=== PATIENT | female | born 1950 | race African-American/Black ===

== ENCOUNTER 2017-06-21 21:00 | Emergency (ER) | payer MEDICARE, BC ==
[2017-06-21] MEDS ORDERED: LIDOCAINE 0.5%/EPINEPHRINE INJ 50 ML VIAL INJ ONE (22:58)
[2017-06-21] MEDS ORDERED: LIDOCAINE 2%/EPINEPHRINE INJ 20 ML VIAL INJ ONE (23:00)
--- NOTE | 2017-06-21 23:50 | ER Document Report ---
ED General - General Chief Complaint: Dialysis catheter site bleeding Stated Complaint: port bleeding Time Seen by Provider: 06/21/17 22:41 Notes: Patient is a 67-year-old female who presents with complaint of some bleeding from the insertion site of her temporary dialysis catheter. This was placed today at [place]. She says started bleeding on her way home from date. She continued to soak blood through gauze therefore eventually came to the ER. The catheter was placed by Dr. Colvin at [place]. Her precast molder is Dr. Leger. She is due for dialysis tomorrow. She is on Plavix. She held her Plavix today. Last time she had Plavix was yesterday. No other complaints at this time. She does have a posterior coronary artery stent that was placed 1 month ago and that is why she is on Plavix. TRAVEL OUTSIDE OF THE [place] IN LAST 30 DAYS: No - Related Data Allergies/Adverse Reactions: adhesive Allergy (Verified 06/21/17 22:25) hydrochlorothiazide Allergy (Verified 06/21/17 22:25) Iodine and Iodide Containing Produc Allergy (Verified 06/21/17 22:25) metoclopramide [From Reglan] Allergy (Verified 06/21/17 22:25) shellfish derived Allergy (Verified 06/21/17 22:25) Sulfa (Sulfonamide Antibiotics) Allergy (Verified 06/21/17 22:25) Past Medical History - Social History Smoking Status: Never Smoker Frequency of alcohol use: None Drug Abuse: None Family History: Reviewed & Not Pertinent Renal/ Medical History: Denies: Hx Peritoneal Dialysis Review of Systems - Review of Systems Notes: My Normal Review Basic REVIEW OF SYSTEMS: CONSTITUTIONAL : Denies fever, chills, or sweats. Denies recent illness. CARDIOVASCULAR: Denies chest pain. SKIN: Denies rash or skin lesions. NEUROLOGICAL: Denies altered mental status or loss of consciousness. ALL OTHER SYSTEMS REVIEWED AND NEGATIVE. Physical Exam - Vital signs Vitals: Temp Pulse Resp BP Pulse Ox 98.4 F 72 20 166/64 H 97 06/21/17 22:15 06/21/17 22:15 06/21/17 22:15 06/21/17 22:15 06/21/17 22:15 - Notes Notes: General Appearance: Well nourished, alert, cooperative, no acute distress, no obvious discomfort. Well-appearing. Vitals: reviewed, See vital signs table. Eyes: PERRL, EOMI, Conjuctiva clear Neck: Supple, no neck tenderness, Lungs: No wheezing, No rales, No rhonci, No accessory muscle use, good air exchange bilaterally. Heart: Normal rate, Regular rythm, No murmur, no rub Chest wall: Patient has a new temporary dialysis catheter placed in the right upper chest wall. She has slow venous oozing coming from the insertion site of the temporary dialysis catheter. Extremities: strength 5/5 in all extremities, good pulses in all extremities, no swelling or tenderness in the extremities, no edema. Skin: warm, dry, appropriate color, no rash Neuro: speech clear, oriented x 3, normal affect, responds appropriately to questions. Course - Re-evaluation Re-evalutation: 06/21/17 23:47 It has been 45 minutes since I injected lidocaine with epi around the insertion site of the Port-A-Cath and placed Surgifoam gauze over. Patient has had no further bleeding and site looks good. 06/21/17 23:57 Patient continues not have any bleeding around the catheter site. I did speak with Dr. Leger, patient's precast molder, who says that she can still receive dialysis through tomorrow. Encourage patient to return to the ER immediately if she has recurrent bleeding, any redness or swelling to the site, or if she has any further concerns. Patient agrees with plan will be discharged home. Dictation of this chart was performed using voice recognition software; therefore, there may be some unintended grammatical errors. - Vital Signs Vital signs: Temp Pulse Resp BP Pulse Ox 98.4 F 72 20 166/64 H 97 06/21/17 22:15 06/21/17 22:15 06/21/17 22:15 06/21/17 22:15 06/21/17 22:15 Discharge - Discharge Clinical Impression: Hemorrhage from dialysis catheter Condition: Good Disposition: HOME, SELF-CARE Additional Instructions: I did speak with Dr. Leger who says it is okay to have dialysis tomorrow. Please return to the ER if you have recurrent bleeding, redness or swelling around the catheter, or if you have any further concerns. Referrals: FELICITA HERNANDEZ, [Primary Care Provider] - Follow up as needed
[2017-06-22 00:25] VITALS: BP 178/71
== END 2017-06-22 00:23 | disposition home or self-care (01) ==
LOC: ER 21:00
DX: T82.838A Hemorrhage due to vascular prosthetic devices, implants and grafts, initial encounter (principal); Y84.1 Kidney dialysis as the cause of abnormal reaction of the patient, or of later complication, without mention of misadventure at the time of the procedure; Z95.5 Presence of coronary angioplasty implant and graft; Z79.02 Long term (current) use of antithrombotics/antiplatelets; Z91.048 Other nonmedicinal substance allergy status; Z88.8 Allergy status to other drugs, medicaments and biological substances; Z88.2 Allergy status to sulfonamides; Z91.013 Allergy to seafood
CPT/HCPCS: 99283; J3490

== ENCOUNTER 2017-10-28 12:24 | Emergency (ER) | payer MEDICARE, BC ==
--- NOTE | 2017-10-28 15:02 | ER Document Report ---
ED Medical Screen (RME) - General Chief Complaint: Fever Stated Complaint: FLU SYMPTOMS Time Seen by Provider: 10/28/17 14:52 Mode of Arrival: Ambulatory Information source: Patient Notes: 67 yr old female dialysis patient presents with right neck swelling sore throat. I have greeted and performed a rapid initial assessment of this patient. A comprehensive ED assessment and evaluation of the patient, analysis of test results and completion of the medical decision making process will be conducted by additional ED providers. PHYSICAL EXAMINATION: GENERAL: Well-appearing, well-nourished and in no acute distress. HEAD: Atraumatic, normocephalic. EYES: Pupils equal round extraocular movements intact, conjunctiva are normal. ENT: Nares patent right tonsillar exudate NECK: right neck mass LUNGS: No respiratory distress Musculoskeletal: Normal range of motion NEUROLOGICAL: Normal speech, normal gait. PSYCH: Normal mood, normal affect. SKIN: Warm, Dry, normal turgor, no rashes or lesions noted. TRAVEL OUTSIDE OF THE [place] IN LAST 30 DAYS: No - Related Data Allergies/Adverse Reactions: adhesive Allergy (Verified 10/28/17 12:27) hydrochlorothiazide Allergy (Verified 10/28/17 12:27) Iodine and Iodide Containing Produc Allergy (Verified 10/28/17 12:27) metoclopramide [From Reglan] Allergy (Verified 10/28/17 12:27) shellfish derived Allergy (Verified 10/28/17 12:27) Sulfa (Sulfonamide Antibiotics) Allergy (Verified 10/28/17 12:27) Past Medical History - Social History Chew tobacco use (# tins/day): No Frequency of alcohol use: None Drug Abuse: None Renal/ Medical History: Denies: Hx Peritoneal Dialysis Past Surgical History: Reports: Hx Cardiac Catheterization, Hx Orthopedic Surgery Physical Exam - Vital signs Vitals: Temp Pulse Resp BP Pulse Ox 99.8 F 84 18 115/72 99 10/28/17 12:43 10/28/17 12:43 10/28/17 12:43 10/28/17 12:43 10/28/17 12:43 Course - Vital Signs Vital signs: Temp Pulse Resp BP Pulse Ox 99.8 F 86 18 115/72 99 10/28/17 12:43 10/28/17 14:49 10/28/17 12:43 10/28/17 12:43 10/28/17 12:43
--- NOTE | 2017-10-28 15:32 | RADIOLOGY REPORT (SQ) ---
EXAM DESCRIPTION: CHEST PA/LAT COMPLETED DATE/TIME: 10/28/2017 3:21 pm REASON FOR STUDY: cough COMPARISON: 03/07/2007 EXAM PARAMETERS: NUMBER OF VIEWS: two views TECHNIQUE: Digital Frontal and Lateral radiographic views of the chest acquired. RADIATION DOSE: NA LIMITATIONS: none FINDINGS: LUNGS AND PLEURA: No opacities, masses or pneumothorax. No pleural effusion. MEDIASTINUM AND HILAR STRUCTURES: No masses or contour abnormalities. HEART AND VASCULAR STRUCTURES: Heart normal size. No evidence for failure. BONES: Renal osteodystrophy. HARDWARE: Vascular sheath subclavian. Stool lumen venous access catheter tip at the cavoatrial junc tion. OTHER: No other significant finding. IMPRESSION: No acute pulmonary disease. TECHNICAL DOCUMENTATION: JOB ID: [id number] [employer]- All Rights Reserved
[2017-10-28 15:36] LABS: A TYPE INFLUENZA AG NEGATIVE (NEGATIVE); B INFLUENZA AG NEGATIVE (NEGATIVE)
--- NOTE | 2017-10-28 15:41 | RADIOLOGY REPORT (SQ) ---
EXAM DESCRIPTION: CT SOFT TISSUE NECK WITHOUT COMPLETED DATE/TIME: 10/28/2017 3:29 pm REASON FOR STUDY: right neck mass COMPARISON: None. TECHNIQUE: Noncontrast scanning from skull base through lung apices with review of bone, soft tissue and lung windows. Reconstructed coronal and sagittal MPR images reviewed. All images stored on PAC S. All CT scanners at this facility use dose modulation, iterative reconstruction, and/or weight based d osing when appropriate to reduce radiation dose to as low as reasonably achievable (ALARA). [facility]: Dose Right [facility]: CareDose [facility]: Dose Right [facility]: Teradose 4D [facility]: [employer] RADIATION DOSE: CT Rad equipment meets quality standard of care and radiation dose reduction techniq ues were employed. CTDIvol: 14.7 mGy. DLP: 482 mGy-cm. mGy. LIMITATIONS: None. FINDINGS: SKULL BASE: Intact. MAJOR SALIVARY GLANDS: Mild asymmetric enlargement of the right submandibular gland with indistinct m argins. The left submandibular gland and the right and left parotid glands appear unremarkable. LYMPHADENOPATHY: No adenopathy. MUCOSAL MASSES OR ASYMMETRY: No mucosal masses or asymmetry. LARYNX/CORDS: No abnormal findings. LUNG APICES: Clear. BONES: Intact. Degenerative changes in the cervical spine THYROID: Normal size. No masses. PARANASAL SINUSES: Clear. OTHER: Mild edema/ inflammation in the submandibular subcutaneous fatty tissues. Left subclavian rachid nt. IMPRESSION: Mild inflammatory changes in the right submandibular gland suspicious for acute inflamma tion/ sialadenitis. No evidence of abscess or other soft tissue mass. No other significant findings . TECHNICAL DOCUMENTATION: JOB ID: [id number] Quality ID # [id number]: Final reports with documentation of one or more dose reduction techniques (e.g., Au tomated exposure control, adjustment of the mA and/or kV according to patient size, use of iterative reconstruction technique) 2010 [employer]- All Rights Reserved
[2017-10-28] MEDS ORDERED: PREDNISONE 20 MG TABLET PO ONE (16:17)
--- NOTE | 2017-10-28 16:18 | ER Document Report ---
ED General - General Chief Complaint: Fever Stated Complaint: FLU SYMPTOMS Time Seen by Provider: 10/28/17 14:52 Mode of Arrival: Ambulatory Notes: The patient is a 67-year-old female, past medical history ESRD (due for dialysis tomorrow), chronic bronchitis, presents with several days of a dry cough and right facial swelling that is worse when she eats. She was given antibiotics for a possible penumonia last week by her primary care physician without much relief of her symptoms. Patient denies fevers, neck stiffness, chest pain, shortness of breath, increased leg swelling, hemoptysis or rash. TRAVEL OUTSIDE OF THE [place] IN LAST 30 DAYS: No - Related Data Allergies/Adverse Reactions: adhesive Allergy (Verified 10/28/17 12:27) hydrochlorothiazide Allergy (Verified 10/28/17 12:27) Iodine and Iodide Containing Produc Allergy (Verified 10/28/17 12:27) metoclopramide [From Reglan] Allergy (Verified 10/28/17 12:27) shellfish derived Allergy (Verified 10/28/17 12:27) Sulfa (Sulfonamide Antibiotics) Allergy (Verified 10/28/17 12:27) Past Medical History - General Information source: Patient - Social History Smoking Status: Never Smoker Chew tobacco use (# tins/day): No Frequency of alcohol use: None Drug Abuse: None Family History: Reviewed & Not Pertinent Patient has suicidal ideation: No Patient has homicidal ideation: No Renal/ Medical History: Denies: Hx Peritoneal Dialysis Past Surgical History: Reports: Hx Cardiac Catheterization, Hx Orthopedic Surgery Review of Systems - Review of Systems Notes: REVIEW OF SYSTEMS: CONSTITUTIONAL: -fevers, -chills EENT: +right facial swelling, -eye pain, -difficulty swallowing, -nasal congestion CARDIOVASCULAR: -chest pain, -syncope. RESPIRATORY: +cough, -SOB GASTROINTESTINAL: -abdominal pain, -nausea, -vomiting, -diarrhea MUSCULOSKELETAL: -back pain, -neck pain SKIN: -rash or skin lesions. HEMATOLOGIC: -easy bruising or bleeding. LYMPHATIC: -swollen, enlarged glands. NEUROLOGICAL: -altered mental status or loss of consciousness, -headache, - neurologic symptoms PSYCHIATRIC: -anxiety, -depression. ALL OTHER SYSTEMS REVIEWED AND NEGATIVE. Physical Exam - Vital signs Vitals: Temp Pulse Resp BP Pulse Ox 99.8 F 84 18 115/72 99 10/28/17 12:43 01/05/18 12:43 10/28/17 12:43 10/28/17 12:43 10/28/17 12:43 - Notes Notes: PHYSICAL EXAMINATION: GENERAL: Well-appearing, well-nourished and in no acute distress. HEAD: Atraumatic, normocephalic. EYES: Pupils equal round and reactive to light, extraocular movements intact, sclera anicteric, conjunctiva are normal. ENT: swelling of right face and submandibular area, no stone seen in exit of parotid or submandibular ducts, nares patent, oropharynx clear without exudates. Moist mucous membranes. NECK: Normal range of motion, supple without lymphadenopathy LUNGS: Coarse breath sounds, no tachypnea. HEART: Regular rate and rhythm without murmurs ABDOMEN: Soft, nontender, normoactive bowel sounds. No guarding, no rebound. No masses appreciated. EXTREMITIES: Normal range of motion, no pitting or edema. No cyanosis. NEUROLOGICAL: Cranial nerves grossly intact. Normal speech, normal gait. Normal sensory and motor exams. PSYCH: Normal mood, normal affect. SKIN: Warm, Dry, normal turgor, no rashes or lesions noted. Course - Re-evaluation Re-evalutation: Patient with evidence of sialoadenitis on physical exam and CAT scan. No fevers. Instructed her to begin sialagogues and if the swelling worsens or she begins to develop a fever, begin to take clindamycin. She has coarse breath sounds and, with her known history of chronic bronchitis, will begin 5 days of prednisone and albuterol as needed. No shortness of breath and she is not hypoxic. Chest x-ray does not show any focal infiltrates and she is flu negative. Given strict return precautions and she understands. She has dialysis in the morning. - Vital Signs Vital signs: Temp Pulse Resp BP Pulse Ox 98.6 F 84 18 186/70 H 100 10/28/17 16:19 10/28/17 16:19 10/28/17 16:19 10/28/17 16:19 10/28/17 16:19 - Diagnostic Test Radiology reviewed: Image reviewed, Reports reviewed Radiology results interpreted by me: CXR: NAD Discharge - Discharge Clinical Impression: Bronchitis, Sialadenitis Condition: Stable Disposition: HOME, SELF-CARE Additional Instructions: Go to dialysis tomorrow. Eat sour lemon drops to help with the swelling of your salivary gland. If you begin to have fevers or worsening swelling, then begin clindamycin as directed. Take the full course of steroids and use albuterol every 4 hours as needed for any cough or wheezing. Follow with your primary care physician. BRONCHITIS WITH BRONCHOSPASM (WHEEZING): You have bronchitis with bronchospasm (wheezing). Sometimes people develop wheezing with a chest cold. This occurs either because of an underlying tendency toward asthma or because the virus itself irritates the bronchial tubes. This irritation causes cough, shortness of breath, and wheezing. Emergency treatment of bronchospasm may include adrenaline shots or bronchodilator aerosol. You may feel lightheaded and have a rapid pulse for an hour or two. Rest and get plenty of fluids. At home, we'll treat you with a bronchodilator inhaler. Corticosteroids may be required for some patients. Until you recover, avoid chemical fumes, dusts, pollens, and exercising in very cold or dry air. If you smoke, stop now! Most cases of bronchitis get better without antibiotics. We prescribe antibiotics when we believe bacteria are damaging your airways, or if there's high risk the bronchitis will worsen into pneumonia. Increase your fluid intake. A cool mist humidifier may make your lungs more comfortable. An expectorant (cough medicine that loosens phlegm) can help. Repeated episodes of bronchitis and bronchospasm may result in lung damage -- for example, chronic bronchitis, recurrent pneumonias, or emphysema. If you develop a fever, increased wheezing, chest pain, or severe shortness of breath, you should contact the doctor immediately. INHALED BRONCHODILATORS: You have received a treatment of and/or prescription for an inhaled bronchodilator -- a medication which stimulates the airways in the lung to dilate. This improves the flow of air in asthma, bronchitis, and emphysema. These medicines have some similarity to adrenaline, and can cause similar side effects: shakiness, racing heart, and a sense of nervousness. These side effects decrease with time. Contact your doctor if these side effects are severe. Do not over-use the medicine. Too-frequent use of the inhaler may make it ineffective. Call your doctor if the inhaler is not controlling your symptoms at the prescribed doses. STEROID MEDICATION: You have been given an injection of or oral medicine of the cortisone/ steroid class. This medication is used to control inflammation or allergy. Gurinder t is usually only given for a short period of time, until the acute process subsides. There are usually no side effects from short-term use of cortisone-like medications. Some persons feel an increased sense of well-being and are not sleepy at bedtime. Long-term use of cortisone medications is best avoided, unless required for a severe condition. If your condition does not remit, or relapses after the course of corticosteroid medication, you should consult your physician. USE OF ACETAMINOPHEN (Tylenol): Acetaminophen may be taken for pain relief or fever control. It's much safer than aspirin, offering a wider range of "safe" dosages. It is safe during . Some brand names are Tylenol, Panadol, Datril, Anacin 3, Tempra, and Liquiprin. Acetaminophen can be repeated every four hours. The following are maximum recommended dosages: >89 pounds or adults 650 mg to 900 mg Acetaminophen can be repeated every four hours. Maximum dose not to exceed 4000 mg a day. SMOKING: If you smoke, you should stop smoking. The tar and chemicals in cigarette smoke are harmful. Smoking has been shown to cause: emphysema chronic bronchitis lung cancer mouth and throat cancer stomach and pancreas cancer premature aging defects In addition, smoking increases ear and lung infections in children of smokers. FOLLOW-UP CARE: If you have been referred to a physician for follow-up care, call the physician s office for an appointment as you were instructed or within the next two days. If you experience worsening or a significant change in your symptoms, notify the physician immediately or return to the Emergency Department at any time for re-evaluation. Prescriptions: Clindamycin HCl 300 mg PO Q8H #21 capsule Prednisone [Deltasone 20 mg Tablet] 3 tab PO DAILY 4 Days tablet Forms: Elevated Blood Pressure Referrals: [facility] [Provider Group] - Follow up as needed
[2017-10-28 16:20] VITALS: BP 186/70
== END 2017-10-28 16:52 | disposition home or self-care (01) ==
LOC: ER 12:24
DX: J42 Unspecified chronic bronchitis (principal); K11.20 Sialoadenitis, unspecified; R50.9 Fever, unspecified; N18.6 End stage renal disease; R05 Cough; R22.0 Localized swelling, mass and lump, head
CPT/HCPCS: 99284; 87070; 87880; 87804; 71046; 70490; A9270; J7512

== ENCOUNTER 2017-12-07 07:36 | Inpatient (IN) | payer MEDICARE, BC ==
--- NOTE | 2017-12-07 07:50 | ER Document Report ---
ED General - General Stated Complaint: POSSIBLE STROKE TRAVEL OUTSIDE OF THE [place] IN LAST 30 DAYS: No - HPI Patient complains to provider of: Confusion speech changes Notes: Patient coming in today for feeling unwell and confusion and some speech changes. According to the patient she was feeling unwell yesterday was supposed to have an appointment to see a physician at [place] however came back home patient felt unwell last night as well as this morning states she was generally weak unable to get up for a total of one-point however when she did make it up and standing side to drive to her dialysis appointment. Patient states on the way that she became confused thought thinking that her blood sugar was low therefore went to a local [facility] to get something to eat at that time EMS was called. According EMS patient was having some speech impediments possible slurred speech. Upon my evaluation patient had waxing and waning of garbled speech patient looks to be mildly confused able to answer some questions clearly and go to garbled speech. Patient also stated she had a headache. Patient is hypertensive denies taking her medications today. Patient denies any trauma denies any fevers chills nausea vomiting. - Related Data Allergies/Adverse Reactions: adhesive Allergy (Verified 12/07/17 08:21) hydrochlorothiazide Allergy (Verified 12/07/17 08:21) Iodine and Iodide Containing Produc Allergy (Verified 12/07/17 08:21) metoclopramide [From Reglan] Allergy (Verified 12/07/17 08:21) shellfish derived Allergy (Verified 12/07/17 08:21) Sulfa (Sulfonamide Antibiotics) Allergy (Verified 12/07/17 08:21) Past Medical History - Social History Smoking Status: Unknown if Ever Smoked Family History: Reviewed & Not Pertinent Renal/ Medical History: Denies: Hx Peritoneal Dialysis Past Surgical History: Reports: Hx Cardiac Catheterization, Hx Orthopedic Surgery Review of Systems - Review of Systems Constitutional: No symptoms reported EENT: No symptoms reported Cardiovascular: No symptoms reported Respiratory: No symptoms reported Gastrointestinal: No symptoms reported Genitourinary: No symptoms reported Female Genitourinary: No symptoms reported Musculoskeletal: No symptoms reported Skin: No symptoms reported Hematologic/Lymphatic: No symptoms reported Neurological/Psychological: Headaches - Confusion speech changes Physical Exam - Vital signs Vitals: Pulse Ox 100 12/07/17 07:40 Interpretation: Normal - General General appearance: Appears well, Alert - HEENT Head: Normocephalic, Atraumatic Eyes: Normal Pupils: PERRL - Respiratory Respiratory status: No respiratory distress Chest status: Nontender Breath sounds: Normal Chest palpation: Normal Notes: There is catheter to the right upper chest no signs of infection - Cardiovascular Rhythm: Regular Heart sounds: Normal auscultation Murmur: No - Abdominal Inspection: Normal Distension: No distension Bowel sounds: Normal Tenderness: Nontender Organomegaly: No organomegaly - Back Back: Normal, Nontender - Extremities General upper extremity: Normal inspection, Nontender, Normal color, Normal ROM , Normal temperature General lower extremity: Normal inspection, Nontender, Normal color, Normal ROM , Normal temperature, Normal weight bearing. No: Laura's sign - Neurological Neuro grossly intact: Yes Cognition: Normal Herron Coma Scale Eye Opening: Spontaneous Alfonzo Coma Scale Verbal: Oriented Alfonzo Coma Scale Motor: Obeys Commands Alfonzo Coma Scale Total: 15 Speech: Normal - Patient seems to have some intermittent expressive aphasia with stuttering of speech patient on NIH score is able to explain the picture without difficulty however when reading sentences does have difficulty slight stuttering stating "I can read rather than this" stating the statement clearly. Motor strength normal: LUE, RUE, LLE, RLE Sensory: Normal Notes: Please refer to NIH score - Psychological Associated symptoms: Normal affect, Normal mood - Skin Skin Temperature: Warm Skin Moisture: Dry Skin Color: Normal Course - Re-evaluation Re-evalutation: 12/07/17 08:31 Patient is a end-stage renal disease patient on dialysis patient states night prior to arrival not feeling well states that she has weakness in the legs this morning woke up again weakness unable to get off the commode at time however was scheduled for dialysis therefore drove herself on the way to dialysis started feeling unwell again therefore pulled over a local [employer] because she thought sugar was getting low. Patient notified EMS to call EMS concern for garbled speech possible slurred speech. Upon my evaluation patient moving all 4 extremities NIH score was 0-1. Patient has intermittent garbled speech more confusion I think then actually slurring of words. Patient when reading pictures is able to tell me and explain the picture is able to read the sentences on the nih I have mild stuttering speech mild slurring of speech during this conversation. however states that she can read better than what she is doing right now patient has stuttering speech at that time. However as soon as we finished doing the NIH scale patient is able to tell me with great clarity that she was trying to go to her doctor's appointment at [place] yesterday when she started feeling unwell at that time and to return home.The speech impediment seems to be very intermittent with symptoms starting night prior and with a score of 0-1. Pt complains of headache with elevated bp. states did not take any medications the patient is no going to meet tpa criteria on set of symptoms night prior. Patient states she lives alone and currently do not have any family or witnesses at bedside. For the patient's past medical history there are multiple reasons for the patient to be confused think this is more the etiology. Again because patient started feeling "unwell" and still "feels unwell" since day prior did not think she is a candidate for TPA. 12/07/17 11:25 Patient confusion and speech has improved since lowering of her blood pressure. 12/07/17 11:33 MRI does not show any signs of acute stroke. Patient's feeling better after lowering of her blood pressure with labetalol. Patient resting currently now patient still has slight intermittent stuttering speech and some slight confusion no critical etiology seen on laboratory studies. Discussed with hospitalist and nephrology. Agreed to admit patient and follow the patient in consult. Patient now is able to tell me that her PCP is Dr. Cedeno at [facility] and states that her contact clerk is Dr. Leger. - Vital Signs Vital signs: Temp Pulse Resp BP Pulse Ox 97.0 F 82 12 156/67 H 100 12/07/17 08:04 12/07/17 10:45 12/07/17 12:01 12/07/17 12:01 12/07/17 12:01 - Laboratory Result Diagrams: 12/07/17 07:47 12/07/17 09:25 Laboratory results interpreted by me: 12/07/17 12/07/17 12/07/17 07:40 07:47 09:25 Hgb 11.7 L RDW 18.6 H Seg Neutrophils % 81.2 H Lymphocytes % 9.2 L Sodium 134.8 L Chloride 94 L BUN 56 H Creatinine 7.17 H Est GFR ( Amer) 7 L Est GFR (Non-Af Amer) 6 L Glucose 234 H POC Glucose 156 H Direct Bilirubin 0.5 H Critical Care Note - Critical Care Note Total time excluding time spent on procedures (mins): 35 Comments: Time spent for patient with possible strokelike symptoms according EMS performing full neurological exam and NIH score. Discharge - Discharge Clinical Impression: Confusion, Hypertensive urgency, End stage renal disease on dialysis Condition: Good Disposition: ADMITTED OBSERVATION Admitting Provider: Ke Gupta ED NIH Stroke Scale - NIH Stroke Scale *: 1. NIH scale should be completed with appropriate accompanying assessment tools. *: 2. The NIH should reflect what the patient is capable of doing and should not be coached by the clinician. 1a. Level of Consciousness: 0=Alert;keenly responsive -: 1=Drowsy -: 2=Obtunded -: 3=Coma/unresponsive or reflex to noxious stimuli. 1a. Responses: 0 1b. Orientation Questions: a. What month is it? -: b. How old are you? -: 0=Answers both questions correctly. -: 1=Answers one question correctly or patient is intubated or has orotracheal trauma. -: 2=Answers neither question correctly. 1b. Responses: 0 1c. Response to commands: a. Open and close eyes? -: b. Nutritionalist and release hand? -: Credit is given despite weakness. Demonstration of task is permitted. Substitute command if hands cannot be used. -: 0=Performs both tasks correctly -: 1=Performs one task correctly -: 2=Performs neither task correctly 1c. Responses: 0 2. Gaze: Establish eye contact and instruct patient to "Follow my finger" -: 0=Normal -: 1=Partial gaze palsy. Gaze is abnormal in one or both eyes, but where forced deviation or total gaze paresis is not present. -: 2=Forced deviation or total gaze paresis. 2. Responses: 0 3. Visual Mercado: Sees fingers in all four quadrants. -: 0=No visual loss. -: 1=Partial hemianopsia. -: 2=Complete hemianopsia. -: 3=Bilateral hemianopsia (including Cortical blindness) 3. Responses: 0 4. Facial Movement: Instruct patient to: -: a. Show me your teeth -: b. Raise your eyebrows -: c. Close your eyes -: d. Smile -: 0=Normal symmetrical movement -: 1=Minor paralysis (flattened nasolabial fold, asymmetry on smiling). -: 2=Partial paralysis (total or near total paralysis of lower face). -: 3=Complete paralysis of upper and lower face 4. Responses: 0 5. Motor functions (left arm): Alternate sides and extend each arm with palms down (90 degrees if sitting or 45 degrees for supine). -: 0=No drift;limb holds for full 10 seconds. -: 1=Drift; limb holds but drifts down before full 10 seconds, but does not hit bed. -: 2=Some effort against gravity; limb cannot get to or maintain position. -: 3=No effort against gravity; limb falls. -: 4=No movement. -: UN=Amputation, joint fusion, explain in comments. 5. Responses (left arm): 0 5. Motor Functions (right arm): Alternate sides and extend each arm with palms down (90 degrees if sitting or 45 degrees for supine). -: 0=No drift;limb holds for full 10 seconds. -: 1=Drift; limb holds but drifts down before full 10 seconds, but does not hit bed. -: 2=Some effort against gravity; limb cannot get to or maintain position. -: 3=No effort against gravity; limb falls. -: 4=No movement. -: UN=Amputation, joint fusion, explain in comments. 5. Responses (right arm): 0 6. Motor Functions (left leg): With patient lying supine, alternate sides and extend each leg (30 degrees always while supine). -: 0=No drift, leg holds position for full 5 seconds -: 1=Drift; leg falls before full 5 seconds but does not hit bed. -: 2=Some effort against gravity, leg falls to bed but some effort against gravity. -: 3=No effort against gravity, leg falls to bed immediately. -: 4=No movement. -: UN=Amputation, joint fusion; explain in comments. 6. Responses (left leg): 0 6. Motor Functions (right leg): With patient lying supine, alternate sides and extend each leg (30 degrees always while supine). -: 0=No drift, leg holds position for full 5 seconds -: 1=Drift; leg falls before full 5 seconds but does not hit bed. -: 2=Some effort against gravity, leg falls to bed but some effort against gravity. -: 3=No effort against gravity, leg falls to bed immediately. -: 4=No movement. -: UN=Amputation, joint fusion; explain in comments. 6. Responses (right leg): 0 7. Limb Ataxia: With eyes open instruct patient to: -: a. "Touch your finger to your nose". -: b. "Touch your heel to your grijalva" -: 0=Absent -: 1=Present in one limb. -: 2=Present in two limbs. -: UN=Amputation or joint fusion; explain in comments. 7. Responses: 0 8. Sensory: Test sensation using pinprick or noxious stimuli. Test as many body parts as possible. -: 0=Normal;no sensory loss -: 1=Mile to moderate sensory loss (patient feels pin prick but is less sharp on affected side). -: 2=Severe or total sensory loss. 8. Responses: 0 9. Best Language: Instruct patient to: -: a. "Describe what you see in this picture." -: b. "Name the items in this picture." -: c. "Read these sentences." -: 0=No aphasia, normal -: 1=Mild to moderate aphasia. -: 2=Severe aphasia -: 3=Mute, global aphasia, no usable speech or auditory comprehension. 9. Responses: 0 10. Articulation, Dysarthia: Instruct patient to: -: "Read these words" or "Repeat these words" -: 0=Normal -: 1=Mild to moderate; patient may slur some words but can be understood without difficulty. -: 2=Severe; patients speech so slurred as to be unintelligible in the absence of dysphasia. -: UN=Intubated or other physical barrier, explain in comments. 10. Responses: 1 11. Extinction or inattention: 0=No abnormality -: 1= Visual, tactile, auditory, spatial, or personal inattention or extinction to bilateral simulation in one or the sensory modalities. -: 2=Profound adia-inattention or adia-inattention to more than one modality; does not recognize own hand. 11. Responses: 0 Total Score: 1 Notes: Scored patient on 1 intermittent possible aphasia slurring speech.
[2017-12-07 08:02] LABS: INTERNATIONAL RATION (INR) 0.93
[2017-12-07 08:03] LABS: ABSOLUTE EOSINOPHILS # (AUTO) 0.1 10^3/uL (0.0-0.6); ABSOLUTE LYMPHOCYTES (AUTO) 0.8 10^3/uL (0.5-4.7); ABSOLUTE MONOCYTES (AUTO) 0.8 10^3/uL (0.1-1.4); ABSOLUTE NEUT (AUTO) 7.4 10^3/uL (1.7-8.2); BASOPHILS % (AUTO) 0.3 % (0-2); EOSINOPHILS % (AUTO) 1.1 % (0-6); HEMATOCRIT 36.1 % (36.0-47.0); HEMOGLOBIN 11.7 g/dL (12.0-15.5); LYMPHOCYTES % (AUTO) 9.2 % (13-45); MEAN CORPUSCULAR HGB CONC 32.4 g/dL (32.0-36.0); MEAN CORPUSCULAR VOLUME 86 fl (80-97); MONOCYTES % (AUTO) 8.2 % (3-13); PARTIAL THROMBOPLASTIN TIME 33.2 SEC (23.5-35.8); PLATELET COUNT 267 10^3/uL (150-450); RED BLOOD COUNT 4.19 10^6/uL (3.72-5.28); RED CELL DISTRIBUTION WIDTH 18.6 % (11.5-14.0); SEGMENTED NEUTROPHILS % (AUTO) 81.2 % (42-78); TOTAL CELLS COUNTED % (AUTO) 100 %; WHITE BLOOD COUNT 9.2 10^3/uL (4.0-10.5)
[2017-12-07 08:06] LABS: PROTHROMBIN TIME 13.1 SEC (11.4-15.4)
--- NOTE | 2017-12-07 08:14 | RADIOLOGY REPORT (SQ) ---
EXAM DESCRIPTION: CT HEAD WITHOUT COMPLETED DATE/TIME: 12/07/2017 8:00 am REASON FOR STUDY: bed t2 stroke alert COMPARISON: None. TECHNIQUE: Axial images acquired through the brain without intravenous contrast. Images reviewed wi th bone, brain and subdural windows. Images stored on PACS. All CT scanners at this facility use dose modulation, iterative reconstruction, and/or weight based d osing when appropriate to reduce radiation dose to as low as reasonably achievable (ALARA). [facility]: Dose Right [facility]: CareDose [facility]: Dose Right [facility]: Teradose 4D [facility]: Smart [facility] RADIATION DOSE: CT Rad equipment meets quality standard of care and radiation dose reduction techniq ues were employed. CTDIvol: 64.6 mGy. DLP: 1163 mGy-cm. mGy. LIMITATIONS: None. FINDINGS: VENTRICLES: Normal size and contour. CEREBRUM: No masses. No hemorrhage. No midline shift. No evidence for acute infarction. Minimal pa tchy predominantly deep periventricular low density regions. Suggestive of small vessel vasculopathy . CEREBELLUM: No masses. No hemorrhage. No alteration of density. No evidence for acute infarction. EXTRAAXIAL SPACES: No fluid collections. No masses. ORBITS AND GLOBE: No intra- or extraconal masses. Normal contour of globe without masses. CALVARIUM: No fracture. PARANASAL SINUSES: No fluid or mucosal thickening. SOFT TISSUES: No mass or hematoma. OTHER: No other significant finding. IMPRESSION: 1. Chronic small vessel disease is suggested. Otherwise, unremarkable CT of the brain w ithout contrast. Pertinent findings on the imaging study reported as a CRITICAL RESULT to QASIM VALERA DO at08:08 on 12/07/2017. Category of Critical Result: Stroke alert EVIDENCE OF ACUTE STROKE: NO. COMMENT: Quality ID # [id number]: Final reports with documentation of one or more dose reduction techniques (e.g., Automated exposure control, adjustment of the mA and/or kV according to patient size, use of iterative reconstruction technique) TECHNICAL DOCUMENTATION: JOB ID: [id number] [employer]- All Rights Reserved
[2017-12-07] MEDS ORDERED: ONDANSETRON HCL INJ/PF 4 MG/2 ML SDV IV ONE (08:20)
[2017-12-07] MEDS ORDERED: PROCHLORPERAZINE EDISYLATE INJ 10 MG/2 ML VIAL IV ONE (08:20)
[2017-12-07] MEDS ORDERED: LABETALOL HCL INJ 20 MG/4 ML DISP.SYRIN IV ONE (08:20)
--- NOTE | 2017-12-07 08:21 | RADIOLOGY REPORT (SQ) ---
EXAM DESCRIPTION: CHEST SINGLE VIEW COMPLETED DATE/TIME: 12/07/2017 7:59 am REASON FOR STUDY: bed t2 stroke alert COMPARISON: None. EXAM PARAMETERS: NUMBER OF VIEWS: One view. TECHNIQUE: Single frontal radiographic view of the chest acquired. RADIATION DOSE: NA LIMITATIONS: None. FINDINGS: LUNGS AND PLEURA: No acute infiltrates or effusions. MEDIASTINUM AND HILAR STRUCTURES: No masses. Contour normal. HEART AND VASCULAR STRUCTURES: Normal heart size aortic atherosclerosis. The pulmonary vasculature i s normal. BONES: Changes secondary to renal osteodystrophy by history. HARDWARE: None in the chest. OTHER: Dual lumen catheter again noted overlying distal SVC unchanged. Left subclavian stent in nancy ce. IMPRESSION: NO SIGNIFICANT INTERVAL CHANGE. TECHNICAL DOCUMENTATION: JOB ID: [id number] 2010 [employer]- All Rights Reserved
--- NOTE | 2017-12-07 09:41 | EKG REPORT ---
SEVERITY:- BORDERLINE ECG - SINUS RHYTHM BORDERLINE PROLONGED QT INTERVAL : Confirmed by: Malcolm Coles 07-Dec-2017 09:39:14
[2017-12-07 09:43] LABS: VENOUS BLOOD BASE EXCESS 0.8 mmol/L; VENOUS BLOOD HCO3 27.8 mmol/L (20-32); VENOUS BLOOD PCO2 55.6 mmHg (35-63); VENOUS BLOOD PH 7.32 (7.30-7.42)
[2017-12-07 09:58] LABS: ALANINE AMINOTRANSFERASE 24 U/L (9-52); ALBUMIN 3.8 g/dL (3.5-5.0); ALKALINE PHOSPHATASE 110 U/L (38-126); ANION GAP 16 (5-19); ASPARTATE AMINO TRANSFERASE 29 U/L (14-36); BILIRUBIN,DIRECT 0.5 mg/dL (0.0-0.4); BILIRUBIN,TOTAL 0.5 mg/dL (0.2-1.3); BLOOD UREA NITROGEN 56 mg/dL (7-20); CALCIUM 9.4 mg/dL (8.4-10.2); CARBON DIOXIDE 25 mmol/L (22-30); CHLORIDE 94 mmol/L (98-107); CREATINE KINASE 36 U/L (30-135); GLUCOSE 234 mg/dL (75-110); LIPASE 113.2 U/L (23-300); POTASSIUM 4.3 mmol/L (3.6-5.0); SODIUM 134.8 mmol/L (137-145); TOTAL PROTEIN 6.8 g/dL (6.3-8.2)
[2017-12-07 10:10] LABS: CREATINE KINASE MB 0.56 ng/mL (<4.55)
[2017-12-07 10:11] LABS: TROPONIN I < 0.012 ng/mL
--- NOTE | 2017-12-07 10:12 | RADIOLOGY REPORT (SQ) ---
EXAM DESCRIPTION: MRI HEAD WITHOUT COMPLETED DATE/TIME: 12/07/2017 9:57 am REASON FOR STUDY: confusion eval cva COMPARISON: CT 12/07/2017. TECHNIQUE: Multiplanar imaging includes non-contrasted T1, T2, FLAIR, and diffusion with ADC map seq uences. Images stored on PACS. LIMITATIONS: Mildly limiting motion artifact on some sequences. FINDINGS: ANATOMY: No anomalies. Normal vascular flow voids. Pituitary fossa normal. CSF SPACES: Age-appropriate appearance. No hydrocephalus, mass or abnormal fluid. No hemorrhage det ected. CEREBRUM: Sulci and gyri normal in size and contour. Spotty multifocal white matter signal on FLAIR imaging, bilateral moderate. Consistent with small vessel disease. No evidence of hemorrhage, mass, or extraaxial fluid collection. POSTERIOR FOSSA: No signal alteration. No hemorrhage. No edema, masses or mass effect. Internal kandace tory canals, cerebello-pontine angles, mastoids normal. DIFFUSION IMAGING: Negative for acute or sub-acute infarction. ORBITS: No masses. Globes normal. PARANASAL SINUSES: No fluid levels. Mucosa normal. OTHER: No other significant finding. IMPRESSION: 1. No evidence of acute abnormality. No recent CVA. 2. Chronic small vessel disease. EVIDENCE OF ACUTE STROKE: NO. TECHNICAL DOCUMENTATION: JOB ID: [id number] [employer]- All Rights Reserved
[2017-12-07] MEDS: OSELTAMIVIR PHOSPHATE 30 MG CAPSULE PO SCH (10:45)
[2017-12-07] MEDS ORDERED: ZOLPIDEM TARTRATE 5 MG TABLET PO PRN (11:48)
[2017-12-07] MEDS ORDERED: HYDRALAZINE HCL INJ/PF 20 MG/1 ML SDV IV ONE (12:45)
[2017-12-07] MEDS ORDERED: HYDRALAZINE HCL 50 MG TABLET PO SCH (14:00)
[2017-12-07] MEDS ORDERED: OSELTAMIVIR PHOSPHATE 30 MG CAPSULE PO ONE (15:00)
[2017-12-07] MEDS ORDERED: HEPARIN SOD (PORCINE) 1,000 UNIT/ML 10 ML VIAL IV PRN (15:57)
[2017-12-07] MEDS: ACETAMINOPHEN 325 MG TABLET PO PRN (16:45)
[2017-12-07] MEDS: ONDANSETRON HCL INJ/PF 4 MG/2 ML SDV IV PRN (16:46)
--- NOTE | 2017-12-07 17:52 | PDOC CONSULTATION ---
Consultation Consult Date: 12/07/17 Consult reason:: ESRD for HD History of Present Illness Admission Date/PCP: 12/07/17 13:15 FELICITA HERNANDEZ DO History of Present Illness: CODY SHAW is a 67 year old female with h/o DM, Hypertension, ESRD with FROYL[facility]/ Dr Leger was admitted with dyspnea and generalised weakness.She is currently being seen on dialysis and feels some better.She is able to talk without stoppage.She denies any chest pians,. She mentions that she has some shaking chills earlier yesterday and that there was some tenderness over her right IJ dialysis catheter. No c/o any redness or discharge. No definite c/o any focal weakness, Hypoglycemic symptoms. Past Medical History Cardiac Medical History: Reports: Hyperlipidemia, Hypertension-primary Endocrine Medical History: Reports: Diabetes Mellitus Type 1 Renal/ Medical History: Reports: End Stage Renal Disease, Secondary Hyperparathyroidism Hematology Medical History: Reports Anemia of Chronic Kidney Disease Past Surgical History Past Surgical History: Reports: Cardiac Catheterization, Cholecystectomy, Orthopedic Surgery Social History Smoking Status: Unknown if Ever Smoked Family History Parental Family History Reviewed: Yes Children Family History Reviewed: No Sibling(s) Family History Reviewed.: No Medication/Allergy Home Medications: Acyclovir [Zovirax 200 mg Capsule] 200 mg PO 5XD 12/07/17 Albuterol Sulfate [Proair HFA Inhalation Aerosol 8.5 gm MDI] 2 puff IH Q6HP PRN 12/07/17 Amlodipine Besylate [Norvasc 2.5 mg Tablet] 2.5 mg PO DAILY 12/07/17 Atorvastatin Calcium [Lipitor 40 mg Tablet] 40 mg PO QHS 12/07/17 Clopidogrel Bisulfate [Plavix 75 mg Tablet] 75 mg PO DAILY 12/07/17 Diazepam [Valium 5 mg Tablet] 2.5 mg PO HSP PRN 12/07/17 Docusate Sodium [Colace 100 mg Capsule] 100 mg PO BID 12/07/17 Escitalopram Oxalate [Lexapro] 20 mg PO DAILY 12/07/17 Famotidine [Pepcid 20 mg Tablet] 40 mg PO BID 12/07/17 Fluocinolone Acetonide 1 applic TOP BID 12/07/17 Hydromorphone HCl [Dilaudid 2 mg Tablet] 2 mg PO Q6HP PRN 12/07/17 Hydroxyzine HCl [Atarax 25 mg Tablet] 25 mg PO TIDP PRN 12/07/17 Ipratropium/Albuterol Sulfate [Duoneb 3 ml Ampul] 1 vial NEB Q4HP PRN 12/07/17 Levothyroxine Sodium [Synthroid] 137 mg PO Q6AM 12/07/17 Mirtazapine [Remeron 15 mg Tablet] 15 mg PO QHS 12/07/17 Nitroglycerin [Nitrostat 0.4 mg (1/150 Gr) Tabs 25/Bottle] 0.4 mg PO Q5MP PRN Nortriptyline HCl [Pamelor 10 mg Capsule] 10 mg PO QHS 12/07/17 Nystatin [Mycostatin Cream 15 gm] 1 applic TOP BID 12/07/17 Pantoprazole Sodium [Protonix] 40 mg PO BID 12/07/17 Polyethylene Glycol 3350 [Miralax Powder 17 gm/Packet] 1 packet PO BID 12/07/17 Tizanidine HCl [Zanaflex 4 mg Tablet] 4 mg PO Q8HP PRN 12/07/17 Allergies/Adverse Reactions: adhesive Allergy (Verified 12/07/17 08:21) hydrochlorothiazide Allergy (Verified 12/07/17 08:21) Iodine and Iodide Containing Produc Allergy (Verified 12/07/17 08:21) metoclopramide [From Reglan] Allergy (Verified 12/07/17 08:21) shellfish derived Allergy (Verified 12/07/17 08:21) Sulfa (Sulfonamide Antibiotics) Allergy (Verified 12/07/17 08:21) Review of Systems Constitutional: PRESENT: chills, fatigue, weakness. ABSENT: anorexia, fever(s) , headache(s), night sweats Nose, Mouth, and Throat: ABSENT: mouth pain, sore throat Cardiovascular: PRESENT: dyspnea on exertion. ABSENT: chest pain, edema, orthropnea, palpitations Gastrointestinal: ABSENT: abdominal pain, coffee ground emesis, diarrhea, dysphagia, heartburn, hematemesis, hematochezia, melena, nausea Genitourinary: PRESENT: other - anuric as she say she has bilateral nephrectomy. Neurological: ABSENT: confusion, convulsions, focal weakness, numbness, paresthesias Hematologic/Lymphatic: ABSENT: easy bruising, lymphadenopathy Physical Exam Vital Signs: Temp Pulse Resp BP Pulse Ox 97.0 F 82 12 156/67 H 100 12/07/17 08:04 12/07/17 10:45 12/07/17 12:01 12/07/17 12:01 12/07/17 12:01 General appearance: PRESENT: no acute distress Eye exam: PRESENT: conjunctiva pink, EOMI, PERRLA. ABSENT: conjunctival injection, nystagmus Ear exam: PRESENT: normal external ear exam Mouth exam: PRESENT: moist, neck supple Neck exam: PRESENT: other - Right IJ catheter.No redness or discharge atexit site.However she is mildly tender over the initial potion of the tunnel with no discharge expresed on milking it.. ABSENT: lymphadenopathy, meningismus, tenderness, thyromegaly, tracheal deviation Respiratory exam: PRESENT: clear to auscultation santhosh. ABSENT: crackles, rhonchi Cardiovascular exam: PRESENT: +S1, +S2, systolic murmur GI/Abdominal exam: PRESENT: normal bowel sounds, soft. ABSENT: organomegaly, tenderness Extremities exam: ABSENT: pedal edema Neurological exam: PRESENT: alert, awake, oriented to person, oriented to place Psychiatric exam: PRESENT: appropriate affect Skin exam: ABSENT: cyanosis, erythema, mottled Results Impressions: Chest X-Ray 12/07/17 07:45 IMPRESSION: NO SIGNIFICANT INTERVAL CHANGE. Head CT 12/07/17 07:45 IMPRESSION: 1. Chronic small vessel disease is suggested. Otherwise, unremarkable CT of the brain without contrast. Pertinent findings on the imaging study reported as a CRITICAL RESULT to QASIM VALERA DO at08:08 on 12/07/2017. Category of Critical Result: Stroke alert EVIDENCE OF ACUTE STROKE: NO. Head MRI 12/07/17 08:20 IMPRESSION: 1. No evidence of acute abnormality. No recent CVA. 2. Chronic small vessel disease. EVIDENCE OF ACUTE STROKE: NO. Assessment & Plan - Diagnosis (1) Weakness Plan: This symptom along with her chills and some tenderness over the initial potion of the the exiting tunnel is suspicious for possible catheter related infection.Will get blood c&s and load IV Vanc. Other DD includes the hypertensive emergency, TIA . She has no hypoglycemia as per initial labs here. Discussion done with Melvi machine stemmer. (2) Chills Plan: as mentioned earlier. (3) End stage renal disease on dialysis Plan: Patient seen on dialysis.Undergoing dialysis without any issues.Its being supervised to ensure safe and smooth procedure.VS stable .Orders were discussed with treating RN. (4) Hypertensive urgency Plan: Has improved with medications.
[2017-12-07] MEDS ORDERED: VANCOMYCIN HCL 1,000 MG in DEXTROSE 5%-WATER 250 ML IV PRN (18:00)
[2017-12-07] MEDS: LABETALOL HCL 200 MG TABLET PO SCH (19:09)
--- NOTE | 2017-12-07 19:17 | PDOC H&P ---
History of Present Illness Admission Date/PCP: 12/07/17 13:15 FELICITA HERNANDEZ DO Patient complains of: Confused today History of Present Illness: CODY SHAW is a 67 year old female to ED via ambulance due to confusion. Patient states that upon awakening she was not feeling like her usual self. She got ready to go to dialysis and is usually not take her usual medications. While she was in route in the car she felt kind of weak and with chills. She immediately went to [facility] since felt her blood sugar was low. Her blood sugar after eating was 106 Patient also complains of runny nose some cough. She admits taking the flu vaccine.On arrival to emergency room systolic blood pressure was higher than 200 and patient was medicated with labetalol [address] Carrion was consulted as patient gets dialysis Tuesday and Tuesday and he agreed to dialyzed. Patient was also evaluated through MRI out of concern of a TIA which was negative. Due to presentation the hospitalist service was consulted and prompted to admit Past Medical History Cardiac Medical History: Reports: Congestive Heart Failure, Hyperlipidema, Hypertension Pulmonary Medical History: Reports: None EENT Medical History: Reports: None Neurological Medical History: Reports: None Endocrine Medical History: Reports: Diabetes Mellitus Type 2 Renal/ Medical History: Reports: End Stage Renal Disease Malignancy Medical History: Reports: None GI Medical History: Reports: None Musculoskeltal Medical History: Reports: None Skin Medical History: Reports: None Psychiatric Medical History: Reports: None Traumatic Medical History: Reports: None Infectious Medical History: Reports: None Past Surgical History Past Surgical History: Reports: Cardiac Catheterization, Cholecystectomy, Orthopedic Surgery Social History Information Source: Patient Lives with: Alone Smoking Status: Never Smoker Frequency of Alcohol Use: None Hx Recreational Drug Use: No Drugs: None Hx Prescription Drug Abuse: Yes Family History Family History: Hypertension Parental Family History Reviewed: Yes Children Family History Reviewed: Yes Sibling(s) Family History Reviewed.: Yes Medication/Allergy Home Medications: Acyclovir [Zovirax 200 mg Capsule] 200 mg PO 5XD 12/07/17 Albuterol Sulfate [Proair HFA Inhalation Aerosol 8.5 gm MDI] 2 puff IH Q6HP PRN 12/07/17 Amlodipine Besylate [Norvasc 2.5 mg Tablet] 2.5 mg PO DAILY 12/07/17 Atorvastatin Calcium [Lipitor 40 mg Tablet] 40 mg PO QHS 12/07/17 Clopidogrel Bisulfate [Plavix 75 mg Tablet] 75 mg PO DAILY 12/07/17 Diazepam [Valium 5 mg Tablet] 2.5 mg PO HSP PRN 12/07/17 Docusate Sodium [Colace 100 mg Capsule] 100 mg PO BID 12/07/17 Escitalopram Oxalate [Lexapro] 20 mg PO DAILY 12/07/17 Famotidine [Pepcid 20 mg Tablet] 40 mg PO BID 12/07/17 Fluocinolone Acetonide 1 applic TOP BID 12/07/17 Hydromorphone HCl [Dilaudid 2 mg Tablet] 2 mg PO Q6HP PRN 12/07/17 Hydroxyzine HCl [Atarax 25 mg Tablet] 25 mg PO TIDP PRN 12/07/17 Ipratropium/Albuterol Sulfate [Duoneb 3 ml Ampul] 1 vial NEB Q4HP PRN 12/07/17 Levothyroxine Sodium [Synthroid] 137 mg PO Q6AM 12/07/17 Mirtazapine [Remeron 15 mg Tablet] 15 mg PO QHS 12/07/17 Nitroglycerin [Nitrostat 0.4 mg (1/150 Gr) Tabs 25/Bottle] 0.4 mg PO Q5MP PRN Nortriptyline HCl [Pamelor 10 mg Capsule] 10 mg PO QHS 12/07/17 Nystatin [Mycostatin Cream 15 gm] 1 applic TOP BID 12/07/17 Pantoprazole Sodium [Protonix] 40 mg PO BID 12/07/17 Polyethylene Glycol 3350 [Miralax Powder 17 gm/Packet] 1 packet PO BID 12/07/17 Tizanidine HCl [Zanaflex 4 mg Tablet] 4 mg PO Q8HP PRN 12/07/17 Allergies/Adverse Reactions: adhesive Allergy (Verified 12/07/17 08:21) hydrochlorothiazide Allergy (Verified 12/07/17 08:21) Iodine and Iodide Containing Produc Allergy (Verified 12/07/17 08:21) metoclopramide [From Reglan] Allergy (Verified 12/07/17 08:21) shellfish derived Allergy (Verified 12/07/17 08:21) Sulfa (Sulfonamide Antibiotics) Allergy (Verified 12/07/17 08:21) Review of Systems Constitutional: PRESENT: headache(s), weakness Nose, Mouth, and Throat: PRESENT: sore throat Cardiovascular: ABSENT: chest pain, dyspnea on exertion, orthropnea Respiratory: PRESENT: cough. ABSENT: dyspnea Gastrointestinal: PRESENT: nausea Genitourinary: ABSENT: dysuria, hematuria Musculoskeletal: ABSENT: joint swelling Neurological: PRESENT: confusion, weakness Psychiatric: ABSENT: depression, homidical ideation Physical Exam Vital Signs: Temp Pulse Resp BP Pulse Ox 97.0 F 82 12 156/67 H 100 12/07/17 08:04 12/07/17 10:45 12/07/17 12:01 12/07/17 12:01 12/07/17 12:01 General appearance: PRESENT: cooperative, thin Head exam: PRESENT: atraumatic, normocephalic Eye exam: PRESENT: conjunctiva pink, EOMI, PERRLA Ear exam: PRESENT: normal external ear exam Mouth exam: PRESENT: moist Neck exam: PRESENT: full ROM. ABSENT: JVD, lymphadenopathy, tenderness Respiratory exam: PRESENT: clear to auscultation santhosh Cardiovascular exam: PRESENT: RRR. ABSENT: diastolic murmur, systolic murmur Vascular exam: PRESENT: normal capillary refill GI/Abdominal exam: PRESENT: normal bowel sounds, soft. ABSENT: tenderness Rectal exam: PRESENT: deferred Extremities exam: ABSENT: full ROM, joint swelling, pedal edema Neurological exam: PRESENT: alert, awake, oriented to person, oriented to place , oriented to time, oriented to situation Psychiatric exam: PRESENT: appropriate affect, normal mood Skin exam: PRESENT: intact, normal color Results Impressions: Chest X-Ray 12/07/17 07:45 IMPRESSION: NO SIGNIFICANT INTERVAL CHANGE. Head CT 12/07/17 07:45 IMPRESSION: 1. Chronic small vessel disease is suggested. Otherwise, unremarkable CT of the brain without contrast. Pertinent findings on the imaging study reported as a CRITICAL RESULT to QASIM VALERA DO at08:08 on 12/07/2017. Category of Critical Result: Stroke alert EVIDENCE OF ACUTE STROKE: NO. Head MRI 12/07/17 08:20 IMPRESSION: 1. No evidence of acute abnormality. No recent CVA. 2. Chronic small vessel disease. EVIDENCE OF ACUTE STROKE: NO. Assessment & Plan - Diagnosis (1) Hypertensive encephalopathy Is this a current diagnosis for this admission?: Yes Plan: Likely presentation relates to hypertensive encephalopathy however I am also concerned that patient had a transient hypoglycemic episode which render her weak and confused. Patient will be admitted to telemetry unit and antihypertensive medication will be adjusted (2) ESRD (end stage renal disease) on dialysis Is this a current diagnosis for this admission?: Yes Plan: Patient getting dialysis while being interviewed (3) Diabetes Qualifiers: Diabetes mellitus type: type 2 Diabetes mellitus complication status: with circulatory complication Diabetes mellitus complication detail: with other circulatory complications Diabetes mellitus shelter insulin use: with flight agent use Qualified Code(s): E11.59 - Type 2 diabetes mellitus with other circulatory complications; Z79.4 - prison (current) use of insulin; Z79.4 - studio camera operator (current) use of insulin; Z79.4 - prison (current) use of insulin; Z79.4 - studio camera operator (current) use of insulin Is this a current diagnosis for this admission?: Yes Plan: Will place on Humalog sliding scale with bedside glucose before meals and at bedtime (4) Hypertensive urgency Is this a current diagnosis for this admission?: Yes Plan: Patient will be placed on Norvasc, hydralazine and labetalol - Time Time Spent: 50 to 70 Minutes Medications reviewed and adjusted accordingly: Yes Anticipated discharge: Home with Homehealth Within: within 24 hours - Inpatient Certification Based on my medical assessment, after consideration of the patient's comorbidities, presenting symptoms, or acuity I expect that the services needed warrant INPATIENT care.: No I certify that my determination is in accordance with my understanding of Medicare's requirements for reasonable and necessary INPATIENT services [42 CFR 412.3e].: Yes Medical Necessity: Need Close Monitoring Due to Risk of Patient Decompensation, Need For Continuous Telemetry Monitoring
[2017-12-07] MEDS ORDERED: GLUCAGON,HUMAN RECOMB 1 MG INJ IM PRN (19:18)
[2017-12-07] MEDS ORDERED: DEXTROSE 40% GEL 15 GM TUBE PO PRN ×2 (19:18)
[2017-12-07] MEDS ORDERED: DEXTROSE 50%-WATER 25 GM/50 ML DISP.SYRIN IV PRN ×2 (19:18)
[2017-12-07] MEDS: INSULIN LISPRO 100 UNIT/ML 3 ML VIAL SUBCUT PRN (19:20)
[2017-12-07] MEDS: ATORVASTATIN CALCIUM 40 MG TABLET PO SCH (22:46)
[2017-12-07] MEDS: HEPARIN SOD (PORCINE) 5,000 UNIT/ML 1 ML SYRINGE SUBCUT SCH (22:46)
[2017-12-08] MEDS: HYDRALAZINE HCL 50 MG TABLET PO SCH ×2 (04:48→05:02)
[2017-12-08] MEDS: LABETALOL HCL 200 MG TABLET PO SCH ×2 (04:48→05:02)
[2017-12-08] MEDS: ONDANSETRON HCL INJ/PF 4 MG/2 ML SDV IV PRN ×2 (05:02→23:20)
[2017-12-08 07:00] LABS: ANION GAP 13 (5-19); BLOOD UREA NITROGEN 39 mg/dL (7-20); CALCIUM 8.9 mg/dL (8.4-10.2); CARBON DIOXIDE 26 mmol/L (22-30); CHLORIDE 96 mmol/L (98-107); GLUCOSE 122 mg/dL (75-110); POTASSIUM 4.4 mmol/L (3.6-5.0); SODIUM 134.6 mmol/L (137-145)
[2017-12-08] MEDS ORDERED: HYDRALAZINE HCL INJ/PF 20 MG/1 ML SDV IV PRN ×2 (08:16→14:30)
[2017-12-08] MEDS ORDERED: AMLODIPINE BESYLATE 10 MG TABLET PO SCH ×2 (10:00)
[2017-12-08] MEDS: CLOPIDOGREL BISULFATE 75 MG TABLET PO SCH (10:23)
[2017-12-08] MEDS: DOCUSATE SODIUM 100 MG CAPSULE PO SCH (10:23)
[2017-12-08] MEDS: HEPARIN SOD (PORCINE) 5,000 UNIT/ML 1 ML SYRINGE SUBCUT SCH ×2 (10:25→21:15)
--- NOTE | 2017-12-08 12:47 | PDOC PROGRESS REPORT ---
Subjective Progress Note for:: 12/08/17 Subjective:: Patient refers that she is feeling back to normal. States she always has soreness in the area where she had the dialysis cath. Review of system All organ systems evaluated and negative except as in subjective All significant laboratories and diagnostics have been reviewed Reason For Visit: HYPERTENSIVE URGENCY,HYPERTENSIVE ENCEPHALOPATHY Physical Exam Vital Signs: Temp Pulse Resp BP Pulse Ox 97.8 F 68 18 160/68 H 100 12/08/17 04:19 12/08/17 04:19 12/08/17 04:19 12/08/17 04:19 12/08/17 04:19 Intake & Output 12/06/17 12/07/17 12/08/17 06:59 06:59 06:59 Intake Total 0 Output Total 2700 Balance -2700 Weight 74.4 kg General appearance: PRESENT: cooperative, obese Head exam: PRESENT: atraumatic, normocephalic Eye exam: PRESENT: conjunctiva pink, EOMI, PERRLA Ear exam: PRESENT: normal external ear exam, TM's normal bilaterally Mouth exam: PRESENT: moist Teeth exam: PRESENT: poor dentation Neck exam: PRESENT: full ROM. ABSENT: JVD, lymphadenopathy, tenderness Respiratory exam: PRESENT: clear to auscultation santhosh Cardiovascular exam: PRESENT: RRR. ABSENT: diastolic murmur, systolic murmur Vascular exam: PRESENT: normal capillary refill GI/Abdominal exam: PRESENT: normal bowel sounds, soft. ABSENT: tenderness Extremities exam: PRESENT: full ROM. ABSENT: pedal edema Musculoskeletal exam: PRESENT: ambulatory, full ROM Neurological exam: PRESENT: alert, awake, oriented to person, oriented to place , oriented to time, oriented to situation, CN II-XII grossly intact Psychiatric exam: PRESENT: appropriate affect, normal mood Skin exam: PRESENT: intact, normal color Results Impressions: Chest X-Ray 12/07/17 07:45 IMPRESSION: NO SIGNIFICANT INTERVAL CHANGE. Head CT 12/07/17 07:45 IMPRESSION: 1. Chronic small vessel disease is suggested. Otherwise, unremarkable CT of the brain without contrast. Pertinent findings on the imaging study reported as a CRITICAL RESULT to QASIM VALERA DO at08:08 on 12/07/2017. Category of Critical Result: Stroke alert EVIDENCE OF ACUTE STROKE: NO. Head MRI 12/07/17 08:20 IMPRESSION: 1. No evidence of acute abnormality. No recent CVA. 2. Chronic small vessel disease. EVIDENCE OF ACUTE STROKE: NO. Assessment & Plan - Diagnosis (1) Hypertensive encephalopathy Is this a current diagnosis for this admission?: Yes Plan: Likely presentation relates to hypertensive encephalopathy however I am also concerned that patient had a transient hypoglycemic episode which render her weak and confused. Was started on vancomycin by Dr. Carrion since he was concerned about possible infection of the dialysis cath. However upon further questioning patient she is always tender in that area. Blood cultures are pending (2) ESRD (end stage renal disease) on dialysis Is this a current diagnosis for this admission?: Yes Plan: As per renal (3) Diabetes Qualifiers: Diabetes mellitus type: type 2 Diabetes mellitus complication status: with circulatory complication Diabetes mellitus complication detail: with other circulatory complications Diabetes mellitus longterm insulin use: with superintendent marine oil terminal use Qualified Code(s): E11.59 - Type 2 diabetes mellitus with other circulatory complications; Z79.4 - continuous churn buttermaker (current) use of insulin; Z79.4 - continuous churn buttermaker (current) use of insulin; Z79.4 - nursing home (current) use of insulin; Z79.4 - continuous churn buttermaker (current) use of insulin Is this a current diagnosis for this admission?: Yes Plan: Continue Humalog sliding scale with bedside glucose before meals and at bedtime (4) Hypertensive urgency Is this a current diagnosis for this admission?: Yes Plan: Resolved. Will adjust antihypertensive regimen order on admission and will keep her on Norvasc 5 mg p.o. daily with hydralazine IV for rescue - Time Time Spent with patient: Less than 15 minutes Medications reviewed and adjusted accordingly: Yes Anticipated discharge: Home with Homehealth Within: within 24 hours - Inpatient Certification Based on my medical assessment, after consideration of the patient's comorbidities, presenting symptoms, or acuity I expect that the services needed warrant INPATIENT care.: Yes I certify that my determination is in accordance with my understanding of Medicare's requirements for reasonable and necessary INPATIENT services [42 CFR 412.3e].: Yes Medical Necessity: Need Close Monitoring Due to Risk of Patient Decompensation, Need For Continuous Telemetry Monitoring
[2017-12-08] MEDS: ACETAMINOPHEN 325 MG TABLET PO PRN (13:39)
[2017-12-08] MEDS ORDERED: ACETAMINOPHEN 325 MG TABLET PO PRN (14:30)
[2017-12-08] MEDS: INSULIN LISPRO 100 UNIT/ML 3 ML VIAL SUBCUT PRN (18:53)
--- NOTE | 2017-12-08 20:30 | PDOC PROGRESS REPORT ---
Subjective Progress Note for:: 12/08/17 Subjective:: Patient was sitting up on the side of her bed when I went to examine her. She at the time had no complaints. She denies chest pain or shortness of breath. She feels a lot stronger than when she initially came in to the hospital. Reason For Visit: ENCEPHALOPATHY Physical Exam Vital Signs: Temp Pulse Resp BP Pulse Ox 98.2 F 75 18 144/82 H 100 12/08/17 15:52 12/08/17 15:52 12/08/17 15:52 12/08/17 15:52 12/08/17 15:52 Intake & Output 12/07/17 12/08/17 12/09/17 06:59 06:59 06:59 Intake Total 1170 Balance 1170 General appearance: PRESENT: no acute distress, well-developed, well-nourished Mouth exam: PRESENT: moist, neck supple Respiratory exam: PRESENT: clear to auscultation santhosh. ABSENT: accessory muscle use, crackles, rales, rhonchi, wheezes Cardiovascular exam: PRESENT: +S1, +S2, systolic murmur GI/Abdominal exam: PRESENT: normal bowel sounds, soft. ABSENT: organomegaly, tenderness Extremities exam: ABSENT: pedal edema, tenderness Musculoskeletal exam: PRESENT: normal inspection. ABSENT: tenderness Neurological exam: PRESENT: alert, awake, oriented to person, oriented to place , oriented to time, oriented to situation Psychiatric exam: PRESENT: appropriate affect, normal mood Skin exam: PRESENT: dry, intact, warm Results Impressions: Chest X-Ray 12/07/17 07:45 IMPRESSION: NO SIGNIFICANT INTERVAL CHANGE. Head CT 12/07/17 07:45 IMPRESSION: 1. Chronic small vessel disease is suggested. Otherwise, unremarkable CT of the brain without contrast. Pertinent findings on the imaging study reported as a CRITICAL RESULT to QASIM AVLERA DO at08:08 on 12/07/2017. Category of Critical Result: Stroke alert EVIDENCE OF ACUTE STROKE: NO. Head MRI 12/07/17 08:20 IMPRESSION: 1. No evidence of acute abnormality. No recent CVA. 2. Chronic small vessel disease. EVIDENCE OF ACUTE STROKE: NO. Assessment & Plan - Diagnosis (1) ESRD (end stage renal disease) on dialysis Is this a current diagnosis for this admission?: Yes Plan: Will arrange for dialysis tomorrow morning. Currently potassium is controlled and does not appear fluid overloaded. (2) Weakness Plan: improved after receiving some antibiotics and dialysis. (3) Chills Plan: currently no complaints of chills. (4) Hypertensive urgency Is this a current diagnosis for this admission?: Yes Plan: currently controlled - Notes Notes: Patients case and plan was discussed with Dr. Carrion.
[2017-12-08] MEDS: ATORVASTATIN CALCIUM 40 MG TABLET PO SCH (21:15)
[2017-12-08] MEDS: OXYCODONE-ACETAMINOPHEN 5-325 MG TABLET PO PRN (21:18)
[2017-12-09] MEDS ORDERED: HEPARIN SOD (PORCINE) 1,000 UNIT/ML 10 ML VIAL IV PRN (05:00)
[2017-12-09 05:30] LABS: ABSOLUTE BASOPHILS # (AUTO) 0.1 10^3/uL (0.0-0.2); ABSOLUTE EOSINOPHILS # (AUTO) 0.1 10^3/uL (0.0-0.6); ABSOLUTE LYMPHOCYTES (AUTO) 1.1 10^3/uL (0.5-4.7); ABSOLUTE MONOCYTES (AUTO) 0.4 10^3/uL (0.1-1.4); ABSOLUTE NEUT (AUTO) 4.8 10^3/uL (1.7-8.2); BASOPHILS % (AUTO) 0.9 % (0-2); EOSINOPHILS % (AUTO) 1.6 % (0-6); HEMATOCRIT 32.5 % (36.0-47.0); HEMOGLOBIN 10.5 g/dL (12.0-15.5); LYMPHOCYTES % (AUTO) 17.4 % (13-45); MEAN CORPUSCULAR HEMOGLOBIN 27.7 pg (27.0-33.4); MEAN CORPUSCULAR HGB CONC 32.3 g/dL (32.0-36.0); MEAN CORPUSCULAR VOLUME 86 fl (80-97); MONOCYTES % (AUTO) 6.6 % (3-13); PLATELET COUNT 198 10^3/uL (150-450); RED BLOOD COUNT 3.79 10^6/uL (3.72-5.28); RED CELL DISTRIBUTION WIDTH 18.6 % (11.5-14.0); SEGMENTED NEUTROPHILS % (AUTO) 73.5 % (42-78); TOTAL CELLS COUNTED % (AUTO) 100 %; WHITE BLOOD COUNT 6.6 10^3/uL (4.0-10.5)
[2017-12-09 05:31] LABS: ANION GAP 17 (5-19); BLOOD UREA NITROGEN 50 mg/dL (7-20); CALCIUM 9.4 mg/dL (8.4-10.2); CARBON DIOXIDE 24 mmol/L (22-30); CHLORIDE 93 mmol/L (98-107); GLUCOSE 243 mg/dL (75-110); SODIUM 133.8 mmol/L (137-145)
[2017-12-09] MEDS: ONDANSETRON HCL INJ/PF 4 MG/2 ML SDV IV PRN ×3 (05:38→21:19)
[2017-12-09] MEDS: INSULIN LISPRO 100 UNIT/ML 3 ML VIAL SUBCUT PRN ×2 (05:38→18:22)
[2017-12-09] MEDS: OXYCODONE-ACETAMINOPHEN 5-325 MG TABLET PO PRN ×2 (07:28→19:19)
--- NOTE | 2017-12-09 11:07 | PDOC PROGRESS REPORT ---
Subjective Progress Note for:: 12/09/17 Reason For Visit: Seen today on dialysis. She is undergoing dialysis without any issues. She is very happy. She denies any history of chest pains, shortness of breath. Good appetite. No complaints of any headaches or focal deficits. Labs and medications were reviewed with her. Orders were discussed with the treating dialysis nurse. Physical Exam Vital Signs: Temp Pulse Resp BP Pulse Ox 97.3 F 68 12 165/69 H 100 12/09/17 03:34 12/09/17 07:00 12/09/17 03:34 12/09/17 03:34 12/09/17 03:34 Intake & Output 12/08/17 12/09/17 12/10/17 06:59 06:59 06:59 Intake Total 1870 Balance 1870 Weight 77.9 kg General appearance: PRESENT: no acute distress Respiratory exam: PRESENT: clear to auscultation santhosh, symmetrical. ABSENT: crackles Cardiovascular exam: PRESENT: +S1, +S2, systolic murmur GI/Abdominal exam: PRESENT: normal bowel sounds, soft. ABSENT: organomegaly, tenderness Extremities exam: ABSENT: pedal edema Neurological exam: PRESENT: alert, awake, oriented to person, oriented to place Skin exam: ABSENT: cyanosis, mottled Results Laboratory Results: 12/09/17 04:37 12/09/17 04:37 12/09/17 12/09/17 04:37 04:37 WBC 6.6 RBC 3.79 Hgb 10.5 L Hct 32.5 L MCV 86 MCH 27.7 MCHC 32.3 RDW 18.6 H Plt Count 198 Seg Neutrophils % 73.5 Lymphocytes % 17.4 Monocytes % 6.6 Eosinophils % 1.6 Basophils % 0.9 Absolute Neutrophils 4.8 Absolute Lymphocytes 1.1 Absolute Monocytes 0.4 Absolute Eosinophils 0.1 Absolute Basophils 0.1 Sodium 133.8 L Potassium 5.0 Chloride 93 L Carbon Dioxide 24 Anion Gap 17 BUN 50 H Creatinine 7.41 H Est GFR ( Amer) 7 L Est GFR (Non-Af Amer) 6 L Glucose 243 H Calcium 9.4 Impressions: Chest X-Ray 12/07/17 07:45 IMPRESSION: NO SIGNIFICANT INTERVAL CHANGE. Head CT 12/07/17 07:45 IMPRESSION: 1. Chronic small vessel disease is suggested. Otherwise, unremarkable CT of the brain without contrast. Pertinent findings on the imaging study reported as a CRITICAL RESULT to QASIM VALERA DO at08:08 on 12/07/2017. Category of Critical Result: Stroke alert EVIDENCE OF ACUTE STROKE: NO. Head MRI 12/07/17 08:20 IMPRESSION: 1. No evidence of acute abnormality. No recent CVA. 2. Chronic small vessel disease. EVIDENCE OF ACUTE STROKE: NO. Assessment & Plan - Diagnosis (1) Weakness Plan: Resolving. (2) Chills Plan: Had initial suspicion of possible catheter related sepsis. However microbiology shows no growth and blood cultures. Therefore will not proceed with any further IV antibiotics. (3) End stage renal disease on dialysis Plan: Undergoing dialysis without any issues. Is being supervised to ensure safe and smooth procedure. Vital signs are stable. Plan to remove around 1.5 L of fluid. Orders were discussed with the treating nurse. (4) Hypertensive urgency Is this a current diagnosis for this admission?: Yes Plan: Relatively controlled. See the response to hemodialysis. Monitor.
[2017-12-09] MEDS: DOCUSATE SODIUM 100 MG CAPSULE PO SCH (13:00)
[2017-12-09] MEDS: CLOPIDOGREL BISULFATE 75 MG TABLET PO SCH (13:00)
[2017-12-09] MEDS: OSELTAMIVIR PHOSPHATE 30 MG CAPSULE PO SCH (13:01)
[2017-12-09] MEDS: AMLODIPINE BESYLATE 5 MG TABLET PO SCH (13:01)
[2017-12-09] MEDS: HEPARIN SOD (PORCINE) 5,000 UNIT/ML 1 ML SYRINGE SUBCUT SCH ×2 (13:01→21:20)
--- NOTE | 2017-12-09 16:43 | PDOC PROGRESS REPORT ---
Subjective Progress Note for:: 12/09/17 Subjective:: Patient refers that he had a similar episode likely she had to go to [place]. She began sweating and having chills. Nurse checked her blood sugar and it was low. Otherwise no other complaints Review of system All organ systems evaluated and negative except as in subjective All significant laboratories and diagnostics have been reviewed Reason For Visit: ENCEPHALOPATHY Physical Exam Vital Signs: Temp Pulse Resp BP Pulse Ox 97.3 F 67 12 165/69 H 100 12/09/17 03:34 12/09/17 03:34 12/09/17 03:34 12/09/17 03:34 12/09/17 03:34 Intake & Output 12/08/17 12/09/17 12/10/17 06:59 06:59 06:59 Intake Total 1870 Balance 1870 Weight 77.9 kg General appearance: PRESENT: cooperative, obese Head exam: PRESENT: atraumatic, normocephalic Eye exam: PRESENT: conjunctiva pink, EOMI, PERRLA Ear exam: PRESENT: normal external ear exam Mouth exam: PRESENT: moist Teeth exam: PRESENT: poor dentation Neck exam: PRESENT: full ROM. ABSENT: JVD, lymphadenopathy, tenderness Respiratory exam: PRESENT: clear to auscultation santhosh Cardiovascular exam: PRESENT: RRR. ABSENT: diastolic murmur, systolic murmur Vascular exam: PRESENT: normal capillary refill GI/Abdominal exam: PRESENT: normal bowel sounds, soft. ABSENT: tenderness Extremities exam: PRESENT: full ROM. ABSENT: pedal edema Musculoskeletal exam: PRESENT: ambulatory Neurological exam: PRESENT: alert, awake, oriented to person, oriented to place , oriented to time, oriented to situation, CN II-XII grossly intact Psychiatric exam: PRESENT: appropriate affect, normal mood Skin exam: PRESENT: intact, normal color Results Laboratory Results: 12/09/17 04:37 12/09/17 04:37 12/09/17 12/09/17 04:37 04:37 WBC 6.6 RBC 3.79 Hgb 10.5 L Hct 32.5 L MCV 86 MCH 27.7 MCHC 32.3 RDW 18.6 H Plt Count 198 Seg Neutrophils % 73.5 Lymphocytes % 17.4 Monocytes % 6.6 Eosinophils % 1.6 Basophils % 0.9 Absolute Neutrophils 4.8 Absolute Lymphocytes 1.1 Absolute Monocytes 0.4 Absolute Eosinophils 0.1 Absolute Basophils 0.1 Sodium 133.8 L Potassium 5.0 Chloride 93 L Carbon Dioxide 24 Anion Gap 17 BUN 50 H Creatinine 7.41 H Est GFR ( Amer) 7 L Est GFR (Non-Af Amer) 6 L Glucose 243 H Calcium 9.4 Impressions: Chest X-Ray 12/07/17 07:45 IMPRESSION: NO SIGNIFICANT INTERVAL CHANGE. Head CT 12/07/17 07:45 IMPRESSION: 1. Chronic small vessel disease is suggested. Otherwise, unremarkable CT of the brain without contrast. Pertinent findings on the imaging study reported as a CRITICAL RESULT to QASIM VALERA DO at08:08 on 12/07/2017. Category of Critical Result: Stroke alert EVIDENCE OF ACUTE STROKE: NO. Head MRI 12/07/17 08:20 IMPRESSION: 1. No evidence of acute abnormality. No recent CVA. 2. Chronic small vessel disease. EVIDENCE OF ACUTE STROKE: NO. Assessment & Plan - Diagnosis (1) Hypertensive encephalopathy Is this a current diagnosis for this admission?: Yes Plan: Patient had a witnessed episode of hypoglycemia therefore initial presentation related to metabolic encephalopathy secondary to hypoglycemia. Also there was an element due to hypertensive urgency (2) ESRD (end stage renal disease) on dialysis Is this a current diagnosis for this admission?: Yes Plan: As per renal 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: with terminal block assembler use Qualified Code(s): E11.59 - Type 2 diabetes mellitus with other circulatory complications; Z79.4 - superintendent marine oil terminal (current) use of insulin; Z79.4 - detention (current) use of insulin; Z79.4 - detention (current) use of insulin; Z79.4 - detention (current) use of insulin Is this a current diagnosis for this admission?: Yes Plan: Humulin sliding scale adjusted and also place patient on low-dose Lantus to see if can regulate the spikes. Let us see how she does tonight (4) Hypertensive urgency Is this a current diagnosis for this admission?: Yes Plan: Resolved. Continue current antihypertensive regimen - Time Time Spent with patient: 15-24 minutes Medications reviewed and adjusted accordingly: Yes Anticipated discharge: Home with Homehealth Within: within 48 hours - Inpatient Certification Based on my medical assessment, after consideration of the patient's comorbidities, presenting symptoms, or acuity I expect that the services needed warrant INPATIENT care.: Yes I certify that my determination is in accordance with my understanding of Medicare's requirements for reasonable and necessary INPATIENT services [42 CFR 412.3e].: Yes Medical Necessity: Need Close Monitoring Due to Risk of Patient Decompensation
[2017-12-09] MEDS: TIZANIDINE HCL 4 MG TABLET PO PRN (21:19)
[2017-12-09] MEDS: ATORVASTATIN CALCIUM 40 MG TABLET PO SCH (21:20)
[2017-12-10] MEDS: ONDANSETRON HCL INJ/PF 4 MG/2 ML SDV IV PRN ×2 (06:41→21:38)
[2017-12-10] MEDS: INSULIN LISPRO 100 UNIT/ML 3 ML VIAL SUBCUT PRN ×2 (08:24→12:02)
[2017-12-10] MEDS: OXYCODONE-ACETAMINOPHEN 5-325 MG TABLET PO PRN ×2 (08:24→21:38)
[2017-12-10] MEDS ORDERED: INSULIN DETEMIR 100 UNIT/ML 3 ML PEN SUBCUT SCH (10:00)
[2017-12-10] MEDS: DOCUSATE SODIUM 100 MG CAPSULE PO SCH (10:42)
[2017-12-10] MEDS: AMLODIPINE BESYLATE 5 MG TABLET PO SCH (10:42)
[2017-12-10] MEDS: HEPARIN SOD (PORCINE) 5,000 UNIT/ML 1 ML SYRINGE SUBCUT SCH ×2 (10:42→21:38)
[2017-12-10] MEDS: CLOPIDOGREL BISULFATE 75 MG TABLET PO SCH (10:42)
[2017-12-10] MEDS: INSULIN DETEMIR 100 UNIT/ML 3 ML PEN SUBCUT SCH (10:42)
--- NOTE | 2017-12-10 12:56 | PDOC PROGRESS REPORT ---
Subjective Progress Note for:: 12/10/17 Subjective:: feels alot better; no more syncope or presyncope. dialyzed yesterday without event. still very weak and fatigues easily but overall improved and denies chest pain, palpitations, fevers/chills. ROS: all systems reviewed, see above, remaining systems negative Reason For Visit: ENCEPHALOPATHY Physical Exam Vital Signs: Temp Pulse Resp BP Pulse Ox 97.7 F 70 20 125/34 L 100 12/10/17 12:06 12/10/17 12:06 12/10/17 12:06 12/10/17 12:06 12/10/17 12:06 Intake & Output 12/09/17 12/10/17 12/11/17 06:59 06:59 06:59 Intake Total 1870 1279 Output Total 1900 Balance 1870 -621 Weight 77.9 kg 77.4 kg General appearance: PRESENT: no acute distress, obese, well-developed Head exam: PRESENT: atraumatic, normocephalic Eye exam: ABSENT: conjunctival injection, scleral icterus Mouth exam: PRESENT: moist, tongue midline Teeth exam: PRESENT: dental caries, poor dentation Neck exam: PRESENT: full ROM Respiratory exam: PRESENT: crackles - bases. ABSENT: accessory muscle use, rhonchi, wheezes Cardiovascular exam: PRESENT: RRR, systolic murmur - 2/6 holosystolic Pulses: PRESENT: normal radial pulses GI/Abdominal exam: PRESENT: normal bowel sounds, soft. ABSENT: tenderness Extremities exam: PRESENT: pedal edema - trace. ABSENT: calf tenderness Musculoskeletal exam: PRESENT: full ROM Neurological exam: PRESENT: alert, awake, oriented to person, oriented to place , oriented to situation Psychiatric exam: PRESENT: appropriate affect, normal mood Skin exam: PRESENT: dry, warm Results Laboratory Results: 12/09/17 04:37 12/09/17 04:37 Impressions: Chest X-Ray 12/07/17 07:45 IMPRESSION: NO SIGNIFICANT INTERVAL CHANGE. Head CT 12/07/17 07:45 IMPRESSION: 1. Chronic small vessel disease is suggested. Otherwise, unremarkable CT of the brain without contrast. Pertinent findings on the imaging study reported as a CRITICAL RESULT to QASIM VALERA DO at08:08 on 12/07/2017. Category of Critical Result: Stroke alert EVIDENCE OF ACUTE STROKE: NO. Head MRI 12/07/17 08:20 IMPRESSION: 1. No evidence of acute abnormality. No recent CVA. 2. Chronic small vessel disease. EVIDENCE OF ACUTE STROKE: NO. Status: Imported from PACS Assessment & Plan - Diagnosis (1) Hypertensive encephalopathy Is this a current diagnosis for this admission?: Yes Plan: improved but not back to baseline, BPs still fluctuating though overall trend is improved and will likely need further titration of her regimen prior to d/c. no further syncope or presyncope and other eval unrevealing. (2) ESRD (end stage renal disease) on dialysis Is this a current diagnosis for this admission?: Yes Plan: M-W-F dialysis per nephro (3) Diabetes Qualifiers: Diabetes mellitus type: type 2 Diabetes mellitus complication status: with circulatory complication Diabetes mellitus complication detail: with other circulatory complications Diabetes mellitus residential insulin use: with termite control technician use Qualified Code(s): E11.59 - Type 2 diabetes mellitus with other circulatory complications; Z79.4 - USP (current) use of insulin; Z79.4 - USP (current) use of insulin; Z79.4 - termination clerk (current) use of insulin; Z79.4 - USP (current) use of insulin Is this a current diagnosis for this admission?: Yes Plan: stable with some thought that hypoglycemia may have contributed to her presentation as her post-prandial glucose was only 106 and symptoms certainly mimicked hypoglycemia. - Time Time Spent with patient: 25-34 minutes - Plan Summary Plan Summary: need to get her up and moving with supervision until back to baseline. probably home Tuesday after dialysis
[2017-12-10] MEDS: ATORVASTATIN CALCIUM 40 MG TABLET PO SCH (21:38)
[2017-12-11] MEDS ORDERED: HYDROXYZINE PAMOATE 25 MG CAPSULE PO ONE (00:39)
[2017-12-11] MEDS: OXYCODONE-ACETAMINOPHEN 5-325 MG TABLET PO PRN (08:12)
[2017-12-11] MEDS: DOCUSATE SODIUM 100 MG CAPSULE PO SCH (10:15)
[2017-12-11] MEDS: AMLODIPINE BESYLATE 5 MG TABLET PO SCH (10:15)
[2017-12-11] MEDS: INSULIN DETEMIR 100 UNIT/ML 3 ML PEN SUBCUT SCH (10:15)
[2017-12-11] MEDS: CLOPIDOGREL BISULFATE 75 MG TABLET PO SCH (10:15)
[2017-12-11] MEDS: HEPARIN SOD (PORCINE) 5,000 UNIT/ML 1 ML SYRINGE SUBCUT SCH ×2 (10:15→22:01)
[2017-12-11] MEDS: INSULIN LISPRO 100 UNIT/ML 3 ML VIAL SUBCUT PRN (11:19)
[2017-12-11] MEDS: ONDANSETRON HCL INJ/PF 4 MG/2 ML SDV IV PRN ×2 (11:19→17:32)
[2017-12-11] MEDS ORDERED: FLUCONAZOLE 100 MG TABLET PO ONE (12:00)
[2017-12-11] MEDS ORDERED: AMOXICILLIN TRIHYDRATE 500 MG CAPSULE PO ONE (12:30)
--- NOTE | 2017-12-11 16:08 | PDOC PROGRESS REPORT ---
Subjective Progress Note for:: 12/11/17 Subjective:: doesn't feel well today. c/o: -all over itching and dry skin; -left ear and neck pain described as intermittent sharp stabbing pain, worse with traction and movement, better with rest and denies purulent drainage, hearing loss, tinnitus or popping; -vaginal rash, burning and itching without blisters or discharge "like a yeast infection" denies chest pain, fevers/chills, palpitations, n/v/d. ROS: all systems reviewed, see above, remaining systems negative Reason For Visit: ENCEPHALOPATHY Physical Exam Vital Signs: Temp Pulse Resp BP Pulse Ox 98.2 F 78 17 170/60 H 100 12/11/17 07:15 12/11/17 14:00 12/11/17 07:15 12/11/17 07:15 12/11/17 07:15 Intake & Output 12/10/17 12/11/17 12/12/17 06:59 06:59 06:59 Intake Total 1279 1120 Output Total 1900 Balance -621 1120 Weight 77.4 kg 77.4 kg General appearance: PRESENT: appears ill this morning, obese, well-developed Head exam: PRESENT: atraumatic, normocephalic; external ears normal, no drainage or discharge but traction of the left ear elicits pain in the canal Mouth exam: PRESENT: moist, tongue midline Teeth exam: PRESENT: dental caries, poor dentation Neck exam: PRESENT: full ROM; small mobile, tender node under the angle of the jaw on the left Respiratory exam: PRESENT: crackles - bases. ABSENT: accessory muscle use, rhonchi, wheezes Cardiovascular exam: PRESENT: RRR, systolic murmur - 2/6 holosystolic Pulses: PRESENT: normal radial pulses GI/Abdominal exam: PRESENT: normal bowel sounds, soft. ABSENT: tenderness Extremities exam: PRESENT: pedal edema - trace. ABSENT: calf tenderness Musculoskeletal exam: PRESENT: full ROM Neurological exam: PRESENT: alert, awake, oriented to person, oriented to place , oriented to situation Psychiatric exam: PRESENT: appropriate affect, normal mood Skin exam: PRESENT: very dry, warm; inguinal folds erythematous, moist and malodorous Results Laboratory Results: 12/09/17 04:37 12/09/17 04:37 Assessment & Plan - Diagnosis (1) Hypertensive encephalopathy Is this a current diagnosis for this admission?: Yes Plan: fluctuating BPs, improved mentation not at goal but due for HD tuesday BPs, may need further titration of her regimen prior to d/c and after dialysis. no further syncope or presyncope and other eval unrevealing. (2) ESRD (end stage renal disease) on dialysis Is this a current diagnosis for this admission?: Yes Plan: M-W-F dialysis per nephro (3) Diabetes Qualifiers: Diabetes mellitus type: type 2 Diabetes mellitus complication status: with circulatory complication Diabetes mellitus complication detail: with other circulatory complications Diabetes mellitus intermediate insulin use: with emt intermediate use Qualified Code(s): E11.59 - Type 2 diabetes mellitus with other circulatory complications; Z79.4 - senior living (current) use of insulin; Z79.4 - senior living (current) use of insulin; Z79.4 - lobsterman (current) use of insulin; Z79.4 - lobsterman (current) use of insulin Is this a current diagnosis for this admission?: Yes Plan: stable with some thought that hypoglycemia may have contributed to her presentation as her post-prandial glucose was only 106 and symptoms certainly mimicked hypoglycemia. (4) Vaginal candidiasis Is this a current diagnosis for this admission?: Yes Plan: give dose of diflucan and start topical monistat and monitor for response (5) Otitis media Qualifiers: Otitis media type: unspecified Chronicity: acute Qualified Code(s): H66.90 - Otitis media, unspecified, unspecified ear Is this a current diagnosis for this admission?: Yes Plan: left ear; will add amoxil daily scheduled so she gets M-W-F dose after dialysis , add flonase and continue for one week - Time Time Spent with patient: 25-34 minutes - Plan Summary Plan Summary: possibly home after dialysis Tuesday
[2017-12-11] MEDS: MICONAZOLE NITRATE 2% VAGINAL CREAM 45 GM TUBE VG SCH (18:15)
[2017-12-11] MEDS: ATORVASTATIN CALCIUM 40 MG TABLET PO SCH (22:01)
[2017-12-12 06:54] LABS: ABSOLUTE EOSINOPHILS # (AUTO) 0.1 10^3/uL (0.0-0.6); ABSOLUTE MONOCYTES (AUTO) 0.5 10^3/uL (0.1-1.4); ABSOLUTE NEUT (AUTO) 4.3 10^3/uL (1.7-8.2); BASOPHILS % (AUTO) 0.8 % (0-2); EOSINOPHILS % (AUTO) 2.1 % (0-6); HEMOGLOBIN 9.8 g/dL (12.0-15.5); LYMPHOCYTES % (AUTO) 16.2 % (13-45); MEAN CORPUSCULAR HGB CONC 32.5 g/dL (32.0-36.0); MEAN CORPUSCULAR VOLUME 86 fl (80-97); MONOCYTES % (AUTO) 8.6 % (3-13); PLATELET COUNT 172 10^3/uL (150-450); RED BLOOD COUNT 3.48 10^6/uL (3.72-5.28); SEGMENTED NEUTROPHILS % (AUTO) 72.3 % (42-78); TOTAL CELLS COUNTED % (AUTO) 100 %; WHITE BLOOD COUNT 5.9 10^3/uL (4.0-10.5)
[2017-12-12] MEDS: ONDANSETRON HCL INJ/PF 4 MG/2 ML SDV IV PRN ×2 (07:01→17:16)
[2017-12-12] MEDS: OXYCODONE-ACETAMINOPHEN 5-325 MG TABLET PO PRN ×2 (07:01→17:54)
[2017-12-12 07:18] LABS: ANION GAP 14 (5-19); BLOOD UREA NITROGEN 45 mg/dL (7-20); CALCIUM 9.5 mg/dL (8.4-10.2); CARBON DIOXIDE 23 mmol/L (22-30); CHLORIDE 96 mmol/L (98-107); GLUCOSE 142 mg/dL (75-110); SODIUM 132.7 mmol/L (137-145)
[2017-12-12] MEDS: INSULIN DETEMIR 100 UNIT/ML 3 ML PEN SUBCUT SCH (10:36)
[2017-12-12] MEDS: HEPARIN SOD (PORCINE) 5,000 UNIT/ML 1 ML SYRINGE SUBCUT SCH ×2 (10:39→22:20)
[2017-12-12] MEDS: AMLODIPINE BESYLATE 5 MG TABLET PO SCH (10:41)
[2017-12-12] MEDS: AMOXICILLIN TRIHYDRATE 500 MG CAPSULE PO SCH (10:43)
[2017-12-12] MEDS: CLOPIDOGREL BISULFATE 75 MG TABLET PO SCH (10:43)
[2017-12-12] MEDS: DOCUSATE SODIUM 100 MG CAPSULE PO SCH (10:43)
[2017-12-12] MEDS: FLUTICASONE NASAL SPRAY 50 MCG/SPRY 120 SPRAY/16 GM NASL SCH (10:44)
[2017-12-12] MEDS: DIPHENHYDRAMINE HCL 25 MG CAPSULE PO PRN (10:44)
[2017-12-12] MEDS: INSULIN LISPRO 100 UNIT/ML 3 ML VIAL SUBCUT PRN (12:51)
[2017-12-12] MEDS ORDERED: HEPARIN SOD (PORCINE) 1,000 UNIT/ML 10 ML VIAL IV PRN (15:50)
[2017-12-12] MEDS ORDERED: EPOETIN ALFA 2,000 UNIT in SYRINGE, DISPOSABLE, 1 EACH IV ONE (18:00)
--- NOTE | 2017-12-12 18:13 | PDOC PROGRESS REPORT ---
Subjective Progress Note for:: 12/12/17 Subjective:: Called by the nurses down in dialysis due to elevated blood pressure of 184/84. The patient states she has had a headache now for several days. The patient has been on metoprolol in the past but was taken off by her cake tester. She is now only on amlodipine as an outpatient Reason For Visit: ENCEPHALOPATHY Physical Exam Vital Signs: Temp Pulse Resp BP Pulse Ox 98.1 F 75 18 177/64 H 100 12/12/17 11:35 12/12/17 14:00 12/12/17 11:35 12/12/17 11:35 12/12/17 11:35 Intake & Output 12/11/17 12/12/17 12/13/17 06:59 06:59 06:59 Intake Total 1120 697 480 Output Total 0 Balance 1120 697 480 Weight 77.4 kg 77.4 kg GENERAL: This is a well-developed and nourished appearing elderly - [place] female resting in transportation chair to be sent back to her room on the fifth floor. She is not currently in any acute distress. HEART: Regular rate and rhythm. 2 out of 6 systolic ejection murmur. No rubs or gallops. LUNGS: Clear to auscultation bilaterally with equal rise and fall of the chest. ABDOMEN: Soft, nontender, nondistended with normoactive bowel sounds EXTREMETIES: No clubbing, cyanosis or edema. 2+ peripheral pulses bilaterally. NEURO: Awake, alert and oriented 3. Cranial nerves II through XII are grossly intact. Results Laboratory Results: 12/12/17 06:17 12/12/17 06:17 12/12/17 12/12/17 06:17 06:17 WBC 5.9 RBC 3.48 L Hgb 9.8 L Hct 30.0 L MCV 86 MCH 28.0 MCHC 32.5 RDW 18.0 H Plt Count 172 Seg Neutrophils % 72.3 Lymphocytes % 16.2 Monocytes % 8.6 Eosinophils % 2.1 Basophils % 0.8 Absolute Neutrophils 4.3 Absolute Lymphocytes 1.0 Absolute Monocytes 0.5 Absolute Eosinophils 0.1 Absolute Basophils 0.0 Sodium 132.7 L Potassium 5.0 Chloride 96 L Carbon Dioxide 23 Anion Gap 14 BUN 45 H Creatinine 8.68 H Est GFR ( Amer) 6 L Est GFR (Non-Af Amer) 5 L Glucose 142 H Calcium 9.5 Impressions: Chest X-Ray 12/07/17 07:45 IMPRESSION: NO SIGNIFICANT INTERVAL CHANGE. Head CT 12/07/17 07:45 IMPRESSION: 1. Chronic small vessel disease is suggested. Otherwise, unremarkable CT of the brain without contrast. Pertinent findings on the imaging study reported as a CRITICAL RESULT to QASIM VALERA DO at08:08 on 12/07/2017. Category of Critical Result: Stroke alert EVIDENCE OF ACUTE STROKE: NO. Head MRI 12/07/17 08:20 IMPRESSION: 1. No evidence of acute abnormality. No recent CVA. 2. Chronic small vessel disease. EVIDENCE OF ACUTE STROKE: NO. Assessment & Plan - Diagnosis (1) Diabetes Qualifiers: Diabetes mellitus type: type 2 Diabetes mellitus complication status: with circulatory complication Diabetes mellitus complication detail: with other circulatory complications Diabetes mellitus teletypist insulin use: with teletypist use Qualified Code(s): E11.59 - Type 2 diabetes mellitus with other circulatory complications; Z79.4 - investigator fraud (current) use of insulin; Z79.4 - nursing home (current) use of insulin; Z79.4 - nursing home (current) use of insulin; Z79.4 - investigator fraud (current) use of insulin Is this a current diagnosis for this admission?: Yes Plan: Continue current medications. Continue Levemir and sliding scale insulin. (2) ESRD (end stage renal disease) on dialysis Is this a current diagnosis for this admission?: Yes Plan: Patient on dialysis Tuesday. (3) Hypertensive encephalopathy Is this a current diagnosis for this admission?: Yes (4) Vaginal candidiasis Is this a current diagnosis for this admission?: Yes (5) Otitis media Qualifiers: Otitis media type: unspecified Chronicity: acute Qualified Code(s): H66.90 - Otitis media, unspecified, unspecified ear Is this a current diagnosis for this admission?: Yes Plan: Continue amoxicillin as ordered. (6) Coronary artery disease Plan: Status post stent in the past continue Plavix. - Time Time Spent with patient: 15-24 minutes
[2017-12-12] MEDS: MICONAZOLE NITRATE 2% VAGINAL CREAM 45 GM TUBE VG SCH (18:38)
[2017-12-12] MEDS: ATORVASTATIN CALCIUM 40 MG TABLET PO SCH (22:20)
[2017-12-12] MEDS: METOPROLOL TARTRATE 25 MG TABLET PO SCH (22:20)
[2017-12-13] MEDS: ONDANSETRON HCL INJ/PF 4 MG/2 ML SDV IV PRN ×2 (08:16→15:20)
[2017-12-13] MEDS: HEPARIN SOD (PORCINE) 5,000 UNIT/ML 1 ML SYRINGE SUBCUT SCH ×2 (10:12→22:05)
[2017-12-13] MEDS: AMLODIPINE BESYLATE 5 MG TABLET PO SCH (10:13)
[2017-12-13] MEDS: DOCUSATE SODIUM 100 MG CAPSULE PO SCH (10:13)
[2017-12-13] MEDS: FLUTICASONE NASAL SPRAY 50 MCG/SPRY 120 SPRAY/16 GM NASL SCH (10:13)
[2017-12-13] MEDS: AMOXICILLIN TRIHYDRATE 500 MG CAPSULE PO SCH (10:13)
[2017-12-13] MEDS: METOPROLOL TARTRATE 25 MG TABLET PO SCH ×2 (10:13→22:06)
[2017-12-13] MEDS: INSULIN DETEMIR 100 UNIT/ML 3 ML PEN SUBCUT SCH (10:13)
[2017-12-13] MEDS: CLOPIDOGREL BISULFATE 75 MG TABLET PO SCH (10:13)
[2017-12-13] MEDS: INSULIN LISPRO 100 UNIT/ML 3 ML VIAL SUBCUT PRN ×2 (11:58→22:18)
[2017-12-13] MEDS: MICONAZOLE NITRATE 2% VAGINAL CREAM 45 GM TUBE VG SCH (17:07)
--- NOTE | 2017-12-13 19:14 | PDOC PROGRESS REPORT ---
Subjective Progress Note for:: 12/13/17 Subjective:: Pt states that she is feeling okay. Pt states that her blood pressure runs high at times. Reason For Visit: ENCEPHALOPATHY Physical Exam Vital Signs: Temp Pulse Resp BP Pulse Ox 98.0 F 65 18 152/66 H 100 12/13/17 15:24 12/13/17 15:24 12/13/17 15:24 12/13/17 15:24 12/13/17 15:24 Intake & Output 12/12/17 12/13/17 12/14/17 06:59 06:59 06:59 Intake Total 697 757 961 Output Total 2000 0 Balance 697 -1243 961 Weight 77.4 kg 77.4 kg General appearance: PRESENT: no acute distress, well-developed, well-nourished Head exam: PRESENT: atraumatic, normocephalic Eye exam: PRESENT: conjunctiva pink, EOMI. ABSENT: scleral icterus Ear exam: PRESENT: normal external ear exam Mouth exam: PRESENT: moist, tongue midline Neck exam: ABSENT: carotid bruit, JVD, lymphadenopathy, thyromegaly Respiratory exam: PRESENT: clear to auscultation santhosh. ABSENT: rales, rhonchi, wheezes Cardiovascular exam: PRESENT: RRR. ABSENT: diastolic murmur, rubs, systolic murmur Pulses: PRESENT: normal dorsalis pedis pul Vascular exam: PRESENT: normal capillary refill GI/Abdominal exam: PRESENT: normal bowel sounds, soft. ABSENT: distended, guarding, mass, organolmegaly, rebound, tenderness Rectal exam: PRESENT: deferred Extremities exam: PRESENT: full ROM. ABSENT: calf tenderness, clubbing, pedal edema Neurological exam: PRESENT: alert, awake, oriented to person, oriented to place , oriented to time, oriented to situation, CN II-XII grossly intact. ABSENT: motor sensory deficit Psychiatric exam: PRESENT: appropriate affect, normal mood. ABSENT: homicidal ideation, suicidal ideation Skin exam: PRESENT: dry, intact, warm. ABSENT: cyanosis, rash Results Laboratory Results: 12/12/17 06:17 12/12/17 06:17 Impressions: Chest X-Ray 12/07/17 07:45 IMPRESSION: NO SIGNIFICANT INTERVAL CHANGE. Head CT 12/07/17 07:45 IMPRESSION: 1. Chronic small vessel disease is suggested. Otherwise, unremarkable CT of the brain without contrast. Pertinent findings on the imaging study reported as a CRITICAL RESULT to QASIM VALERA DO at08:08 on 12/07/2017. Category of Critical Result: Stroke alert EVIDENCE OF ACUTE STROKE: NO. Head MRI 12/07/17 08:20 IMPRESSION: 1. No evidence of acute abnormality. No recent CVA. 2. Chronic small vessel disease. EVIDENCE OF ACUTE STROKE: NO. Assessment & Plan - Diagnosis (1) Diabetes Qualifiers: Diabetes mellitus type: type 2 Diabetes mellitus complication status: with circulatory complication Diabetes mellitus complication detail: with other circulatory complications Diabetes mellitus detention insulin use: with termite control service representative use Qualified Code(s): E11.59 - Type 2 diabetes mellitus with other circulatory complications; Z79.4 - supervisor intermediates (current) use of insulin; Z79.4 - supervisor intermediates (current) use of insulin; Z79.4 - half-way (current) use of insulin; Z79.4 - half-way (current) use of insulin Is this a current diagnosis for this admission?: Yes Plan: Ayesha and KERI (2) Coronary artery disease Is this a current diagnosis for this admission?: Yes Plan: S/P Stent: Plavix (3) ESRD (end stage renal disease) on dialysis Is this a current diagnosis for this admission?: Yes Plan: M/W/F (4) Hypertensive encephalopathy Is this a current diagnosis for this admission?: Yes Plan: Will continue current medications. (5) Otitis media Qualifiers: Otitis media type: unspecified Chronicity: acute Qualified Code(s): H66.90 - Otitis media, unspecified, unspecified ear Is this a current diagnosis for this admission?: Yes Plan: Continue antibiotics (6) Vaginal candidiasis Is this a current diagnosis for this admission?: Yes Plan: Monistat-7 Vaginal Cream - Time Time Spent with patient: 15-24 minutes
--- NOTE | 2017-12-13 19:45 | PDOC PROGRESS REPORT ---
Subjective Progress Note for:: 12/13/17 Subjective:: Currently doing well, she was just wondering when she would be getting out of the hospital. She denies of chest pain, SOB, nausea/vomiting, fevers or chills. Reason For Visit: ENCEPHALOPATHY Physical Exam Vital Signs: Temp Pulse Resp BP Pulse Ox 98.0 F 65 18 152/66 H 100 12/13/17 15:24 12/13/17 15:24 12/13/17 15:24 12/13/17 15:24 12/13/17 15:24 Intake & Output 12/12/17 12/13/17 12/14/17 06:59 06:59 06:59 Intake Total 697 757 961 Output Total 2000 0 Balance 697 -1243 961 Weight 77.4 kg 77.4 kg General appearance: PRESENT: no acute distress, well-developed, well-nourished Mouth exam: PRESENT: moist, neck supple Neck exam: PRESENT: full ROM. ABSENT: JVD Respiratory exam: PRESENT: clear to auscultation santhosh. ABSENT: accessory muscle use, crackles, rales, rhonchi, wheezes Cardiovascular exam: PRESENT: +S1, +S2, systolic murmur GI/Abdominal exam: PRESENT: normal bowel sounds, soft. ABSENT: organomegaly, tenderness Extremities exam: ABSENT: pedal edema, tenderness Musculoskeletal exam: PRESENT: normal inspection. ABSENT: tenderness Neurological exam: PRESENT: alert, awake, oriented to person, oriented to place , oriented to time, oriented to situation Psychiatric exam: PRESENT: appropriate affect, normal mood Skin exam: PRESENT: dry, intact, warm. ABSENT: cyanosis Results Laboratory Results: 12/12/17 06:17 12/12/17 06:17 Impressions: Chest X-Ray 12/07/17 07:45 IMPRESSION: NO SIGNIFICANT INTERVAL CHANGE. Head CT 12/07/17 07:45 IMPRESSION: 1. Chronic small vessel disease is suggested. Otherwise, unremarkable CT of the brain without contrast. Pertinent findings on the imaging study reported as a CRITICAL RESULT to QASIM VALERA DO at08:08 on 12/07/2017. Category of Critical Result: Stroke alert EVIDENCE OF ACUTE STROKE: NO. Head MRI 12/07/17 08:20 IMPRESSION: 1. No evidence of acute abnormality. No recent CVA. 2. Chronic small vessel disease. EVIDENCE OF ACUTE STROKE: NO. Assessment & Plan - Diagnosis (1) ESRD (end stage renal disease) on dialysis Is this a current diagnosis for this admission?: Yes Plan: Will arrange for dialysis tomorrow morning. Currently potassium is controlled and does not appear fluid overloaded. (2) Weakness Plan: improving (3) Chills Plan: currently no complaints of chills. (4) Hypertensive urgency Is this a current diagnosis for this admission?: Yes Plan: blood pressure looks to be mostly controlled
[2017-12-13] MEDS: ATORVASTATIN CALCIUM 40 MG TABLET PO SCH (22:05)
[2017-12-14] MEDS ORDERED: HEPARIN SOD (PORCINE) 1,000 UNIT/ML 10 ML VIAL IV PRN (05:00)
[2017-12-14 07:07] LABS: ANION GAP 15 (5-19); BLOOD UREA NITROGEN 34 mg/dL (7-20); CARBON DIOXIDE 25 mmol/L (22-30); CHLORIDE 95 mmol/L (98-107); GLUCOSE 100 mg/dL (75-110); POTASSIUM 5.2 mmol/L (3.6-5.0)
[2017-12-14 07:17] LABS: ABSOLUTE BASOPHILS # (AUTO) 0.1 10^3/uL (0.0-0.2); ABSOLUTE EOSINOPHILS # (AUTO) 0.2 10^3/uL (0.0-0.6); ABSOLUTE LYMPHOCYTES (AUTO) 1.1 10^3/uL (0.5-4.7); ABSOLUTE MONOCYTES (AUTO) 0.5 10^3/uL (0.1-1.4); ABSOLUTE NEUT (AUTO) 3.4 10^3/uL (1.7-8.2); HEMOGLOBIN 9.5 g/dL (12.0-15.5); LYMPHOCYTES % (AUTO) 20.8 % (13-45); MEAN CORPUSCULAR HGB CONC 32.7 g/dL (32.0-36.0); MEAN CORPUSCULAR VOLUME 85 fl (80-97); MONOCYTES % (AUTO) 10.2 % (3-13); PLATELET COUNT 164 10^3/uL (150-450); RED CELL DISTRIBUTION WIDTH 18.2 % (11.5-14.0); TOTAL CELLS COUNTED % (AUTO) 100 %; WHITE BLOOD COUNT 5.2 10^3/uL (4.0-10.5)
[2017-12-14] MEDS: AMLODIPINE BESYLATE 5 MG TABLET PO SCH (10:15)
[2017-12-14] MEDS: HEPARIN SOD (PORCINE) 5,000 UNIT/ML 1 ML SYRINGE SUBCUT SCH ×2 (10:16→21:53)
[2017-12-14] MEDS: DOCUSATE SODIUM 100 MG CAPSULE PO SCH (10:16)
[2017-12-14] MEDS: CLOPIDOGREL BISULFATE 75 MG TABLET PO SCH (10:18)
[2017-12-14] MEDS: ONDANSETRON HCL INJ/PF 4 MG/2 ML SDV IV PRN ×2 (10:19→22:57)
[2017-12-14] MEDS: METOPROLOL TARTRATE 25 MG TABLET PO SCH ×2 (10:19→21:52)
[2017-12-14] MEDS: INSULIN DETEMIR 100 UNIT/ML 3 ML PEN SUBCUT SCH (10:20)
[2017-12-14] MEDS: AMOXICILLIN TRIHYDRATE 500 MG CAPSULE PO SCH (10:21)
[2017-12-14] MEDS: FLUTICASONE NASAL SPRAY 50 MCG/SPRY 120 SPRAY/16 GM NASL SCH (10:27)
[2017-12-14] MEDS: INSULIN LISPRO 100 UNIT/ML 3 ML VIAL SUBCUT PRN ×2 (12:37→18:44)
[2017-12-14] MEDS ORDERED: EPOETIN ALFA INJ 20,000 UNIT/1 ML VIAL (ONCOLOGY) IV ONE ×3 (15:22→16:44)
[2017-12-14] MEDS ORDERED: EPOETIN ALFA 5,000 UNIT in SYRINGE, DISPOSABLE, 1 EACH IV PRN (15:55)
--- NOTE | 2017-12-14 16:12 | PDOC PROGRESS REPORT ---
Subjective Progress Note for:: 12/14/17 Subjective:: Patient complains of right sided flank mass that has been there for approximately 1 month. Patient states that he has gotten bigger and is very tender to touch. Reason For Visit: ENCEPHALOPATHY Physical Exam Vital Signs: Temp Pulse Resp BP Pulse Ox 98.4 F 59 L 17 142/53 H 100 12/14/17 11:37 12/14/17 14:00 12/14/17 11:37 12/14/17 11:37 12/14/17 11:37 Intake & Output 12/13/17 12/14/17 12/15/17 06:59 06:59 06:59 Intake Total 757 1849 Output Total 2000 0 Balance -1243 1849 Weight 77.4 kg 79.6 kg General appearance: PRESENT: no acute distress, well-developed, well-nourished Head exam: PRESENT: atraumatic, normocephalic Eye exam: PRESENT: conjunctiva pink, EOMI. ABSENT: scleral icterus Ear exam: PRESENT: normal external ear exam Mouth exam: PRESENT: moist, tongue midline Neck exam: ABSENT: carotid bruit, JVD, lymphadenopathy, thyromegaly Respiratory exam: PRESENT: clear to auscultation santhosh. ABSENT: rales, rhonchi, wheezes Cardiovascular exam: PRESENT: RRR. ABSENT: diastolic murmur, rubs, systolic murmur Pulses: PRESENT: normal dorsalis pedis pul Vascular exam: PRESENT: normal capillary refill GI/Abdominal exam: PRESENT: normal bowel sounds, soft, other - Right flank mass firm to palpation. ABSENT: distended, guarding, mass, organolmegaly, rebound, tenderness Rectal exam: PRESENT: deferred Extremities exam: PRESENT: full ROM. ABSENT: calf tenderness, clubbing, pedal edema Musculoskeletal exam: PRESENT: full ROM Neurological exam: PRESENT: alert, awake, oriented to person, oriented to place , oriented to time, oriented to situation, CN II-XII grossly intact. ABSENT: motor sensory deficit Psychiatric exam: PRESENT: appropriate affect, normal mood. ABSENT: homicidal ideation, suicidal ideation Skin exam: PRESENT: dry, intact, warm. ABSENT: cyanosis, rash Results Laboratory Results: 12/14/17 04:47 12/14/17 04:47 12/14/17 12/14/17 04:47 04:47 WBC 5.2 RBC 3.40 L Hgb 9.5 L Hct 29.0 L MCV 85 MCH 28.0 MCHC 32.7 RDW 18.2 H Plt Count 164 Seg Neutrophils % 65.0 Lymphocytes % 20.8 Monocytes % 10.2 Eosinophils % 3.0 Basophils % 1.0 Absolute Neutrophils 3.4 Absolute Lymphocytes 1.1 Absolute Monocytes 0.5 Absolute Eosinophils 0.2 Absolute Basophils 0.1 Sodium 135.0 L Potassium 5.2 H Chloride 95 L Carbon Dioxide 25 Anion Gap 15 BUN 34 H Creatinine 6.93 H Est GFR ( Amer) 7 L Est GFR (Non-Af Amer) 6 L Glucose 100 Calcium 9.0 Impressions: Chest X-Ray 12/07/17 07:45 IMPRESSION: NO SIGNIFICANT INTERVAL CHANGE. Head CT 12/07/17 07:45 IMPRESSION: 1. Chronic small vessel disease is suggested. Otherwise, unremarkable CT of the brain without contrast. Pertinent findings on the imaging study reported as a CRITICAL RESULT to QASIM VALERA DO at08:08 on 12/07/2017. Category of Critical Result: Stroke alert EVIDENCE OF ACUTE STROKE: NO. Head MRI 12/07/17 08:20 IMPRESSION: 1. No evidence of acute abnormality. No recent CVA. 2. Chronic small vessel disease. EVIDENCE OF ACUTE STROKE: NO. Assessment & Plan - Diagnosis (1) Diabetes Qualifiers: Diabetes mellitus type: type 2 Diabetes mellitus complication status: with circulatory complication Diabetes mellitus complication detail: with other circulatory complications Diabetes mellitus supervisor laboratory animal facility insulin use: with supervisor laboratory animal facility use Qualified Code(s): E11.59 - Type 2 diabetes mellitus with other circulatory complications; Z79.4 - retirement (current) use of insulin; Z79.4 - retirement (current) use of insulin; Z79.4 - retirement (current) use of insulin; Z79.4 - hand striper (current) use of insulin Is this a current diagnosis for this admission?: Yes Plan: Levemir and SSI (2) Coronary artery disease Is this a current diagnosis for this admission?: Yes Plan: S/P Stent: Plavix (3) ESRD (end stage renal disease) on dialysis Is this a current diagnosis for this admission?: Yes Plan: M/W/F (4) Hypertensive encephalopathy Is this a current diagnosis for this admission?: Yes Plan: Will continue current medications. (5) Otitis media Qualifiers: Otitis media type: unspecified Chronicity: acute Qualified Code(s): H66.90 - Otitis media, unspecified, unspecified ear Is this a current diagnosis for this admission?: Yes Plan: Continue antibiotics (6) Vaginal candidiasis Is this a current diagnosis for this admission?: Yes Plan: Monistat-7 Vaginal Cream (7) Right flank mass Is this a current diagnosis for this admission?: Yes Plan: Order CT of abdomen without contrast to assess right flank mass - Time Time Spent with patient: 15-24 minutes
[2017-12-14] MEDS: MICONAZOLE NITRATE 2% VAGINAL CREAM 45 GM TUBE VG SCH (18:45)
--- NOTE | 2017-12-14 19:26 | RADIOLOGY REPORT (SQ) ---
EXAM DESCRIPTION: CT ABDOMEN NO ORAL OR IV COMPLETED DATE/TIME: 12/14/2017 6:30 pm REASON FOR STUDY: Right Flanks Mass COMPARISON: None. TECHNIQUE: CT scan of the abdomen performed without intravenous contrast and without oral contrast. Images reviewed with lung, soft tissue, and bone windows. Reconstructed coronal and sagittal MPR im ages reviewed. All images stored on PACS. All CT scanners at this facility use dose modulation, iterative reconstruction, and/or weight based d osing when appropriate to reduce radiation dose to as low as reasonably achievable (ALARA). [facility]: Dose Right [facility]: CareDose [facility]: Dose Right [facility]: Teradose 4D [facility]: [employer] RADIATION DOSE: CT Rad equipment meets quality standard of care and radiation dose reduction techniq ues were employed. CTDIvol: 13.2 mGy. DLP: 460 mGy-cm.mGy. LIMITATIONS: None. FINDINGS: LOWER CHEST: Small right pleural effusion and basilar subsegmental atelectasis. NONCONTRASTED LIVER, SPLEEN, ADRENALS: Evaluation limited by lack of IV contrast. No identified sign ificant masses. PANCREAS: No masses. No peripancreatic inflammatory changes. GALLBLADDER: Surgically absent. RIGHT KIDNEY AND URETER: There is a large irregularly-shaped mass with multiple nodular components in the region of the right kidney, this measures approximately 14 cm in craniocaudad dimension extendin g inferiorly to the level of the iliac crest and approximately 17 cm transversely with a component ex tending through the abdominal -lower thoracic wall into the right flank subcutaneous soft tissues. T his heterogeneous low density mass measures between 15 and 25 Hounsfield units. LEFT KIDNEY AND URETER: Appears to be surgically absent. AORTA AND RETROPERITONEUM: No aneurysm. Large right retroperitoneal masses - adenopathy. BOWEL AND PERITONEAL CAVITY: No obvious inflammatory changes. No free fluid. BONES: No acute findings. OTHER: No other significant finding. IMPRESSION: There is a large irregularly-shaped mass with multiple nodular components in the region of the right kidney, this measures approximately 14 cm in craniocaudad dimension extending inferiorl y to the level of the iliac crest and approximately 17 cm transversely with a component extending thr ough the abdominal -lower thoracic wall into the right flank subcutaneous soft tissues. This heterog eneous low density mass measures between 15 and 25 Hounsfield units. Small right pleural effusion and basilar subsegmental atelectasis. TECHNICAL DOCUMENTATION: JOB ID: [id number] Quality ID # [id number]: Final reports with documentation of one or more dose reduction techniques (e.g., Au tomated exposure control, adjustment of the mA and/or kV according to patient size, use of iterative reconstruction technique) 2010 [employer]- All Rights Reserved
[2017-12-14] MEDS: ATORVASTATIN CALCIUM 40 MG TABLET PO SCH (21:52)
[2017-12-14] MEDS: NYSTATIN TOPICAL POWDER 15 GM TP SCH (21:53)
[2017-12-14] MEDS: ZOLPIDEM TARTRATE 5 MG TABLET PO PRN (21:53)
[2017-12-14] MEDS: OXYCODONE-ACETAMINOPHEN 5-325 MG TABLET PO PRN (21:53)
[2017-12-15] MEDS: OXYCODONE-ACETAMINOPHEN 5-325 MG TABLET PO PRN ×3 (06:54→21:22)
[2017-12-15] MEDS: ONDANSETRON HCL INJ/PF 4 MG/2 ML SDV IV PRN ×2 (06:54→21:22)
[2017-12-15 07:52] LABS: ABSOLUTE BASOPHILS # (AUTO) 0.1 10^3/uL (0.0-0.2); ABSOLUTE EOSINOPHILS # (AUTO) 0.2 10^3/uL (0.0-0.6); ABSOLUTE LYMPHOCYTES (AUTO) 1.1 10^3/uL (0.5-4.7); ABSOLUTE MONOCYTES (AUTO) 0.5 10^3/uL (0.1-1.4); ABSOLUTE NEUT (AUTO) 3.3 10^3/uL (1.7-8.2); BASOPHILS % (AUTO) 1.1 % (0-2); EOSINOPHILS % (AUTO) 3.1 % (0-6); HEMATOCRIT 29.5 % (36.0-47.0); HEMOGLOBIN 9.4 g/dL (12.0-15.5); LYMPHOCYTES % (AUTO) 21.6 % (13-45); MEAN CORPUSCULAR HEMOGLOBIN 27.8 pg (27.0-33.4); MEAN CORPUSCULAR HGB CONC 32.1 g/dL (32.0-36.0); MEAN CORPUSCULAR VOLUME 87 fl (80-97); PLATELET COUNT 196 10^3/uL (150-450); RED BLOOD COUNT 3.39 10^6/uL (3.72-5.28); RED CELL DISTRIBUTION WIDTH 18.4 % (11.5-14.0); SEGMENTED NEUTROPHILS % (AUTO) 65.2 % (42-78); TOTAL CELLS COUNTED % (AUTO) 100 %; WHITE BLOOD COUNT 5.1 10^3/uL (4.0-10.5)
[2017-12-15 08:07] LABS: ALANINE AMINOTRANSFERASE 26 U/L (9-52); ALBUMIN 3.3 g/dL (3.5-5.0); ALKALINE PHOSPHATASE 96 U/L (38-126); ANION GAP 12 (5-19); ASPARTATE AMINO TRANSFERASE 23 U/L (14-36); BILIRUBIN,DIRECT 0.3 mg/dL (0.0-0.4); BILIRUBIN,TOTAL 0.3 mg/dL (0.2-1.3); BLOOD UREA NITROGEN 18 mg/dL (7-20); CALCIUM 9.2 mg/dL (8.4-10.2); CARBON DIOXIDE 27 mmol/L (22-30); CHLORIDE 98 mmol/L (98-107); GLUCOSE 152 mg/dL (75-110); POTASSIUM 4.6 mmol/L (3.6-5.0); SODIUM 137.3 mmol/L (137-145)
[2017-12-15] MEDS: CLOPIDOGREL BISULFATE 75 MG TABLET PO SCH (09:22)
[2017-12-15] MEDS: DOCUSATE SODIUM 100 MG CAPSULE PO SCH (09:22)
[2017-12-15] MEDS: AMLODIPINE BESYLATE 5 MG TABLET PO SCH (09:22)
[2017-12-15] MEDS: METOPROLOL TARTRATE 25 MG TABLET PO SCH ×2 (09:23→21:22)
[2017-12-15] MEDS: HEPARIN SOD (PORCINE) 5,000 UNIT/ML 1 ML SYRINGE SUBCUT SCH ×2 (09:24→21:22)
[2017-12-15] MEDS: FLUTICASONE NASAL SPRAY 50 MCG/SPRY 120 SPRAY/16 GM NASL SCH (09:24)
[2017-12-15] MEDS: INSULIN DETEMIR 100 UNIT/ML 3 ML PEN SUBCUT SCH (09:24)
[2017-12-15] MEDS: NYSTATIN TOPICAL POWDER 15 GM TP SCH ×2 (09:30→21:22)
--- NOTE | 2017-12-15 13:56 | PDOC PROGRESS REPORT ---
Subjective Progress Note for:: 12/15/17 Subjective:: Pt states that he has not had a bowel movement for 2-3 days. Spoke to Radiology about results of CT of abd. Reason For Visit: ENCEPHALOPATHY Physical Exam Vital Signs: Temp Pulse Resp BP Pulse Ox 97.8 F 61 18 135/41 H 100 12/15/17 11:43 12/15/17 11:43 12/15/17 11:43 12/15/17 11:43 12/15/17 11:43 Intake & Output 12/14/17 12/15/17 12/16/17 06:59 06:59 06:59 Intake Total 1849 586 Output Total 0 2100 Balance 1849 -1514 Weight 79.6 kg 79.6 kg General appearance: PRESENT: no acute distress, well-developed, well-nourished Head exam: PRESENT: atraumatic, normocephalic Eye exam: PRESENT: conjunctiva pink, EOMI. ABSENT: scleral icterus Ear exam: PRESENT: normal external ear exam Mouth exam: PRESENT: moist, tongue midline Neck exam: ABSENT: carotid bruit, JVD, lymphadenopathy, thyromegaly Respiratory exam: PRESENT: clear to auscultation santhosh. ABSENT: rales, rhonchi, wheezes Cardiovascular exam: PRESENT: RRR. ABSENT: diastolic murmur, rubs, systolic murmur Pulses: PRESENT: normal dorsalis pedis pul Vascular exam: PRESENT: normal capillary refill GI/Abdominal exam: PRESENT: other - Right flank mass Rectal exam: PRESENT: deferred Extremities exam: PRESENT: full ROM. ABSENT: calf tenderness, clubbing, pedal edema Neurological exam: PRESENT: alert, awake, oriented to person, oriented to place , oriented to time, oriented to situation, CN II-XII grossly intact. ABSENT: motor sensory deficit Psychiatric exam: PRESENT: appropriate affect, normal mood. ABSENT: homicidal ideation, suicidal ideation Skin exam: PRESENT: dry, intact, warm. ABSENT: cyanosis, rash Results Laboratory Results: 12/15/17 06:30 12/15/17 06:30 12/15/17 12/15/17 06:30 06:30 WBC 5.1 RBC 3.39 L Hgb 9.4 L Hct 29.5 L MCV 87 MCH 27.8 MCHC 32.1 RDW 18.4 H Plt Count 196 Seg Neutrophils % 65.2 Lymphocytes % 21.6 Monocytes % 9.0 Eosinophils % 3.1 Basophils % 1.1 Absolute Neutrophils 3.3 Absolute Lymphocytes 1.1 Absolute Monocytes 0.5 Absolute Eosinophils 0.2 Absolute Basophils 0.1 Sodium 137.3 Potassium 4.6 Chloride 98 Carbon Dioxide 27 Anion Gap 12 BUN 18 Creatinine 4.89 H Est GFR ( Amer) 11 L Est GFR (Non-Af Amer) 9 L Glucose 152 H Calcium 9.2 Total Bilirubin 0.3 AST 23 ALT 26 Alkaline Phosphatase 96 Total Protein 6.0 L Albumin 3.3 L Impressions: Chest X-Ray 12/07/17 07:45 IMPRESSION: NO SIGNIFICANT INTERVAL CHANGE. Head CT 12/07/17 07:45 IMPRESSION: 1. Chronic small vessel disease is suggested. Otherwise, unremarkable CT of the brain without contrast. Pertinent findings on the imaging study reported as a CRITICAL RESULT to QASIM VALERA DO at08:08 on 12/07/2017. Category of Critical Result: Stroke alert EVIDENCE OF ACUTE STROKE: NO. Head MRI 12/07/17 08:20 IMPRESSION: 1. No evidence of acute abnormality. No recent CVA. 2. Chronic small vessel disease. EVIDENCE OF ACUTE STROKE: NO. Abdomen CT 12/14/17 00:00 IMPRESSION: There is a large irregularly-shaped mass with multiple nodular components in the region of the right kidney, this measures approximately 14 cm in craniocaudad dimension extending inferiorly to the level of the iliac crest and approximately 17 cm transversely with a component extending through the abdominal -lower thoracic wall into the right flank subcutaneous soft tissues. This heterogeneous low density mass measures between 15 and 25 Hounsfield units. Small right pleural effusion and basilar subsegmental atelectasis. Assessment & Plan - Diagnosis (1) Renal cell carcinoma Qualifiers: Laterality: right Qualified Code(s): C64.1 - Malignant neoplasm of right kidney, except renal pelvis Is this a current diagnosis for this admission?: Yes Plan: History of renal cell carcinoma with imaging suggesting recurrence: We will order MRI of abdomen without contrast. I spoke with Dr. Cool. Will consult Dr. Lawton and Syed. 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 insulin use: with intermediate school teacher use Qualified Code(s): E11.59 - Type 2 diabetes mellitus with other circulatory complications; Z79.4 - terminal operations manager (current) use of insulin; Z79.4 - terminal operations manager (current) use of insulin; Z79.4 - terminal operations manager (current) use of insulin; Z79.4 - jail (current) use of insulin Is this a current diagnosis for this admission?: Yes Plan: Levemir and SSI (4) Coronary artery disease Is this a current diagnosis for this admission?: Yes Plan: S/P Stent: Plavix (5) ESRD (end stage renal disease) on dialysis Is this a current diagnosis for this admission?: Yes Plan: M/W/F (6) Hypertensive encephalopathy Is this a current diagnosis for this admission?: Yes Plan: Will continue current medications. (7) Otitis media Qualifiers: Otitis media type: unspecified Chronicity: acute Qualified Code(s): H66.90 - Otitis media, unspecified, unspecified ear Is this a current diagnosis for this admission?: Yes Plan: Continue antibiotics (8) Vaginal candidiasis Is this a current diagnosis for this admission?: Yes Plan: Monistat-7 Vaginal Cream (9) Right flank mass Is this a current diagnosis for this admission?: Yes Plan: Suspect recurrence of renal cell carcinoma right side: Oncology consulted, MRI of abdomen ordered, and surgery consult placed. Spoke with radiology this morning about results of CT. Patient has been made aware of CT results and understands why we are proceeding with MRI of abdomen. - Time Time Spent with patient: 25-34 minutes
[2017-12-15] MEDS ORDERED: LORAZEPAM INJ 2 MG/1 ML VIAL IV ONE (17:30)
[2017-12-15] MEDS: ZOLPIDEM TARTRATE 5 MG TABLET PO PRN (21:22)
[2017-12-15] MEDS: ATORVASTATIN CALCIUM 40 MG TABLET PO SCH (21:22)
[2017-12-15] MEDS ORDERED: NYSTATIN TOPICAL POWDER 15 GM TP SCH (22:00)
--- NOTE | 2017-12-15 22:13 | RADIOLOGY REPORT (SQ) ---
EXAM DESCRIPTION: MRI ABDOMEN WITHOUT COMPLETED DATE/TIME: 12/15/2017 7:41 pm REASON FOR STUDY: Renal Cell Carcinoma COMPARISON: CT from 12/14/2017. TECHNIQUE: Noncontrast imaging to include T1, T2/STIR, in and out of phase T1. FINDINGS: Limited by lack of clinical information. Right renal region mass. MRI reveals extensive hyperintense T2 multi-cystic appearing tissue extendi ng from the right renal fossa laterally, through the deep abdominal wall into the subcutaneous tissue s. Peripheral and septated low T2 signal throughout. Full extent of lesion close to 17 cm transvers e dimension. Tissue extends to abut the liver without gross invasion. No normal renal tissue identi fied. Left kidney: Not discretely seen. Other organs: Sub optimal assessment without IV contrast. No gross liver or spleen mass. Small kvng unt of right pleural fluid. No bone lesions are suggested. No evidence of gross aortic aneurysm. IMPRESSION: 1. As seen on CT, there is abnormal tissue in the right renal fossa which extends to ab ut the liver and extends through the abdominal wall into the subcutaneous right flank tissues. Hyper intense T2 cystic changes are suggested throughout, but otherwise indeterminate. Findings are suspic ious for neoplasm given the extent and transgression of the abdominal wall. Patient also has a histo ry of traumas recently, however, which could contribute to the appearance. Presumably the [place] kid neys are otherwise markedly atrophic and not seen. TECHNICAL DOCUMENTATION: JOB ID: [id number]- All Rights Reserved
[2017-12-16] MEDS ORDERED: HEPARIN SOD (PORCINE) 1,000 UNIT/ML 10 ML VIAL IV PRN (05:00)
[2017-12-16] MEDS ORDERED: EPOETIN ALFA 10,000 UNIT in SYRINGE, DISPOSABLE, 1 EACH IV PRN (05:00)
[2017-12-16] MEDS ORDERED: EPOETIN ALFA INJ 20000 UNIT/1 ML VIAL (RENAL) IV PRN (05:00)
[2017-12-16] MEDS: ONDANSETRON HCL INJ/PF 4 MG/2 ML SDV IV PRN ×3 (05:38→21:26)
[2017-12-16] MEDS: OXYCODONE-ACETAMINOPHEN 5-325 MG TABLET PO PRN ×2 (05:38→21:26)
[2017-12-16 09:03] LABS: ABSOLUTE BASOPHILS # (AUTO) 0.1 10^3/uL (0.0-0.2); ABSOLUTE EOSINOPHILS # (AUTO) 0.2 10^3/uL (0.0-0.6); ABSOLUTE MONOCYTES (AUTO) 0.4 10^3/uL (0.1-1.4); ABSOLUTE NEUT (AUTO) 3.7 10^3/uL (1.7-8.2); BASOPHILS % (AUTO) 1.1 % (0-2); EOSINOPHILS % (AUTO) 3.5 % (0-6); HEMATOCRIT 30.8 % (36.0-47.0); LYMPHOCYTES % (AUTO) 18.3 % (13-45); MEAN CORPUSCULAR HEMOGLOBIN 27.8 pg (27.0-33.4); MEAN CORPUSCULAR HGB CONC 32.3 g/dL (32.0-36.0); MEAN CORPUSCULAR VOLUME 86 fl (80-97); MONOCYTES % (AUTO) 7.8 % (3-13); PLATELET COUNT 239 10^3/uL (150-450); RED BLOOD COUNT 3.59 10^6/uL (3.72-5.28); RED CELL DISTRIBUTION WIDTH 17.5 % (11.5-14.0); SEGMENTED NEUTROPHILS % (AUTO) 69.3 % (42-78); TOTAL CELLS COUNTED % (AUTO) 100 %; WHITE BLOOD COUNT 5.3 10^3/uL (4.0-10.5)
[2017-12-16 09:39] LABS: ALANINE AMINOTRANSFERASE 28 U/L (9-52); ALBUMIN 3.7 g/dL (3.5-5.0); ALKALINE PHOSPHATASE 99 U/L (38-126); ANION GAP 14 (5-19); ASPARTATE AMINO TRANSFERASE 21 U/L (14-36); BILIRUBIN,DIRECT 0.6 mg/dL (0.0-0.4); BILIRUBIN,TOTAL 0.6 mg/dL (0.2-1.3); BLOOD UREA NITROGEN 27 mg/dL (7-20); CALCIUM 9.2 mg/dL (8.4-10.2); CARBON DIOXIDE 27 mmol/L (22-30); CHLORIDE 95 mmol/L (98-107); GLUCOSE 152 mg/dL (75-110); POTASSIUM 5.2 mmol/L (3.6-5.0); SODIUM 135.6 mmol/L (137-145); TOTAL PROTEIN 6.4 g/dL (6.3-8.2)
[2017-12-16] MEDS: FLUTICASONE NASAL SPRAY 50 MCG/SPRY 120 SPRAY/16 GM NASL SCH (09:52)
[2017-12-16] MEDS: HEPARIN SOD (PORCINE) 5,000 UNIT/ML 1 ML SYRINGE SUBCUT SCH ×2 (09:52→21:26)
[2017-12-16] MEDS: INSULIN DETEMIR 100 UNIT/ML 3 ML PEN SUBCUT SCH (09:56)
[2017-12-16] MEDS: NYSTATIN TOPICAL POWDER 15 GM TP SCH ×2 (10:00→21:32)
--- NOTE | 2017-12-16 14:30 | PDOC PROGRESS REPORT ---
Subjective Progress Note for:: 12/16/17 Subjective:: Patient states that she is waiting to hear about plan for biopsy. Reason For Visit: ENCEPHALOPATHY Physical Exam Vital Signs: Temp Pulse Resp BP Pulse Ox 98.0 F 67 17 167/59 H 100 12/16/17 11:29 12/16/17 11:29 12/16/17 11:29 12/16/17 11:29 12/16/17 11:29 Intake & Output 12/15/17 12/16/17 12/17/17 06:59 06:59 06:59 Intake Total 586 1620 Output Total 2100 0 Balance -1514 1620 Weight 79.6 kg 76.9 kg General appearance: PRESENT: no acute distress, well-developed, well-nourished Head exam: PRESENT: atraumatic, normocephalic Eye exam: PRESENT: conjunctiva pink, EOMI. ABSENT: scleral icterus Ear exam: PRESENT: normal external ear exam Mouth exam: PRESENT: moist, tongue midline Neck exam: ABSENT: carotid bruit, JVD, lymphadenopathy, thyromegaly Respiratory exam: PRESENT: clear to auscultation santhosh. ABSENT: rales, rhonchi, wheezes Cardiovascular exam: PRESENT: RRR. ABSENT: diastolic murmur, rubs, systolic murmur Pulses: PRESENT: normal dorsalis pedis pul Vascular exam: PRESENT: normal capillary refill GI/Abdominal exam: PRESENT: other - Right side flank mass, positive bowel sounds , no guarding, no rebound Rectal exam: PRESENT: deferred Extremities exam: PRESENT: full ROM. ABSENT: calf tenderness, clubbing, pedal edema Musculoskeletal exam: PRESENT: full ROM Neurological exam: PRESENT: alert, awake, oriented to person, oriented to place , oriented to time, oriented to situation, CN II-XII grossly intact. ABSENT: motor sensory deficit Psychiatric exam: PRESENT: appropriate affect, normal mood. ABSENT: homicidal ideation, suicidal ideation Skin exam: PRESENT: dry, intact, warm. ABSENT: cyanosis, rash Results Laboratory Results: 12/16/17 08:13 12/16/17 08:43 12/16/17 12/16/17 08:13 08:43 WBC 5.3 RBC 3.59 L Hgb 10.0 L Hct 30.8 L MCV 86 MCH 27.8 MCHC 32.3 RDW 17.5 H Plt Count 239 Seg Neutrophils % 69.3 Lymphocytes % 18.3 Monocytes % 7.8 Eosinophils % 3.5 Basophils % 1.1 Absolute Neutrophils 3.7 Absolute Lymphocytes 1.0 Absolute Monocytes 0.4 Absolute Eosinophils 0.2 Absolute Basophils 0.1 Sodium 135.6 L Potassium 5.2 H Chloride 95 L Carbon Dioxide 27 Anion Gap 14 BUN 27 H Creatinine 6.73 H Est GFR ( Amer) 7 L Est GFR (Non-Af Amer) 6 L Glucose 152 H Calcium 9.2 Total Bilirubin 0.6 AST 21 ALT 28 Alkaline Phosphatase 99 Total Protein 6.4 Albumin 3.7 Impressions: Chest X-Ray 12/07/17 07:45 IMPRESSION: NO SIGNIFICANT INTERVAL CHANGE. Head CT 12/07/17 07:45 IMPRESSION: 1. Chronic small vessel disease is suggested. Otherwise, unremarkable CT of the brain without contrast. Pertinent findings on the imaging study reported as a CRITICAL RESULT to QASIM VALERA DO at08:08 on 12/07/2017. Category of Critical Result: Stroke alert EVIDENCE OF ACUTE STROKE: NO. Head MRI 12/07/17 08:20 IMPRESSION: 1. No evidence of acute abnormality. No recent CVA. 2. Chronic small vessel disease. EVIDENCE OF ACUTE STROKE: NO. Abdomen CT 12/14/17 00:00 IMPRESSION: There is a large irregularly-shaped mass with multiple nodular components in the region of the right kidney, this measures approximately 14 cm in craniocaudad dimension extending inferiorly to the level of the iliac crest and approximately 17 cm transversely with a component extending through the abdominal -lower thoracic wall into the right flank subcutaneous soft tissues. This heterogeneous low density mass measures between 15 and 25 Hounsfield units. Small right pleural effusion and basilar subsegmental atelectasis. Abdomen MRI 12/15/17 00:00 IMPRESSION: 1. As seen on CT, there is abnormal tissue in the right renal fossa which extends to abut the liver and extends through the abdominal wall into the subcutaneous right flank tissues. Hyperintense T2 cystic changes are suggested throughout, but otherwise indeterminate. Findings are suspicious for neoplasm given the extent and transgression of the abdominal wall. Patient also has a history of traumas recently, however, which could contribute to the appearance. Presumably the [place] kidneys are otherwise markedly atrophic and not seen. Assessment & Plan - Diagnosis (1) Renal cell carcinoma Qualifiers: Laterality: right Qualified Code(s): C64.1 - Malignant neoplasm of right kidney, except renal pelvis Is this a current diagnosis for this admission?: Yes Plan: History of renal cell carcinoma with imaging suggesting recurrence: Have requested for radiology to do needle biopsy mass for further evaluation. Appreciate oncology's assistance with patient's case. (2) Constipation Is this a current diagnosis for this admission?: Yes Plan: pt was given Soap suds enema yesterday. Will write for Glycerin suppository PRN. 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: with alf use Qualified Code(s): E11.59 - Type 2 diabetes mellitus with other circulatory complications; Z79.4 - snf (current) use of insulin; Z79.4 - extermination inspector (current) use of insulin; Z79.4 - snf (current) use of insulin; Z79.4 - extermination inspector (current) use of insulin Is this a current diagnosis for this admission?: Yes Plan: Levemir and SSI (4) Coronary artery disease Is this a current diagnosis for this admission?: Yes Plan: S/P Stent: Plavix (5) ESRD (end stage renal disease) on dialysis Is this a current diagnosis for this admission?: Yes Plan: M/W/F (6) Hypertensive encephalopathy Is this a current diagnosis for this admission?: Yes Plan: Will continue current medications. (7) Otitis media Qualifiers: Otitis media type: unspecified Chronicity: acute Qualified Code(s): H66.90 - Otitis media, unspecified, unspecified ear Is this a current diagnosis for this admission?: Yes Plan: Continue antibiotics (8) Vaginal candidiasis Is this a current diagnosis for this admission?: Yes Plan: Monistat-7 Vaginal Cream (9) Right flank mass Is this a current diagnosis for this admission?: Yes Plan: Suspect recurrence of renal cell carcinoma right side: Appreciate oncology's assistance. Have requested for radiology to perform biopsy on right flank mass. - Time Time Spent with patient: 15-24 minutes
--- NOTE | 2017-12-16 16:59 | PDOC CONSULTATION ---
Consultation Consult Date: 12/16/17 - Patient was seen at 7:50 this morning. Consult reason:: Hematology/Oncology consult was requested for patient with a history of renal cell carcinoma and abnormal CT History of Present Illness Admission Date/PCP: 12/08/17 08:16 FELICITA HERNANDEZ DO History of Present Illness: CODY SHAW is a 67 year old female to ED via ambulance due to confusion. Patient states that upon awakening she was not feeling like her usual self. She got ready to go to dialysis and is usually not take her usual medications. While she was in route in the car she felt kind of weak and with chills. She immediately went to [facility] since felt her blood sugar was low. Her blood sugar after eating was 106 Patient also complains of runny nose some cough. She admits taking the flu vaccine.On arrival to emergency room systolic blood pressure was higher than 200 and patient was medicated with labetalol [address] Carrion was consulted as patient gets dialysis Tuesday and Tuesday and he agreed to dialyzed. Patient was also evaluated through MRI out of concern of a TIA which was negative. Ms. Shaw has been on kidney dialysis for many years, even prior to her diagnosis of renal cell carcinoma. She states that she worked at [employer] during the contaminated water exposure and was diagnosed with renal cell carcinoma. She is followed by Dr. Nilton Shelley (Urology in [place]) for this. She has had bilateral nephrectomies in the past. She states that she never saw an oncologist after the nephrectomies. Recent CT showed a large mass in the Right renal fossa. Today, she states that she feels much better. Her confusion and sweats have improved. She still has some Right flank pain. SHe was recently treated for bronchitis with wheezing, but this is also improved. Past Medical History Cardiac Medical History: Reports: Congestive Heart Failure, Hyperlipidema, Hypertension Pulmonary Medical History: Reports: None EENT Medical History: Reports: None Neurological Medical History: Reports: None Endocrine Medical History: Reports: Diabetes Mellitus Type 1, Diabetes Mellitus Type 2 Renal/ Medical History: Reports: End Stage Renal Disease Malignancy Medical History: Reports: None, Renal (Kidney) Cancer GI Medical History: Reports: Gastroesophageal Reflux Disease Musculoskeltal Medical History: Reports: None Skin Medical History: Reports: None Psychiatric Medical History: Reports: None Traumatic Medical History: Reports: None Infectious Medical History: Reports: None Past Surgical History Past Surgical History: Reports: Cardiac Catheterization, Cholecystectomy, Orthopedic Surgery - Back and knee surgery, Vascular Surgery - shunt in the left arm for dialysis, Other - Bilateral nephrectomies Social History Information Source: 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 She is . She has no children. Lives with: Alone Smoking Status: Never Smoker Frequency of Alcohol Use: None Hx Recreational Drug Use: No Drugs: None Hx Prescription Drug Abuse: No - Advance Directive Resuscitation Status: Full Code Family History Family History: Hypertension Parental Family History Reviewed: Yes - Father with throat and lung cancer. Mother at age 83 with dementia Children Family History Reviewed: NA Sibling(s) Family History Reviewed.: Yes - 3 sisters with DM, HTN Medication/Allergy Home Medications: Acyclovir [Zovirax 200 mg Capsule] 200 mg PO 5XD 12/07/17 Albuterol Sulfate [Proair HFA Inhalation Aerosol 8.5 gm MDI] 2 puff IH Q6HP PRN 12/07/17 Amlodipine Besylate [Norvasc 2.5 mg Tablet] 2.5 mg PO DAILY 12/07/17 Atorvastatin Calcium [Lipitor 40 mg Tablet] 40 mg PO QHS 12/07/17 Clopidogrel Bisulfate [Plavix 75 mg Tablet] 75 mg PO DAILY 12/07/17 Diazepam [Valium 5 mg Tablet] 2.5 mg PO HSP PRN 12/07/17 Docusate Sodium [Colace 100 mg Capsule] 100 mg PO BID 12/07/17 Escitalopram Oxalate [Lexapro] 20 mg PO DAILY 12/07/17 Famotidine [Pepcid 20 mg Tablet] 40 mg PO BID 12/07/17 Fluocinolone Acetonide 1 applic TOP BID 12/07/17 Hydromorphone HCl [Dilaudid 2 mg Tablet] 2 mg PO Q6HP PRN 12/07/17 Hydroxyzine HCl [Atarax 25 mg Tablet] 25 mg PO TIDP PRN 12/07/17 Ipratropium/Albuterol Sulfate [Duoneb 3 ml Ampul] 1 vial NEB Q4HP PRN 12/07/17 Levothyroxine Sodium [Synthroid] 137 mg PO Q6AM 12/07/17 Mirtazapine [Remeron 15 mg Tablet] 15 mg PO QHS 12/07/17 Nitroglycerin [Nitrostat 0.4 mg (1/150 Gr) Tabs 25/Bottle] 0.4 mg PO Q5MP PRN Nortriptyline HCl [Pamelor 10 mg Capsule] 10 mg PO QHS 12/07/17 Nystatin [Mycostatin Cream 15 gm] 1 applic TOP BID 12/07/17 Pantoprazole Sodium [Protonix] 40 mg PO BID 12/07/17 Polyethylene Glycol 3350 [Miralax Powder 17 gm/Packet] 1 packet PO BID 12/07/17 Tizanidine HCl [Zanaflex 4 mg Tablet] 4 mg PO Q8HP PRN 12/07/17 Allergies/Adverse Reactions: adhesive Allergy (Verified 12/07/17 08:21) hydrochlorothiazide Allergy (Verified 12/07/17 08:21) Iodine and Iodide Containing Produc Allergy (Verified 12/07/17 08:21) metoclopramide [From Reglan] Allergy (Verified 12/07/17 08:21) shellfish derived Allergy (Verified 12/07/17 08:21) Sulfa (Sulfonamide Antibiotics) Allergy (Verified 12/07/17 08:21) Review of Systems Constitutional: PRESENT: night sweats. ABSENT: fever(s) Eyes: ABSENT: visual disturbances Ears: ABSENT: hearing changes Nose, Mouth, and Throat: ABSENT: mouth pain Cardiovascular: ABSENT: chest pain Respiratory: PRESENT: cough, other - wheezing. Gastrointestinal: PRESENT: nausea, vomiting Genitourinary: PRESENT: other - Right flank pain Integumentary: ABSENT: rash Neurological: PRESENT: confusion, other - Difficulty finding words Endocrine: PRESENT: flushing Physical Exam Vital Signs: Temp Pulse Resp BP Pulse Ox 98.0 F 67 17 167/59 H 100 12/16/17 11:29 12/16/17 11:29 12/16/17 11:29 12/16/17 11:29 12/16/17 11:29 Intake & Output 12/15/17 12/16/17 12/17/17 06:59 06:59 06:59 Intake Total 586 1620 237 Output Total 2100 0 600 Balance -1514 1620 -363 Weight 79.6 kg 76.9 kg General appearance: PRESENT: no acute distress, well-nourished Exam: 67 year old Female. Head exam: PRESENT: atraumatic Eye exam: PRESENT: PERRLA Mouth exam: PRESENT: tongue midline Neck exam: ABSENT: tenderness Respiratory exam: PRESENT: clear to auscultation santhosh, unlabored Cardiovascular exam: PRESENT: RRR GI/Abdominal exam: PRESENT: soft. ABSENT: tenderness Extremities exam: ABSENT: pedal edema Neurological exam: PRESENT: alert, awake, oriented to person, oriented to place , oriented to time Psychiatric exam: PRESENT: appropriate affect Skin exam: PRESENT: normal color Results Laboratory Results: 12/16/17 08:13 12/16/17 08:43 12/16/17 12/16/17 08:13 08:43 WBC 5.3 RBC 3.59 L Hgb 10.0 L Hct 30.8 L MCV 86 MCH 27.8 MCHC 32.3 RDW 17.5 H Plt Count 239 Seg Neutrophils % 69.3 Lymphocytes % 18.3 Monocytes % 7.8 Eosinophils % 3.5 Basophils % 1.1 Absolute Neutrophils 3.7 Absolute Lymphocytes 1.0 Absolute Monocytes 0.4 Absolute Eosinophils 0.2 Absolute Basophils 0.1 Sodium 135.6 L Potassium 5.2 H Chloride 95 L Carbon Dioxide 27 Anion Gap 14 BUN 27 H Creatinine 6.73 H Est GFR ( Amer) 7 L Est GFR (Non-Af Amer) 6 L Glucose 152 H Calcium 9.2 Total Bilirubin 0.6 AST 21 ALT 28 Alkaline Phosphatase 99 Total Protein 6.4 Albumin 3.7 Impressions: Chest X-Ray 12/07/17 07:45 IMPRESSION: NO SIGNIFICANT INTERVAL CHANGE. Head CT 12/07/17 07:45 IMPRESSION: 1. Chronic small vessel disease is suggested. Otherwise, unremarkable CT of the brain without contrast. Pertinent findings on the imaging study reported as a CRITICAL RESULT to QASIM VALERA DO at08:08 on 12/07/2017. Category of Critical Result: Stroke alert EVIDENCE OF ACUTE STROKE: NO. Head MRI 12/07/17 08:20 IMPRESSION: 1. No evidence of acute abnormality. No recent CVA. 2. Chronic small vessel disease. EVIDENCE OF ACUTE STROKE: NO. Abdomen CT 12/14/17 00:00 IMPRESSION: There is a large irregularly-shaped mass with multiple nodular components in the region of the right kidney, this measures approximately 14 cm in craniocaudad dimension extending inferiorly to the level of the iliac crest and approximately 17 cm transversely with a component extending through the abdominal -lower thoracic wall into the right flank subcutaneous soft tissues. This heterogeneous low density mass measures between 15 and 25 Hounsfield units. Small right pleural effusion and basilar subsegmental atelectasis. Abdomen MRI 12/15/17 00:00 IMPRESSION: 1. As seen on CT, there is abnormal tissue in the right renal fossa which extends to abut the liver and extends through the abdominal wall into the subcutaneous right flank tissues. Hyperintense T2 cystic changes are suggested throughout, but otherwise indeterminate. Findings are suspicious for neoplasm given the extent and transgression of the abdominal wall. Patient also has a history of traumas recently, however, which could contribute to the appearance. Presumably the [place] kidneys are otherwise markedly atrophic and not seen. Assessment & Plan - Diagnosis (1) Renal cell carcinoma Qualifiers: Laterality: right Qualified Code(s): C64.1 - Malignant neoplasm of right kidney, except renal pelvis Is this a current diagnosis for this admission?: Yes Plan: I will try to obtain old records from Dr. Nilton Shelley including pathology report. (2) Right flank mass Is this a current diagnosis for this admission?: Yes Plan: I have explained that I believe this may be cancer recurrence. However, I believe biopsy needs to be obtained to know for sure. I will try to arrange if possible Consider CT guided needle biopsy. (3) Confusion Plan: Now resolved. Patient appears to be thinking clearly and is a good historian. - Plan Summary Plan Summary: Thank you for this consultation. I will be happy to follow with you while in house as well as upon discharge.
[2017-12-16] MEDS: METOPROLOL TARTRATE 25 MG TABLET PO SCH ×2 (17:15→21:26)
[2017-12-16] MEDS: AMLODIPINE BESYLATE 5 MG TABLET PO SCH (17:15)
[2017-12-16] MEDS: DOCUSATE SODIUM 100 MG CAPSULE PO SCH (17:26)
--- NOTE | 2017-12-16 17:38 | PDOC PROGRESS REPORT ---
Subjective Progress Note for:: 12/16/17 Reason For Visit: Seen on dialysis today. Doing well.Denies any chest pains, dyspnea.Has constipation. No abdominal pains, fever or chills.Labs and meds were reviewed. Note recent CT abdomen revealed a right flank mass and Oncology has been consulted. Physical Exam Vital Signs: Temp Pulse Resp BP Pulse Ox 98.0 F 67 17 167/59 H 100 12/16/17 11:29 12/16/17 11:29 12/16/17 11:29 12/16/17 11:29 12/16/17 11:29 Intake & Output 12/15/17 12/16/17 12/17/17 06:59 06:59 06:59 Intake Total 586 1620 237 Output Total 2100 0 600 Balance -1514 1620 -363 Weight 79.6 kg 76.9 kg General appearance: PRESENT: no acute distress Respiratory exam: PRESENT: clear to auscultation santhosh. ABSENT: crackles, rhonchi Cardiovascular exam: PRESENT: +S1, +S2, systolic murmur GI/Abdominal exam: PRESENT: normal bowel sounds, soft. ABSENT: organomegaly, tenderness Extremities exam: ABSENT: pedal edema Neurological exam: PRESENT: alert, awake, oriented to person, oriented to place Results Laboratory Results: 12/16/17 08:13 12/16/17 08:43 12/16/17 12/16/17 08:13 08:43 WBC 5.3 RBC 3.59 L Hgb 10.0 L Hct 30.8 L MCV 86 MCH 27.8 MCHC 32.3 RDW 17.5 H Plt Count 239 Seg Neutrophils % 69.3 Lymphocytes % 18.3 Monocytes % 7.8 Eosinophils % 3.5 Basophils % 1.1 Absolute Neutrophils 3.7 Absolute Lymphocytes 1.0 Absolute Monocytes 0.4 Absolute Eosinophils 0.2 Absolute Basophils 0.1 Sodium 135.6 L Potassium 5.2 H Chloride 95 L Carbon Dioxide 27 Anion Gap 14 BUN 27 H Creatinine 6.73 H Est GFR ( Amer) 7 L Est GFR (Non-Af Amer) 6 L Glucose 152 H Calcium 9.2 Total Bilirubin 0.6 AST 21 ALT 28 Alkaline Phosphatase 99 Total Protein 6.4 Albumin 3.7 Impressions: Chest X-Ray 12/07/17 07:45 IMPRESSION: NO SIGNIFICANT INTERVAL CHANGE. Head CT 12/07/17 07:45 IMPRESSION: 1. Chronic small vessel disease is suggested. Otherwise, unremarkable CT of the brain without contrast. Pertinent findings on the imaging study reported as a CRITICAL RESULT to QASIM VALERA DO at08:08 on 12/07/2017. Category of Critical Result: Stroke alert EVIDENCE OF ACUTE STROKE: NO. Head MRI 12/07/17 08:20 IMPRESSION: 1. No evidence of acute abnormality. No recent CVA. 2. Chronic small vessel disease. EVIDENCE OF ACUTE STROKE: NO. Abdomen CT 12/14/17 00:00 IMPRESSION: There is a large irregularly-shaped mass with multiple nodular components in the region of the right kidney, this measures approximately 14 cm in craniocaudad dimension extending inferiorly to the level of the iliac crest and approximately 17 cm transversely with a component extending through the abdominal -lower thoracic wall into the right flank subcutaneous soft tissues. This heterogeneous low density mass measures between 15 and 25 Hounsfield units. Small right pleural effusion and basilar subsegmental atelectasis. Abdomen MRI 12/15/17 00:00 IMPRESSION: 1. As seen on CT, there is abnormal tissue in the right renal fossa which extends to abut the liver and extends through the abdominal wall into the subcutaneous right flank tissues. Hyperintense T2 cystic changes are suggested throughout, but otherwise indeterminate. Findings are suspicious for neoplasm given the extent and transgression of the abdominal wall. Patient also has a history of traumas recently, however, which could contribute to the appearance. Presumably the [place] kidneys are otherwise markedly atrophic and not seen. Assessment & Plan - Diagnosis (3) End stage renal disease on dialysis Plan: Undergoing dialysis without any issues. Is being supervised to ensure safe and smooth procedure. Vital signs are stable. Plan to remove around 2 L of fluid. Orders were discussed with the treating nurse. (4) Hypertensive urgency Is this a current diagnosis for this admission?: Yes Plan: Relatively controlled. Monitor. (5) Diabetes 1.5, managed as type 2 Plan: Adv tight control. (6) Right flank mass Is this a current diagnosis for this admission?: Yes Plan: Being evaluated by Oncology.
[2017-12-16] MEDS: POLYETHYLENE GLYCOL 3350 POWDER 17 GM/1 PACKET PO SCH (17:51)
[2017-12-16] MEDS ORDERED: AMOXICILLIN TRIHYDRATE 500 MG CAPSULE PO SCH (18:00)
[2017-12-16] MEDS: ZOLPIDEM TARTRATE 5 MG TABLET PO PRN (21:26)
[2017-12-16] MEDS: ATORVASTATIN CALCIUM 40 MG TABLET PO SCH (21:26)
[2017-12-17] MEDS: OXYCODONE-ACETAMINOPHEN 5-325 MG TABLET PO PRN (05:18)
[2017-12-17] MEDS: ONDANSETRON HCL INJ/PF 4 MG/2 ML SDV IV PRN ×2 (05:18→21:21)
[2017-12-17] MEDS: DOCUSATE SODIUM 100 MG CAPSULE PO SCH (10:06)
[2017-12-17] MEDS: POLYETHYLENE GLYCOL 3350 POWDER 17 GM/1 PACKET PO SCH ×2 (10:06→17:17)
[2017-12-17] MEDS: METOPROLOL TARTRATE 25 MG TABLET PO SCH ×2 (10:06→21:21)
[2017-12-17] MEDS: AMLODIPINE BESYLATE 5 MG TABLET PO SCH (10:06)
[2017-12-17] MEDS: FLUTICASONE NASAL SPRAY 50 MCG/SPRY 120 SPRAY/16 GM NASL SCH (10:07)
[2017-12-17] MEDS: HEPARIN SOD (PORCINE) 5,000 UNIT/ML 1 ML SYRINGE SUBCUT SCH ×2 (10:08→21:21)
[2017-12-17] MEDS: INSULIN DETEMIR 100 UNIT/ML 3 ML PEN SUBCUT SCH (10:15)
[2017-12-17] MEDS: NYSTATIN TOPICAL POWDER 15 GM TP SCH ×2 (10:18→21:20)
[2017-12-17] MEDS: TIZANIDINE HCL 4 MG TABLET PO PRN (10:19)
--- NOTE | 2017-12-17 12:15 | PDOC PROGRESS REPORT ---
Subjective Progress Note for:: 12/17/17 Subjective:: Today, patient has no new complaints. She is feeling well. Pain is controlled. She asked about our discussion yesterday and if biopsy would be preformed. Reason For Visit: ENCEPHALOPATHY Physical Exam Vital Signs: Temp Pulse Resp BP Pulse Ox 98.2 F 60 16 123/49 L 98 12/17/17 07:23 12/17/17 07:23 12/17/17 07:23 12/17/17 07:23 12/17/17 07:23 Intake & Output 12/16/17 12/17/17 12/18/17 06:59 06:59 06:59 Intake Total 1620 859 Output Total 0 3500 Balance 1620 -2641 Weight 76.9 kg 76.5 kg General appearance: PRESENT: no acute distress Respiratory exam: PRESENT: unlabored Extremities exam: ABSENT: pedal edema Neurological exam: PRESENT: alert, awake, oriented to person, oriented to place , oriented to time Psychiatric exam: PRESENT: appropriate affect Results Laboratory Results: 12/16/17 08:13 12/16/17 08:43 Impressions: Chest X-Ray 12/07/17 07:45 IMPRESSION: NO SIGNIFICANT INTERVAL CHANGE. Head CT 12/07/17 07:45 IMPRESSION: 1. Chronic small vessel disease is suggested. Otherwise, unremarkable CT of the brain without contrast. Pertinent findings on the imaging study reported as a CRITICAL RESULT to QASIM VALERA DO at08:08 on 12/07/2017. Category of Critical Result: Stroke alert EVIDENCE OF ACUTE STROKE: NO. Head MRI 12/07/17 08:20 IMPRESSION: 1. No evidence of acute abnormality. No recent CVA. 2. Chronic small vessel disease. EVIDENCE OF ACUTE STROKE: NO. Abdomen CT 12/14/17 00:00 IMPRESSION: There is a large irregularly-shaped mass with multiple nodular components in the region of the right kidney, this measures approximately 14 cm in craniocaudad dimension extending inferiorly to the level of the iliac crest and approximately 17 cm transversely with a component extending through the abdominal -lower thoracic wall into the right flank subcutaneous soft tissues. This heterogeneous low density mass measures between 15 and 25 Hounsfield units. Small right pleural effusion and basilar subsegmental atelectasis. Abdomen MRI 12/15/17 00:00 IMPRESSION: 1. As seen on CT, there is abnormal tissue in the right renal fossa which extends to abut the liver and extends through the abdominal wall into the subcutaneous right flank tissues. Hyperintense T2 cystic changes are suggested throughout, but otherwise indeterminate. Findings are suspicious for neoplasm given the extent and transgression of the abdominal wall. Patient also has a history of traumas recently, however, which could contribute to the appearance. Presumably the [place] kidneys are otherwise markedly atrophic and not seen. Assessment & Plan - Diagnosis (1) Renal cell carcinoma Qualifiers: Qualified Code(s): C64.1 - Malignant neoplasm of right kidney, except renal pelvis Is this a current diagnosis for this admission?: Yes (2) Right flank mass Is this a current diagnosis for this admission?: Yes - Plan Summary Plan Summary: I have explained to the patient that I have requested records from her Urologist with pathology reports concerning the prior diagnosis or renal cell carcinoma. She is also scheduled for CT guided biopsy of the renal mass on Tuesday (2 days from now). She is concerned about plans for dialysis also on Tuesday and wants to make sure both will be possible. We also discussed the fact that there is a web site for her to apply on line about the renal cell carcinoma and contaminated water exposure at [place]. I have asked for social worker aide or someone to speak with her about these forms. I will await pathology from biopsy. Please call me if needed until then.
--- NOTE | 2017-12-17 12:19 | PDOC PROGRESS REPORT ---
Subjective Progress Note for:: 12/17/17 Subjective:: No new issues. Reason For Visit: ENCEPHALOPATHY Physical Exam Vital Signs: Temp Pulse Resp BP Pulse Ox 98.2 F 60 16 123/49 L 98 12/17/17 07:23 12/17/17 07:23 12/17/17 07:23 12/17/17 07:23 12/17/17 07:23 Intake & Output 12/16/17 12/17/17 12/18/17 06:59 06:59 06:59 Intake Total 1620 859 Output Total 0 3500 Balance 1620 -2641 Weight 76.9 kg 76.5 kg General appearance: PRESENT: no acute distress, well-developed, well-nourished Head exam: PRESENT: atraumatic, normocephalic Eye exam: PRESENT: conjunctiva pink, EOMI. ABSENT: scleral icterus Ear exam: PRESENT: normal external ear exam Mouth exam: PRESENT: moist, tongue midline Neck exam: ABSENT: carotid bruit, JVD, lymphadenopathy, thyromegaly Respiratory exam: PRESENT: clear to auscultation santhosh. ABSENT: rales, rhonchi, wheezes Cardiovascular exam: PRESENT: RRR. ABSENT: diastolic murmur, rubs, systolic murmur Pulses: PRESENT: normal dorsalis pedis pul Vascular exam: PRESENT: normal capillary refill GI/Abdominal exam: PRESENT: normal bowel sounds, soft, other - right sided flank mass. ABSENT: distended, guarding, mass, organolmegaly, rebound, tenderness Rectal exam: PRESENT: deferred Extremities exam: PRESENT: full ROM. ABSENT: calf tenderness, clubbing, pedal edema Neurological exam: PRESENT: alert, awake, oriented to person, oriented to place , oriented to time, oriented to situation, CN II-XII grossly intact. ABSENT: motor sensory deficit Psychiatric exam: PRESENT: appropriate affect, normal mood. ABSENT: homicidal ideation, suicidal ideation Skin exam: PRESENT: dry, intact, warm. ABSENT: cyanosis, rash Results Laboratory Results: 12/16/17 08:13 12/16/17 08:43 Impressions: Chest X-Ray 12/07/17 07:45 IMPRESSION: NO SIGNIFICANT INTERVAL CHANGE. Head CT 12/07/17 07:45 IMPRESSION: 1. Chronic small vessel disease is suggested. Otherwise, unremarkable CT of the brain without contrast. Pertinent findings on the imaging study reported as a CRITICAL RESULT to QASIM VALERA DO at08:08 on 12/07/2017. Category of Critical Result: Stroke alert EVIDENCE OF ACUTE STROKE: NO. Head MRI 12/07/17 08:20 IMPRESSION: 1. No evidence of acute abnormality. No recent CVA. 2. Chronic small vessel disease. EVIDENCE OF ACUTE STROKE: NO. Abdomen CT 12/14/17 00:00 IMPRESSION: There is a large irregularly-shaped mass with multiple nodular components in the region of the right kidney, this measures approximately 14 cm in craniocaudad dimension extending inferiorly to the level of the iliac crest and approximately 17 cm transversely with a component extending through the abdominal -lower thoracic wall into the right flank subcutaneous soft tissues. This heterogeneous low density mass measures between 15 and 25 Hounsfield units. Small right pleural effusion and basilar subsegmental atelectasis. Abdomen MRI 12/15/17 00:00 IMPRESSION: 1. As seen on CT, there is abnormal tissue in the right renal fossa which extends to abut the liver and extends through the abdominal wall into the subcutaneous right flank tissues. Hyperintense T2 cystic changes are suggested throughout, but otherwise indeterminate. Findings are suspicious for neoplasm given the extent and transgression of the abdominal wall. Patient also has a history of traumas recently, however, which could contribute to the appearance. Presumably the [place] kidneys are otherwise markedly atrophic and not seen. Assessment & Plan - Diagnosis (1) Renal cell carcinoma Qualifiers: Laterality: right Qualified Code(s): C64.1 - Malignant neoplasm of right kidney, except renal pelvis Is this a current diagnosis for this admission?: Yes Plan: History of renal cell carcinoma with imaging suggesting recurrence: Patient scheduled for CT-guided needle biopsy on Tuesday. Patient's Plavix has been discontinued. Radiology department aware of procedure. (2) Constipation Is this a current diagnosis for this admission?: Yes Plan: Patient started on bowel regimen (3) Diabetes Qualifiers: Diabetes mellitus type: type 2 Diabetes mellitus complication status: with circulatory complication Diabetes mellitus complication detail: with other circulatory complications Diabetes mellitus exterminator termite insulin use: with senior living use Qualified Code(s): E11.59 - Type 2 diabetes mellitus with other circulatory complications; Z79.4 - senior care (current) use of insulin; Z79.4 - intermission coordinator (current) use of insulin; Z79.4 - senior care (current) use of insulin; Z79.4 - senior care (current) use of insulin Is this a current diagnosis for this admission?: Yes Plan: Levemir and SSI (4) Coronary artery disease Is this a current diagnosis for this admission?: Yes Plan: S/P Stent: Plavix (5) ESRD (end stage renal disease) on dialysis Is this a current diagnosis for this admission?: Yes Plan: M/W/F (6) Hypertensive encephalopathy Is this a current diagnosis for this admission?: Yes Plan: Will continue current medications. (7) Otitis media Qualifiers: Otitis media type: unspecified Chronicity: acute Qualified Code(s): H66.90 - Otitis media, unspecified, unspecified ear Is this a current diagnosis for this admission?: Yes Plan: Continue antibiotics (8) Vaginal candidiasis Is this a current diagnosis for this admission?: Yes Plan: Monistat-7 Vaginal Cream (9) Right flank mass Is this a current diagnosis for this admission?: Yes Plan: Suspect recurrence of renal cell carcinoma right side: Appreciate oncology's assistance. Patient scheduled for CT-guided biopsy on Tuesday. Patient's Plavix has been held. Radiology department aware of procedure request. - Time Time Spent with patient: 15-24 minutes
[2017-12-17] MEDS ORDERED: ACIDOPH PARACASEI B LACTIS PO SCH (18:00)
[2017-12-17] MEDS: LACTOBACILLUS ACIDOPHILUS 250 MG TAB PO SCH (18:44)
[2017-12-17] MEDS: ZOLPIDEM TARTRATE 5 MG TABLET PO PRN (21:20)
[2017-12-17] MEDS: ATORVASTATIN CALCIUM 40 MG TABLET PO SCH (21:21)
[2017-12-18] MEDS: LANSOPRAZOLE 30 MG TAB.RAP.DR PO SCH ×2 (06:12→17:23)
[2017-12-18 07:48] LABS: ABSOLUTE BASOPHILS # (AUTO) 0.1 10^3/uL (0.0-0.2); ABSOLUTE EOSINOPHILS # (AUTO) 0.2 10^3/uL (0.0-0.6); ABSOLUTE LYMPHOCYTES (AUTO) 1.1 10^3/uL (0.5-4.7); ABSOLUTE MONOCYTES (AUTO) 0.5 10^3/uL (0.1-1.4); ABSOLUTE NEUT (AUTO) 4.5 10^3/uL (1.7-8.2); BASOPHILS % (AUTO) 1.2 % (0-2); EOSINOPHILS % (AUTO) 3.5 % (0-6); HEMATOCRIT 27.9 % (36.0-47.0); HEMOGLOBIN 9.1 g/dL (12.0-15.5); LYMPHOCYTES % (AUTO) 17.4 % (13-45); MEAN CORPUSCULAR HEMOGLOBIN 28.6 pg (27.0-33.4); MEAN CORPUSCULAR HGB CONC 32.8 g/dL (32.0-36.0); MEAN CORPUSCULAR VOLUME 87 fl (80-97); MONOCYTES % (AUTO) 8.1 % (3-13); PLATELET COUNT 212 10^3/uL (150-450); RED CELL DISTRIBUTION WIDTH 18.1 % (11.5-14.0); SEGMENTED NEUTROPHILS % (AUTO) 69.8 % (42-78); TOTAL CELLS COUNTED % (AUTO) 100 %; WHITE BLOOD COUNT 6.4 10^3/uL (4.0-10.5)
[2017-12-18 08:02] LABS: ALANINE AMINOTRANSFERASE 25 U/L (9-52); ALBUMIN 3.3 g/dL (3.5-5.0); ALKALINE PHOSPHATASE 91 U/L (38-126); ANION GAP 16 (5-19); ASPARTATE AMINO TRANSFERASE 26 U/L (14-36); BILIRUBIN,DIRECT 0.7 mg/dL (0.0-0.4); BILIRUBIN,TOTAL 0.7 mg/dL (0.2-1.3); BLOOD UREA NITROGEN 27 mg/dL (7-20); CALCIUM 8.9 mg/dL (8.4-10.2); CARBON DIOXIDE 25 mmol/L (22-30); CHLORIDE 92 mmol/L (98-107); GLUCOSE 130 mg/dL (75-110); POTASSIUM 5.2 mmol/L (3.6-5.0); SODIUM 132.6 mmol/L (137-145); TOTAL PROTEIN 5.7 g/dL (6.3-8.2)
[2017-12-18] MEDS: METOPROLOL TARTRATE 25 MG TABLET PO SCH ×2 (08:54→21:55)
[2017-12-18] MEDS: LACTOBACILLUS ACIDOPHILUS 250 MG TAB PO SCH ×2 (08:54→17:24)
[2017-12-18] MEDS: AMLODIPINE BESYLATE 5 MG TABLET PO SCH (08:56)
[2017-12-18] MEDS: DOCUSATE SODIUM 100 MG CAPSULE PO SCH (08:56)
[2017-12-18] MEDS: POLYETHYLENE GLYCOL 3350 POWDER 17 GM/1 PACKET PO SCH ×2 (08:58→17:24)
[2017-12-18] MEDS: INSULIN DETEMIR 100 UNIT/ML 3 ML PEN SUBCUT SCH (08:59)
[2017-12-18] MEDS: OXYCODONE-ACETAMINOPHEN 5-325 MG TABLET PO PRN ×2 (09:01→21:55)
[2017-12-18] MEDS: FLUTICASONE NASAL SPRAY 50 MCG/SPRY 120 SPRAY/16 GM NASL SCH (09:01)
[2017-12-18] MEDS: NYSTATIN TOPICAL POWDER 15 GM TP SCH ×2 (09:04→21:54)
[2017-12-18] MEDS: HEPARIN SOD (PORCINE) 5,000 UNIT/ML 1 ML SYRINGE SUBCUT SCH ×2 (11:32→21:55)
[2017-12-18] MEDS: INSULIN LISPRO 100 UNIT/ML 3 ML VIAL SUBCUT PRN ×2 (11:42→21:55)
[2017-12-18] MEDS: DIPHENHYDRAMINE HCL 25 MG CAPSULE PO PRN (12:03)
--- NOTE | 2017-12-18 14:33 | PDOC PROGRESS REPORT ---
Subjective Progress Note for:: 12/18/17 Subjective:: No new issues Reason For Visit: ENCEPHALOPATHY Physical Exam Vital Signs: Temp Pulse Resp BP Pulse Ox 99.3 F 70 18 146/59 H 100 12/18/17 08:43 12/18/17 08:43 12/18/17 08:43 12/18/17 08:43 12/18/17 08:43 Intake & Output 12/17/17 12/18/17 12/19/17 06:59 06:59 06:59 Intake Total 859 1542 Output Total 3500 0 Balance -2641 1542 Weight 76.5 kg 79.3 kg General appearance: PRESENT: no acute distress, well-developed, well-nourished Head exam: PRESENT: atraumatic, normocephalic Eye exam: PRESENT: conjunctiva pink, EOMI. ABSENT: scleral icterus Ear exam: PRESENT: normal external ear exam Mouth exam: PRESENT: moist, tongue midline Neck exam: ABSENT: carotid bruit, JVD, lymphadenopathy, thyromegaly Respiratory exam: PRESENT: clear to auscultation santhosh. ABSENT: rales, rhonchi, wheezes Cardiovascular exam: PRESENT: RRR. ABSENT: diastolic murmur, rubs, systolic murmur Pulses: PRESENT: normal dorsalis pedis pul Vascular exam: PRESENT: normal capillary refill GI/Abdominal exam: PRESENT: normal bowel sounds, soft, other - right flank mass. ABSENT: distended, guarding, mass, organolmegaly, rebound, tenderness Rectal exam: PRESENT: deferred Extremities exam: PRESENT: full ROM. ABSENT: calf tenderness, clubbing, pedal edema Neurological exam: PRESENT: alert, awake, oriented to person, oriented to place , oriented to time, oriented to situation, CN II-XII grossly intact. ABSENT: motor sensory deficit Psychiatric exam: PRESENT: appropriate affect, normal mood. ABSENT: homicidal ideation, suicidal ideation Skin exam: PRESENT: dry, intact, warm. ABSENT: cyanosis, rash Results Laboratory Results: 12/18/17 07:13 12/18/17 07:13 12/18/17 12/18/17 07:13 07:13 WBC 6.4 RBC 3.20 L Hgb 9.1 L Hct 27.9 L MCV 87 MCH 28.6 MCHC 32.8 RDW 18.1 H Plt Count 212 Seg Neutrophils % 69.8 Lymphocytes % 17.4 Monocytes % 8.1 Eosinophils % 3.5 Basophils % 1.2 Absolute Neutrophils 4.5 Absolute Lymphocytes 1.1 Absolute Monocytes 0.5 Absolute Eosinophils 0.2 Absolute Basophils 0.1 Sodium 132.6 L Potassium 5.2 H Chloride 92 L Carbon Dioxide 25 Anion Gap 16 BUN 27 H Creatinine 6.14 H Est GFR ( Amer) 8 L Est GFR (Non-Af Amer) 7 L Glucose 130 H Calcium 8.9 Total Bilirubin 0.7 AST 26 ALT 25 Alkaline Phosphatase 91 Total Protein 5.7 L Albumin 3.3 L Impressions: Chest X-Ray 12/07/17 07:45 IMPRESSION: NO SIGNIFICANT INTERVAL CHANGE. Head CT 12/07/17 07:45 IMPRESSION: 1. Chronic small vessel disease is suggested. Otherwise, unremarkable CT of the brain without contrast. Pertinent findings on the imaging study reported as a CRITICAL RESULT to QASIM VALERA DO at08:08 on 12/07/2017. Category of Critical Result: Stroke alert EVIDENCE OF ACUTE STROKE: NO. Head MRI 12/07/17 08:20 IMPRESSION: 1. No evidence of acute abnormality. No recent CVA. 2. Chronic small vessel disease. EVIDENCE OF ACUTE STROKE: NO. Abdomen CT 12/14/17 00:00 IMPRESSION: There is a large irregularly-shaped mass with multiple nodular components in the region of the right kidney, this measures approximately 14 cm in craniocaudad dimension extending inferiorly to the level of the iliac crest and approximately 17 cm transversely with a component extending through the abdominal -lower thoracic wall into the right flank subcutaneous soft tissues. This heterogeneous low density mass measures between 15 and 25 Hounsfield units. Small right pleural effusion and basilar subsegmental atelectasis. Abdomen MRI 12/15/17 00:00 IMPRESSION: 1. As seen on CT, there is abnormal tissue in the right renal fossa which extends to abut the liver and extends through the abdominal wall into the subcutaneous right flank tissues. Hyperintense T2 cystic changes are suggested throughout, but otherwise indeterminate. Findings are suspicious for neoplasm given the extent and transgression of the abdominal wall. Patient also has a history of traumas recently, however, which could contribute to the appearance. Presumably the [place] kidneys are otherwise markedly atrophic and not seen. Assessment & Plan - Diagnosis (1) Renal cell carcinoma Qualifiers: Laterality: right Qualified Code(s): C64.1 - Malignant neoplasm of right kidney, except renal pelvis Is this a current diagnosis for this admission?: Yes Plan: History of renal cell carcinoma with imaging suggesting recurrence: Patient scheduled for CT-guided needle biopsy on Tuesday. Patient's Plavix has been discontinued. Radiology department aware of procedure. (2) Constipation Is this a current diagnosis for this admission?: Yes Plan: Patient started on bowel regimen (3) Diabetes Qualifiers: Diabetes mellitus type: type 2 Diabetes mellitus complication status: with circulatory complication Diabetes mellitus complication detail: with other circulatory complications Diabetes mellitus half-way insulin use: with intermediate card tender use Qualified Code(s): E11.59 - Type 2 diabetes mellitus with other circulatory complications; Z79.4 - intermediate (current) use of insulin; Z79.4 - extermination supervisor (current) use of insulin; Z79.4 - extermination supervisor (current) use of insulin; Z79.4 - extermination supervisor (current) use of insulin Is this a current diagnosis for this admission?: Yes Plan: Ayesha and KERI (4) Coronary artery disease Is this a current diagnosis for this admission?: Yes Plan: S/P Stent: Plavix (5) ESRD (end stage renal disease) on dialysis Is this a current diagnosis for this admission?: Yes Plan: M/W/F (6) Hypertensive encephalopathy Is this a current diagnosis for this admission?: Yes Plan: Will continue current medications. (7) Otitis media Qualifiers: Otitis media type: unspecified Chronicity: acute Qualified Code(s): H66.90 - Otitis media, unspecified, unspecified ear Is this a current diagnosis for this admission?: Yes Plan: Continue antibiotics (8) Vaginal candidiasis Is this a current diagnosis for this admission?: Yes Plan: Monistat-7 Vaginal Cream (9) Right flank mass Is this a current diagnosis for this admission?: Yes Plan: Suspect recurrence of renal cell carcinoma right side: Appreciate oncology's assistance. Patient scheduled for CT-guided biopsy on Tuesday. Patient's Plavix has been held. Radiology department aware of procedure request. - Time Time Spent with patient: Less than 15 minutes
[2017-12-18] MEDS ORDERED: ALBUTEROL SULFATE HFA (90 MCG/PUFF) 200 PUFF/8.5 GM MDI IH PRN (15:00)
[2017-12-18] MEDS: CIPROFLOXACIN-HC OTIC SUSP 10 ML AU SCH (17:25)
[2017-12-18] MEDS: ATORVASTATIN CALCIUM 40 MG TABLET PO SCH (21:55)
[2017-12-18] MEDS: CETIRIZINE 10 MG TABLET PO SCH (21:55)
[2017-12-18] MEDS: ZOLPIDEM TARTRATE 5 MG TABLET PO PRN (21:56)
[2017-12-19] MEDS: ONDANSETRON HCL INJ/PF 4 MG/2 ML SDV IV PRN ×3 (02:47→17:22)
[2017-12-19] MEDS ORDERED: HEPARIN SOD (PORCINE) 1,000 UNIT/ML 10 ML VIAL IV PRN (05:00)
[2017-12-19] MEDS: LANSOPRAZOLE 30 MG TAB.RAP.DR PO SCH ×2 (05:42→16:08)
[2017-12-19 06:13] LABS: HEMATOCRIT 29.2 % (36.0-47.0); HEMOGLOBIN 9.6 g/dL (12.0-15.5); MEAN CORPUSCULAR HEMOGLOBIN 28.7 pg (27.0-33.4); MEAN CORPUSCULAR HGB CONC 33.1 g/dL (32.0-36.0); MEAN CORPUSCULAR VOLUME 87 fl (80-97); PLATELET COUNT 237 10^3/uL (150-450); RED BLOOD COUNT 3.36 10^6/uL (3.72-5.28); RED CELL DISTRIBUTION WIDTH 18.2 % (11.5-14.0); WHITE BLOOD COUNT 6.5 10^3/uL (4.0-10.5)
[2017-12-19 06:37] LABS: ANION GAP 17 (5-19); BLOOD UREA NITROGEN 36 mg/dL (7-20); CALCIUM 9.3 mg/dL (8.4-10.2); CARBON DIOXIDE 27 mmol/L (22-30); CHLORIDE 91 mmol/L (98-107); GLUCOSE 100 mg/dL (75-110); POTASSIUM 5.5 mmol/L (3.6-5.0); SODIUM 134.9 mmol/L (137-145)
[2017-12-19] MEDS: OXYCODONE-ACETAMINOPHEN 5-325 MG TABLET PO PRN ×2 (07:38→21:21)
--- NOTE | 2017-12-19 10:41 | PDOC PROGRESS REPORT ---
Subjective Progress Note for:: 12/19/17 Subjective:: Pt states that she would like to have her symbicort inhaler. Reason For Visit: ENCEPHALOPATHY Physical Exam Vital Signs: Temp Pulse Resp BP Pulse Ox 97.5 F 60 18 150/58 H 100 12/19/17 06:00 12/19/17 07:00 12/19/17 06:00 12/19/17 06:00 12/19/17 06:00 Intake & Output 12/18/17 12/19/17 12/20/17 06:59 06:59 06:59 Intake Total 1542 1877 Output Total 0 0 Balance 1542 1877 Weight 79.3 kg 80.4 kg General appearance: PRESENT: no acute distress, well-developed, well-nourished Head exam: PRESENT: atraumatic, normocephalic Eye exam: PRESENT: conjunctiva pink, EOMI. ABSENT: scleral icterus Ear exam: PRESENT: normal external ear exam Mouth exam: PRESENT: moist, tongue midline Neck exam: ABSENT: carotid bruit, JVD, lymphadenopathy, thyromegaly Respiratory exam: PRESENT: clear to auscultation santhohs. ABSENT: rales, rhonchi, wheezes Cardiovascular exam: PRESENT: RRR. ABSENT: diastolic murmur, rubs, systolic murmur Pulses: PRESENT: normal dorsalis pedis pul Vascular exam: PRESENT: normal capillary refill GI/Abdominal exam: PRESENT: normal bowel sounds, other - + right flank mass + tenderness Rectal exam: PRESENT: deferred Extremities exam: PRESENT: full ROM. ABSENT: calf tenderness, clubbing, pedal edema Musculoskeletal exam: PRESENT: full ROM Neurological exam: PRESENT: alert, awake, oriented to person, oriented to place , oriented to time, oriented to situation, CN II-XII grossly intact. ABSENT: motor sensory deficit Psychiatric exam: PRESENT: appropriate affect, normal mood. ABSENT: homicidal ideation, suicidal ideation Skin exam: PRESENT: dry, intact, warm. ABSENT: cyanosis, rash Results Laboratory Results: 12/19/17 05:55 12/19/17 05:55 12/19/17 12/19/17 05:55 05:55 WBC 6.5 RBC 3.36 L Hgb 9.6 L Hct 29.2 L MCV 87 MCH 28.7 MCHC 33.1 RDW 18.2 H Plt Count 237 Sodium 134.9 L Potassium 5.5 H Chloride 91 L Carbon Dioxide 27 Anion Gap 17 BUN 36 H Creatinine 7.65 H Est GFR ( Amer) 6 L Est GFR (Non-Af Amer) 5 L Glucose 100 Calcium 9.3 Impressions: Chest X-Ray 12/07/17 07:45 IMPRESSION: NO SIGNIFICANT INTERVAL CHANGE. Head CT 12/07/17 07:45 IMPRESSION: 1. Chronic small vessel disease is suggested. Otherwise, unremarkable CT of the brain without contrast. Pertinent findings on the imaging study reported as a CRITICAL RESULT to QASIM VALERA DO at08:08 on 12/07/2017. Category of Critical Result: Stroke alert EVIDENCE OF ACUTE STROKE: NO. Head MRI 12/07/17 08:20 IMPRESSION: 1. No evidence of acute abnormality. No recent CVA. 2. Chronic small vessel disease. EVIDENCE OF ACUTE STROKE: NO. Abdomen CT 12/14/17 00:00 IMPRESSION: There is a large irregularly-shaped mass with multiple nodular components in the region of the right kidney, this measures approximately 14 cm in craniocaudad dimension extending inferiorly to the level of the iliac crest and approximately 17 cm transversely with a component extending through the abdominal -lower thoracic wall into the right flank subcutaneous soft tissues. This heterogeneous low density mass measures between 15 and 25 Hounsfield units. Small right pleural effusion and basilar subsegmental atelectasis. Abdomen MRI 12/15/17 00:00 IMPRESSION: 1. As seen on CT, there is abnormal tissue in the right renal fossa which extends to abut the liver and extends through the abdominal wall into the subcutaneous right flank tissues. Hyperintense T2 cystic changes are suggested throughout, but otherwise indeterminate. Findings are suspicious for neoplasm given the extent and transgression of the abdominal wall. Patient also has a history of traumas recently, however, which could contribute to the appearance. Presumably the [place] kidneys are otherwise markedly atrophic and not seen. Assessment & Plan - Diagnosis (1) Renal cell carcinoma Qualifiers: Laterality: right Qualified Code(s): C64.1 - Malignant neoplasm of right kidney, except renal pelvis Is this a current diagnosis for this admission?: Yes Plan: History of renal cell carcinoma with imaging suggesting recurrence: Patient scheduled for CT-guided needle biopsy on Tuesday. Patient's Plavix has been discontinued. Radiology department aware of procedure. (2) Constipation Is this a current diagnosis for this admission?: Yes Plan: Patient started on bowel regimen (3) Diabetes Qualifiers: Diabetes mellitus type: type 2 Diabetes mellitus complication status: with circulatory complication Diabetes mellitus complication detail: with other circulatory complications Diabetes mellitus half-way insulin use: with half-way use Qualified Code(s): E11.59 - Type 2 diabetes mellitus with other circulatory complications; Z79.4 - termination clerk (current) use of insulin; Z79.4 - residential (current) use of insulin; Z79.4 - residential (current) use of insulin; Z79.4 - termination clerk (current) use of insulin Is this a current diagnosis for this admission?: Yes Plan: Levemir and SSI (4) Coronary artery disease Is this a current diagnosis for this admission?: Yes Plan: S/P Stent: Plavix (5) ESRD (end stage renal disease) on dialysis Is this a current diagnosis for this admission?: Yes Plan: M/W/F (6) Hypertensive encephalopathy Is this a current diagnosis for this admission?: Yes Plan: Will continue current medications. (7) Otitis media Qualifiers: Otitis media type: unspecified Chronicity: acute Qualified Code(s): H66.90 - Otitis media, unspecified, unspecified ear Is this a current diagnosis for this admission?: Yes Plan: Continue antibiotics (8) Vaginal candidiasis Is this a current diagnosis for this admission?: Yes Plan: Monistat-7 Vaginal Cream (9) Right flank mass Is this a current diagnosis for this admission?: Yes Plan: Suspect recurrence of renal cell carcinoma right side: Appreciate oncology's assistance. Patient scheduled for CT-guided biopsy on Tuesday. Patient's Plavix has been held. Radiology department aware of procedure request. (10) COPD (chronic obstructive pulmonary disease) Is this a current diagnosis for this admission?: No Plan: Will write for Symbicort. - Time Time Spent with patient: 15-24 minutes
[2017-12-19] MEDS: POLYETHYLENE GLYCOL 3350 POWDER 17 GM/1 PACKET PO SCH ×2 (12:18→17:28)
[2017-12-19] MEDS: LACTOBACILLUS ACIDOPHILUS 250 MG TAB PO SCH ×2 (12:19→17:27)
[2017-12-19] MEDS: METOPROLOL TARTRATE 25 MG TABLET PO SCH ×2 (12:19→21:21)
[2017-12-19] MEDS: AMLODIPINE BESYLATE 5 MG TABLET PO SCH (12:19)
[2017-12-19] MEDS: FLUTICASONE NASAL SPRAY 50 MCG/SPRY 120 SPRAY/16 GM NASL SCH (12:22)
[2017-12-19] MEDS: NYSTATIN TOPICAL POWDER 15 GM TP SCH ×2 (12:22→21:27)
[2017-12-19] MEDS: DOCUSATE SODIUM 100 MG CAPSULE PO SCH (12:23)
[2017-12-19] MEDS: INSULIN DETEMIR 100 UNIT/ML 3 ML PEN SUBCUT SCH (12:26)
[2017-12-19] MEDS: HYDROXYZINE PAMOATE 25 MG CAPSULE PO PRN ×2 (13:20→23:51)
[2017-12-19] MEDS: CIPROFLOXACIN-HC OTIC SUSP 10 ML AU SCH ×2 (13:20→17:25)
[2017-12-19] MEDS: EPOETIN ALFA INJ 20,000 UNIT/1 ML VIAL (ONCOLOGY) IV PRN ×2 (13:25→18:36)
[2017-12-19] MEDS: INSULIN LISPRO 100 UNIT/ML 3 ML VIAL SUBCUT PRN ×2 (15:58→21:22)
--- NOTE | 2017-12-19 16:11 | PDOC PROGRESS REPORT ---
Subjective Progress Note for:: 12/19/17 Reason For Visit: Seen on dialysis today. She is undergoing dialysis without any issues. She is scheduled for a biopsy of her abdominal mass tomorrow. She denies any pain of the mass inless one pushes on it. No c/o chest pains, dyspnea, fever or chills. Physical Exam Vital Signs: Temp Pulse Resp BP Pulse Ox 97.9 F 68 18 133/55 H 100 12/19/17 12:06 12/19/17 12:06 12/19/17 12:06 12/19/17 12:06 12/19/17 12:06 Intake & Output 12/18/17 12/19/17 12/20/17 06:59 06:59 06:59 Intake Total 1542 1877 Output Total 0 0 Balance 1542 1877 Weight 79.3 kg 80.4 kg General appearance: PRESENT: no acute distress Respiratory exam: PRESENT: clear to auscultation santhosh. ABSENT: crackles, rhonchi Cardiovascular exam: PRESENT: +S1, +S2, systolic murmur GI/Abdominal exam: PRESENT: mass - on the right flank which is mildly tender., normal bowel sounds, organomegaly, soft. ABSENT: tenderness Extremities exam: ABSENT: pedal edema Neurological exam: PRESENT: alert, awake, oriented to person, oriented to place Results Laboratory Results: 12/19/17 05:55 12/19/17 05:55 12/19/17 12/19/17 05:55 05:55 WBC 6.5 RBC 3.36 L Hgb 9.6 L Hct 29.2 L MCV 87 MCH 28.7 MCHC 33.1 RDW 18.2 H Plt Count 237 Sodium 134.9 L Potassium 5.5 H Chloride 91 L Carbon Dioxide 27 Anion Gap 17 BUN 36 H Creatinine 7.65 H Est GFR ( Amer) 6 L Est GFR (Non-Af Amer) 5 L Glucose 100 Calcium 9.3 Impressions: Chest X-Ray 12/07/17 07:45 IMPRESSION: NO SIGNIFICANT INTERVAL CHANGE. Head CT 12/07/17 07:45 IMPRESSION: 1. Chronic small vessel disease is suggested. Otherwise, unremarkable CT of the brain without contrast. Pertinent findings on the imaging study reported as a CRITICAL RESULT to QASIM VALERA DO at08:08 on 12/07/2017. Category of Critical Result: Stroke alert EVIDENCE OF ACUTE STROKE: NO. Head MRI 12/07/17 08:20 IMPRESSION: 1. No evidence of acute abnormality. No recent CVA. 2. Chronic small vessel disease. EVIDENCE OF ACUTE STROKE: NO. Abdomen CT 12/14/17 00:00 IMPRESSION: There is a large irregularly-shaped mass with multiple nodular components in the region of the right kidney, this measures approximately 14 cm in craniocaudad dimension extending inferiorly to the level of the iliac crest and approximately 17 cm transversely with a component extending through the abdominal -lower thoracic wall into the right flank subcutaneous soft tissues. This heterogeneous low density mass measures between 15 and 25 Hounsfield units. Small right pleural effusion and basilar subsegmental atelectasis. Abdomen MRI 12/15/17 00:00 IMPRESSION: 1. As seen on CT, there is abnormal tissue in the right renal fossa which extends to abut the liver and extends through the abdominal wall into the subcutaneous right flank tissues. Hyperintense T2 cystic changes are suggested throughout, but otherwise indeterminate. Findings are suspicious for neoplasm given the extent and transgression of the abdominal wall. Patient also has a history of traumas recently, however, which could contribute to the appearance. Presumably the [place] kidneys are otherwise markedly atrophic and not seen. Assessment & Plan - Diagnosis (3) End stage renal disease on dialysis Plan: Undergoing dialysis without any issues. Is being supervised to ensure safe and smooth procedure. Vital signs are stable. Plan to remove around 2 L of fluid. Orders were discussed with the treating nurse. (4) Hypertensive urgency Is this a current diagnosis for this admission?: Yes Plan: Controlled. Monitor. (5) Diabetes 1.5, managed as type 2 Plan: Adv tight control. (6) Right flank mass Is this a current diagnosis for this admission?: Yes Plan: Being evaluated by Oncology. Scheduled for biopsy tomorrow.
[2017-12-19] MEDS: BUDESONIDE/FORMOTEROL 160-4.5 MCG 60 PUFF/6 GM MDI IH SCH (21:20)
[2017-12-19] MEDS: CETIRIZINE 10 MG TABLET PO SCH (21:20)
[2017-12-19] MEDS: ATORVASTATIN CALCIUM 40 MG TABLET PO SCH (21:20)
[2017-12-19] MEDS: ZOLPIDEM TARTRATE 5 MG TABLET PO PRN (21:21)
[2017-12-19 22:58] LABS: HEMATOCRIT 29.6 % (36.0-47.0); HEMOGLOBIN 9.6 g/dL (12.0-15.5); MEAN CORPUSCULAR HEMOGLOBIN 28.2 pg (27.0-33.4); MEAN CORPUSCULAR HGB CONC 32.4 g/dL (32.0-36.0); MEAN CORPUSCULAR VOLUME 87 fl (80-97); PLATELET COUNT 259 10^3/uL (150-450); RED BLOOD COUNT 3.41 10^6/uL (3.72-5.28); RED CELL DISTRIBUTION WIDTH 17.8 % (11.5-14.0)
[2017-12-19 23:02] LABS: INTERNATIONAL RATION (INR) 0.91; PROTHROMBIN TIME 12.9 SEC (11.4-15.4)
[2017-12-19] MEDS: TIZANIDINE HCL 4 MG TABLET PO PRN (23:51)
[2017-12-20] MEDS: OXYCODONE-ACETAMINOPHEN 5-325 MG TABLET PO PRN ×2 (06:15→21:48)
[2017-12-20] MEDS: LANSOPRAZOLE 30 MG TAB.RAP.DR PO SCH ×2 (06:16→16:18)
[2017-12-20] MEDS: ONDANSETRON HCL INJ/PF 4 MG/2 ML SDV IV PRN ×2 (08:16→21:49)
[2017-12-20] MEDS: LACTOBACILLUS ACIDOPHILUS 250 MG TAB PO SCH ×2 (09:39→18:07)
[2017-12-20] MEDS: DOCUSATE SODIUM 100 MG CAPSULE PO SCH (09:39)
[2017-12-20] MEDS: METOPROLOL TARTRATE 25 MG TABLET PO SCH ×2 (09:39→21:49)
[2017-12-20] MEDS: AMLODIPINE BESYLATE 5 MG TABLET PO SCH (09:39)
[2017-12-20] MEDS: POLYETHYLENE GLYCOL 3350 POWDER 17 GM/1 PACKET PO SCH ×2 (09:39→18:08)
[2017-12-20] MEDS: INSULIN DETEMIR 100 UNIT/ML 3 ML PEN SUBCUT SCH (09:39)
[2017-12-20] MEDS: FLUTICASONE NASAL SPRAY 50 MCG/SPRY 120 SPRAY/16 GM NASL SCH (09:47)
[2017-12-20] MEDS: BUDESONIDE/FORMOTEROL 160-4.5 MCG 60 PUFF/6 GM MDI IH SCH ×2 (09:47→21:49)
[2017-12-20] MEDS: CIPROFLOXACIN-HC OTIC SUSP 10 ML AU SCH ×2 (09:48→18:07)
[2017-12-20] MEDS: NYSTATIN TOPICAL POWDER 15 GM TP SCH ×2 (09:49→21:50)
[2017-12-20 11:09] LABS: HEMATOCRIT 30.6 % (36.0-47.0); HEMOGLOBIN 9.8 g/dL (12.0-15.5); MEAN CORPUSCULAR HEMOGLOBIN 27.8 pg (27.0-33.4); MEAN CORPUSCULAR HGB CONC 32.1 g/dL (32.0-36.0); MEAN CORPUSCULAR VOLUME 87 fl (80-97); PLATELET COUNT 283 10^3/uL (150-450); RED BLOOD COUNT 3.53 10^6/uL (3.72-5.28); RED CELL DISTRIBUTION WIDTH 18.2 % (11.5-14.0); WHITE BLOOD COUNT 5.2 10^3/uL (4.0-10.5)
[2017-12-20] MEDS ORDERED: LIDOCAINE 1% INJ-PF (10 MG/ML) 30 ML SDV ONE (11:19)
--- NOTE | 2017-12-20 11:20 | PDOC PROGRESS REPORT ---
Subjective Progress Note for:: 12/20/17 Subjective:: Pt states that she is waiting for her procedure. Reason For Visit: ENCEPHALOPATHY Physical Exam Vital Signs: Temp Pulse Resp BP Pulse Ox 98.0 F 66 18 140/59 H 100 12/20/17 08:00 12/20/17 08:00 12/20/17 08:00 12/20/17 08:00 12/20/17 08:00 Intake & Output 12/19/17 12/20/17 12/21/17 06:59 06:59 06:59 Intake Total 1877 227 Output Total 0 2500 Balance 1877 -2273 Weight 80.4 kg 78.1 kg General appearance: PRESENT: no acute distress, well-developed, well-nourished Head exam: PRESENT: atraumatic, normocephalic Eye exam: PRESENT: conjunctiva pink, EOMI Ear exam: PRESENT: normal external ear exam Mouth exam: PRESENT: moist, tongue midline Neck exam: ABSENT: carotid bruit, JVD, lymphadenopathy, thyromegaly Respiratory exam: PRESENT: clear to auscultation santhosh. ABSENT: rales, rhonchi, wheezes Cardiovascular exam: PRESENT: RRR. ABSENT: diastolic murmur, rubs, systolic murmur Pulses: PRESENT: normal dorsalis pedis pul Vascular exam: PRESENT: normal capillary refill GI/Abdominal exam: PRESENT: normal bowel sounds, soft, other - + right side mass.. ABSENT: distended, guarding, mass, organolmegaly, rebound, tenderness Rectal exam: PRESENT: deferred Extremities exam: PRESENT: full ROM. ABSENT: calf tenderness, clubbing, pedal edema Neurological exam: PRESENT: alert, awake, oriented to person, oriented to place , oriented to time, oriented to situation, CN II-XII grossly intact. ABSENT: motor sensory deficit Psychiatric exam: PRESENT: appropriate affect, normal mood. ABSENT: homicidal ideation, suicidal ideation Skin exam: PRESENT: dry, intact, warm. ABSENT: cyanosis, rash Results Laboratory Results: 12/20/17 10:57 12/19/17 05:55 12/19/17 12/20/17 22:36 10:57 WBC 5.0 5.2 RBC 3.41 L 3.53 L Hgb 9.6 L 9.8 L Hct 29.6 L 30.6 L MCV 87 87 MCH 28.2 27.8 MCHC 32.4 32.1 RDW 17.8 H 18.2 H Plt Count 259 283 Impressions: Chest X-Ray 12/07/17 07:45 IMPRESSION: NO SIGNIFICANT INTERVAL CHANGE. Head CT 12/07/17 07:45 IMPRESSION: 1. Chronic small vessel disease is suggested. Otherwise, unremarkable CT of the brain without contrast. Pertinent findings on the imaging study reported as a CRITICAL RESULT to QASIM VALERA DO at08:08 on 12/07/2017. Category of Critical Result: Stroke alert EVIDENCE OF ACUTE STROKE: NO. Head MRI 12/07/17 08:20 IMPRESSION: 1. No evidence of acute abnormality. No recent CVA. 2. Chronic small vessel disease. EVIDENCE OF ACUTE STROKE: NO. Abdomen CT 12/14/17 00:00 IMPRESSION: There is a large irregularly-shaped mass with multiple nodular components in the region of the right kidney, this measures approximately 14 cm in craniocaudad dimension extending inferiorly to the level of the iliac crest and approximately 17 cm transversely with a component extending through the abdominal -lower thoracic wall into the right flank subcutaneous soft tissues. This heterogeneous low density mass measures between 15 and 25 Hounsfield units. Small right pleural effusion and basilar subsegmental atelectasis. Abdomen MRI 12/15/17 00:00 IMPRESSION: 1. As seen on CT, there is abnormal tissue in the right renal fossa which extends to abut the liver and extends through the abdominal wall into the subcutaneous right flank tissues. Hyperintense T2 cystic changes are suggested throughout, but otherwise indeterminate. Findings are suspicious for neoplasm given the extent and transgression of the abdominal wall. Patient also has a history of traumas recently, however, which could contribute to the appearance. Presumably the [place] kidneys are otherwise markedly atrophic and not seen. Assessment & Plan - Diagnosis (1) Renal cell carcinoma Qualifiers: Laterality: right Qualified Code(s): C64.1 - Malignant neoplasm of right kidney, except renal pelvis Is this a current diagnosis for this admission?: Yes Plan: History of renal cell carcinoma with imaging suggesting recurrence: Patient scheduled for CT-guided needle biopsy today. (2) Constipation Is this a current diagnosis for this admission?: Yes Plan: Resolved. Patient started on bowel regimen (3) Diabetes Qualifiers: Diabetes mellitus type: type 2 Diabetes mellitus complication status: with circulatory complication Diabetes mellitus complication detail: with other circulatory complications Diabetes mellitus detention insulin use: with detention use Qualified Code(s): E11.59 - Type 2 diabetes mellitus with other circulatory complications; Z79.4 - shelter (current) use of insulin; Z79.4 - terminal worker (current) use of insulin; Z79.4 - shelter (current) use of insulin; Z79.4 - shelter (current) use of insulin Is this a current diagnosis for this admission?: Yes Plan: [place] and KERI (4) Coronary artery disease Is this a current diagnosis for this admission?: Yes Plan: S/P Stent: Plavix (5) ESRD (end stage renal disease) on dialysis Is this a current diagnosis for this admission?: Yes Plan: M/W/F (6) Hypertensive encephalopathy Is this a current diagnosis for this admission?: Yes Plan: Will continue current medications. (7) Otitis media Qualifiers: Otitis media type: unspecified Chronicity: acute Qualified Code(s): H66.90 - Otitis media, unspecified, unspecified ear Is this a current diagnosis for this admission?: Yes Plan: Continue antibiotics (8) Vaginal candidiasis Is this a current diagnosis for this admission?: Yes Plan: Monistat-7 Vaginal Cream (9) Right flank mass Is this a current diagnosis for this admission?: Yes Plan: Suspect recurrence of renal cell carcinoma right side: Appreciate oncology's assistance. Patient scheduled for CT-guided biopsy today. (10) COPD (chronic obstructive pulmonary disease) Is this a current diagnosis for this admission?: No Plan: Symbicort.
[2017-12-20] MEDS ORDERED: MIDAZOLAM 2 MG/2 ML INJ ONE (11:32)
[2017-12-20] MEDS ORDERED: FENTANYL CITRATE INJ/PF 100 MCG/2 ML AMPUL ONE (11:32)
--- NOTE | 2017-12-20 14:25 | RADIOLOGY REPORT (SQ) ---
EXAM DESCRIPTION: CT BIOPSY ABD/RETROPERIT MASS; CT NEEDLE PLACEMENT COMPLETED DATE/TIME: 12/20/2017 12:49 pm REASON FOR STUDY: right abd mass; RIGHT ABD MASS COMPARISON: MRI abdomen 12/15/2017 CT abdomen 12/14/2017 TECHNIQUE: CT guided biopsy of the right flank mass along the lateral abdominal wall performed with conscious sedation. CT Fluoroscopy Time: 5.[address] scanners at this facility use dose modulation, iterative reconstruction, and/or weight based d osing when appropriate to reduce radiation dose to as low as reasonably achievable (ALARA). [facility]: Dose Right [facility]: CareDose [facility]: Dose Right [facility]: Teradose 4D [facility]: [email or web address] RADIATION DOSE: 12 mGy. FINDINGS: The procedure was discussed with the patient and the patient agreed to the procedure. Prio r to the procedure, a time out was performed to verify the patient's identity and planned procedure. IV sedation was administered and physician direction by the registered nurse using 1 milligrams of Ve rsed and 25 micrograms of fentanyl. Physiologic monitoring was provided before, during, and after sed ation. The total sedation time was 30 minutes. Documentation face to face time, the performing proceduralist, spent monitoring the patient: [address] scanning was performed to localize the percutaneous site for the biopsy approach. After sterile skin prep and local lidocaine for skin and deep tissue anesthesia, a coaxial biopsy nee dle was used to obtain multiple cores of tissue. No embolization the biopsy tract. No significant bl eeding. The biopsy tissue was submitted to the lab in formalin. There were no immediate complications . Pathology is pending at the time of dictation. IMPRESSION: CT GUIDED BIOPSY OF THE RIGHT FLANK MASS PERFORMED WITHOUT IMMEDIATE COMPLICATION. PATH OLOGY PENDING. COMMENT: Quality ID [id number]: Final reports for procedures using fluoroscopy that document radiation exp osure indices, or exposure time and number of fluorographic images (if radiation exposure indices are not available) Patient medication list reviewed: Yes- Quality ID# [id number]:Eligible professional attests to documenting i n the medical record they obtained, updated, or reviewed the patient's current medications.. TECHNICAL DOCUMENTATION: JOB ID: [id number] Quality ID# [id number]: Final reports with documentation of one or more dose reduction techniques (e.g., Aut omated exposure control, adjustment of the mA and/or kV according to patient size, use of iterative r econstruction technique) 2010 [employer]- All Rights Reserved Reading location - IP/workstation name: [email or web address]
--- NOTE | 2017-12-20 14:25 | RADIOLOGY REPORT (SQ) ---
EXAM DESCRIPTION: CT BIOPSY ABD/RETROPERIT MASS; CT NEEDLE PLACEMENT COMPLETED DATE/TIME: 12/20/2017 12:49 pm REASON FOR STUDY: right abd mass; RIGHT ABD MASS COMPARISON: MRI abdomen 12/15/2017 CT abdomen 12/14/2017 TECHNIQUE: CT guided biopsy of the right flank mass along the lateral abdominal wall performed with conscious sedation. CT Fluoroscopy Time: 5.[address] scanners at this facility use dose modulation, iterative reconstruction, and/or weight based d osing when appropriate to reduce radiation dose to as low as reasonably achievable (ALARA). [facility]: Dose Right [facility]: CareDose [facility]: Dose Right [facility]: Teradose 4D [facility]: [email or web address] RADIATION DOSE: 12 mGy. FINDINGS: The procedure was discussed with the patient and the patient agreed to the procedure. Prio r to the procedure, a time out was performed to verify the patient's identity and planned procedure. IV sedation was administered and physician direction by the registered nurse using 1 milligrams of Ve rsed and 25 micrograms of fentanyl. Physiologic monitoring was provided before, during, and after sed ation. The total sedation time was 30 minutes. Documentation face to face time, the performing proceduralist, spent monitoring the patient: [address] scanning was performed to localize the percutaneous site for the biopsy approach. After sterile skin prep and local lidocaine for skin and deep tissue anesthesia, a coaxial biopsy nee dle was used to obtain multiple cores of tissue. No embolization the biopsy tract. No significant bl eeding. The biopsy tissue was submitted to the lab in formalin. There were no immediate complications . Pathology is pending at the time of dictation. IMPRESSION: CT GUIDED BIOPSY OF THE RIGHT FLANK MASS PERFORMED WITHOUT IMMEDIATE COMPLICATION. PATH OLOGY PENDING. COMMENT: Quality ID 145: Final reports for procedures using fluoroscopy that document radiation exp osure indices, or exposure time and number of fluorographic images (if radiation exposure indices are not available) Patient medication list reviewed: Yes- Quality ID# [id number]:Eligible professional attests to documenting i n the medical record they obtained, updated, or reviewed the patient's current medications.. TECHNICAL DOCUMENTATION: JOB ID: [id number] Quality ID# [id number]: Final reports with documentation of one or more dose reduction techniques (e.g., Aut omated exposure control, adjustment of the mA and/or kV according to patient size, use of iterative r econstruction technique) 2010 [employer]: [employer]- All Rights Reserved Reading location - IP/workstation name: [email or web address]
[2017-12-20] MEDS: INSULIN LISPRO 100 UNIT/ML 3 ML VIAL SUBCUT PRN (18:07)
--- NOTE | 2017-12-20 20:28 | PDOC PROGRESS REPORT ---
Subjective Progress Note for:: 12/20/17 Subjective:: Patient at the time was sitting on the side of her bed comfortably. She was at the time awiting to have CT guided biopsy of a possible cancerous mass. Reason For Visit: ENCEPHALOPATHY Physical Exam Vital Signs: Temp Pulse Resp BP Pulse Ox 98.0 F 69 18 140/59 H 100 12/20/17 08:00 12/20/17 14:00 12/20/17 08:00 12/20/17 08:00 12/20/17 08:00 Intake & Output 12/19/17 12/20/17 12/21/17 06:59 06:59 06:59 Intake Total 3209 352 3224 Output Total 0 2500 Balance 1877 -2273 1260 Weight 80.4 kg 78.1 kg 78.1 kg General appearance: PRESENT: no acute distress, well-developed, well-nourished Neck exam: PRESENT: full ROM. ABSENT: JVD Respiratory exam: PRESENT: clear to auscultation santhosh. ABSENT: accessory muscle use, crackles, rales, rhonchi, wheezes Cardiovascular exam: PRESENT: +S1, +S2, systolic murmur GI/Abdominal exam: PRESENT: mass - on the right flank which is mildly tender., normal bowel sounds, organomegaly, soft. ABSENT: tenderness Extremities exam: ABSENT: pedal edema, tenderness Neurological exam: PRESENT: alert, awake, oriented to person, oriented to place , oriented to time, oriented to situation Skin exam: PRESENT: dry, intact, warm. ABSENT: cyanosis Results Laboratory Results: 12/20/17 10:57 12/19/17 05:55 12/19/17 12/20/17 22:36 10:57 WBC 5.0 5.2 RBC 3.41 L 3.53 L Hgb 9.6 L 9.8 L Hct 29.6 L 30.6 L MCV 87 87 MCH 28.2 27.8 MCHC 32.4 32.1 RDW 17.8 H 18.2 H Plt Count 259 283 Impressions: Chest X-Ray 12/07/17 07:45 IMPRESSION: NO SIGNIFICANT INTERVAL CHANGE. Head CT 12/07/17 07:45 IMPRESSION: 1. Chronic small vessel disease is suggested. Otherwise, unremarkable CT of the brain without contrast. Pertinent findings on the imaging study reported as a CRITICAL RESULT to QASIM VALERA DO at08:08 on 12/07/2017. Category of Critical Result: Stroke alert EVIDENCE OF ACUTE STROKE: NO. Head MRI 12/07/17 08:20 IMPRESSION: 1. No evidence of acute abnormality. No recent CVA. 2. Chronic small vessel disease. EVIDENCE OF ACUTE STROKE: NO. Abdomen CT 12/14/17 00:00 IMPRESSION: There is a large irregularly-shaped mass with multiple nodular components in the region of the right kidney, this measures approximately 14 cm in craniocaudad dimension extending inferiorly to the level of the iliac crest and approximately 17 cm transversely with a component extending through the abdominal -lower thoracic wall into the right flank subcutaneous soft tissues. This heterogeneous low density mass measures between 15 and 25 Hounsfield units. Small right pleural effusion and basilar subsegmental atelectasis. Abdomen MRI 12/15/17 00:00 IMPRESSION: 1. As seen on CT, there is abnormal tissue in the right renal fossa which extends to abut the liver and extends through the abdominal wall into the subcutaneous right flank tissues. Hyperintense T2 cystic changes are suggested throughout, but otherwise indeterminate. Findings are suspicious for neoplasm given the extent and transgression of the abdominal wall. Patient also has a history of traumas recently, however, which could contribute to the appearance. Presumably the [place] kidneys are otherwise markedly atrophic and not seen. Abdomen Biopsy CT 12/20/17 00:00 IMPRESSION: CT GUIDED BIOPSY OF THE RIGHT FLANK MASS PERFORMED WITHOUT IMMEDIATE COMPLICATION. PATHOLOGY PENDING. Guidance Needle Placement CT 12/20/17 00:00 IMPRESSION: CT GUIDED BIOPSY OF THE RIGHT FLANK MASS PERFORMED WITHOUT IMMEDIATE COMPLICATION. PATHOLOGY PENDING. Assessment & Plan - Diagnosis (1) ESRD (end stage renal disease) on dialysis Is this a current diagnosis for this admission?: Yes Plan: will look to arrange dialysis tomorrow (2) Renal cell carcinoma Qualifiers: Laterality: right Qualified Code(s): C64.1 - Malignant neoplasm of right kidney, except renal pelvis Is this a current diagnosis for this admission?: Yes Plan: Has a history of renal cell carcinoma. She had a left nephrectomy in 2009 and a right nephrectomy in [address]. [address] guided biopsy. (3) Weakness Plan: improving (4) Chills Plan: currently no complaints of chills. (5) Hypertensive urgency Is this a current diagnosis for this admission?: Yes Plan: blood pressure looks to be mostly controlled (6) Constipation Is this a current diagnosis for this admission?: Yes Plan: resolved (7) Diabetes Qualifiers: Diabetes mellitus type: type 2 Diabetes mellitus complication status: with circulatory complication Diabetes mellitus complication detail: with other circulatory complications Diabetes mellitus terminal gauger supervisor insulin use: with terminal gauger supervisor use Qualified Code(s): E11.59 - Type 2 diabetes mellitus with other circulatory complications; Z79.4 - assistant terminal manager (current) use of insulin; Z79.4 - assistant terminal manager (current) use of insulin; Z79.4 - assistant terminal manager (current) use of insulin; Z79.4 - [facility] (current) use of insulin Is this a current diagnosis for this admission?: Yes Plan: varying - Notes Notes: patient was discussed with Dr. Carrion
[2017-12-20] MEDS: ATORVASTATIN CALCIUM 40 MG TABLET PO SCH (21:48)
[2017-12-20] MEDS: ZOLPIDEM TARTRATE 5 MG TABLET PO PRN (21:49)
[2017-12-20] MEDS: CETIRIZINE 10 MG TABLET PO SCH (21:49)
[2017-12-20 22:07] LABS: MEAN CORPUSCULAR HEMOGLOBIN 28.1 pg (27.0-33.4); MEAN CORPUSCULAR HGB CONC 32.2 g/dL (32.0-36.0); MEAN CORPUSCULAR VOLUME 87 fl (80-97); PLATELET COUNT 250 10^3/uL (150-450); RED BLOOD COUNT 3.55 10^6/uL (3.72-5.28); RED CELL DISTRIBUTION WIDTH 18.5 % (11.5-14.0); WHITE BLOOD COUNT 4.8 10^3/uL (4.0-10.5)
[2017-12-21] MEDS: ONDANSETRON HCL INJ/PF 4 MG/2 ML SDV IV PRN ×3 (05:29→21:26)
[2017-12-21] MEDS: LANSOPRAZOLE 30 MG TAB.RAP.DR PO SCH ×2 (05:29→16:33)
[2017-12-21] MEDS: OXYCODONE-ACETAMINOPHEN 5-325 MG TABLET PO PRN ×3 (05:29→21:25)
[2017-12-21 09:02] LABS: ABSOLUTE EOSINOPHILS # (AUTO) 0.2 10^3/uL (0.0-0.6); ABSOLUTE MONOCYTES (AUTO) 0.4 10^3/uL (0.1-1.4); ABSOLUTE NEUT (AUTO) 2.9 10^3/uL (1.7-8.2); HEMATOCRIT 28.4 % (36.0-47.0); HEMOGLOBIN 9.1 g/dL (12.0-15.5); LYMPHOCYTES % (AUTO) 22.1 % (13-45); MEAN CORPUSCULAR HEMOGLOBIN 28.1 pg (27.0-33.4); MEAN CORPUSCULAR HGB CONC 32.2 g/dL (32.0-36.0); MEAN CORPUSCULAR VOLUME 87 fl (80-97); MONOCYTES % (AUTO) 9.1 % (3-13); PLATELET COUNT 258 10^3/uL (150-450); RED BLOOD COUNT 3.25 10^6/uL (3.72-5.28); RED CELL DISTRIBUTION WIDTH 18.2 % (11.5-14.0); SEGMENTED NEUTROPHILS % (AUTO) 63.8 % (42-78); TOTAL CELLS COUNTED % (AUTO) 100 %; WHITE BLOOD COUNT 4.5 10^3/uL (4.0-10.5)
[2017-12-21 09:18] LABS: ANION GAP 12 (5-19); BLOOD UREA NITROGEN 32 mg/dL (7-20); CARBON DIOXIDE 28 mmol/L (22-30); CHLORIDE 95 mmol/L (98-107); GLUCOSE 179 mg/dL (75-110); POTASSIUM 5.5 mmol/L (3.6-5.0); SODIUM 134.7 mmol/L (137-145)
[2017-12-21] MEDS ORDERED: EPOETIN ALFA 5,000 UNIT in SYRINGE, DISPOSABLE, 1 EACH IV PRN (10:18)
[2017-12-21] MEDS ORDERED: HEPARIN SOD (PORCINE) 1,000 UNIT/ML 10 ML VIAL IV PRN (11:21)
[2017-12-21] MEDS: POLYETHYLENE GLYCOL 3350 POWDER 17 GM/1 PACKET PO SCH ×2 (12:30→18:46)
[2017-12-21] MEDS: METOPROLOL TARTRATE 25 MG TABLET PO SCH ×2 (12:30→21:25)
[2017-12-21] MEDS: AMLODIPINE BESYLATE 5 MG TABLET PO SCH (12:31)
[2017-12-21] MEDS: DOCUSATE SODIUM 100 MG CAPSULE PO SCH (12:31)
[2017-12-21] MEDS: CIPROFLOXACIN-HC OTIC SUSP 10 ML AU SCH ×2 (12:32→18:43)
[2017-12-21] MEDS: LACTOBACILLUS ACIDOPHILUS 250 MG TAB PO SCH ×2 (12:32→18:39)
[2017-12-21] MEDS: FLUTICASONE NASAL SPRAY 50 MCG/SPRY 120 SPRAY/16 GM NASL SCH (12:34)
[2017-12-21] MEDS: BUDESONIDE/FORMOTEROL 160-4.5 MCG 60 PUFF/6 GM MDI IH SCH ×2 (12:34→21:26)
[2017-12-21] MEDS: INSULIN DETEMIR 100 UNIT/ML 3 ML PEN SUBCUT SCH (12:36)
[2017-12-21] MEDS: NYSTATIN TOPICAL POWDER 15 GM TP SCH (12:43)
--- NOTE | 2017-12-21 13:11 | PDOC PROGRESS REPORT ---
Subjective Progress Note for:: 12/21/17 Reason For Visit: Seen today on Dialysis. She is undergoing dialysis without any issues. She had a Abdominal biopsy yesterday without any complications.She admits to mild pain around the biopsy site. However she she feels good and denies any chest pains, dyspnea, fever or chills.Labs and meds were reviewed with her. Physical Exam Vital Signs: Temp Pulse Resp BP Pulse Ox 98.4 F 61 16 120/50 L 100 12/20/17 23:37 12/21/17 07:00 12/20/17 23:37 12/20/17 23:37 12/20/17 23:37 Intake & Output 12/20/17 12/21/17 12/22/17 06:59 06:59 06:59 Intake Total 227 2013 Output Total 2500 Balance -2273 2013 Weight 78.1 kg 81.5 kg General appearance: PRESENT: no acute distress Respiratory exam: PRESENT: chest wall tenderness. ABSENT: crackles, rhonchi Cardiovascular exam: PRESENT: +S1, +S2, systolic murmur GI/Abdominal exam: PRESENT: mass - on the right flank which is mildly tender., normal bowel sounds, organomegaly, soft. ABSENT: ascites, diminished bowel sounds, distended, firm, guarding, tenderness Extremities exam: ABSENT: pedal edema Neurological exam: PRESENT: alert, awake, oriented to person, oriented to place , oriented to time Psychiatric exam: PRESENT: appropriate affect Results Laboratory Results: 12/21/17 08:00 12/21/17 08:00 12/20/17 12/21/17 12/21/17 22:00 08:00 08:00 WBC 4.8 4.5 RBC 3.55 L 3.25 L Hgb 10.0 L 9.1 L Hct 31.0 L 28.4 L MCV 87 87 MCH 28.1 28.1 MCHC 32.2 32.2 RDW 18.5 H 18.2 H Plt Count 250 258 Seg Neutrophils % 63.8 Lymphocytes % 22.1 Monocytes % 9.1 Eosinophils % 4.0 Basophils % 1.0 Absolute Neutrophils 2.9 Absolute Lymphocytes 1.0 Absolute Monocytes 0.4 Absolute Eosinophils 0.2 Absolute Basophils 0.0 Sodium 134.7 L Potassium 5.5 H Chloride 95 L Carbon Dioxide 28 Anion Gap 12 BUN 32 H Creatinine 7.85 H Est GFR ( Amer) 6 L Est GFR (Non-Af Amer) 5 L Glucose 179 H Calcium 9.0 Impressions: Chest X-Ray 12/07/17 07:45 IMPRESSION: NO SIGNIFICANT INTERVAL CHANGE. Head CT 12/07/17 07:45 IMPRESSION: 1. Chronic small vessel disease is suggested. Otherwise, unremarkable CT of the brain without contrast. Pertinent findings on the imaging study reported as a CRITICAL RESULT to QASIM VALERA DO at08:08 on 12/07/2017. Category of Critical Result: Stroke alert EVIDENCE OF ACUTE STROKE: NO. Head MRI 12/07/17 08:20 IMPRESSION: 1. No evidence of acute abnormality. No recent CVA. 2. Chronic small vessel disease. EVIDENCE OF ACUTE STROKE: NO. Abdomen CT 12/14/17 00:00 IMPRESSION: There is a large irregularly-shaped mass with multiple nodular components in the region of the right kidney, this measures approximately 14 cm in craniocaudad dimension extending inferiorly to the level of the iliac crest and approximately 17 cm transversely with a component extending through the abdominal -lower thoracic wall into the right flank subcutaneous soft tissues. This heterogeneous low density mass measures between 15 and 25 Hounsfield units. Small right pleural effusion and basilar subsegmental atelectasis. Abdomen MRI 12/15/17 00:00 IMPRESSION: 1. As seen on CT, there is abnormal tissue in the right renal fossa which extends to abut the liver and extends through the abdominal wall into the subcutaneous right flank tissues. Hyperintense T2 cystic changes are suggested throughout, but otherwise indeterminate. Findings are suspicious for neoplasm given the extent and transgression of the abdominal wall. Patient also has a history of traumas recently, however, which could contribute to the appearance. Presumably the [place] kidneys are otherwise markedly atrophic and not seen. Abdomen Biopsy CT 12/20/17 00:00 IMPRESSION: CT GUIDED BIOPSY OF THE RIGHT FLANK MASS PERFORMED WITHOUT IMMEDIATE COMPLICATION. PATHOLOGY PENDING. Guidance Needle Placement CT 12/20/17 00:00 IMPRESSION: CT GUIDED BIOPSY OF THE RIGHT FLANK MASS PERFORMED WITHOUT IMMEDIATE COMPLICATION. PATHOLOGY PENDING. Assessment & Plan - Diagnosis (3) End stage renal disease on dialysis Plan: Undergoing dialysis without any issues. Is being supervised to ensure safe and smooth procedure. Vital signs are stable. Plan to remove around 1- 2 L of fluid. Orders were discussed with the treating nurse. (4) Hypertensive urgency Is this a current diagnosis for this admission?: Yes Plan: Controlled. Monitor. (5) Diabetes 1.5, managed as type 2 Plan: Adv tight control. (6) Right flank mass Is this a current diagnosis for this admission?: Yes Plan: Being evaluated by Oncology. S/P biopsy yesterday without any complications.
--- NOTE | 2017-12-21 16:33 | PDOC PROGRESS REPORT ---
Subjective Progress Note for:: 12/21/17 Subjective:: No overnight events. CT guided biopsy yesterday. Getting dialysis today. Feeling better Reason For Visit: ENCEPHALOPATHY Physical Exam Vital Signs: Temp Pulse Resp BP Pulse Ox 98.4 F 76 16 120/50 L 100 12/20/17 23:37 12/21/17 14:00 12/20/17 23:37 12/20/17 23:37 12/20/17 23:37 Intake & Output 12/20/17 12/21/17 12/22/17 06:59 06:59 06:59 Intake Total 227 2013 Output Total 2500 Balance -2273 2013 Weight 78.1 kg 81.5 kg General appearance: PRESENT: no acute distress, obese Head exam: PRESENT: normocephalic Mouth exam: PRESENT: moist Cardiovascular exam: PRESENT: +S1, +S2 GI/Abdominal exam: PRESENT: soft, tenderness - right sided mass Neurological exam: PRESENT: alert, awake, CN II-XII grossly intact Results Laboratory Results: 12/21/17 08:00 12/21/17 08:00 12/20/17 12/21/17 12/21/17 22:00 08:00 08:00 WBC 4.8 4.5 RBC 3.55 L 3.25 L Hgb 10.0 L 9.1 L Hct 31.0 L 28.4 L MCV 87 87 MCH 28.1 28.1 MCHC 32.2 32.2 RDW 18.5 H 18.2 H Plt Count 250 258 Seg Neutrophils % 63.8 Lymphocytes % 22.1 Monocytes % 9.1 Eosinophils % 4.0 Basophils % 1.0 Absolute Neutrophils 2.9 Absolute Lymphocytes 1.0 Absolute Monocytes 0.4 Absolute Eosinophils 0.2 Absolute Basophils 0.0 Sodium 134.7 L Potassium 5.5 H Chloride 95 L Carbon Dioxide 28 Anion Gap 12 BUN 32 H Creatinine 7.85 H Est GFR ( Amer) 6 L Est GFR (Non-Af Amer) 5 L Glucose 179 H Calcium 9.0 Impressions: Chest X-Ray 12/07/17 07:45 IMPRESSION: NO SIGNIFICANT INTERVAL CHANGE. Head CT 12/07/17 07:45 IMPRESSION: 1. Chronic small vessel disease is suggested. Otherwise, unremarkable CT of the brain without contrast. Pertinent findings on the imaging study reported as a CRITICAL RESULT to QASIM VALERA DO at08:08 on 12/07/2017. Category of Critical Result: Stroke alert EVIDENCE OF ACUTE STROKE: NO. Head MRI 12/07/17 08:20 IMPRESSION: 1. No evidence of acute abnormality. No recent CVA. 2. Chronic small vessel disease. EVIDENCE OF ACUTE STROKE: NO. Abdomen CT 12/14/17 00:00 IMPRESSION: There is a large irregularly-shaped mass with multiple nodular components in the region of the right kidney, this measures approximately 14 cm in craniocaudad dimension extending inferiorly to the level of the iliac crest and approximately 17 cm transversely with a component extending through the abdominal -lower thoracic wall into the right flank subcutaneous soft tissues. This heterogeneous low density mass measures between 15 and 25 Hounsfield units. Small right pleural effusion and basilar subsegmental atelectasis. Abdomen MRI 12/15/17 00:00 IMPRESSION: 1. As seen on CT, there is abnormal tissue in the right renal fossa which extends to abut the liver and extends through the abdominal wall into the subcutaneous right flank tissues. Hyperintense T2 cystic changes are suggested throughout, but otherwise indeterminate. Findings are suspicious for neoplasm given the extent and transgression of the abdominal wall. Patient also has a history of traumas recently, however, which could contribute to the appearance. Presumably the [place] kidneys are otherwise markedly atrophic and not seen. Abdomen Biopsy CT 12/20/17 00:00 IMPRESSION: CT GUIDED BIOPSY OF THE RIGHT FLANK MASS PERFORMED WITHOUT IMMEDIATE COMPLICATION. PATHOLOGY PENDING. Guidance Needle Placement CT 12/20/17 00:00 IMPRESSION: CT GUIDED BIOPSY OF THE RIGHT FLANK MASS PERFORMED WITHOUT IMMEDIATE COMPLICATION. PATHOLOGY PENDING. Assessment & Plan - Diagnosis (1) ESRD (end stage renal disease) on dialysis Is this a current diagnosis for this admission?: Yes Plan: Current on iHD - Received dialysis today, tolerated well - Next planned for Tuesday (2) Hypertensive urgency Is this a current diagnosis for this admission?: Yes Plan: Resolved, much better BP control (3) Right flank mass Is this a current diagnosis for this admission?: Yes Plan: History of RCC - S/p CT guided biopsy on 12/20, path pending - Has been evaluated by oncology this admission who expressed concern for recurrence - Will review OSH records once available (4) Diabetes Qualifiers: Diabetes mellitus type: type 2 Diabetes mellitus complication status: with circulatory complication Diabetes mellitus complication detail: with other circulatory complications Diabetes mellitus penitentiary insulin use: with termite control technician use Qualified Code(s): E11.59 - Type 2 diabetes mellitus with other circulatory complications; Z79.4 - senior living (current) use of insulin; Z79.4 - senior living (current) use of insulin; Z79.4 - senior living (current) use of insulin; Z79.4 - termite control representative (current) use of insulin Is this a current diagnosis for this admission?: Yes Plan: Good blood sugar control, continue current regimen - Time Time Spent with patient: Less than 15 minutes Anticipated discharge: Home with Homehealth Within: within 24 hours
[2017-12-21] MEDS: INSULIN LISPRO 100 UNIT/ML 3 ML VIAL SUBCUT PRN (16:34)
[2017-12-21] MEDS: TIZANIDINE HCL 4 MG TABLET PO PRN (19:55)
[2017-12-21] MEDS: ATORVASTATIN CALCIUM 40 MG TABLET PO SCH (21:25)
[2017-12-21] MEDS: CETIRIZINE 10 MG TABLET PO SCH (21:25)
[2017-12-21] MEDS: ZOLPIDEM TARTRATE 5 MG TABLET PO PRN (21:26)
[2017-12-22] MEDS: ONDANSETRON HCL INJ/PF 4 MG/2 ML SDV IV PRN ×2 (03:38→21:54)
[2017-12-22] MEDS: LANSOPRAZOLE 30 MG TAB.RAP.DR PO SCH ×2 (05:57→17:20)
[2017-12-22 07:43] LABS: ANION GAP 15 (5-19); BLOOD UREA NITROGEN 23 mg/dL (7-20); CALCIUM 9.6 mg/dL (8.4-10.2); CARBON DIOXIDE 27 mmol/L (22-30); CHLORIDE 94 mmol/L (98-107); GLUCOSE 161 mg/dL (75-110); POTASSIUM 5.2 mmol/L (3.6-5.0); SODIUM 135.9 mmol/L (137-145)
--- NOTE | 2017-12-22 08:45 | PDOC PROGRESS REPORT ---
Subjective Progress Note for:: 12/22/17 Subjective:: Patient feeling well today. NO new complaints. She has difficulty with her memory and cannot remember if there was anything she wanted to tell me. She states her diet order has been changed the last few days. SHe wants to talk with nutrition services about this. Someone from [employer] came and told her she must go to the [place] to apply for the [facility] disablility. She states that she is not able to do this. Reason For Visit: ENCEPHALOPATHY Physical Exam Vital Signs: Temp Pulse Resp BP Pulse Ox 98.3 F 69 20 156/64 H 100 12/22/17 08:19 12/22/17 08:19 12/22/17 08:19 12/22/17 08:19 12/22/17 08:19 Intake & Output 12/21/17 12/22/17 12/23/17 06:59 06:59 06:59 Intake Total 2013 1895 Output Total 0 Balance 2013 Weight 81.5 kg 81.5 kg General appearance: PRESENT: no acute distress, well-developed, well-nourished Exam: 67 year old female sitting on the side of bed eating breakfast. Head exam: PRESENT: atraumatic Respiratory exam: PRESENT: unlabored Neurological exam: PRESENT: alert, awake, oriented to person, oriented to place Psychiatric exam: PRESENT: appropriate affect Skin exam: PRESENT: normal color Results Laboratory Results: 12/21/17 08:00 12/22/17 06:30 12/21/17 12/21/17 12/22/17 08:00 08:00 06:30 WBC 4.5 RBC 3.25 L Hgb 9.1 L Hct 28.4 L MCV 87 MCH 28.1 MCHC 32.2 RDW 18.2 H Plt Count 258 Seg Neutrophils % 63.8 Lymphocytes % 22.1 Monocytes % 9.1 Eosinophils % 4.0 Basophils % 1.0 Absolute Neutrophils 2.9 Absolute Lymphocytes 1.0 Absolute Monocytes 0.4 Absolute Eosinophils 0.2 Absolute Basophils 0.0 Sodium 134.7 L 135.9 L Potassium 5.5 H 5.2 H Chloride 95 L 94 L Carbon Dioxide 28 27 Anion Gap 12 15 BUN 32 H 23 H Creatinine 7.85 H 5.21 H Est GFR ( Amer) 6 L 10 L Est GFR (Non-Af Amer) 5 L 8 L Glucose 179 H 161 H Calcium 9.0 9.6 Impressions: Chest X-Ray 12/07/17 07:45 IMPRESSION: NO SIGNIFICANT INTERVAL CHANGE. Head CT 12/07/17 07:45 IMPRESSION: 1. Chronic small vessel disease is suggested. Otherwise, unremarkable CT of the brain without contrast. Pertinent findings on the imaging study reported as a CRITICAL RESULT to QASIM VALERA DO at08:08 on 12/07/2017. Category of Critical Result: Stroke alert EVIDENCE OF ACUTE STROKE: NO. Head MRI 12/07/17 08:20 IMPRESSION: 1. No evidence of acute abnormality. No recent CVA. 2. Chronic small vessel disease. EVIDENCE OF ACUTE STROKE: NO. Abdomen CT 12/14/17 00:00 IMPRESSION: There is a large irregularly-shaped mass with multiple nodular components in the region of the right kidney, this measures approximately 14 cm in craniocaudad dimension extending inferiorly to the level of the iliac crest and approximately 17 cm transversely with a component extending through the abdominal -lower thoracic wall into the right flank subcutaneous soft tissues. This heterogeneous low density mass measures between 15 and 25 Hounsfield units. Small right pleural effusion and basilar subsegmental atelectasis. Abdomen MRI 12/15/17 00:00 IMPRESSION: 1. As seen on CT, there is abnormal tissue in the right renal fossa which extends to abut the liver and extends through the abdominal wall into the subcutaneous right flank tissues. Hyperintense T2 cystic changes are suggested throughout, but otherwise indeterminate. Findings are suspicious for neoplasm given the extent and transgression of the abdominal wall. Patient also has a history of traumas recently, however, which could contribute to the appearance. Presumably the [place] kidneys are otherwise markedly atrophic and not seen. Abdomen Biopsy CT 12/20/17 00:00 IMPRESSION: CT GUIDED BIOPSY OF THE RIGHT FLANK MASS PERFORMED WITHOUT IMMEDIATE COMPLICATION. PATHOLOGY PENDING. Guidance Needle Placement CT 12/20/17 00:00 IMPRESSION: CT GUIDED BIOPSY OF THE RIGHT FLANK MASS PERFORMED WITHOUT IMMEDIATE COMPLICATION. PATHOLOGY PENDING. Assessment & Plan - Diagnosis (1) Renal cell carcinoma Qualifiers: Laterality: right Qualified Code(s): C64.1 - Malignant neoplasm of right kidney, except renal pelvis Is this a current diagnosis for this admission?: Yes Plan: Awaiting path report from Biopsy 2 days ago. I told patient that I will let her know once this is available. (2) Right flank mass Is this a current diagnosis for this admission?: Yes
[2017-12-22] MEDS: FLUTICASONE NASAL SPRAY 50 MCG/SPRY 120 SPRAY/16 GM NASL SCH (10:07)
[2017-12-22] MEDS: BUDESONIDE/FORMOTEROL 160-4.5 MCG 60 PUFF/6 GM MDI IH SCH ×2 (10:08→21:54)
[2017-12-22] MEDS: POLYETHYLENE GLYCOL 3350 POWDER 17 GM/1 PACKET PO SCH ×2 (10:09→17:19)
[2017-12-22] MEDS: INSULIN DETEMIR 100 UNIT/ML 3 ML PEN SUBCUT SCH (10:10)
[2017-12-22] MEDS: OXYCODONE-ACETAMINOPHEN 5-325 MG TABLET PO PRN ×3 (10:14→21:54)
[2017-12-22] MEDS: DOCUSATE SODIUM 100 MG CAPSULE PO SCH (10:15)
[2017-12-22] MEDS: AMLODIPINE BESYLATE 5 MG TABLET PO SCH (10:15)
[2017-12-22] MEDS: LACTOBACILLUS ACIDOPHILUS 250 MG TAB PO SCH ×2 (10:16→17:20)
[2017-12-22] MEDS: METOPROLOL TARTRATE 25 MG TABLET PO SCH ×2 (10:16→21:54)
[2017-12-22] MEDS: CIPROFLOXACIN-HC OTIC SUSP 10 ML AU SCH ×2 (10:17→17:22)
--- NOTE | 2017-12-22 11:28 | PDOC PROGRESS REPORT ---
Subjective Progress Note for:: 12/22/17 Subjective:: No overnight events. Doing well overall. No specific complaints. Anxious about biopsy results. Reason For Visit: ENCEPHALOPATHY Physical Exam Vital Signs: Temp Pulse Resp BP Pulse Ox 98.3 F 69 20 156/64 H 100 12/22/17 08:19 12/22/17 08:19 12/22/17 08:19 12/22/17 08:19 12/22/17 08:19 Intake & Output 12/21/17 12/22/17 12/23/17 06:59 06:59 06:59 Intake Total 2013 1895 Output Total 2199 Balance 2013 Weight 81.5 kg 81.5 kg General appearance: PRESENT: no acute distress, obese Head exam: PRESENT: normocephalic Mouth exam: PRESENT: moist Respiratory exam: PRESENT: unlabored. ABSENT: tachypnea Cardiovascular exam: PRESENT: RRR. ABSENT: tachycardia GI/Abdominal exam: PRESENT: soft. ABSENT: tenderness Neurological exam: PRESENT: alert, awake, CN II-XII grossly intact Psychiatric exam: PRESENT: appropriate affect Results Laboratory Results: 12/21/17 08:00 12/22/17 06:30 12/22/17 06:30 Sodium 135.9 L Potassium 5.2 H Chloride 94 L Carbon Dioxide 27 Anion Gap 15 BUN 23 H Creatinine 5.21 H Est GFR ( Amer) 10 L Est GFR (Non-Af Amer) 8 L Glucose 161 H Calcium 9.6 Impressions: Chest X-Ray 12/07/17 07:45 IMPRESSION: NO SIGNIFICANT INTERVAL CHANGE. Head CT 12/07/17 07:45 IMPRESSION: 1. Chronic small vessel disease is suggested. Otherwise, unremarkable CT of the brain without contrast. Pertinent findings on the imaging study reported as a CRITICAL RESULT to QASIM VALERA DO at08:08 on 12/07/2017. Category of Critical Result: Stroke alert EVIDENCE OF ACUTE STROKE: NO. Head MRI 12/07/17 08:20 IMPRESSION: 1. No evidence of acute abnormality. No recent CVA. 2. Chronic small vessel disease. EVIDENCE OF ACUTE STROKE: NO. Abdomen CT 12/14/17 00:00 IMPRESSION: There is a large irregularly-shaped mass with multiple nodular components in the region of the right kidney, this measures approximately 14 cm in craniocaudad dimension extending inferiorly to the level of the iliac crest and approximately 17 cm transversely with a component extending through the abdominal -lower thoracic wall into the right flank subcutaneous soft tissues. This heterogeneous low density mass measures between 15 and 25 Hounsfield units. Small right pleural effusion and basilar subsegmental atelectasis. Abdomen MRI 12/15/17 00:00 IMPRESSION: 1. As seen on CT, there is abnormal tissue in the right renal fossa which extends to abut the liver and extends through the abdominal wall into the subcutaneous right flank tissues. Hyperintense T2 cystic changes are suggested throughout, but otherwise indeterminate. Findings are suspicious for neoplasm given the extent and transgression of the abdominal wall. Patient also has a history of traumas recently, however, which could contribute to the appearance. Presumably the [place] kidneys are otherwise markedly atrophic and not seen. Abdomen Biopsy CT 12/20/17 00:00 IMPRESSION: CT GUIDED BIOPSY OF THE RIGHT FLANK MASS PERFORMED WITHOUT IMMEDIATE COMPLICATION. PATHOLOGY PENDING. Guidance Needle Placement CT 12/20/17 00:00 IMPRESSION: CT GUIDED BIOPSY OF THE RIGHT FLANK MASS PERFORMED WITHOUT IMMEDIATE COMPLICATION. PATHOLOGY PENDING. Assessment & Plan - Diagnosis (1) ESRD (end stage renal disease) on dialysis Is this a current diagnosis for this admission?: Yes Plan: Current on iHD - Received dialysis on 12/21 tolerated well - Next planned for Tuesday - Nephrology following (2) Hypertensive urgency Is this a current diagnosis for this admission?: Yes (3) Right flank mass Is this a current diagnosis for this admission?: Yes Plan: History of RCC - S/p CT guided biopsy on 12/20, path pending, discussed case with Dr. Lawton this AM who does not have prelim results yet - Concern for recurrence - Will review OSH records once available (4) Diabetes Qualifiers: Diabetes mellitus type: type 2 Diabetes mellitus complication status: with circulatory complication Diabetes mellitus complication detail: with other circulatory complications Diabetes mellitus ferry terminal agent insulin use: with senior living use Qualified Code(s): E11.59 - Type 2 diabetes mellitus with other circulatory complications; Z79.4 - snf (current) use of insulin; Z79.4 - long term acute care registered nurse (current) use of insulin; Z79.4 - snf (current) use of insulin; Z79.4 - long term acute care registered nurse (current) use of insulin Is this a current diagnosis for this admission?: Yes Plan: Good blood sugar control, continue current regimen - Time Time Spent with patient: Less than 15 minutes Anticipated discharge: Home Within: within 48 hours
[2017-12-22] MEDS: CETIRIZINE 10 MG TABLET PO SCH (21:54)
[2017-12-22] MEDS: ATORVASTATIN CALCIUM 40 MG TABLET PO SCH (21:54)
[2017-12-23] MEDS: HYDROXYZINE PAMOATE 25 MG CAPSULE PO PRN (00:23)
[2017-12-23] MEDS: ONDANSETRON HCL INJ/PF 4 MG/2 ML SDV IV PRN ×2 (04:50→15:15)
[2017-12-23 04:56] LABS: HEMATOCRIT 30.5 % (36.0-47.0); HEMOGLOBIN 9.8 g/dL (12.0-15.5); MEAN CORPUSCULAR HGB CONC 32.2 g/dL (32.0-36.0); MEAN CORPUSCULAR VOLUME 87 fl (80-97); RED BLOOD COUNT 3.52 10^6/uL (3.72-5.28); RED CELL DISTRIBUTION WIDTH 18.1 % (11.5-14.0); WHITE BLOOD COUNT 5.9 10^3/uL (4.0-10.5)
[2017-12-23] MEDS ORDERED: HEPARIN SOD (PORCINE) 1,000 UNIT/ML 10 ML VIAL IV PRN ×2 (05:00→09:10)
[2017-12-23] MEDS ORDERED: EPOETIN ALFA 10,000 UNIT in SYRINGE, DISPOSABLE, 1 EACH IV PRN (05:00)
[2017-12-23] MEDS ORDERED: EPOETIN ALFA INJ 20000 UNIT/1 ML VIAL (RENAL) IV PRN (05:00)
[2017-12-23 05:16] LABS: ANION GAP 10 (5-19); BLOOD UREA NITROGEN 31 mg/dL (7-20); CALCIUM 9.2 mg/dL (8.4-10.2); CARBON DIOXIDE 27 mmol/L (22-30); CHLORIDE 96 mmol/L (98-107); GLUCOSE 108 mg/dL (75-110); POTASSIUM 5.3 mmol/L (3.6-5.0); SODIUM 133.1 mmol/L (137-145)
[2017-12-23 05:20] LABS: PLATELET COUNT 179 10^3/uL (150-450)
[2017-12-23] MEDS: LANSOPRAZOLE 30 MG TAB.RAP.DR PO SCH (05:52)
[2017-12-23] MEDS: OXYCODONE-ACETAMINOPHEN 5-325 MG TABLET PO PRN ×2 (05:52→12:22)
[2017-12-23] MEDS ORDERED: EPOETIN ALFA 5,000 UNIT in SYRINGE, DISPOSABLE, 1 EACH IV PRN (06:53)
[2017-12-23] MEDS: DIPHENHYDRAMINE HCL 25 MG CAPSULE PO PRN (07:51)
[2017-12-23] MEDS: METOPROLOL TARTRATE 25 MG TABLET PO SCH (12:20)
[2017-12-23] MEDS: INSULIN DETEMIR 100 UNIT/ML 3 ML PEN SUBCUT SCH (12:20)
[2017-12-23] MEDS: DOCUSATE SODIUM 100 MG CAPSULE PO SCH (12:20)
[2017-12-23] MEDS: AMLODIPINE BESYLATE 5 MG TABLET PO SCH (12:21)
[2017-12-23] MEDS: LACTOBACILLUS ACIDOPHILUS 250 MG TAB PO SCH (12:21)
[2017-12-23] MEDS: CIPROFLOXACIN-HC OTIC SUSP 10 ML AU SCH (12:21)
[2017-12-23] MEDS: BUDESONIDE/FORMOTEROL 160-4.5 MCG 60 PUFF/6 GM MDI IH SCH (12:22)
[2017-12-23] MEDS: POLYETHYLENE GLYCOL 3350 POWDER 17 GM/1 PACKET PO SCH (12:22)
[2017-12-23] MEDS: FLUTICASONE NASAL SPRAY 50 MCG/SPRY 120 SPRAY/16 GM NASL SCH (12:22)
--- NOTE | 2017-12-23 12:26 | PDOC PROGRESS REPORT ---
Subjective Progress Note for:: 12/23/17 Reason For Visit: No specific/C/O.S/P abdominal mass biopsy. NO c/o abdominal pains, chest pains, dyspnea. Labs and meds were reviewed with her. Physical Exam Vital Signs: Temp Pulse Resp BP Pulse Ox 98.4 F 60 20 126/59 H 100 12/23/17 03:43 12/23/17 03:43 12/23/17 03:43 12/23/17 03:43 12/23/17 03:43 Intake & Output 12/22/17 12/23/17 12/24/17 06:59 06:59 06:59 Intake Total 1896 1394 Output Total 2200 0 Balance -304 1394 Weight 81.5 kg 77.8 kg General appearance: PRESENT: no acute distress Respiratory exam: PRESENT: clear to auscultation santhosh. ABSENT: crackles, rhonchi Cardiovascular exam: PRESENT: +S1, +S2, systolic murmur GI/Abdominal exam: PRESENT: mass - on the right flank which is mildly tender., normal bowel sounds, organomegaly, soft. ABSENT: ascites, diminished bowel sounds, distended, firm, guarding, tenderness Extremities exam: ABSENT: pedal edema Neurological exam: PRESENT: alert, awake, oriented to person, oriented to place Results Laboratory Results: 12/23/17 04:13 12/23/17 04:13 12/23/17 12/23/17 04:13 04:13 WBC 5.9 RBC 3.52 L Hgb 9.8 L Hct 30.5 L MCV 87 MCH 28.0 MCHC 32.2 RDW 18.1 H Plt Count 179 Sodium 133.1 L Potassium 5.3 H Chloride 96 L Carbon Dioxide 27 Anion Gap 10 BUN 31 H Creatinine 7.06 H Est GFR ( Amer) 7 L Est GFR (Non-Af Amer) 6 L Glucose 108 Calcium 9.2 Impressions: Chest X-Ray 12/07/17 07:45 IMPRESSION: NO SIGNIFICANT INTERVAL CHANGE. Head CT 12/07/17 07:45 IMPRESSION: 1. Chronic small vessel disease is suggested. Otherwise, unremarkable CT of the brain without contrast. Pertinent findings on the imaging study reported as a CRITICAL RESULT to QASIM VALERA DO at08:08 on 12/07/2017. Category of Critical Result: Stroke alert EVIDENCE OF ACUTE STROKE: NO. Head MRI 12/07/17 08:20 IMPRESSION: 1. No evidence of acute abnormality. No recent CVA. 2. Chronic small vessel disease. EVIDENCE OF ACUTE STROKE: NO. Abdomen CT 12/14/17 00:00 IMPRESSION: There is a large irregularly-shaped mass with multiple nodular components in the region of the right kidney, this measures approximately 14 cm in craniocaudad dimension extending inferiorly to the level of the iliac crest and approximately 17 cm transversely with a component extending through the abdominal -lower thoracic wall into the right flank subcutaneous soft tissues. This heterogeneous low density mass measures between 15 and 25 Hounsfield units. Small right pleural effusion and basilar subsegmental atelectasis. Abdomen MRI 12/15/17 00:00 IMPRESSION: 1. As seen on CT, there is abnormal tissue in the right renal fossa which extends to abut the liver and extends through the abdominal wall into the subcutaneous right flank tissues. Hyperintense T2 cystic changes are suggested throughout, but otherwise indeterminate. Findings are suspicious for neoplasm given the extent and transgression of the abdominal wall. Patient also has a history of traumas recently, however, which could contribute to the appearance. Presumably the [place] kidneys are otherwise markedly atrophic and not seen. Abdomen Biopsy CT 12/20/17 00:00 IMPRESSION: CT GUIDED BIOPSY OF THE RIGHT FLANK MASS PERFORMED WITHOUT IMMEDIATE COMPLICATION. PATHOLOGY PENDING. Guidance Needle Placement CT 12/20/17 00:00 IMPRESSION: CT GUIDED BIOPSY OF THE RIGHT FLANK MASS PERFORMED WITHOUT IMMEDIATE COMPLICATION. PATHOLOGY PENDING. Assessment & Plan - Diagnosis (3) End stage renal disease on dialysis Plan: Undergoing dialysis without any issues. Is being supervised to ensure safe and smooth procedure. Vital signs are stable. Plan to remove around 1- 2 L of fluid. Orders were discussed with the treating nurse. (4) Hypertensive urgency Is this a current diagnosis for this admission?: Yes Plan: Controlled. Monitor. (5) Diabetes 1.5, managed as type 2 Plan: Adv tight control. (6) Right flank mass Is this a current diagnosis for this admission?: Yes Plan: Being evaluated by Oncology. S/P biopsy without any complications. (7) Anemia of renal disease Plan: on EPO.
[2017-12-23 15:06] VITALS: BP 135/56
--- NOTE | 2017-12-23 19:08 | PDOC DISCHARGE SUMMARY ---
General - Admit/Disc Date/PCP Admission Date/Primary Care Provider: 12/08/17 08:16 FELICITA DAVID, Discharge Date: 12/23/17 - Discharge Diagnosis (1) ESRD (end stage renal disease) on dialysis Is this a current diagnosis for this admission?: Yes Summary: Current on iHD - Received dialysis today on 12/23, tolerated well - Will have dialysis on Tuesday at [facility] scheduled (2) Hypertensive urgency Is this a current diagnosis for this admission?: Yes Summary: Blood pressure much improved, scripts given for Amlodipine, Lopressor (3) Right flank mass Is this a current diagnosis for this admission?: Yes Summary: History of RCC - S/p CT guided biopsy on 12/20, path returned today which was non-diagnosed - Discussed case with Dr. Lawton who will see patient as outpatient within a week. She will coordinate repeat biopsy either locally or with urologist in [place] - I have held her Plavix given upcoming biopsy. Can re-start after bx is obtained - Would recommend core biopsy given non-diagnostic results with FNA (4) Diabetes Is this a current diagnosis for this admission?: Yes Summary: Blood sugars well controlled - Additional Information Resuscitation Status: Full Code Discharge Diet: Cardiac, Diabetic Discharge Activity: Activity As Tolerated Prescriptions: Albuterol Sulfate [Proair HFA Inhalation Aerosol 8.5 gm MDI] 2 puff IH Q6HP PRN 30 Days #1 hfa.aer.ad PRN Reason: WHEEZING Amlodipine Besylate [Norvasc 5 mg Tablet] 5 mg PO DAILY #30 tablet Budesonide/Formoterol Fumarate [Symbicort HFA 160-4.5 mcg Inhaler 6 gm] 2 puff IH Q12 #2 inhaler Metoprolol Tartrate [Lopressor 25 mg Tablet] 25 mg PO Q12 #60 tablet Home Medications: Atorvastatin Calcium [Lipitor 40 mg Tablet] 40 mg PO QHS 12/07/17 Diazepam [Valium 5 mg Tablet] 2.5 mg PO HSP PRN 12/07/17 Docusate Sodium [Colace 100 mg Capsule] 100 mg PO BID 12/07/17 Escitalopram Oxalate [Lexapro] 20 mg PO DAILY 12/07/17 Fluocinolone Acetonide 1 applic TOP BID 12/07/17 Hydromorphone HCl [Dilaudid 2 mg Tablet] 2 mg PO Q6HP PRN 12/07/17 Hydroxyzine HCl [Atarax 25 mg Tablet] 25 mg PO TIDP PRN 12/07/17 Ipratropium/Albuterol Sulfate [Duoneb 3 ml Ampul] 1 vial NEB Q4HP PRN 12/07/17 Levothyroxine Sodium [Synthroid] 137 mg PO Q6AM 12/07/17 Mirtazapine [Remeron 15 mg Tablet] 15 mg PO QHS 12/07/17 Nitroglycerin [Nitrostat 0.4 mg (1/150 Gr) Tabs 25/Bottle] 0.4 mg PO Q5MP PRN Nortriptyline HCl [Pamelor 10 mg Capsule] 10 mg PO QHS 12/07/17 Nystatin [Mycostatin Cream 15 gm] 1 applic TOP BID 12/07/17 Pantoprazole Sodium [Protonix] 40 mg PO BID 12/07/17 Polyethylene Glycol 3350 [Miralax Powder 17 gm/Packet] 1 packet PO BID 12/07/17 Tizanidine HCl [Zanaflex 4 mg Tablet] 4 mg PO Q8HP PRN 12/07/17 L.acidoph,Paracasei, B.lactis [Probiotic] 2 each PO BID 12/17/17 Albuterol Sulfate [Proair HFA Inhalation Aerosol 8.5 gm MDI] 2 puff IH Q6HP PRN 30 Days #1 hfa.aer.ad 12/23/17 Amlodipine Besylate [Norvasc 5 mg Tablet] 5 mg PO DAILY #30 tablet 12/23/17 Budesonide/Formoterol Fumarate [Symbicort HFA 160-4.5 mcg Inhaler 6 gm] 2 puff IH Q12 #2 inhaler 12/23/17 Clopidogrel Bisulfate [Plavix 75 mg Tablet] 75 mg PO DAILY #0 12/23/17 Epoetin Joo [Procrit Inj 20,000 Unit/1 ml Vial (Renal)] 5,000 unit IV .DIALYSIS PRN ml 12/23/17 Metoprolol Tartrate [Lopressor 25 mg Tablet] 25 mg PO Q12 #60 tablet 12/23/17 History of Present Illness History of Present Illness: CODY SHAW is a 67 year old female who presented to ED via ambulance due to confusion. Patient states that upon awakening she was not feeling like her usual self. She got ready to go to dialysis and is usually not take her usual medications. While she was in route in the car she felt kind of weak and with chills. She immediately went to [facility] since felt her blood sugar was low. Her blood sugar after eating was 106 Patient also complains of runny nose some cough. She admits taking the flu vaccine.On arrival to emergency room systolic blood pressure was higher than 200 and patient was medicated with labetalol [address] Carrion was consulted as patient gets dialysis Tuesday and Tuesday and he agreed to dialyzed. Patient was also evaluated through MRI out of concern of a TIA which was negative. Has had extensive hospitalization. Physical Exam Vital Signs: Temp Pulse Resp BP Pulse Ox 98.4 F 69 20 135/56 H 100 12/23/17 15:02 12/23/17 15:02 12/23/17 15:02 12/23/17 15:02 12/23/17 15:02 Intake & Output 12/22/17 12/23/17 12/24/17 06:59 06:59 06:59 Intake Total 1896 1394 Output Total 2200 0 1670 Balance -304 1394 -1670 Weight 81.5 kg 77.8 kg General appearance: PRESENT: no acute distress, obese Head exam: PRESENT: normocephalic Mouth exam: PRESENT: moist Respiratory exam: PRESENT: unlabored. ABSENT: tachypnea Cardiovascular exam: PRESENT: +S1, +S2 GI/Abdominal exam: PRESENT: soft, other - Abdominal mass palpable. ABSENT: tenderness Musculoskeletal exam: PRESENT: ambulatory Neurological exam: PRESENT: alert, awake, CN II-XII grossly intact Psychiatric exam: PRESENT: appropriate affect Results Laboratory Results: 12/23/17 04:13 12/23/17 04:13 12/23/17 12/23/17 04:13 04:13 WBC 5.9 RBC 3.52 L Hgb 9.8 L Hct 30.5 L MCV 87 MCH 28.0 MCHC 32.2 RDW 18.1 H Plt Count 179 Sodium 133.1 L Potassium 5.3 H Chloride 96 L Carbon Dioxide 27 Anion Gap 10 BUN 31 H Creatinine 7.06 H Est GFR ( Amer) 7 L Est GFR (Non-Af Amer) 6 L Glucose 108 Calcium 9.2 Impressions: Chest X-Ray 12/07/17 07:45 IMPRESSION: NO SIGNIFICANT INTERVAL CHANGE. Head CT 12/07/17 07:45 IMPRESSION: 1. Chronic small vessel disease is suggested. Otherwise, unremarkable CT of the brain without contrast. Pertinent findings on the imaging study reported as a CRITICAL RESULT to QASIM VALERA DO at08:08 on 12/07/2017. Category of Critical Result: Stroke alert EVIDENCE OF ACUTE STROKE: NO. Head MRI 12/07/17 08:20 IMPRESSION: 1. No evidence of acute abnormality. No recent CVA. 2. Chronic small vessel disease. EVIDENCE OF ACUTE STROKE: NO. Abdomen CT 12/14/17 00:00 IMPRESSION: There is a large irregularly-shaped mass with multiple nodular components in the region of the right kidney, this measures approximately 14 cm in craniocaudad dimension extending inferiorly to the level of the iliac crest and approximately 17 cm transversely with a component extending through the abdominal -lower thoracic wall into the right flank subcutaneous soft tissues. This heterogeneous low density mass measures between 15 and 25 Hounsfield units. Small right pleural effusion and basilar subsegmental atelectasis. Abdomen MRI 12/15/17 00:00 IMPRESSION: 1. As seen on CT, there is abnormal tissue in the right renal fossa which extends to abut the liver and extends through the abdominal wall into the subcutaneous right flank tissues. Hyperintense T2 cystic changes are suggested throughout, but otherwise indeterminate. Findings are suspicious for neoplasm given the extent and transgression of the abdominal wall. Patient also has a history of traumas recently, however, which could contribute to the appearance. Presumably the [place] kidneys are otherwise markedly atrophic and not seen. Abdomen Biopsy CT 12/20/17 00:00 IMPRESSION: CT GUIDED BIOPSY OF THE RIGHT FLANK MASS PERFORMED WITHOUT IMMEDIATE COMPLICATION. PATHOLOGY PENDING. Guidance Needle Placement CT 12/20/17 00:00 IMPRESSION: CT GUIDED BIOPSY OF THE RIGHT FLANK MASS PERFORMED WITHOUT IMMEDIATE COMPLICATION. PATHOLOGY PENDING. Qualifiers - * PATEINT BEING DISCHARGED WITH ANY OF THE FOLLOWING DIAGNOSIS?: No
== END 2017-12-23 15:40 | disposition home or self-care (01) | DRG 637 ==
LOC: ER 07:36 → EH 13:15 → 5 12-08 04:31 → OBSVTOIN 12-08 08:16
PROVIDERS: ADMIT Family Medicine; ATTEND Family Medicine
PROC: 5A1D70Z Performance of Urinary Filtration, Intermittent, Less than 6 Hours Per Day (ICD-10-PCS; 2017-12-07)
PROC: 5A1D70Z Performance of Urinary Filtration, Intermittent, Less than 6 Hours Per Day (ICD-10-PCS; 2017-12-09)
PROC: 5A1D70Z Performance of Urinary Filtration, Intermittent, Less than 6 Hours Per Day (ICD-10-PCS; 2017-12-12)
PROC: 5A1D70Z Performance of Urinary Filtration, Intermittent, Less than 6 Hours Per Day (ICD-10-PCS; 2017-12-14)
PROC: 5A1D70Z Performance of Urinary Filtration, Intermittent, Less than 6 Hours Per Day (ICD-10-PCS; 2017-12-16)
PROC: 5A1D70Z Performance of Urinary Filtration, Intermittent, Less than 6 Hours Per Day (ICD-10-PCS; 2017-12-19)
PROC: 0TB03ZX Excision of Right Kidney, Percutaneous Approach, Diagnostic (ICD-10-PCS; principal; 2017-12-20)
PROC: 5A1D70Z Performance of Urinary Filtration, Intermittent, Less than 6 Hours Per Day (ICD-10-PCS; 2017-12-21)
PROC: 5A1D70Z Performance of Urinary Filtration, Intermittent, Less than 6 Hours Per Day (ICD-10-PCS; 2017-12-23)
DX: E11.649 Type 2 diabetes mellitus with hypoglycemia without coma (principal); G93.41 Metabolic encephalopathy; I13.2 Hypertensive heart and chronic kidney disease with heart failure and with stage 5 chronic kidney disease, or end stage renal disease; N28.89 Other specified disorders of kidney and ureter; N18.6 End stage renal disease; I67.4 Hypertensive encephalopathy; I16.0 Hypertensive urgency; E11.59 Type 2 diabetes mellitus with other circulatory complications; I50.9 Heart failure, unspecified; B37.3 Candidiasis of vulva and vagina; E11.22 Type 2 diabetes mellitus with diabetic chronic kidney disease; K59.00 Constipation, unspecified; H66.90 Otitis media, unspecified, unspecified ear; D63.1 Anemia in chronic kidney disease; I25.10 Atherosclerotic heart disease of native coronary artery without angina pectoris; Z99.2 Dependence on renal dialysis; E78.5 Hyperlipidemia, unspecified; J44.9 Chronic obstructive pulmonary disease, unspecified; Z90.49 Acquired absence of other specified parts of digestive tract; Z82.49 Family history of ischemic heart disease and other diseases of the circulatory system; Z82.2 Family history of deafness and hearing loss; Z91.013 Allergy to seafood; Z79.4 Long term (current) use of insulin; Z77.111 Contact with and (suspected) exposure to water pollution; Z79.02 Long term (current) use of antithrombotics/antiplatelets; Z95.5 Presence of coronary angioplasty implant and graft; Z85.528 Personal history of other malignant neoplasm of kidney; Z90.5 Acquired absence of kidney
CPT/HCPCS: 36415; 49180; 70450; 70551; 71045; 74150; 74181; 77012; 80048; 80053; 82550; 82553; 82803; 82962; 83690; 84484; 85025; 85027; 85610; 85730; 87040; 88305; 88341; 88342; 93005; 93010; 96365; 96366; 96372; 96375; 96376; 99291; G0378; J0780; J1644; J1815; J2060; J2250; J2405; J3010; J3370; J3490; J7060; Q4081

== ENCOUNTER 2018-04-21 19:02 | Emergency (ER) | payer MEDICARE, BC ==
[2018-04-21] MEDS ORDERED: ONDANSETRON 4 MG TAB.RAPDIS PO ONE (20:14)
--- NOTE | 2018-04-21 20:16 | ER Document Report ---
ED Medical Screen (RME) - General Chief Complaint: Other Stated Complaint: COUGHING UP BLOOD Time Seen by Provider: 04/21/18 20:07 Notes: RAPID MEDICAL EVALUATION DISCLOSURE I have seen this patient as part of a Rapid Medical Evaluation and, if applicable, placed any initially appropriate orders. The patient will be seen and fully evaluated, including a full history and physical exam, by a provider ( in Main ED or Fast Track) when a room becomes available. 68-year-old female PMH renal carcinoma on oral chemotherapy here with complaints of continued but progressively worsening nausea vomiting diarrhea abdominal pain over the past 3 weeks ever since she started this new oral chemotherapy agent (of which she does not know the name). Today, she woke up with some blood clots in her mouth. She does not think she cough them up but believes she may have vomited them up. She does take Plavix. EXAM Mild diffuse abdominal TTP No peritoneal signs TRAVEL OUTSIDE OF THE [place] IN LAST 30 DAYS: No - Related Data Allergies/Adverse Reactions: adhesive Allergy (Verified 04/21/18 19:04) hydrochlorothiazide Allergy (Verified 04/21/18 19:04) Iodine and Iodide Containing Produc Allergy (Verified 04/21/18 19:04) metoclopramide [From Reglan] Allergy (Verified 04/21/18 19:04) shellfish derived Allergy (Verified 04/21/18 19:04) Sulfa (Sulfonamide Antibiotics) Allergy (Verified 04/21/18 19:04) Past Medical History - Social History Chew tobacco use (# tins/day): No Frequency of alcohol use: None Drug Abuse: None - Past Medical History Cardiac Medical History: Reports: Hx Congestive Heart Failure, Hx Hypercholesterolemia, Hx Hypertension Endocrine Medical History: Reports: Hx Diabetes Mellitus Type 1, Hx Diabetes Mellitus Type 2 Renal/ Medical History: Reports: Hx End Stage Renal Disease. Denies: Hx Peritoneal Dialysis Malignancy Medical History: Reports: Hx Renal (Kidney) Cancer GI Medical History: Reports: Hx Gastroesophageal Reflux Disease Past Surgical History: Reports: Hx Cardiac Catheterization, Hx Cholecystectomy, Hx Orthopedic Surgery - Back and knee surgery, Hx Vascular Surgery - shunt in the left arm for dialysis, Other - Bilateral nephrectomies - Immunizations History of Influenza Vaccine for 07/2017 - 12/2017 Season: Yes Influenza Administration Date for 07/2017 - 12/2017 Season: 07/24/17 Physical Exam - Vital signs Vitals: Temp Pulse Resp BP Pulse Ox 98.7 F 83 18 137/56 H 96 04/21/18 19:10 04/21/18 19:10 04/21/18 19:10 04/21/18 19:10 04/21/18 19:10 Course - Vital Signs Vital signs: Temp Pulse Resp BP Pulse Ox 98.7 F 83 18 137/56 H 96 04/21/18 19:10 04/21/18 19:10 04/21/18 19:10 04/21/18 19:10 04/21/18 19:10 Doctor's Discharge - Discharge Referrals: FELICITA HERNANDEZ, [Primary Care Provider] - Follow up as needed
[2018-04-21 20:53] LABS: ABSOLUTE EOSINOPHILS # (AUTO) 0.1 10^3/uL (0.0-0.6); ABSOLUTE LYMPHOCYTES (AUTO) 1.1 10^3/uL (0.5-4.7); ABSOLUTE MONOCYTES (AUTO) 0.5 10^3/uL (0.1-1.4); ABSOLUTE NEUT (AUTO) 6.9 10^3/uL (1.7-8.2); BASOPHILS % (AUTO) 0.4 % (0-2); EOSINOPHILS % (AUTO) 0.8 % (0-6); HEMATOCRIT 28.6 % (36.0-47.0); HEMOGLOBIN 9.8 g/dL (12.0-15.5); LYMPHOCYTES % (AUTO) 12.7 % (13-45); MEAN CORPUSCULAR HGB CONC 34.1 g/dL (32.0-36.0); MEAN CORPUSCULAR VOLUME 85 fl (80-97); MONOCYTES % (AUTO) 6.3 % (3-13); PLATELET COUNT 276 10^3/uL (150-450); RED BLOOD COUNT 3.38 10^6/uL (3.72-5.28); RED CELL DISTRIBUTION WIDTH 16.9 % (11.5-14.0); SEGMENTED NEUTROPHILS % (AUTO) 79.8 % (42-78); TOTAL CELLS COUNTED % (AUTO) 100 %; WHITE BLOOD COUNT 8.6 10^3/uL (4.0-10.5)
[2018-04-21 21:06] LABS: INTERNATIONAL RATION (INR) 1.04; PROTHROMBIN TIME 14.1 SEC (11.4-15.4)
[2018-04-21 21:07] LABS: PARTIAL THROMBOPLASTIN TIME 43.7 SEC (23.5-35.8)
[2018-04-21 21:55] LABS: ALANINE AMINOTRANSFERASE 24 U/L (9-52); ALBUMIN 3.6 g/dL (3.5-5.0); ALKALINE PHOSPHATASE 191 U/L (38-126); ANION GAP 13 (5-19); ASPARTATE AMINO TRANSFERASE 28 U/L (14-36); BILIRUBIN,DIRECT 0.5 mg/dL (0.0-0.4); BILIRUBIN,TOTAL 0.5 mg/dL (0.2-1.3); BLOOD UREA NITROGEN 16 mg/dL (7-20); CALCIUM 9.2 mg/dL (8.4-10.2); CARBON DIOXIDE 29 mmol/L (22-30); CHLORIDE 98 mmol/L (98-107); GLUCOSE 119 mg/dL (75-110); LIPASE 83.9 U/L (23-300); POTASSIUM 3.7 mmol/L (3.6-5.0); SODIUM 139.9 mmol/L (137-145); TOTAL PROTEIN 6.4 g/dL (6.3-8.2)
--- NOTE | 2018-04-21 22:44 | RADIOLOGY REPORT (SQ) ---
EXAM DESCRIPTION: XR CHEST 1 VIEW COMPLETED DATE/TME: 04/21/2018 22:03 EXAM DESCRIPTION: CLINICAL HISTORY: Hemoptysis COMPARISON: 12/07/2017 FINDINGS: Single view of the chest is submitted. Cardiac silhouette is normal. Central catheter tip is in the right atrium. No focal parenchymal or pleural disease. No acute bony abnormality. There is no significant pulmonary vascular engorgement. IMPRESSION: No evidence of acute cardiopulmonary disease.
--- NOTE | 2018-04-22 00:14 | ER Document Report ---
ED General - General Chief Complaint: Other Stated Complaint: COUGHING UP BLOOD Time Seen by Provider: 04/21/18 20:07 Notes: The patient is a 68-year-old female with history of end-stage renal disease with dialysis dependence who presents after "finding a clot in my mouth after he woke up from a nap". Patient states that she is unsure where the clot came from but was concerned about this so came to the emergency department. She states that she found another clot in her mouth shortly after the initial one but denies any vomiting or coughing prior to or after the event. She denies any additional symptoms including shortness of breath, chest pain, fever, or persistent coughing. She denies any abdominal pain. She has not seen her general doctor regarding today's concerns. She has not had any fresh blood and is clear to state that the thing she found in her mouth "looked like clots" but she is uncertain of what they were exactly. She denies a history of similar symptoms in the past. TRAVEL OUTSIDE OF THE [place] IN LAST 30 DAYS: No - Related Data Allergies/Adverse Reactions: adhesive Allergy (Verified 04/21/18 19:04) hydrochlorothiazide Allergy (Verified 04/21/18 19:04) Iodine and Iodide Containing Produc Allergy (Verified 04/21/18 19:04) metoclopramide [From Reglan] Allergy (Verified 04/21/18 19:04) shellfish derived Allergy (Verified 04/21/18 19:04) Sulfa (Sulfonamide Antibiotics) Allergy (Verified 04/21/18 19:04) Past Medical History - General Information source: Patient - Social History Smoking Status: Never Smoker Chew tobacco use (# tins/day): No Frequency of alcohol use: None Drug Abuse: None Lives with: Family Family History: Reviewed & Not Pertinent, Hypertension Patient has suicidal ideation: No Patient has homicidal ideation: No - Past Medical History Cardiac Medical History: Reports: Hx Congestive Heart Failure, Hx Hypercholesterolemia, Hx Hypertension Endocrine Medical History: Reports: Hx Diabetes Mellitus Type 1, Hx Diabetes Mellitus Type 2 Renal/ Medical History: Reports: Hx End Stage Renal Disease. Denies: Hx Peritoneal Dialysis Malignancy Medical History: Reports: Hx Renal (Kidney) Cancer GI Medical History: Reports: Hx Gastroesophageal Reflux Disease Past Surgical History: Reports: Hx Cardiac Catheterization, Hx Cholecystectomy, Hx Orthopedic Surgery - Back and knee surgery, Hx Vascular Surgery - shunt in the left arm for dialysis, Other - Bilateral nephrectomies Review of Systems - Review of Systems Notes: Constitutional: Negative for fever. HENT: Negative for sore throat. Eyes: Negative for visual changes. Cardiovascular: Negative for chest pain. Respiratory: Negative for shortness of breath. Gastrointestinal: Negative for abdominal pain, vomiting or diarrhea. Genitourinary: Negative for dysuria. Musculoskeletal: Negative for back pain. Skin: Negative for rash. Neurological: Negative for headaches, weakness or numbness. 10 point ROS negative except as marked above and in HPI. Physical Exam - Vital signs Vitals: Temp Pulse Resp BP Pulse Ox 98.7 F 83 18 137/56 H 96 04/21/18 19:10 04/21/18 19:10 04/21/18 19:10 04/21/18 19:10 04/21/18 19:10 Interpretation: Normal Notes: PHYSICAL EXAMINATION: GENERAL: Well-appearing, well-nourished and in no acute distress. HEAD: Atraumatic, normocephalic. EYES: Pupils equal round and reactive to light, extraocular movements intact, sclera anicteric, conjunctiva are normal. ENT: nares patent, oropharynx clear without exudates. Moist mucous membranes. No blood in the oral airway. NECK: Normal range of motion, supple without lymphadenopathy LUNGS: Breath sounds clear to auscultation bilaterally and equal. No wheezes rales or rhonchi. HEART: Regular rate and rhythm without murmurs ABDOMEN: Soft, nontender, normoactive bowel sounds. No guarding, no rebound. No masses appreciated. EXTREMITIES: Normal range of motion, no pitting or edema. No cyanosis. NEUROLOGICAL: No focal neurological deficits. Moves all extremities spontaneously and on command. PSYCH: Normal mood, normal affect. SKIN: Warm, Dry, normal turgor, no rashes or lesions noted. Course - Re-evaluation Re-evalutation: 04/22/18 02:44 Presentation of a patient who believes that she had 2 blood clots in her mouth spontaneously although she is uncertain where they came from. Urgently in triage there was some concern the patient may have coughed these up although the patient is uncertain of this detail when she is speaking to me. She is awake, alert, talking, has no visible damage to her airway or dental injuries. She denies any shortness of breath, labs and chest x-ray unchanged from prior assessment. She has anemia that is unchanged from prior. I do not suspect that the patient has a clinically significant upper airway bleed or pulmonary hemorrhage. A pulmonary embolus does not make sense in the clinical context. Given the absence of any complaints at the time of my assessment I do not believe any further workup is indicated at this time. At this time will discharge with return precautions and follow-up recommendations. Verbal discharge instructions given a the bedside and opportunity for questions given. Medication warnings reviewed. Patient is in agreement with this plan and has verbalized understanding of return precautions and the need for primary care follow-up in the next 24-72 hours. - Vital Signs Vital signs: Temp Pulse Resp BP Pulse Ox 98.7 F 83 18 137/56 H 96 04/21/18 19:10 04/21/18 19:10 04/21/18 19:10 04/21/18 19:10 04/21/18 19:10 - Laboratory Result Diagrams: 04/21/18 20:41 04/21/18 21:22 Laboratory results interpreted by me: 04/21/18 04/21/18 04/21/18 20:41 20:41 21:22 RBC 3.38 L Hgb 9.8 L Hct 28.6 L RDW 16.9 H Seg Neutrophils % 79.8 H Lymphocytes % 12.7 L APTT 43.7 H Creatinine 3.77 H Est GFR ( Amer) 15 L Est GFR (Non-Af Amer) 12 L Glucose 119 H Direct Bilirubin 0.5 H Alkaline Phosphatase 191 H - Diagnostic Test Radiology reviewed: Image reviewed, Reports reviewed Radiology results interpreted by me: 04/22/18 02:45 Chest x-ray: No acute infiltrate or pneumothorax Discharge - Discharge Clinical Impression: ESRD (end stage renal disease) on dialysis, Hemoptysis, Anemia of renal disease Condition: Good Disposition: HOME, SELF-CARE Additional Instructions: Your labs show that your anemia is unchanged from back in December. Your chest x- ray is normal. The exact cause of the small clot that you found in your mouth is uncertain but does not appear to be from a life-threatening cause currently. Please follow-up with your general doctor at your earliest ability. Return if you have any further episodes of coughing blood, become lightheaded, become short of breath, develop a fever greater than 100.4 F, or have any other symptoms that are worrisome to you. Referrals: FELICITA HERNANDEZ, DO [Primary Care Provider] - Follow up as needed
[2018-04-22 04:16] VITALS: BP 146/67
== END 2018-04-22 00:34 | disposition home or self-care (01) ==
LOC: ER 19:02
DX: R04.2 Hemoptysis (principal); D63.1 Anemia in chronic kidney disease; I13.2 Hypertensive heart and chronic kidney disease with heart failure and with stage 5 chronic kidney disease, or end stage renal disease; E11.22 Type 2 diabetes mellitus with diabetic chronic kidney disease; N18.6 End stage renal disease; Z99.2 Dependence on renal dialysis; Z90.49 Acquired absence of other specified parts of digestive tract; Z88.2 Allergy status to sulfonamides; Z91.013 Allergy to seafood
CPT/HCPCS: 99284; 36415; 83690; 85025; 85610; 85730; 80053; 71045; A9270; S0119

== ENCOUNTER 2018-07-19 09:23 | Emergency (ER) | payer MEDICARE, BC ==
[2018-07-19 09:29] VITALS: BP 154/74
--- NOTE | 2018-07-19 09:38 | ER Document Report ---
ED General - General Chief Complaint: Laceration Stated Complaint: LEG LACERATION Time Seen by Provider: 07/19/18 09:31 Mode of Arrival: Ambulatory Information source: Patient Notes: 68-year-old female with congestive heart failure, end-stage renal disease, type 1 diabetes presents with complaint of laceration to her left ankle. Patient states that she hit her leg on a shoe box last night. She states that the bleeding persisted and when she went to dialysis was told to come to the emergency department. Patient's tetanus is up-to-date. She denies any fever, chills, chest pain, shortness of breath. TRAVEL OUTSIDE OF THE [place] IN LAST 30 DAYS: No - HPI Onset: Yesterday Onset/Duration: Gradual, Persistent Quality of pain: No pain Associated symptoms: None Exacerbated by: Denies Relieved by: Denies Similar symptoms previously: No Recently seen / treated by doctor: Yes - Related Data Allergies/Adverse Reactions: adhesive Allergy (Verified 04/21/18 19:04) hydrochlorothiazide Allergy (Verified 04/21/18 19:04) Iodine and Iodide Containing Produc Allergy (Verified 04/21/18 19:04) metoclopramide [From Reglan] Allergy (Verified 04/21/18 19:04) shellfish derived Allergy (Verified 04/21/18 19:04) Sulfa (Sulfonamide Antibiotics) Allergy (Verified 04/21/18 19:04) Past Medical History - General Information source: Patient, [facility] Records - Social History Smoking Status: Never Smoker Frequency of alcohol use: None Drug Abuse: None Lives with: Alone Family History: Reviewed & Not Pertinent, Hypertension Patient has suicidal ideation: No Patient has homicidal ideation: No - Past Medical History Cardiac Medical History: Reports: Hx Congestive Heart Failure, Hx Hypercholesterolemia, Hx Hypertension Endocrine Medical History: Reports: Hx Diabetes Mellitus Type 1, Hx Diabetes Mellitus Type 2 Renal/ Medical History: Reports: Hx End Stage Renal Disease. Denies: Hx Peritoneal Dialysis Malignancy Medical History: Reports: Hx Renal (Kidney) Cancer GI Medical History: Reports: Hx Gastroesophageal Reflux Disease Past Surgical History: Reports: Hx Cardiac Catheterization, Hx Cholecystectomy, Hx Orthopedic Surgery - Back and knee surgery, Hx Vascular Surgery - shunt in the left arm for dialysis, Other - Bilateral nephrectomies Review of Systems - Review of Systems Notes: REVIEW OF SYSTEMS: CONSTITUTIONAL : Denies fever, chills, or sweats. Denies recent illness. Denies weight loss, recent hospitalizations. EENT: Denies visual changes, eye pain. Denies sore throat, oral lesions, difficulty swallowing. CARDIOVASCULAR: Denies chest pain. Denies palpitations. Denies lower extremity edema. RESPIRATORY: Denies cough. Denies shortness of breath, wheezing. GASTROINTESTINAL: Denies abdominal pain or distention. Denies nausea, vomiting , or diarrhea. Denies blood in vomitus, stools, or per rectum. Denies black, tarry stools. Denies constipation. GENITOURINARY: Denies difficulty urinating, painful urination, frequency, blood in urine, or vaginal discharge. MUSCULOSKELETAL: Denies back or neck pain or stiffness. Denies joint pain or swelling. SKIN: + Skin tear left ankle HEMATOLOGIC : Denies easy bruising or bleeding. LYMPHATIC: Denies swollen glands. NEUROLOGICAL: Denies confusion or altered mental status. Denies loss of consciousness. Denies dizziness or lightheadedness. Denies headache. Denies weakness or paralysis. Denies problems difficulty with ambulation, slurred speech. Denies sensory loss, numbness, or tingling. Denies seizures. PSYCHIATRIC: Denies anxiety or stress. Denies depression, suicidal ideation, or homicidal ideation. Denies visual or auditory hallucinations. Physical Exam - Vital signs Vitals: Temp Pulse Resp BP Pulse Ox 97.7 F 81 16 154/74 H 98 07/19/18 09:28 07/19/18 09:28 07/19/18 09:28 07/19/18 09:28 07/19/18 09:28 Interpretation: Hypertensive - Notes Notes: PHYSICAL EXAMINATION: GENERAL: Well-appearing, well-nourished and in no acute distress. HEAD: Atraumatic, normocephalic. EYES: Pupils equal round and reactive to light, extraocular movements intact, conjunctiva are normal. ENT: Nares patent, oropharynx clear without exudates. Moist mucous membranes. NECK: Normal range of motion, supple without lymphadenopathy LUNGS: Breath sounds clear to auscultation bilaterally and equal. No wheezes rales or rhonchi. HEART: Regular rate and rhythm without murmurs ABDOMEN: Soft, nontender, nondistended abdomen. No guarding, no rebound. No masses appreciated. Female : deferred Musculoskeletal: Normal range of motion, no pitting or edema. No cyanosis. NEUROLOGICAL: Cranial nerves grossly intact. Normal speech, normal gait. Normal sensory, motor exams PSYCH: Normal mood, normal affect. SKIN: Small skin tear left ankle with mild oozing. Course - Re-evaluation Re-evalutation: 07/19/18 09:42 68-year-old female presents with a small skin tear to her left ankle. She is on Plavix. She states that last night she hit her leg on a shoe box. Tetanus is up-to-date. Vital signs stable upon arrival. Patient does not appear toxic or dehydrated. She is due for dialysis today and has called to see if she can be seen and she can be seen immediately after being discharged from the emergency department. Surgicel and a compression wrap was placed after the wound was cleaned. Patient provided the opportunity to ask questions, and express concerns. Discharge instructions discussed. Patient is agreeable with discharge home. Return indications explained and discussed with the patient who displays understanding. Patient encouraged to return to the emergency department immediately with any concerns. Results were discussed with the patient at this point, after careful consideration I feel that that patient can be discharged from the emergency department, the patient was educated treatments and reasons to return to the emergency department based on their presumed diagnosis as noted above, they were advised to followup with a primary care physician in 2-3 days. Patient was agreeable to plan of care. Dictation on this chart was performed using voice recognition software and may result in unintended grammatical, spelling, syntax or errors. - Vital Signs Vital signs: Temp Pulse Resp BP Pulse Ox 97.7 F 81 16 154/74 H 98 07/19/18 09:28 07/19/18 09:28 07/19/18 09:28 07/19/18 09:28 07/19/18 09:28 Discharge - Discharge Clinical Impression: Skin tear Hypertension Qualifiers: Hypertension type: unspecified Qualified Code(s): I10 - Essential (primary) hypertension Condition: Good Disposition: HOME, SELF-CARE Instructions: Antibiotic Ointment Protection ([facility]), Skin Tear ([facility]), Soap Cleansing ([facility]) Additional Instructions: Your seen today for small skin tear on your ankle. It did not require any suturing. Because you are diabetic you need to be diligent about looking at the area on a daily basis to assess for redness, increasing pain. Please go directly to dialysis after being discharged from the emergency department. Follow up with your physician tomorrow for further care or return to the ED IMMEDIATELY if symptoms worsen or new concerns occur. If you cannot afford to follow up with your primary care physician a list of low cost clinics have been provided at the end of your discharge papers as well. Forms: Elevated Blood Pressure Referrals: FELICITA HERNANDEZ, [Primary Care Provider] - Follow up as needed
== END 2018-07-19 09:52 | disposition home or self-care (01) ==
LOC: ER 09:23
DX: S81.812A Laceration without foreign body, left lower leg, initial encounter (principal); W26.9XXA Contact with unspecified sharp object(s), initial encounter; E10.22 Type 1 diabetes mellitus with diabetic chronic kidney disease; I13.2 Hypertensive heart and chronic kidney disease with heart failure and with stage 5 chronic kidney disease, or end stage renal disease; I50.9 Heart failure, unspecified; N18.6 End stage renal disease; Z99.2 Dependence on renal dialysis; Z79.02 Long term (current) use of antithrombotics/antiplatelets; Z91.013 Allergy to seafood
CPT/HCPCS: 99282

== ENCOUNTER 2018-10-05 19:53 | Emergency (ER) | payer MEDICARE, BC ==
--- NOTE | 2018-10-05 21:31 | EKG REPORT ---
SEVERITY:- NORMAL ECG - SINUS RHYTHM : Confirmed by: Aury Shah MD 05-Oct-2018 21:29:47
--- NOTE | 2018-10-05 21:36 | ER Document Report ---
ED General - General Chief Complaint: Pain All Over Stated Complaint: HEADACHE/FULL BODY PAIN Time Seen by Provider: 10/05/18 21:00 Mode of Arrival: Ambulatory Information source: Patient Notes: Pleasant 68-year-old female with history of renal cancer status post bilateral nephrectomy on dialysis currently on chemotherapy presents to the emergency department for generalized pain that started last Tuesday or Tuesday. She says the pain is in her left and right shoulders and migrates down and is in her bilateral legs, but muscles that is aching and deep in nature she says she is having muscle spasms associated with it. She states the pain is worse on her left side She denies any recent falls but says she did have a fall on with no LOC. She was also diagnosed with bronchitis then and was placed on a Medrol pack which she just finished on Tuesday. She states she has a headache, denies visual changes, dizziness, lightheadedness, denies fevers or chills, denies shortness of breath or rapid breathing, denies chest pain, denies nausea, denies vomiting. Denies rash. TRAVEL OUTSIDE OF THE [place] IN LAST 30 DAYS: No - Related Data Allergies/Adverse Reactions: adhesive Allergy (Verified 04/21/18 19:04) hydrochlorothiazide Allergy (Verified 04/21/18 19:04) Iodine and Iodide Containing Produc Allergy (Verified 04/21/18 19:04) metoclopramide [From Reglan] Allergy (Verified 04/21/18 19:04) shellfish derived Allergy (Verified 04/21/18 19:04) Sulfa (Sulfonamide Antibiotics) Allergy (Verified 04/21/18 19:04) Past Medical History - Social History Smoking Status: Never Smoker Chew tobacco use (# tins/day): No Drug Abuse: None Family History: Reviewed & Not Pertinent, Hypertension Patient has suicidal ideation: No Patient has homicidal ideation: No - Past Medical History Cardiac Medical History: Reports: Hx Congestive Heart Failure, Hx Hypercholesterolemia, Hx Hypertension Endocrine Medical History: Reports: Hx Diabetes Mellitus Type 1, Hx Diabetes Mellitus Type 2 Renal/ Medical History: Reports: Hx End Stage Renal Disease. Denies: Hx Peritoneal Dialysis Malignancy Medical History: Reports: Hx Renal (Kidney) Cancer GI Medical History: Reports: Hx Gastroesophageal Reflux Disease Past Surgical History: Reports: Hx Cardiac Catheterization, Hx Cholecystectomy, Hx Orthopedic Surgery - Back and knee surgery, Hx Vascular Surgery - shunt in the left arm for dialysis, Other - Bilateral nephrectomies Review of Systems - Review of Systems Constitutional: See HPI EENT: See HPI Cardiovascular: See HPI Respiratory: See HPI Gastrointestinal: See HPI Genitourinary: See HPI Female Genitourinary: No symptoms reported Musculoskeletal: No symptoms reported Skin: See HPI Hematologic/Lymphatic: No symptoms reported Neurological/Psychological: No symptoms reported Physical Exam - Vital signs Vitals: Temp Pulse Resp BP 98.0 F 71 18 107/47 L 10/05/18 20:02 10/05/18 20:02 10/05/18 20:02 10/05/18 20:02 - Notes Notes: Reviewed vital signs and nursing note as charted by RN. CONSTITUTIONAL: Well-appearing, well-nourished, acting appropriately for age HEAD: Normocephalic, atraumatic, no swelling EYES: PERRL, Conjunctivae clear, no drainage, EOMI, no scleral icterus ENT: External ears without lesions, External auditory canal is patent, airway patent, mucous membranes pink and moist NECK: Supple, no cervical lymphadenopathy, no masses CARD: Regular rate and rhythm, no murmurs, no rubs, no gallops, capillary refill < 2 seconds, symmetric pulses RESP: The lungs are clear to auscultation bilaterally, no wheezing, no rales, no rhonchi. Respiratory rate and effort are normal, normal chest excursion. No respiratory distress, no retractions, no stridor, no nasal flaring, no accessory muscle use. Right subclavian tunneled catheter in place for dialysis. ABD/GI: Normal bowel sounds, non-distended, soft, non-tender, no rebound, no guarding, no palpable organomegaly EXT: Normal ROM in all joints, tender to palpation hips and legs, no effusions, no edema SKIN: Normal color for age and race, warm, dry, good turgor, no acute lesions noted NEURO: No facial asymmetry, moves all extremities equally, motor and sensory function intact Course - Re-evaluation Re-evalutation: 10/05/18 21:36 Very pleasant 68-year-old female with history of bilateral nephrectomy on dialysis presents for pain that is been present for 1 week that started in her bilateral shoulders and is now present in her buttocks and legs. She is currently on chemotherapy taking nivolumab. We will order some basic labs, chest x-ray, EKG, troponin, and CK-MB. 10/05/18 21:56 10/06/18 00:17 EKG showed no evidence of STEMI or ischemic pattern. Troponin was negative. Patient's chest pain, which is reproducible with deep inspiration, most likely musculoskeletal as she has just gotten over a bout of bronchitis and is still complaining of cough. Upon auscultation she still had end expiratory wheezing in all hernandez so a DuoNeb was ordered. CK-MB was within normal range. Because her chemotherapy medication causes both neuropathy and musculoskeletal pain as a side effect her generalized pain could be related to that. She says she has had pain overall since been on chemotherapy but it just got much worse. Chest x-ray showed no evidence of pneumonia. 10/06/18 00:25 I have discussed this case with Dr. sade enciso who has provided consultation and I will and had a creatinine kinase as a lab add on and if the result is normal the patient will be safe to discharge home. 10/06/18 00:58 CK was within normal range. I am not concerned for rhabdomyolysis. Patient's lab work is all within normal limits or stable from previous lab work. It is unclear why the patient's pain has increased but it could be secondary to her coughing from a lingering bronchitis and general malaise. Her workup was overall negative in the emergency department and she is stable to discharge home. - Vital Signs Vital signs: Temp Pulse Resp BP Pulse Ox 98.5 F 71 18 135/50 H 97 10/05/18 21:55 10/05/18 20:02 10/06/18 00:29 10/06/18 00:29 10/06/18 00:29 - Laboratory Result Diagrams: 10/05/18 21:45 10/05/18 21:45 Laboratory results interpreted by me: 10/05/18 10/05/18 21:45 21:45 RBC 2.92 L Hgb 9.3 L Hct 27.0 L RDW 14.5 H Seg Neutrophils % 82.6 H Lymphocytes % 8.3 L Absolute Neutrophils 8.4 H Chloride 96 L BUN 35 H Creatinine 5.17 H Est GFR ( Amer) 10 L Est GFR (Non-Af Amer) 8 L Glucose 130 H Direct Bilirubin 0.6 H AST 38 H Alkaline Phosphatase 142 H Discharge - Discharge Clinical Impression: Muscle pain Condition: Stable Disposition: HOME, SELF-CARE Instructions: Myalagia (Muscle Pain) ([facility]) Additional Instructions: Were seen in the emergency department this evening for generalized muscle pains. Your workup was negative which is very reassuring. You are not suffering from any muscle breakdown which would have showed up and your lab results. Your chest x-ray did not show pneumonia. Your EKG was normal. It could be that your muscle pains are related to your persistent cough or could be a side effect from your chemotherapy medication. If you develop fever, worsening muscle pain, intractable nausea or vomiting, or severe, debilitating muscle pain please immediately return to the emergency department. Referrals: UMBERTO SHAFFER MD [NO LOCAL MD] - Follow up as needed
[2018-10-05 22:12] LABS: ABSOLUTE EOSINOPHILS # (AUTO) 0.1 10^3/uL (0.0-0.6); ABSOLUTE LYMPHOCYTES (AUTO) 0.8 10^3/uL (0.5-4.7); ABSOLUTE MONOCYTES (AUTO) 0.8 10^3/uL (0.1-1.4); ABSOLUTE NEUT (AUTO) 8.4 10^3/uL (1.7-8.2); BASOPHILS % (AUTO) 0.5 % (0-2); EOSINOPHILS % (AUTO) 0.6 % (0-6); HEMOGLOBIN 9.3 g/dL (12.0-15.5); LYMPHOCYTES % (AUTO) 8.3 % (13-45); MEAN CORPUSCULAR HGB CONC 34.5 g/dL (32.0-36.0); MEAN CORPUSCULAR VOLUME 93 fl (80-97); PLATELET COUNT 161 10^3/uL (150-450); RED BLOOD COUNT 2.92 10^6/uL (3.72-5.28); RED CELL DISTRIBUTION WIDTH 14.5 % (11.5-14.0); SEGMENTED NEUTROPHILS % (AUTO) 82.6 % (42-78); TOTAL CELLS COUNTED % (AUTO) 100 %; WHITE BLOOD COUNT 10.1 10^3/uL (4.0-10.5)
--- NOTE | 2018-10-05 22:12 | RADIOLOGY REPORT (SQ) ---
EXAM DESCRIPTION: XR CHEST 1 VIEW COMPLETED DATE/TME: 10/05/2018 21:42 CLINICAL HISTORY: 68 years, Female, pleuritic pain COMPARISON: 04/21/2018 chest x-ray NUMBER OF VIEWS: 1 TECHNIQUE: Portable upright chest LIMITATIONS: None. FINDINGS: Heart size is normal. Atheromatous change thoracic aorta. Dual lumen central venous catheter in place. Endovascular stent graft projects over the left subclavian region. Scarring in the left midlung. Lungs are otherwise clear. No pneumothorax. IMPRESSION: No acute cardiopulmonary process copyright 2010 [employer]- All Rights Reserved
[2018-10-05 23:17] LABS: ALANINE AMINOTRANSFERASE 18 U/L (9-52); ALKALINE PHOSPHATASE 142 U/L (38-126); ANION GAP 14 (5-19); ASPARTATE AMINO TRANSFERASE 38 U/L (14-36); BILIRUBIN,DIRECT 0.6 mg/dL (0.0-0.4); BILIRUBIN,TOTAL 0.6 mg/dL (0.2-1.3); BLOOD UREA NITROGEN 35 mg/dL (7-20); CALCIUM 8.8 mg/dL (8.4-10.2); CARBON DIOXIDE 28 mmol/L (22-30); CHLORIDE 96 mmol/L (98-107); GLUCOSE 130 mg/dL (75-110); LIPASE 30.2 U/L (23-300); SODIUM 137.7 mmol/L (137-145); TOTAL PROTEIN 7.2 g/dL (6.3-8.2)
[2018-10-05] MEDS ORDERED: IPRATROPIUM/ALBUTEROL 0.5-2.5 MG/3 ML AMPUL NEB ONE (23:19)
[2018-10-05 23:53] LABS: CREATINE KINASE MB 0.78 ng/mL (<4.55)
[2018-10-05 23:54] LABS: TROPONIN I < 0.012 ng/mL
[2018-10-06 02:02] VITALS: BP 136/66
== END 2018-10-06 02:11 | disposition home or self-care (01) ==
LOC: ER 19:53
DX: M79.18 Myalgia, other site (principal); C64.9 Malignant neoplasm of unspecified kidney, except renal pelvis; Z79.899 Other long term (current) drug therapy; Z90.5 Acquired absence of kidney; Z99.2 Dependence on renal dialysis; I10 Essential (primary) hypertension; R51 Headache; E11.9 Type 2 diabetes mellitus without complications; Z91.048 Other nonmedicinal substance allergy status; Z88.8 Allergy status to other drugs, medicaments and biological substances; Z91.013 Allergy to seafood; Z88.2 Allergy status to sulfonamides
CPT/HCPCS: 93005; 94640; 99284; 36415; 82553; 82550; 83690; 83735; 85025; 80053; 84484; 71045; 93010; A9270; J7620

== ENCOUNTER 2019-07-07 18:54 | Emergency (ER) | payer MEDICARE, BC ==
--- NOTE | 2019-07-07 19:28 | ER Document Report ---
ED Medical Screen (RME) - General Chief Complaint: Fall Stated Complaint: FALL/LEFT ARM PAIN Time Seen by Provider: 07/07/19 19:26 TRAVEL OUTSIDE OF THE [place] IN LAST 30 DAYS: No - HPI Notes: 07/07/19 19:26 Patient is a 69-year-old female with history of cancer, last chemo was in May, hypertension, end-stage renal disease and on dialysis, extensive cardiac history (not currently on any blood thinners) who presents complaining of mechanical fall and laceration to her left anterior upper arm, low back pain, left index finger pain, and mild headache from when she fell she believes she may have hit her head but did not lose consciousness. Denies any fever, neck pain, changes in vision/speech/mentation/hearing, URI, sore throat, chest pain, palpitations, syncope, cough, shortness of breath, wheeze, dyspnea, abdominal pain, nausea/vomiting/diarrhea, urinary retention, dysuria, hematuria, loss of control of bowel or bladder, numbness/tingling, saddle anesthesia, muscle paralysis/weakness, or rash. I have treated and performed a rapid initial assessment of this patient. A comprehensive ED assessment and evaluation of the patient, analysis of test results and completion of medical decision making process will be conducted by additional ED providers. PHYSICAL EXAMINATION: GENERAL: Well-appearing, well-nourished and in no acute distress. A&Ox4. Answers questions appropriately. Left arm: + large irregular flap like laceration noted, superficial appearing. N/V intact distal. Neuro: cranial nerves grossly intact. Pt able to ambulate with SPC. - Related Data Allergies/Adverse Reactions: adhesive Allergy (Verified 07/07/19 18:58) hydrochlorothiazide Allergy (Verified 07/07/19 18:58) Iodine and Iodide Containing Produc Allergy (Verified 07/07/19 18:58) metoclopramide [From Reglan] Allergy (Verified 07/07/19 18:58) shellfish derived Allergy (Verified 07/07/19 18:58) Sulfa (Sulfonamide Antibiotics) Allergy (Verified 07/07/19 18:58) Past Medical History - Past Medical History Cardiac Medical History: Reports: Hx Congestive Heart Failure, Hx Hyperchole sterolemia, Hx Hypertension Endocrine Medical History: Reports: Hx Diabetes Mellitus Type 1, Hx Diabetes Mellitus Type 2 Renal/ Medical History: Reports: Hx End Stage Renal Disease. Denies: Hx Peritoneal Dialysis Malignancy Medical History: Reports: Hx Renal (Kidney) Cancer GI Medical History: Reports: Hx Gastroesophageal Reflux Disease Past Surgical History: Reports: Hx Cardiac Catheterization, Hx Cholecystectomy, Hx Orthopedic Surgery - Back and knee surgery, Hx Vascular Surgery - shunt in the left arm for dialysis, Other - Bilateral nephrectomies - Immunizations History of Influenza Vaccine for 07/2017 - 12/2017 Season: Yes Influenza Administration Date for 07/2017 - 12/2017 Season: 07/24/17
--- NOTE | 2019-07-07 20:30 | RADIOLOGY REPORT (SQ) ---
EXAM DESCRIPTION: CT HEAD WITHOUT IV CONTRAST, CT CERVICAL SPINE WITHOUT IV CONTRAST COMPLETED DATE/TME: 07/07/2019 19:29 CLINICAL HISTORY: 69 years, Female, pain s/p fall COMPARISON: 12/07/2017. CT brain. TECHNIQUE: CT brain and cervical spine. Images stored on PACS. All CT scanners at this facility use dose modulation, iterative reconstruction, and/or weight based dosing when appropriate to reduce radiation dose to as low as reasonably achievable (ALARA). [facility]: Dose Right [facility]: CareDose [facility]: Dose Right [facility]: Teradose 4D [facility]: [employer] LIMITATIONS: None. FINDINGS: Multifocal regions of patchy hypoattenuation are present in a subcortical and periventricular deep white matter distribution, nonspecific; however, most likely represent small vessel ischemic disease, age indeterminate. The ventricles, and sulci are prominent suggesting mild underlying volume loss, stable in comparison to the previous examination. The lange-white matter differentiation is preserved. There is no mass effect, midline shift, intra- or extra-axial fluid collection/acute hemorrhage. The osseous structures are unremarkable. The paranasal sinuses and mastoid air cells are clear. IMPRESSION: 1. No acute intracranial abnormalities. Nonspecific white matter change most likely small vessel ischemic disease, age indeterminate. 2. CT is insensitive for early evaluation of acute stroke. If there is clinical concern for acute ischemia, an MRI may be considered. Cervical spine: There is diffuse sclerosis of the vertebral column and bony structures raising the concern for metabolic etiology including end-stage renal disease in the correct clinical setting. There is normal alignment of the cervical spine without fracture or subluxation. The facets are normal in alignment bilaterally. The posterior elements including the spinous processes are intact. Straightening of the cervical spine which may be secondary to positioning for the examination. Morphology and attenuation of the vertebral bodies and intervertebral disk spaces is compatible with multilevel degenerative change. Multilevel loss of intervertebral disk height throughout the cervical spine most notably severe at the C3-4 and C5-C6 vertebral levels. Ventral vertebral body osteophytes. Posterior osseous spurring at multiple levels. Multilevel subchondral sclerosis and subchondral cyst formation. Multilevel posterior osseous spurring results in neuroforaminal narrowing throughout the cervical spine. Multilevel diffuse disk bulge resulting in effacement of the ventral thecal sac and at least mild central spinal canal narrowing, at C3-4 measuring 3 mm, C4-5 measuring 3 mm, and C4-5 eccentric to the LEFT measuring 2 mm. The pre-and paravertebral soft tissues are within normal limits. Incompletely visualized dual-lumen vascular catheter on the RIGHT and LEFT subclavian stent. IMPRESSION: 1. Straightening of the cervical spine which may be secondary to positioning for the examination versus spasm. 2. No fracture or acute subluxation. 3. Nonspecific diffuse bony sclerosis raising the possibility of metabolic etiology of bone disease. 4. Multilevel degenerative change as detailed above. If the patient's symptoms persist, follow-up evaluation with MRI may be considered. TECHNICAL DOCUMENTATION: Quality ID # 436: Final reports with documentation of one or more dose reduction techniques (e.g., Automated exposure control, adjustment of the mA and/or kV according to patient size, use of iterative reconstruction technique) copyright 2011 [employer]- All Rights Reserved
[2019-07-07] MEDS ORDERED: LIDOCAINE 1% INJ-PF (10 MG/ML) 30 ML SDV INJ ONE (20:35)
--- NOTE | 2019-07-07 20:36 | RADIOLOGY REPORT (SQ) ---
EXAM DESCRIPTION: CT LUMBAR SPINE WITHOUT IV CONTRAST COMPLETED DATE/TME: 07/07/2019 19:30 CLINICAL HISTORY: 69 years, Female, pain s/p fall COMPARISON: None. TECHNIQUE: CT of the lumbar spine. Images stored on PACS. All CT scanners at this facility use dose modulation, iterative reconstruction, and/or weight based dosing when appropriate to reduce radiation dose to as low as reasonably achievable (ALARA). [facility]: Dose Right [facility]: CareDose [facility]: Dose Right [facility]: Teradose 4D [facility]: [employer] LIMITATIONS: None. FINDINGS: There is diffuse sclerosis of the vertebral column and bony structures raising the concern for metabolic etiology including end-stage renal disease in the correct clinical setting. There is normal alignment of the lumbar spine without fracture or subluxation. The facets are normal in alignment bilaterally. The posterior elements including the spinous processes are intact. The pre-and paravertebral soft tissues are within normal limits. Morphology and attenuation of the vertebral bodies and intervertebral disc spaces is within normal limits. L1-2: Mild diffuse disk bulge otherwise within normal limits without significant central spinal canal or neural foraminal narrowing. L2-3: Moderate diffuse disk bulge otherwise within normal limits without significant central spinal canal or neural foraminal narrowing. L3-4: Mild diffuse disk bulge otherwise within normal limits without significant central spinal canal or neural foraminal narrowing. L4-5: Severe diffuse disk bulge with bony osseous spurring with effacement of the ventral thecal sac and suspected at least mild central spinal canal narrowing further contributed by ligamentum flavum and bilateral facet hypertrophy. Severe right-sided, mild left-sided neural foraminal narrowing secondary to bony osseous spurring. L5-S1: Within normal limits without significant central spinal canal or neural foraminal narrowing. Incompletely visualized intrathecal catheter with tip terminating at the L4-5 level. Dense atherosclerotic calcification of the bony structures. Poorly visualized enlarged and multilobular, multicystic mass within the RIGHT renal fossa suggesting polycystic kidney disease and large mass. This lesion is incompletely characterized secondary to lack of intravenous contrast and further limited by incomplete inclusion in the [id number] of the examination overall however visualized portions appear to be similar in comparison to examination dated 12/14/2017. IMPRESSION: 1. No fracture or acute subluxation. 2. There is diffuse sclerosis of the vertebral column and bony structures raising the concern for metabolic etiology including end-stage renal disease in the correct clinical setting. 3. Multilevel disk degenerative changes as detailed above. If the patient's symptoms persist, further evaluation with MRI may be considered. TECHNICAL DOCUMENTATION: Quality ID # [id number]: Final reports with documentation of one or more dose reduction techniques (e.g., Automated exposure control, adjustment of the mA and/or kV according to patient size, use of iterative reconstruction technique) copyright 2011 [employer]- All Rights Reserved
--- NOTE | 2019-07-07 20:37 | RADIOLOGY REPORT (SQ) ---
EXAM DESCRIPTION: XR HUMERUS COMPLETED DATE/TME: 07/07/2019 19:30 CLINICAL HISTORY: 69 years, Female, laceration and pain s/p fall COMPARISON: None. NUMBER OF VIEWS: 2 TECHNIQUE: Two views of the LEFT humerus were obtained in AP and lateral projection. LIMITATIONS: None. FINDINGS: No fracture or dislocation. Severe degenerative change noted at the acromioclavicular and glenohumeral joint. Severe glenohumeral joint space narrowing with subchondral sclerosis and subchondral cyst formation. Erosive deformity of the superolateral humeral head, a finding which may be secondary to inflammatory arthropathy or metabolic bone disease of the patient's end-stage renal disease. Incidentally noted vascular calcifications surgical clips at the level of the LEFT arm may reflect a partially calcified vascular shunt. IMPRESSION: No acute radiographic abnormality. copyright 2010 [employer]- All Rights Reserved
--- NOTE | 2019-07-07 20:38 | RADIOLOGY REPORT (SQ) ---
EXAM DESCRIPTION: XR HAND 3 OR MORE VIEWS COMPLETED DATE/TME: 07/07/2019 19:30 CLINICAL HISTORY: 69 years, Female, 2nd digit pain s/p fall COMPARISON: None. NUMBER OF VIEWS: 3 TECHNIQUE: Three views of the LEFT hand were obtained in AP, lateral and oblique projection. LIMITATIONS: None. FINDINGS: No fracture or dislocation. The bones appear to be diffusely demineralized. Vascular calcification throughout the soft tissues. The soft tissues appear to be otherwise within normal limits. The joint spaces are preserved. Incidental note made of slight erosive deformities of the base of the proximal phalanges raising the possibility of sequela of inflammatory arthropathy or metabolic bone disease. IMPRESSION: No acute radiographic abnormality. copyright 2010 [employer]- All Rights Reserved
[2019-07-07] MEDS ORDERED: ACETAMINOPHEN 325 MG TABLET PO ONE (20:48)
--- NOTE | 2019-07-07 20:48 | ER Document Report ---
ED Fall - General Chief Complaint: Fall Stated Complaint: FALL/LEFT ARM PAIN Time Seen by Provider: 07/07/19 19:26 Primary Care Provider: PREET NEGRON MD [Primary Care Provider] - Follow up as needed Mode of Arrival: Ambulatory Information source: Patient Notes: 69-year-old female presented to ED for complaint of a fall. She states that she has a history of cancer and she had chemo last in May. She states she also has a history of cardiac disease and renal stage disease and is on dialysis she is due on Tuesday. She also has arthritis and multiple other pains. She states she has a slight headache but she thinks she did not hit her head has not had any loss of consciousness. She states when she fell she hit her arm on something and she had a sharp pain and when I told her she had a laceration she states she did not know she cut it. She states she frequently has some nausea. She is alert oriented respirations regular and unlabored speaking in full sentences walks with a even steady gait. She states she does frequently have nausea but not at this time. She denies any signs or symptoms of quad equina. She has no numbness or tingling. She is able to walk with a even steady gait. TRAVEL OUTSIDE OF THE [place] IN LAST 30 DAYS: No - HPI Occurred: This afternoon - She states somewhere between 12 and 1230 Where: Home, Indoors Context: Tripped Associated symptoms: None Location of injury/pain: Back - She states she has chronic pain in her back and it is hurting at this time, Hand - She states she has some pain in her left index finger, Head - She states she frequently has headaches, Upper extremity - Large laceration over the left upper arm. No: Neck Quality of pain: Achy, Sharp Severity: Moderate Pain Level: 3 - Related data Allergies/Adverse Reactions: adhesive Allergy (Verified 07/08/19 08:07) hydrochlorothiazide Allergy (Verified 07/08/19 08:07) Iodine and Iodide Containing Produc Allergy (Verified 07/08/19 08:07) metoclopramide [From Reglan] Allergy (Verified 07/08/19 08:07) shellfish derived Allergy (Verified 07/08/19 08:07) Sulfa (Sulfonamide Antibiotics) Allergy (Verified 07/08/19 08:07) Past Medical History - General Information source: Patient - Social History Smoking Status: Never Smoker Chew tobacco use (# tins/day): No Frequency of alcohol use: None Drug Abuse: None Family History: Reviewed & Not Pertinent, Hypertension Patient has suicidal ideation: No Patient has homicidal ideation: No - Past Medical History Cardiac Medical History: Reports: Hx Congestive Heart Failure, Hx Hypercholesterolemia, Hx Hypertension Pulmonary Medical History: Reports: None EENT Medical History: Reports: None Endocrine Medical History: Reports: Hx Diabetes Mellitus Type 2 Renal/ Medical History: Reports: Hx End Stage Renal Disease Malignancy Medical History: Reports: Hx Renal (Kidney) Cancer GI Medical History: Reports: Hx Gastroesophageal Reflux Disease Musculoskeletal Medical History: Reports Hx Arthritis, Reports Hx Musculoskeletal Deformity, Reports Hx Musculoskeletal Trauma Skin Medical History: Reports None Psychiatric Medical History: Reports: None Traumatic Medical History: Reports: Hx Fractures Infectious Medical History: Reports: None Past Surgical History: Reports: Hx Cardiac Catheterization, Hx Cholecystectomy, Hx Kidney (Renal Surgery) - Bilateral nephrectomy, Hx Orthopedic Surgery - Back and knee surgery, Hx Vascular Surgery - shunt in the left arm for dialysis Review of Systems - Review of Systems Constitutional: No symptoms reported EENT: No symptoms reported Cardiovascular: No symptoms reported Respiratory: No symptoms reported Gastrointestinal: No symptoms reported Genitourinary: No symptoms reported Female Genitourinary: No symptoms reported Musculoskeletal: Back pain, Muscle pain Skin: Other - Large laceration left upper arm, flap Hematologic/Lymphatic: No symptoms reported Neurological/Psychological: No symptoms reported -: Yes All other systems reviewed and negative Physical Exam - Vital signs Vitals: Temp Pulse Resp BP Pulse Ox 98.5 F 85 17 141/68 H 99 07/07/19 19:20 07/07/19 19:20 07/07/19 19:20 07/07/19 19:20 07/07/19 19:20 Interpretation: Normal - General General appearance: Appears well, Alert - HEENT Head: Normocephalic, Atraumatic Eyes: Normal Pupils: PERRL Ears: Normal - Acute hip External canal: Normal Tympanic membrane: Normal Sinus: Normal Nasal: Normal Mouth/Lips: Normal Mucous membranes: Normal Pharynx: Normal Neck: Normal - Respiratory Respiratory status: No respiratory distress Chest status: Nontender Breath sounds: Normal Chest palpation: Normal - Cardiovascular Rhythm: Regular Heart sounds: Normal auscultation Murmur: No - Abdominal Inspection: Normal Distension: No distension Bowel sounds: Normal Tenderness: Nontender Organomegaly: No organomegaly - Back Back: Normal, Tender - None vertebral. No: Deformity/step-off, Vertebra tenderness - Extremities General upper extremity: Normal temperature General lower extremity: Normal inspection, Nontender, Normal color, Normal ROM, Normal temperature, Normal weight bearing. No: Laura's sign Arm: Tender, Laceration Hand: Tender - Left index finger, Laceration - Old laceration that is tender, No evidence of human bite, No evidence of FB, Swelling - Neurological Neuro grossly intact: Yes Cognition: Normal Orientation: AAOx4 Alfonzo Coma Scale Eye Opening: Spontaneous [place] Coma Scale Verbal: Oriented Alfonzo Coma Scale Motor: Obeys Commands Alfonzo Coma Scale Total: 15 Speech: Normal Motor strength normal: LUE, RUE, LLE, RLE Sensory: Normal - Psychological Associated symptoms: Normal affect, Normal mood - Skin Skin Temperature: Warm Skin Moisture: Dry Skin Color: Normal Course - Re-evaluation Re-evalutation: 07/07/19 21:55 Discussed all radiological test with patient and written report of radiological test given to patient to follow-up with her primary doctor. Laceration was sutured dressing and Coban applied. Patient was instructed on follow-up instructions with her primary care and her double end tenoner setter. 07/08/19 02:04 After patient was discharged radiologist called states there was a lytic lesion in the lumbar area that could be a brown tumor or something else. She states it did not look aggressive in appearance. Due to the age of the patient I will wait till tomorrow to call her to give it is additional results. 07/08/19 17:02 Spoke with patient at home. She will come by tomorrow and get a CD of all of the CTs and x-rays as well as written report of the addendum to the CT of the low back. - Vital Signs Vital signs: Temp Pulse Resp BP Pulse Ox 98.4 F 76 16 145/65 H 100 07/07/19 22:03 07/07/19 22:03 07/07/19 22:03 07/07/19 22:03 07/07/19 22:03 - Diagnostic Test Radiology reviewed: Image reviewed, Reports reviewed Procedures - Laceration/Wound Repair Left Arm Time completed: 21:53 Wound length (cm): 8 Wound's Depth, Shape: Into muscle, Flap Laceration pre-procedure: Sterile PPE donned, Shur-Clens applied Anesthetic type: 1% Lidocaine Volume Anesthetic (mLs): 8 Wound explored: Contaminated Irrigated w/ Saline (mLs): 500 Wound Repaired With: Sutures Suture Size/Type: 4:0, Ethilon Number of Sutures: 9 Layer Closure?: No Post-procedure wound care: Sterile dressing applied Post-procedure NV exam normal: Yes Complications: No Discharge - Discharge Clinical Impression: Laceration of left upper arm Qualifiers: Encounter type: initial encounter Qualified Code(s): S41.112A - Laceration without foreign body of left upper arm, initial encounter Fall Qualifiers: Encounter type: initial encounter Qualified Code(s): W19.XXXA - Unspecified fall, initial encounter Headache Qualifiers: Headache type: unspecified Headache chronicity pattern: unspecified pattern Intractability: not intractable Qualified Code(s): R51 - Headache Back pain Qualifiers: Back pain location: low back pain Chronicity: chronic Back pain laterality: bilateral Sciatica presence: without sciatica Qualified Code(s): M54.5 - Low back pain Condition: Stable Disposition: HOME, SELF-CARE Additional Instructions: HEAD INJURY PRECAUTIONS: At this point, there is no evidence that your head injury is serious. Observation is necessary, however. Take only clear liquids for the first few hours, unless told otherwise by the doctor. If no pain medication was prescribed, you may take acetaminophen according to the directions on the bottle. Do not take any medication that may alter your level of alertness (unless you've discussed it with the doctor first). Limit activity for the first 24 hours. Bed rest is best. During the first 24 hours, check to see approximately every two to three hours that the patient is easily arousable, responds normally, and can perform common tasks such as walking without difficulty. Contact your doctor or go to the hospital if any of the following things occur: Persistent vomiting, difficulty in arousing the patient, worsening or continued headache, or failure to improve as expected. Head injuries can cause symptoms that persist for a few days or even a few weeks. CONTUSION: Your injury has resulted in a contusion -- a crushing of the deep tissues. No injury to important structures was detected during the physician's exam. Contusions vary in the amount of pain they cause, and in the length of time required for healing. Typically, the area will become bruised, and will remain painful to touch for two or three weeks. However, most patients are back to working and playing within a few days. After the initial period of rest and cold-packs, your symptoms (together with the doctor's recommendations) will determine how rapidly you can get back to full activity. Usually this means "do what feels okay, but don't do things that hurt." If re-examination was recommended, it's important to follow up as instructed. Call the doctor or return any time if pain increases, if swelling becomes severe, if you develop numbness or weakness in an injured extremity, or if any other alarming symptoms occur. LOW BACK PAIN: Three out of every four people will have an episode of disabling back pain during their lifetime. Most commonly the pain is due to straining of the muscles and ligaments in the low back. Usual treatment includes: (1) Rest on a firm surface. Avoid lying on your stomach. (2) Ice pack the painful area. After a few days, gentle heat may be used intermittently to relax the area, or ice packs can be continued. (3) Medication may be needed -- muscle relaxers and antiinflammatory medicines are commonly used. (4) As the back improves, exercises are prescribed to strengthen the back and abdominal muscles. Your doctor will advise you on the proper care for your back at each stage in your recovery. You may be better in a few days -- or healing may take several weeks. If new symptoms of a "herniated disc" (radiation of pain, numbness, or tingling down the back of the leg or weakness in the leg) occur, you should be re-examined. Further testing may be necessary. LACERATION CARE: Your laceration has been sutured to keep the skin edges aligned during healing. The time of suture removal depends on the nature and location of your cut. Please follow the care instructions the doctor has outlined for you and return for further care, according to the schedule you've been given. Keep the wound and dressing clean. Unless you were told otherwise, you may shower daily, blotting the wound dry with a clean, unused towel. At other times, If the dressing gets wet or blood soaked, remove it and blot the wound dry, then reapply a new dressing. Unless you were instructed otherwise, dressings should be changed at least daily. If any signs of infection occur (swelling, redness, drainage, increasing tenderness, red streaks, tender lumps in the armpit or groin above the laceration, or fever), see the doctor immediately. SOAP CLEANSING: Gently wash the wound daily using a mild soap (like Ivory, Phisoderm, Neutrogena). Use warm water, rubbing gently until all debris, ooze, and crusting have been washed from the wound. Allow to dry briefly (about 10 minutes) after cleaning. Repeat this cleansing at least three times a day for the first two days and then once or twice a day. ANTIBIOTIC OINTMENT PROTECTION: Your wounds are such that dressing them is not practical or optional. After cleansing, you should apply a thin coating of antibiotic ointment (Bacitracin, not Neosporin) to the wounds at least three times daily. This lessens infection risk, and may decrease the amount of scarring. Use a q-tip or dull butter knife, not your finger, to apply this ointment. Any debris or ooze which builds up in the ointment should be gently rubbed off with a sterile gauze pad. Harder crusting may need to be gently scrubbed off with a clean wash cloth with soap and warm water, perhaps applying a warm, wet wash cloth to the wound for ten minutes first. Development of redness, severe itching, or blistering may mean allergy to the ointment. See the doctor. PROPHYLACTIC ANTIBIOTIC: The antibiotics which have been prescribed are designed to decrease the risk of infection. Only certain types of wounds benefit from this -- the typical cut, scrape, or burn DOES NOT require antibiotics. Of course, infection can still occur despite the use of prophylactic antibiotics. Your wound will heal with less chance of an infectious complication if you take the medication as directed. The most important dose is the FIRST dose, so don't delay filling the prescription! USE OF TYLENOL (ACETAMINOPHEN): Acetaminophen may be taken for pain relief or fever control. It's much safer than aspirin, offering a wider range of "safe" dosages. It is safe during . Some brand names are Tylenol, Panadol, Datril, Anacin 3, Tempra, and Liquiprin. Acetaminophen can be repeated every four hours. The following are maximum recommended dosages: WEIGHT Dose Drops Elixir Chewable(80mg) (LBS.) drprs=droppers tsp=teaspoon 6 40 mg 0.4 ml (1/2) 6-11 80 mg 0.8 ml (full) tsp 1 tab 12-16 120 mg 1 1/2 drprs 3/4 tsp 1 1/2 tabs 17-23 160 mg 2 drprs 1 tsp 2 tabs 24-30 240 mg 3 drprs 1 1/2 tsp 3 tabs 30-35 320 mg 2 tsp 4 tabs 36-41 360 mg 2 1/4 tsp 4 1/2 tabs 42-47 400 mg 2 1/2 tsp 5 tabs 48-53 480 mg 3 tsp 6 tabs 54-59 520 mg 3 1/4 tsp 6 1/2 tabs 60-64 560 mg 3 1/2 tsp 7 tabs 65-70 600 mg 3 3/4 tsp 7 1/2 tabs 71-76 640 mg 4 tsp 8 tabs 77-82 720 mg 4 1/2 tsp 9 tabs 83-88 800 mg 5 tsp 10 tabs >89 pounds or adults 650 mg to 900 mg Acetaminophen can be repeated every four hours. Maximum dose not to exceed 4000 mg a day. These maximum recommended dosages are slightly higher than the dosages written on the product container, but these dosages are very safe and below the toxic dosage for acetaminophen. ICE PACKS: Apply ice packs frequently against the painful area. Many different schedules are recommended, such as "20 minutes on, 20 minutes off" or "one hour ice, two hours rest." If you need to work, you may need to go longer between ice treatments. You should plan to have the area ice packed AT LEAST one fourth of the time. The ice should be applied over the wrap, tape, or splint, or over a layer of cloth -- not directly against the skin. Some ice bags have a built-in cloth and can be put directly on the skin. WARM PACKS: After approximately two days, apply gentle heat (such as a heating pad or hot water bottle) for about 20 to 30 minutes about every two hours -- at least four times daily. Warmth and elevation will help you make a more rapid recovery, and will ease the pain considerably. Do not use HOT heat, and never apply heat for longer than 30 minutes. The continuous heat can invisibly damage skin and muscles -- even when no burn is seen on the surface. Damaged muscles can make you MORE sore. FOLLOW-UP CARE: Please return in days for an infection check and dressing change. Your sutures should be removed in days. To facilitate a timely removal of your sutures, you may return to the Emergency Department at [facility]. You do not need to call for an appointment, but the best time to come in for suture removal is early in the morning. If you have been referred to another physician for follow-up care, call that physicians office for an appointment as you were instructed. If you experience a significant change in your laceration, or if you are concerned there may be an infection (swelling, redness, drainage, increasing tenderness, red streaks, tender lumps in the armpit or groin above the laceration, or fever), return to the Emergency Department immediately re-evaluation. Prescriptions: Cephalexin Monohydrate [Keflex 500 mg Capsule] 500 mg PO Q6H 5 Days capsule Forms: Elevated Blood Pressure Referrals: PREET NEGRON MD [Primary Care Provider] - Follow up as needed
[2019-07-07] MEDS ORDERED: CEPHALEXIN 500 MG CAPSULE PO ONE (21:52)
[2019-07-07 22:06] VITALS: BP 145/65
== END 2019-07-07 22:20 | disposition home or self-care (01) ==
LOC: ER 18:54
DX: S46.922A Laceration of unspecified muscle, fascia and tendon at shoulder and upper arm level, left arm, initial encounter (principal); S41.112A Laceration without foreign body of left upper arm, initial encounter; W01.10XA Fall on same level from slipping, tripping and stumbling with subsequent striking against unspecified object, initial encounter; Y92.009 Unspecified place in unspecified non-institutional (private) residence as the place of occurrence of the external cause; R51 Headache; R11.0 Nausea; M54.5 Low back pain; G89.29 Other chronic pain; M79.10 Myalgia, unspecified site; S61.211A Laceration without foreign body of left index finger without damage to nail, initial encounter; M79.645 Pain in left finger(s); X58.XXXA Exposure to other specified factors, initial encounter; I12.0 Hypertensive chronic kidney disease with stage 5 chronic kidney disease or end stage renal disease; N18.6 End stage renal disease; E11.22 Type 2 diabetes mellitus with diabetic chronic kidney disease; Z99.2 Dependence on renal dialysis; Z91.048 Other nonmedicinal substance allergy status; Z85.528 Personal history of other malignant neoplasm of kidney; Z92.21 Personal history of antineoplastic chemotherapy; Z90.5 Acquired absence of kidney; Z88.8 Allergy status to other drugs, medicaments and biological substances; Z91.013 Allergy to seafood; Z88.2 Allergy status to sulfonamides
CPT/HCPCS: 99284; 73130; 73060; 70450; 72125; 72131; 12004; A9270 ×2

== ENCOUNTER 2019-07-08 08:00 | Emergency (ER) | payer MEDICARE, BC ==
[2019-07-08] MEDS ORDERED: ACETAMINOPHEN 325 MG TABLET PO ONE (09:01)
[2019-07-08] MEDS ORDERED: ONDANSETRON 4 MG TAB.RAPDIS PO ONE (09:01)
[2019-07-08] MEDS ORDERED: TRANEXAMIC ACID INJ/PF 1,000 MG/10 ML SDV TOP ONE (09:47)
[2019-07-08 09:50] LABS: ABSOLUTE EOSINOPHILS # (AUTO) 0.1 10^3/uL (0.0-0.6); ABSOLUTE LYMPHOCYTES (AUTO) 0.6 10^3/uL (0.5-4.7); ABSOLUTE MONOCYTES (AUTO) 0.3 10^3/uL (0.1-1.4); ABSOLUTE NEUT (AUTO) 3.5 10^3/uL (1.7-8.2); BASOPHILS % (AUTO) 0.9 % (0-2); EOSINOPHILS % (AUTO) 2.1 % (0-6); HEMATOCRIT 31.9 % (36.0-47.0); HEMOGLOBIN 10.4 g/dL (12.0-15.5); LYMPHOCYTES % (AUTO) 13.4 % (13-45); MEAN CORPUSCULAR HEMOGLOBIN 28.8 pg (27.0-33.4); MEAN CORPUSCULAR HGB CONC 32.8 g/dL (32.0-36.0); MEAN CORPUSCULAR VOLUME 88 fl (80-97); MONOCYTES % (AUTO) 6.7 % (3-13); PLATELET COUNT 246 10^3/uL (150-450); RED BLOOD COUNT 3.62 10^6/uL (3.72-5.28); RED CELL DISTRIBUTION WIDTH 15.7 % (11.5-14.0); SEGMENTED NEUTROPHILS % (AUTO) 76.9 % (42-78); TOTAL CELLS COUNTED % (AUTO) 100 %; WHITE BLOOD COUNT 4.6 10^3/uL (4.0-10.5)
[2019-07-08] MEDS ORDERED: PROCHLORPERAZINE EDISYLATE INJ 10 MG/2 ML VIAL IV ONE (10:10)
[2019-07-08] MEDS ORDERED: DIPHENHYDRAMINE HCL 50 MG/ML VIAL IV ONE (10:10)
--- NOTE | 2019-07-08 10:36 | ER Document Report ---
ED General - General Chief Complaint: Post Surgical Bleeding Stated Complaint: SUTURE CHECK Time Seen by Provider: 07/08/19 08:43 Primary Care Provider: NIELS PINON MD [NO LOCAL MD] - Follow up tomorrow Mode of Arrival: Ambulatory Information source: Patient Notes: Patient states that she had a fall yesterday at midnight. Patient with laceration to the left upper arm. Patient was seen here yesterday evening and had her wound sutured. Patient states that she woke up this morning and noticed that her dressing was saturated with blood and that the wound has continued to bleed. Patient denies any. Patient does report taking Plavix at home. Patient does complain of nausea and headache pain although does report that she has chronic daily nausea. TRAVEL OUTSIDE OF THE [place] IN LAST 30 DAYS: No - HPI Onset: Yesterday Onset/Duration: Persistent Quality of pain: Achy Pain Level: 3 Associated symptoms: Headache, Nausea. denies: Chest pain, Fever, Vomiting, Weakness Exacerbated by: Denies Relieved by: Denies Similar symptoms previously: Yes Recently seen / treated by doctor: Yes - Related Data Allergies/Adverse Reactions: adhesive Allergy (Verified 07/08/19 08:07) hydrochlorothiazide Allergy (Verified 07/08/19 08:07) Iodine and Iodide Containing Produc Allergy (Verified 07/08/19 08:07) metoclopramide [From Reglan] Allergy (Verified 07/08/19 08:07) shellfish derived Allergy (Verified 07/08/19 08:07) Sulfa (Sulfonamide Antibiotics) Allergy (Verified 07/08/19 08:07) Past Medical History - General Information source: Patient - Social History Smoking Status: Never Smoker Chew tobacco use (# tins/day): No Drug Abuse: None Lives with: Alone Family History: Reviewed & Not Pertinent, Hypertension Patient has suicidal ideation: No Patient has homicidal ideation: No - Past Medical History Cardiac Medical History: Reports: Hx Congestive Heart Failure, Hx Hypercholesterolemia, Hx Hypertension Endocrine Medical History: Reports: Hx Diabetes Mellitus Type 1, Hx Diabetes Mellitus Type 2 Renal/ Medical History: Reports: Hx End Stage Renal Disease. Denies: Hx Peritoneal Dialysis Malignancy Medical History: Reports: Hx Renal (Kidney) Cancer GI Medical History: Reports: Hx Gastroesophageal Reflux Disease Musculoskeletal Medical History: Reports Hx Arthritis, Reports Hx Musculoskeletal Deformity, Reports Hx Musculoskeletal Trauma Traumatic Medical History: Reports: Hx Fractures Past Surgical History: Reports: Hx Cardiac Catheterization, Hx Cholecystectomy, Hx Kidney (Renal Surgery) - Bilateral nephrectomy, Hx Orthopedic Surgery - Back and knee surgery, Hx Vascular Surgery - shunt in the left arm for dialysis, Other - Bilateral nephrectomies Review of Systems - Review of Systems Constitutional: No symptoms reported. denies: Fever EENT: No symptoms reported Cardiovascular: No symptoms reported. denies: Chest pain Respiratory: No symptoms reported. denies: Cough, Short of breath Gastrointestinal: Nausea. denies: Abdominal pain, Vomiting Genitourinary: No symptoms reported Female Genitourinary: No symptoms reported Musculoskeletal: No symptoms reported Skin: Other - Bleeding from sutured laceration to left upper arm Hematologic/Lymphatic: No symptoms reported Neurological/Psychological: Headaches. denies: Confusion, Weakness Physical Exam - Vital signs Vitals: Temp Pulse Resp BP Pulse Ox 98.8 F 90 18 161/79 H 99 07/08/19 08:07 07/08/19 08:07 07/08/19 08:07 07/08/19 08:07 07/08/19 08:07 - General General appearance: Appears well, Alert In distress: None - HEENT Head: Normocephalic, Atraumatic Eyes: Normal Conjunctiva: Normal Extraocular movements intact: Yes Pupils: PERRL Ears: Normal External canal: Normal Tympanic membrane: Normal Nasal: Normal Pharynx: Normal Neck: Normal - Respiratory Respiratory status: No respiratory distress Chest status: Nontender Breath sounds: Normal. No: Rales, Rhonchi, Stridor, Wheezing Chest palpation: Normal - Cardiovascular Rhythm: Regular Heart sounds: S1 appreciated, S2 appreciated - Abdominal Inspection: Normal Distension: No distension Bowel sounds: Normal Tenderness: Nontender - Back Back: Normal - Extremities General upper extremity: Other - Sutured laceration to left upper arm with oozing from wound General lower extremity: Normal inspection, Normal strength - Neurological Neuro grossly intact: Yes Cognition: Normal Alfonzo Coma Scale Eye Opening: Spontaneous [place] Coma Scale Verbal: Oriented [place] Coma Scale Motor: Obeys Commands Alfonzo Coma Scale Total: 15 - Psychological Associated symptoms: Normal affect, Normal mood - Skin Skin Temperature: Warm Skin Moisture: Dry Skin irregularity: Laceration - Sutured laceration to left upper arm with bleeding seeping from wound. Course - Re-evaluation Re-evalutation: 07/08/19 09:45 Wound continued to bleed despite application of quick clot dressing, order for topical TXA placed 07/08/19 10:52 Patient with bleeding after application of TXA topically to wound. 07/08/19 11:25 Dr Rivera to bedside for exam, recommends figure of 8 suture placement to stop bleeding 07/08/19 12:40 [id number] suture placed to wound to help approximate edges, bleeding stopped at this time. Will reevaluate wound. 07/08/19 13:54 Patient sleeping, arouses easily to voice. Patient denies any headache pain at this time or nausea. Patient without any active bleeding from sutured wound. 07/08/19 15:01 Patient states she was given a prescription for antibiotics last night but did not have money to get it filled today. Dose will be given here and patient encouraged to get medication filled to so she can start taking as soon as possible. - Vital Signs Vital signs: Temp Pulse Resp BP Pulse Ox 98.7 F 85 18 168/62 H 100 07/08/19 14:37 07/08/19 14:37 07/08/19 14:37 07/08/19 14:37 07/08/19 14:37 - Laboratory Result Diagrams: 07/08/19 09:30 Laboratory results interpreted by me: 07/08/19 09:30 RBC 3.62 L Hgb 10.4 L Hct 31.9 L RDW 15.7 H Discharge - Discharge Clinical Impression: Nausea, Encounter for wound re-check Headache Qualifiers: Headache type: unspecified Headache chronicity pattern: unspecified pattern Intractability: not intractable Qualified Code(s): R51 - Headache Condition: Stable Disposition: HOME, SELF-CARE Instructions: Intravenous Compazine for Headaches ([facility]), Headache ([facility]), Laceration Care ([facility]), Nausea or Vomiting, Nonspecific ([facility]) Additional Instructions: Return immediately for any new or worsening symptoms Followup with your primary care provider, call tomorrow to make a followup appointment Monitor wound for any repeat bleeding, return as needed Referrals: NIELS PINON MD [NO LOCAL MD] - Follow up tomorrow
[2019-07-08 10:57] LABS: PROTHROMBIN TIME 13.2 SEC (11.4-15.4)
[2019-07-08 10:58] LABS: PARTIAL THROMBOPLASTIN TIME 34.1 SEC (23.5-35.8)
[2019-07-08] MEDS ORDERED: LIDOCAINE 1%/EPINEPHRINE INJ 20 ML VIAL INJ ONE (11:24)
[2019-07-08] MEDS ORDERED: CEPHALEXIN 500 MG CAPSULE PO ONE (15:01)
[2019-07-08 15:14] VITALS: BP 168/62
== END 2019-07-08 15:14 | disposition home or self-care (01) ==
LOC: ER 08:00
DX: S41.112A Laceration without foreign body of left upper arm, initial encounter (principal); R11.0 Nausea; R51 Headache; W19.XXXA Unspecified fall, initial encounter; I50.9 Heart failure, unspecified; I11.0 Hypertensive heart disease with heart failure; E10.9 Type 1 diabetes mellitus without complications
CPT/HCPCS: 99283; 36415; 85025; 85610; 85730; A9270 ×3; J1200; J3490 ×2; J0780; S0119

== ENCOUNTER 2019-08-09 19:40 | Emergency (ER) | payer OTHER, MEDICARE, BC ==
[2019-08-09 20:00] VITALS: BP 101/44
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
== END 2019-08-09 23:58 | disposition left against medical advice (07) ==
LOC: ER 19:40
DX: M79.10 Myalgia, unspecified site (principal); M54.2 Cervicalgia; M25.552 Pain in left hip; M25.551 Pain in right hip; E78.00 Pure hypercholesterolemia, unspecified; E11.22 Type 2 diabetes mellitus with diabetic chronic kidney disease; I13.2 Hypertensive heart and chronic kidney disease with heart failure and with stage 5 chronic kidney disease, or end stage renal disease; I50.9 Heart failure, unspecified; N18.6 End stage renal disease; Z88.2 Allergy status to sulfonamides; Z91.013 Allergy to seafood; Z90.5 Acquired absence of kidney; Z90.49 Acquired absence of other specified parts of digestive tract; Z99.2 Dependence on renal dialysis
CPT/HCPCS: 99281

== ENCOUNTER 2019-08-10 13:12 | Emergency (ER) | payer OTHER, MEDICARE, BC ==
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
[2019-08-10] MEDS ORDERED: ACETAMINOPHEN 325 MG TABLET PO ONE (13:36)
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
[2019-08-10 16:11] VITALS: BP 113/47
== END 2019-08-10 16:15 | disposition home or self-care (01) ==
LOC: ER 13:12
DX: M25.512 Pain in left shoulder (principal); M25.552 Pain in left hip; M79.18 Myalgia, other site; V49.9XXA Car occupant (driver) (passenger) injured in unspecified traffic accident, initial encounter; M50.30 Other cervical disc degeneration, unspecified cervical region; M47.9 Spondylosis, unspecified; M19.012 Primary osteoarthritis, left shoulder; I12.0 Hypertensive chronic kidney disease with stage 5 chronic kidney disease or end stage renal disease; E11.22 Type 2 diabetes mellitus with diabetic chronic kidney disease; N18.6 End stage renal disease; Z99.2 Dependence on renal dialysis; Z85.528 Personal history of other malignant neoplasm of kidney
CPT/HCPCS: 72050; 99284

== ENCOUNTER 2019-11-16 10:35 | Emergency (ER) | payer MEDICARE, BC ==
[2019-11-16 11:29] LABS: ABSOLUTE EOSINOPHILS # (AUTO) 0.1 10^3/uL (0.0-0.6); ABSOLUTE LYMPHOCYTES (AUTO) 0.5 10^3/uL (0.5-4.7); ABSOLUTE MONOCYTES (AUTO) 0.7 10^3/uL (0.1-1.4); ABSOLUTE NEUT (AUTO) 3.8 10^3/uL (1.7-8.2); BASOPHILS % (AUTO) 0.9 % (0-2); EOSINOPHILS % (AUTO) 1.9 % (0-6); HEMATOCRIT 30.5 % (36.0-47.0); HEMOGLOBIN 10.7 g/dL (12.0-15.5); LYMPHOCYTES % (AUTO) 10.4 % (13-45); MEAN CORPUSCULAR HEMOGLOBIN 32.2 pg (27.0-33.4); MEAN CORPUSCULAR HGB CONC 35.1 g/dL (32.0-36.0); MEAN CORPUSCULAR VOLUME 92 fl (80-97); MONOCYTES % (AUTO) 13.5 % (3-13); PLATELET COUNT 201 10^3/uL (150-450); RED BLOOD COUNT 3.32 10^6/uL (3.72-5.28); RED CELL DISTRIBUTION WIDTH 15.3 % (11.5-14.0); SEGMENTED NEUTROPHILS % (AUTO) 73.3 % (42-78); TOTAL CELLS COUNTED % (AUTO) 100 %; WHITE BLOOD COUNT 5.2 10^3/uL (4.0-10.5)
--- NOTE | 2019-11-16 11:39 | RADIOLOGY REPORT (SQ) ---
EXAM DESCRIPTION: CHEST SINGLE VIEW COMPLETED DATE/TIME: 11/16/2019 11:13 am REASON FOR STUDY: dyspnea COMPARISON: AP view of the chest from 10/05/2018 EXAM PARAMETERS: NUMBER OF VIEWS: One view. TECHNIQUE: An AP view of the chest was obtained. RADIATION DOSE: NA LIMITATIONS: None. FINDINGS: LUNGS AND PLEURA: No consolidation, pleural effusion or pneumothorax. MEDIASTINUM AND HILAR STRUCTURES: No mediastinal or hilar contour abnormality. HEART AND VASCULAR STRUCTURES: The cardiac silhouette and pulmonary vasculature are within normal schwarz its. BONES: Osteoarthrosis of the left glenohumeral joint. HARDWARE: The tip of the tunneled right IJ dialysis catheter projects at the level of the cavoatrial junction. There is an endovascular stent within the left subclavian vein. OTHER: No other finding. IMPRESSION: No acute cardiopulmonary process. TECHNICAL DOCUMENTATION: JOB ID: [id number] [employer]- All Rights Reserved Reading location - IP/workstation name: [email or web address]
[2019-11-16 11:59] LABS: ALBUMIN 4.1 g/dL (3.5-5.0); ALKALINE PHOSPHATASE 139 U/L (38-126); ANION GAP 13 (5-19); ASPARTATE AMINO TRANSFERASE 35 U/L (14-36); BILIRUBIN,DIRECT 0.5 mg/dL (0.0-0.4); BILIRUBIN,TOTAL 0.5 mg/dL (0.2-1.3); BLOOD UREA NITROGEN 27 mg/dL (7-20); CALCIUM 8.9 mg/dL (8.4-10.2); CARBON DIOXIDE 27 mmol/L (22-30); CHLORIDE 97 mmol/L (98-107); GLUCOSE 119 mg/dL (75-110); POTASSIUM 4.3 mmol/L (3.6-5.0)
--- NOTE | 2019-11-16 15:02 | ER Document Report ---
Entered by CELSO BARILLAS SCRIBE 11/16/19 1356 Acting as scribe for:MARNIE SRIVASTAVA MD ED General - General Chief Complaint: Chest Pain Stated Complaint: SHORTNESS OF BREATH Time Seen by Provider: 11/16/19 13:38 Primary Care Provider: NIELS PINON MD [Primary Care Provider] - Follow up as needed Mode of Arrival: Medic Information source: Patient Notes: 69 year old female presents to the ED with reproducible left chest pain that r adiates to her left side neck and shortness of breath. Patient states that chest pain/SOB started this morning but shortness of breath is better now. Patient went to dialysis this morning and was sent via EMS due to low blood pressure and complaint of chest pain. When EMS picked her up, they report that her blood pressure was normal. Patient complains of right medial lower extremity pain that began last night and has worsened this morning. I discussed case with Dr. Ku who called over to dialysis. The patient had a complete dialysis treatment today. She was sent to the emergency room due to her complaints of left-sided chest pain and they are concerned that she may have blood clots. She does have past medical history DVT in her arm. Looking through medical records and pharmacy records, she appears to be on Plavix but I cannot tell who prescribed it because it is a mail order pharmacy. She is not on any other medication for her history of DVT. TRAVEL OUTSIDE OF THE [place] IN LAST 30 DAYS: No - Related Data Allergies/Adverse Reactions: adhesive Allergy (Verified 08/10/19 13:39) hydrochlorothiazide Allergy (Verified 08/10/19 13:39) Iodine and Iodide Containing Produc Allergy (Verified 08/10/19 13:39) metoclopramide [From Reglan] Allergy (Verified 08/10/19 13:39) shellfish derived Allergy (Verified 08/10/19 13:39) Sulfa (Sulfonamide Antibiotics) Allergy (Verified 08/10/19 13:39) Past Medical History - General Information source: Patient - Social History Smoking Status: Never Smoker Cigarette use (# per day): No Chew tobacco use (# tins/day): No Frequency of alcohol use: None Drug Abuse: None Family History: Reviewed & Not Pertinent, Hypertension Patient has suicidal ideation: No Patient has homicidal ideation: No - Past Medical History Cardiac Medical History: Reports: Hx Congestive Heart Failure, Hx Hypercholesterolemia, Hx Hypertension Endocrine Medical History: Reports: Hx Diabetes Mellitus Type 1, Hx Diabetes Mellitus Type 2 Renal/ Medical History: Reports: Hx End Stage Renal Disease GI Medical History: Reports: Hx Gastroesophageal Reflux Disease Musculoskeletal Medical History: Reports Hx Arthritis, Reports Hx Musculoskeletal Deformity, Reports Hx Musculoskeletal Trauma Traumatic Medical History: Reports: Hx Fractures Past Surgical History: Reports: Hx Cardiac Catheterization, Hx Cholecystectomy, Hx Kidney (Renal Surgery) - Bilateral nephrectomies, Hx Orthopedic Surgery - Back and knee surgery, Hx Vascular Surgery - shunt in the left arm for dialysis Review of Systems - Review of Systems Constitutional: No symptoms reported EENT: No symptoms reported Cardiovascular: See HPI, Chest pain Respiratory: See HPI, Short of breath Gastrointestinal: No symptoms reported Genitourinary: No symptoms reported Female Genitourinary: No symptoms reported Musculoskeletal: See HPI, Other - Right Lower proximal medial extremity pain Skin: No symptoms reported Hematologic/Lymphatic: No symptoms reported Neurological/Psychological: No symptoms reported -: Yes All other systems reviewed and negative Physical Exam - Vital signs Vitals: Pulse Ox 97 11/16/19 10:56 - Notes Notes: General: Alert, appears well. HEENT: Normocephalic. Atraumatic. PERRL. Extraocular movements intact. Oropharynx clear. Neck: Supple. Non-tender. Respiratory: No respiratory distress. Clear and equal breath sounds bilaterally. Perma-cath in right chest wall. Cardiovascular: Regular rate and rhythm. Holosystolic murmur. Abdominal: Normal Inspection. Non-tender. No distension. Normal Bowel Sounds. Back: No gross abnormalities. Extremities: Moves all four extremities. Upper extremities: Normal inspection. Normal ROM. Lower extremities: Proximal medial thigh tenderness due to palpation without warmth. No edema. Normal ROM. Neurological: Normal cognition. AAOx4. Normal speech. Psychological: Normal affect. Normal Mood. Skin: Warm. Dry. Normal color. Course - Vital Signs Vital signs: Temp Pulse Resp BP Pulse Ox 98.4 F 11 L 140/58 H 100 11/16/19 11:08 11/16/19 17:01 11/16/19 17:00 11/16/19 17:01 - Laboratory Result Diagrams: 11/16/19 11:00 11/16/19 11:00 Laboratory results interpreted by me: 11/16/19 11/16/19 11:00 11:00 RBC 3.32 L Hgb 10.7 L Hct 30.5 L RDW 15.3 H Lymph % (Auto) 10.4 L Upton % (Auto) 13.5 H Sodium 136.9 L Chloride 97 L BUN 27 H Creatinine 3.51 H Est GFR ( Amer) 16 L Est GFR (MDRD) Non-Af 13 L Glucose 119 H Direct Bilirubin 0.5 H Alkaline Phosphatase 139 H Discharge - Discharge Clinical Impression: Chest wall pain, End stage renal disease on dialysis, Right thigh pain Condition: Stable Disposition: HOME, SELF-CARE Additional Instructions: Chest Wall Pain: Your chest pain has been diagnosed as coming from the chest wall. This is often caused by straining the muscles or joints in the chest during physical activity, direct trauma, coughing, or vigorous vomiting. Persons with arthritis are especially prone to this type of pain, due to inflammation of the cartilage joints near the breast bone. Occasionally, no cause can be found. Rest from strenuous physical activity. This kind of chest pain is usually ma de worse by movement of the chest. Depending on the symptoms, we may prescribe medicine for pain, muscle relaxation, and antiinflammatory effects. If the pain is new, and seems to be due to muscle strain, cold packs can help. Otherwise, apply gentle warmth to the painful area for 15 minutes every hour or two. You should contact the doctor immediately if things change. Further evaluation is needed if you develop a fever or cough, if the nature of the pain changes, or if you become short of breath. Your emergency room evaluation today shows your chest pain is coming from the chest wall muscles and soft tissues. The right thigh discomfort does not appear to be due to blood clots or infection. For now you should limit activities that make your chest or your thigh hurt worse. Follow-up with your primary care provider Tuesday after dialysis if you continue to have the chest pain and thigh pain. RETURN TO THE EMERGENCY ROOM IF ANY NEW OR WORSENING SYMPTOMS. Referrals: NIELS PINON MD [Primary Care Provider] - Follow up as needed Scribe Attestation: 11/16/19 16:24 I personally performed the services described in the documentation, reviewed and edited the documentation which was dictated to the scribe in my presence, and it accurately records my words and actions. I personally performed the services described in the documentation, reviewed and edited the documentation which was dictated to the scribe in my presence, and it accurately records my words and actions.
--- NOTE | 2019-11-16 16:52 | XCELERA REPORT ---
[address] [place] [facility] [id number] Lower Extremity Venous Evaluation Procedure: Color flow and duplex imaging of the veins of the right lower extremity as well as the left Common Femoral vein. Right Sided Venous Evaluation Normal vessel filling wall to wall, compression and augmentation as well as Colour flow down to the infrageniculate veins. Left Sided Venous Evaluation The left common femoral vein is fully compressible. Spontaneous and phasic flow is present in the left common femoral vein. Interpretation Summary No duplex evidence of DVT or obstruction in the right lower extremity nor in the left Common Femoral vein. Name: AZAM SHAWN Pili Age: 69 yrs Gender: Female : 1950 Patient Status: Emergency Patient Location: ER Study Date: 11/16/2019 03:33 PM Reason For Study: prox R medial thigh pain, PMH DVT upper ext Ordering Physician: MARNIE SRIVASTAVA Performed By: Komal Echavarria : MARNIE SRIVASTAVA > Shay Rosales
[2019-11-16 17:10] VITALS: BP 140/58
--- NOTE | 2019-11-16 17:49 | EKG REPORT ---
SEVERITY:- BORDERLINE ECG - SINUS RHYTHM BORDERLINE PROLONGED QT INTERVAL : Confirmed by: Олег Mendez MD 16-Nov-2019 17:48:30
== END 2019-11-16 17:30 | disposition home or self-care (01) ==
LOC: ER 10:35
DX: R07.89 Other chest pain (principal); M79.651 Pain in right thigh; M79.604 Pain in right leg; I13.2 Hypertensive heart and chronic kidney disease with heart failure and with stage 5 chronic kidney disease, or end stage renal disease; I50.9 Heart failure, unspecified; E11.22 Type 2 diabetes mellitus with diabetic chronic kidney disease; N18.6 End stage renal disease; Z99.2 Dependence on renal dialysis; R06.02 Shortness of breath; M54.2 Cervicalgia; Z79.02 Long term (current) use of antithrombotics/antiplatelets
CPT/HCPCS: 36415; 71045; 80053; 84484; 85025; 93005; 93010; 93971; 99285

== ENCOUNTER 2020-01-22 14:00 | Emergency (ER) | payer MEDICARE, BC ==
[2020-01-22] MEDS ORDERED: ONDANSETRON HCL INJ/PF 4 MG/2 ML SDV IV ONE (14:25)
[2020-01-22] MEDS ORDERED: NORMAL SALINE 1000 ML 500 ML IV ONE (14:25)
--- NOTE | 2020-01-22 14:35 | ER Document Report ---
ED GI/ - General Chief Complaint: Nausea/Vomiting Stated Complaint: NAUSEA/VOMITING Time Seen by Provider: 01/22/20 14:18 Primary Care Provider: JOSEPHINE VALDEZ NP [Primary Care Provider] - Follow up as needed Notes: 70-year-old female comes in complaining of nausea vomiting and some abdominal cramping and pain that started earlier today. The patient denies fever chills. Denies chest pain denies shortness of breath she is a hemodialysis patient and had dialysis yesterday. She started vomiting today and states she is vomited multiple times. She denies any black bloody or tarry stools denies dark or coffee-ground type emesis denies hematemesis. The patient complains of moderate achy pain in her epigastrium. Nothing really makes it better or worse. The patient is being treated at wound care for a wound on her right inner thigh. I cannot tell from the history and is hard to get it from the patient she is a poor historian I think she was at wound care when she was vomiting also today. TRAVEL OUTSIDE OF THE [place] IN LAST 30 DAYS: No - Related Data Allergies/Adverse Reactions: adhesive Allergy (Verified 01/22/20 16:22) hydrochlorothiazide Allergy (Verified 01/22/20 16:22) Iodine and Iodide Containing Produc Allergy (Verified 01/22/20 16:22) metoclopramide [From Reglan] Allergy (Verified 01/22/20 16:22) shellfish derived Allergy (Verified 01/22/20 16:22) Sulfa (Sulfonamide Antibiotics) Allergy (Verified 01/22/20 16:22) Past Medical History - Social History Smoking Status: Unknown if Ever Smoked Family History: Reviewed & Not Pertinent, Hypertension Patient has suicidal ideation: No Patient has homicidal ideation: No - Past Medical History Cardiac Medical History: Reports: Hx Congestive Heart Failure, Hx Hypercholesterolemia, Hx Hypertension Endocrine Medical History: Reports: Hx Diabetes Mellitus Type 1, Hx Diabetes Mellitus Type 2 Renal/ Medical History: Reports: Hx End Stage Renal Disease. Denies: Hx Peritoneal Dialysis Malignancy Medical History: Reports: Hx Renal (Kidney) Cancer GI Medical History: Reports: Hx Gastroesophageal Reflux Disease Musculoskeletal Medical History: Reports Hx Arthritis, Reports Hx Musculoskeletal Deformity, Reports Hx Musculoskeletal Trauma Traumatic Medical History: Reports: Hx Fractures Past Surgical History: Reports: Hx Cardiac Catheterization, Hx Cholecystectomy, Hx Kidney (Renal Surgery) - Bilateral nephrectomies, Hx Orthopedic Surgery - Back and knee surgery, Hx Vascular Surgery - shunt in the left arm for dialysis, Other - Bilateral nephrectomies Review of Systems - Review of Systems Constitutional: denies: Chills, Fever Cardiovascular: denies: Chest pain, Dyspnea, Edema Respiratory: denies: Cough, Short of breath Gastrointestinal: Abdominal pain, Nausea, Vomiting. denies: Diarrhea, Blood in vomit, Black stools, Rectal bleeding Genitourinary: denies: Dysuria, Hematuria Skin: Lesions Neurological/Psychological: denies: Paralysis, Headaches -: Yes All other systems reviewed and negative Physical Exam - Notes Notes: GENERAL_APPEARANCE: well_nourished, alert, cooperative VITALS: reviewed, see vital signs table. HEAD: no_swelling\tenderness on the head. EYES: PERRL, EOMI, conjunctiva_clear. NOSE: no_nasal_discharge. MOUTH: (-)decreased moisture. THROAT: no_tonsilar_inflammation, no_airway_obstruction. no_lymphadenopathy NECK: supple, no_neck_tenderness, (-)thyromegaly. BACK: no_back_tenderness. CHEST_WALL: no_chest_tenderness. LUNGS: no_wheezing, no_rales, no_rhonchi, (-)accessory muscle use, good air exchange bilateral. HEART: normal_rate, normal_rhythm, normal_S1, normal_S2, (-)S3, (-)S4, no_murmur, no_rub. ABDOMEN: normal_BS, soft, epigastric_abd_tenderness, (-)guarding, (-)rebound, no_organomegaly, no_abd_masses. EXTREMITIES: There is about a 5 to 6 inch circular ulcer with a black eschar base on the right inner thigh there is a little bit of redness around her fringes but does not look grossly infected. SKIN: warm, dry, good_color, no_rash. MENTAL_STATUS: speech_clear, oriented_X_3, normal_affect, responds_appropriately to questions. Course - Re-evaluation Re-evalutation: 01/22/20 14:37 70-year-old female who comes in with nausea vomiting abdominal pain. We will CT her abdomen and pelvis without contrast IV fluids judiciously and Zofran will check electrolytes. Her ulcer on her leg is being treated by wound care. Does not grossly look infected to me there is a black eschar base noted. Patient states she has gone back and forth to [place]. 01/22/20 16:44 CT scan shows metastatic disease which is known. Patient has a history of renal cell carcinoma. There is no obstruction on CT or other abnormalities. The patient does not make urine we could not test that -patient has no fever or leukocytosis or anything to suggest infection. The patient felt better we gave her a GI cocktail fluids and antiemetics. She is feeling much better. The leg wound needs to continue with wound care. I do not believe it is acutely infected. The patient will be discharged home. - Laboratory Result Diagrams: 01/22/20 15:43 01/22/20 15:43 Laboratory results interpreted by me: 01/22/20 01/22/20 15:43 15:43 RBC 3.11 L Hgb 9.1 L Hct 27.5 L RDW 14.8 H Lymph % (Auto) 9.2 L Seg Neutrophils % 83.9 H Potassium 3.5 L Chloride 93 L Anion Gap 22 H BUN 21 H Creatinine 4.20 H Est GFR ( Amer) 13 L Est GFR (MDRD) Non-Af 11 L Glucose 130 H Calcium 11.4 H Direct Bilirubin 0.6 H AST 42 H Alkaline Phosphatase 244 H - Diagnostic Test Radiology reviewed: Reports reviewed Radiology results interpreted by me: 01/22/20 16:44 Chest X-Ray 01/22/20 14:24 IMPRESSION: NO ACUTE RADIOGRAPHIC FINDING IN THE CHEST. Abdomen/Pelvis CT 01/22/20 14:25 IMPRESSION: 1. Suspect metastatic disease to the liver. 2. Large right retroperitoneal mass extending through the chest wall is not significantly changed from 2018. 3. [place] kidneys are not identified. This is unchanged as well. 4. Lytic lesion in the body of L4 suspicious for metastatic disease. Discharge - Discharge Clinical Impression: Nausea & vomiting Qualifiers: Vomiting type: unspecified Vomiting Intractability: non-intractable Qualified Code(s): R11.2 - Nausea with vomiting, unspecified Condition: Good Disposition: HOME, SELF-CARE Instructions: Antinausea Medication ([facility]), Vomiting ([facility]) Additional Instructions: Electronic RX to [facility] on [address] Prescriptions: Ondansetron [Zofran Odt 4 mg Tablet] 1 - 2 tab PO Q4H PRN #15 tab.rapdis PRN Reason: For Nausea/Vomiting Referrals: JOSEPHINE VALDEZ, MATERIALS MANAGEMENT SUPERVISOR [Primary Care Provider] - Follow up as needed
--- NOTE | 2020-01-22 15:12 | RADIOLOGY REPORT (SQ) ---
EXAM DESCRIPTION: CT ABD/PELVIS NO ORAL OR IV IMAGES COMPLETED DATE/TIME: 01/22/2020 2:39 pm REASON FOR STUDY: abdominal pain COMPARISON: 12/15/2017 TECHNIQUE: CT scan of the abdomen and pelvis performed without intravenous or oral contrast. Images reviewed with lung, soft tissue, and bone windows. Reconstructed coronal and sagittal MPR images revi ewed. All images stored on PACS. All CT scanners at this facility use dose modulation, iterative reconstruction, and/or weight based d osing when appropriate to reduce radiation dose to as low as reasonably achievable (ALARA). [facility]: Dose Right [facility]: CareDose [facility]: Dose Right [facility]: Teradose 4D [facility]: [employer] RADIATION DOSE: CT Rad equipment meets quality standard of care and radiation dose reduction techniq ues were employed. CTDIvol: 6.6 mGy. DLP: 295 mGy-cm.mGy. LIMITATIONS: None. FINDINGS: LOWER CHEST: Small right pleural effusion new from prior study. Minimal right basilar ate lectasis. NON-CONTRASTED LIVER, SPLEEN, ADRENALS: Multiple hypoattenuating lesions in now noted in the liver. These are new from 2018 metastatic disease cannot be excluded. The largest is in the right lobe 3.6 cm. PANCREAS: No masses. No peripancreatic inflammatory changes. GALLBLADDER: Surgically absent. RIGHT KIDNEY AND URETER: Large heterogeneous mass is present in the right renal fossa this extends th rough the chest wall and is stable from 2018. This has been previously biopsied. LEFT KIDNEY AND URETER: Not identified. . AORTA AND RETROPERITONEUM: No aneurysm. No retroperitoneal masses or adenopathy. BOWEL AND PERITONEAL CAVITY: No obvious masses or inflammatory changes. No free fluid. APPENDIX: Not visualized. PELVIS, BLADDER, AND ABDOMINAL WALL:Subcutaneous edema. BONES: Large lytic lesion in the body of L4 new from prior study. Other bony changes consistent with renal osteodystrophy. OTHER: No other significant finding. IMPRESSION: 1. Suspect metastatic disease to the liver. 2. Large right retroperitoneal mass extending through the chest wall is not significantly changed fr om 2018. 3. [place] kidneys are not identified. This is unchanged as well. 4. Lytic lesion in the body of L4 suspicious for metastatic disease. COMMENT: Quality ID # [id number]: Final reports with documentation of one or more dose reduction techniques (e.g., Automated exposure control, adjustment of the mA and/or kV according to patient size, use of iterative reconstruction technique) TECHNICAL DOCUMENTATION: JOB ID: [id number] 2010 [employer]- All Rights Reserved Reading location - IP/workstation name: [email or web address]
--- NOTE | 2020-01-22 15:13 | RADIOLOGY REPORT (SQ) ---
EXAM DESCRIPTION: CHEST SINGLE VIEW IMAGES COMPLETED DATE/TIME: 01/22/2020 2:46 pm REASON FOR STUDY: abdominal pain COMPARISON: 11/16/2019 EXAM PARAMETERS: NUMBER OF VIEWS: One view. TECHNIQUE: Single frontal radiographic view of the chest acquired. RADIATION DOSE: NA LIMITATIONS: None. FINDINGS: LUNGS AND PLEURA: No opacities, masses or pneumothorax. No pleural effusion. MEDIASTINUM AND HILAR STRUCTURES: No masses. Contour normal. HEART AND VASCULAR STRUCTURES: Heart normal in size. Normal vasculature. BONES: No acute findings. HARDWARE: Dialysis catheter remains in place. Vascular stent remains in place on the left. OTHER: No other significant finding. IMPRESSION: NO ACUTE RADIOGRAPHIC FINDING IN THE CHEST. TECHNICAL DOCUMENTATION: JOB ID: [id number] 2010 [employer]- All Rights Reserved Reading location - IP/workstation name: [email or web address]
[2020-01-22 15:59] LABS: ABSOLUTE LYMPHOCYTES (AUTO) 0.6 10^3/uL (0.5-4.7); ABSOLUTE MONOCYTES (AUTO) 0.4 10^3/uL (0.1-1.4); ABSOLUTE NEUT (AUTO) 5.7 10^3/uL (1.7-8.2); BASOPHILS % (AUTO) 0.6 % (0-2); EOSINOPHILS % (AUTO) 0.6 % (0-6); HEMATOCRIT 27.5 % (36.0-47.0); HEMOGLOBIN 9.1 g/dL (12.0-15.5); LYMPHOCYTES % (AUTO) 9.2 % (13-45); MEAN CORPUSCULAR HEMOGLOBIN 29.3 pg (27.0-33.4); MEAN CORPUSCULAR HGB CONC 33.2 g/dL (32.0-36.0); MEAN CORPUSCULAR VOLUME 89 fl (80-97); MONOCYTES % (AUTO) 5.7 % (3-13); PLATELET COUNT 257 10^3/uL (150-450); RED BLOOD COUNT 3.11 10^6/uL (3.72-5.28); RED CELL DISTRIBUTION WIDTH 14.8 % (11.5-14.0); SEGMENTED NEUTROPHILS % (AUTO) 83.9 % (42-78); TOTAL CELLS COUNTED % (AUTO) 100 %; WHITE BLOOD COUNT 6.7 10^3/uL (4.0-10.5)
[2020-01-22 16:14] LABS: ALBUMIN 4.1 g/dL (3.5-5.0); ALKALINE PHOSPHATASE 244 U/L (38-126); ASPARTATE AMINO TRANSFERASE 42 U/L (14-36); BILIRUBIN,DIRECT 0.6 mg/dL (0.0-0.4); BILIRUBIN,TOTAL 0.7 mg/dL (0.2-1.3); BLOOD UREA NITROGEN 21 mg/dL (7-20); CALCIUM 11.4 mg/dL (8.4-10.2); CARBON DIOXIDE 24 mmol/L (22-30); CHLORIDE 93 mmol/L (98-107); GLUCOSE 130 mg/dL (75-110); POTASSIUM 3.5 mmol/L (3.6-5.0); TOTAL PROTEIN 7.5 g/dL (6.3-8.2)
[2020-01-22 16:17] LABS: ANION GAP 22 (5-19)
[2020-01-22] MEDS ORDERED: LIDOCAINE 2% VISCOUS SOLN 15 ML UDCUP PO ONE (16:43)
[2020-01-22] MEDS ORDERED: MAG HYDROX/AL HYDROX/SIMETH SUSP 30 ML UDCUP PO ONE (16:43)
[2020-01-22 17:43] VITALS: BP 174/81
== END 2020-01-22 17:42 | disposition home or self-care (01) ==
LOC: ER 14:00
DX: R11.2 Nausea with vomiting, unspecified (principal); R10.13 Epigastric pain; R10.816 Epigastric abdominal tenderness; C79.9 Secondary malignant neoplasm of unspecified site; M89.9 Disorder of bone, unspecified; R19.09 Other intra-abdominal and pelvic swelling, mass and lump; I12.0 Hypertensive chronic kidney disease with stage 5 chronic kidney disease or end stage renal disease; E11.22 Type 2 diabetes mellitus with diabetic chronic kidney disease; N18.6 End stage renal disease; Z99.2 Dependence on renal dialysis; E11.622 Type 2 diabetes mellitus with other skin ulcer; L97.119 Non-pressure chronic ulcer of right thigh with unspecified severity; Z85.528 Personal history of other malignant neoplasm of kidney; Z90.5 Acquired absence of kidney; Z91.048 Other nonmedicinal substance allergy status; Z88.8 Allergy status to other drugs, medicaments and biological substances; Z91.013 Allergy to seafood; Z88.2 Allergy status to sulfonamides
CPT/HCPCS: 99284; 96361; 96374; 36415; 83690; 85025; 80053; 71045; 74176; J3490; A9270; J2405; J7030

== ENCOUNTER 2020-01-25 05:51 | Inpatient (IN) | payer MEDICARE, BC ==
[2020-01-25] MEDS ORDERED: PANTOPRAZOLE SODIUM 40 MG VIAL IV PRN (06:07)
[2020-01-25] MEDS ORDERED: ONDANSETRON HCL INJ/PF 4 MG/2 ML SDV IV ONE ×2 (06:07→08:15)
[2020-01-25] MEDS ORDERED: PANTOPRAZOLE SODIUM 40 MG VIAL IV ONE ×2 (06:07→08:30)
--- NOTE | 2020-01-25 06:10 | ER Document Report ---
ED Medical Screen (RME) - General Chief Complaint: voimting bleed Stated Complaint: VOMITING BLOOD Time Seen by Provider: 01/25/20 06:06 Primary Care Provider: AMOL TAM MD [Primary Care Provider] - Follow up as needed Notes: 70-year-old female chief complaint of vomiting, she reports pain in her upper abdomen and chest, she states she vomited 3 times this morning with dark and red blood. She is not on a blood thinner. She was just discharged from this hospital over the past 24 hours reportedly. She denies history of GI bleed, alcohol abuse, esophageal varices. She is a dialysis patient. She states she was dialyzed 2 days ago TRAVEL OUTSIDE OF THE [place] IN LAST 30 DAYS: No - Related Data Allergies/Adverse Reactions: adhesive Allergy (Verified 01/22/20 16:22) hydrochlorothiazide Allergy (Verified 01/22/20 16:22) Iodine and Iodide Containing Produc Allergy (Verified 01/22/20 16:22) metoclopramide [From Reglan] Allergy (Verified 01/22/20 16:22) shellfish derived Allergy (Verified 01/22/20 16:22) Sulfa (Sulfonamide Antibiotics) Allergy (Verified 01/22/20 16:22) Past Medical History - Social History Chew tobacco use (# tins/day): No Frequency of alcohol use: None Drug Abuse: None - Past Medical History Cardiac Medical History: Reports: Hx Congestive Heart Failure, Hx Hypercholesterolemia, Hx Hypertension Pulmonary Medical History: Reports: Hx Asthma Denies: Hx Bronchitis, Hx COPD Endocrine Medical History: Reports: Hx Diabetes Mellitus Type 1, Hx Diabetes Mellitus Type 2 Renal/ Medical History: Reports: Hx End Stage Renal Disease. Denies: Hx Peritoneal Dialysis Malignancy Medical History: Reports: Hx Renal (Kidney) Cancer GI Medical History: Reports: Hx Gastroesophageal Reflux Disease Musculoskeltal Medical History: Reports Hx Arthritis, Reports Hx Musculoskeletal Deformity, Reports Hx Musculoskeletal Trauma Traumatic Medical History: Reports: Hx Fractures Past Surgical History: Reports: Hx Cardiac Catheterization, Hx Cholecystectomy, Hx Kidney (Renal Surgery) - Bilateral nephrectomies, Hx Orthopedic Surgery - Back and knee surgery, Hx Vascular Surgery - shunt in the left arm for dialysis, Other - Bilateral nephrectomies Physical Exam - Cardiovascular Rhythm: Regular. No: Tachycardia Heart sounds: Normal auscultation, S1 appreciated, S2 appreciated - Abdominal Tenderness: Tender - upper abd tender Course - Re-evaluation Re-evalutation: Patient still talkative, alert, well-appearing, not hypotensive or tachycardic, however she had an emesis bag with what appears to be almost pure and dark blood. Work-up pending, triage level 2. I have greeted and performed a rapid initial assessment of this patient. A comprehensive ED assessment and evaluation of the patient, analysis of test results and completion of the medical decision making process will be conducted by additional ED providers. Doctor's Discharge - Discharge Referrals: AMOL TAM MD [Primary Care Provider] - Follow up as needed
[2020-01-25 06:49] LABS: ABSOLUTE BASOPHILS # (AUTO) 0.1 10^3/uL (0.0-0.2); ABSOLUTE LYMPHOCYTES (AUTO) 0.8 10^3/uL (0.5-4.7); ABSOLUTE NEUT (AUTO) 11.7 10^3/uL (1.7-8.2); BASOPHILS % (AUTO) 0.5 % (0-2); EOSINOPHILS % (AUTO) 0.2 % (0-6); HEMATOCRIT 40.1 % (36.0-47.0); LYMPHOCYTES % (AUTO) 5.8 % (13-45); MEAN CORPUSCULAR HEMOGLOBIN 28.5 pg (27.0-33.4); MEAN CORPUSCULAR HGB CONC 34.3 g/dL (32.0-36.0); MONOCYTES % (AUTO) 7.2 % (3-13); PLATELET COUNT 281 10^3/uL (150-450); RED BLOOD COUNT 4.83 10^6/uL (3.72-5.28); RED CELL DISTRIBUTION WIDTH 17.3 % (11.5-14.0); SEGMENTED NEUTROPHILS % (AUTO) 86.3 % (42-78); TOTAL CELLS COUNTED % (AUTO) 100 %; WHITE BLOOD COUNT 13.6 10^3/uL (4.0-10.5)
--- NOTE | 2020-01-25 07:02 | ER Document Report ---
Entered by TRAN LEVINE SCRIBE 01/25/20 0629 Acting as scribe for:MARNIE SRIVASTAVA MD ED GI/ - General Chief Complaint: voimting bleed Stated Complaint: VOMITING BLOOD Time Seen by Provider: 01/25/20 06:06 Mode of Arrival: Ambulatory Information source: Patient Notes: This 70 year old female patient on plavix presents to the emergency department today with complaints of three episodes of dark emesis prior to arrival. Patient was at this facility yesterday for a blood transfusion [facility]. Patient also vaguely mentions vomiting x3 days ago as well that may or may hot have been dark, she is a poor historian so obtaining history is difficult. Patient mentions some left sided abdominal pain today which she states was also present yesterday when she was here for the transfusion. Patient was seen here on 01/22/2020 with complaints of nausea and vomiting. Hemoglobin was at 9.1 on that day. She had outpatient lab work done 24 hours later with a hemoglobin of 7.5, then was transfused 2 units of packed cells on 01/24/2020. She is taking Plavix. TRAVEL OUTSIDE OF THE [place] IN LAST 30 DAYS: No - Related Data Allergies/Adverse Reactions: adhesive Allergy (Verified 01/22/20 16:22) hydrochlorothiazide Allergy (Verified 01/22/20 16:22) Iodine and Iodide Containing Produc Allergy (Verified 01/22/20 16:22) metoclopramide [From Reglan] Allergy (Verified 01/22/20 16:22) shellfish derived Allergy (Verified 01/22/20 16:22) Sulfa (Sulfonamide Antibiotics) Allergy (Verified 01/22/20 16:22) Past Medical History - General Information source: Patient, [facility] Records - Social History Smoking Status: Never Smoker Cigarette use (# per day): No Chew tobacco use (# tins/day): No Frequency of alcohol use: None Drug Abuse: None Family History: Reviewed & Not Pertinent, Hypertension Patient has suicidal ideation: No Patient has homicidal ideation: No - Past Medical History Cardiac Medical History: Reports: Hx Congestive Heart Failure, Hx Hyperchole sterolemia, Hx Hypertension Pulmonary Medical History: Reports: Hx Asthma Endocrine Medical History: Reports: Hx Diabetes Mellitus Type 2 Renal/ Medical History: Reports: Hx End Stage Renal Disease Malignancy Medical History: Reports: Hx Renal (Kidney) Cancer GI Medical History: Reports: Hx Gastroesophageal Reflux Disease Musculoskeletal Medical History: Reports Hx Arthritis, Reports Hx Musculoskeletal Deformity, Reports Hx Musculoskeletal Trauma Traumatic Medical History: Reports: Hx Fractures Past Surgical History: Reports: Hx Cardiac Catheterization, Hx Cholecystectomy, Hx Kidney (Renal Surgery) - Bilateral nephrectomies, Hx Orthopedic Surgery - Back and knee surgery, Hx Vascular Surgery - shunt in the left arm for dialysis, Other Review of Systems - Review of Systems Constitutional: No symptoms reported EENT: No symptoms reported Cardiovascular: No symptoms reported Respiratory: No symptoms reported Gastrointestinal: See HPI, Abdominal pain, Constipation, Blood in vomit Genitourinary: No symptoms reported Female Genitourinary: No symptoms reported Musculoskeletal: See HPI, Leg swelling - RLE swelling from right thigh wound Skin: No symptoms reported Hematologic/Lymphatic: No symptoms reported Neurological/Psychological: No symptoms reported -: Yes All other systems reviewed and negative Physical Exam - Vital signs Vitals: Resp 0 L 01/25/20 06:00 - Notes Notes: Physical Exam: General: Alert, appears non-toxic. HEENT: Normocephalic. Atraumatic. PERRL. Extraocular movements intact. Oropharynx clear. Neck: Supple. Non-tender. Respiratory: No respiratory distress. Clear and equal breath sounds bilaterally. Cardiovascular: Regular rate and rhythm. Abdominal: Left-sided abdominal tenderness to palpation. Normal Bowel Sounds. Back: No gross abnormalities. Extremities: Moves all four extremities. Upper extremities: Normal inspection. Normal ROM. Lower extremities: Pitting edema to right lower extremity. Neurological: Normal cognition. AAOx4. Normal speech. Psychological: Normal affect. Normal Mood. Skin: Warm. Dry. Normal color. Course - Vital Signs Vital signs: Temp Pulse Resp BP Pulse Ox 15 185/79 H 100 01/25/20 09:31 01/25/20 09:31 01/25/20 09:31 - Laboratory Result Diagrams: 01/25/20 06:23 01/25/20 07:33 Laboratory results interpreted by me: 01/25/20 01/25/20 06:23 07:33 WBC 13.6 H RDW 17.3 H Lymph % (Auto) 5.8 L Absolute Neuts (auto) 11.7 H Seg Neutrophils % 86.3 H Potassium 3.2 L Chloride 91 L Anion Gap 20 H BUN 25 H Creatinine 4.36 H Est GFR ( Amer) 12 L Est GFR (MDRD) Non-Af 10 L Glucose 146 H Calcium 11.6 H Direct Bilirubin 0.5 H Alkaline Phosphatase 182 H Total Protein 6.0 L Albumin 3.1 L Lipase 21.0 L - EKG Interpretation by Me EKG shows normal: Sinus rhythm, [place], QRS Complexes, ST-T Waves. abnormal: Intervals - Borderline prolonged QT interval Rate: Normal - 88 Rhythm: NSR When compared to previous EKG there are: No significant change - Consults Dr. Carrion Time consulted: 08:45 Consulted provider: will see as inpatient - Will arrange for dialysis when I get the patient admitted. Delmy Hernandez NP Time consulted: 09:20 Consulted provider: will come to ER Discharge - Discharge Clinical Impression: Upper gastrointestinal bleed, End stage renal disease on dialysis Hematemesis Qualifiers: Nausea presence: with nausea Qualified Code(s): K92.0 - Hematemesis High blood pressure Qualifiers: Hypertension type: unspecified Qualified Code(s): I10 - Essential (primary) hypertension Condition: Stable Disposition: ADMITTED INPATIENT Admitting Provider: Kris (Hospitalist) Unit Admitted: Telemetry - Delmy Hernandez NP doing the admission I personally performed the services described in the documentation, reviewed and edited the documentation which was dictated to the scribe in my presence, and it accurately records my words and actions.
--- NOTE | 2020-01-25 07:02 | RADIOLOGY REPORT (SQ) ---
EXAM DESCRIPTION: [facility]: XR CHEST 1 VIEW CLINICAL HISTORY: 70 years Female; vomiting blood; COMPARISON: 01/22/2020 FINDINGS: Lungs: Lungs are clear, with no focal infiltrate, pneumothorax, or pleural effusion. Mediastinum: Right IJ line remains in place, tip at the cavoatrial junction. Mild aortic calcification is again noted. Mediastinum is otherwise unremarkable. Bones: Bony structures are unremarkable. IMPRESSION: 1. No acute pulmonary findings. 2. No change since 01/22/2020.
[2020-01-25 07:15] LABS: HEMOGLOBIN 13.8 g/dL (12.0-15.5)
[2020-01-25 07:16] LABS: MEAN CORPUSCULAR VOLUME 83 fl (80-97)
[2020-01-25 07:58] LABS: INTERNATIONAL RATION (INR) 1.18; PROTHROMBIN TIME 15.1 SEC (11.4-15.4)
[2020-01-25 07:59] LABS: PARTIAL THROMBOPLASTIN TIME 32.3 SEC (23.5-35.8)
[2020-01-25 08:10] LABS: ALBUMIN 3.1 g/dL (3.5-5.0); ALKALINE PHOSPHATASE 182 U/L (38-126); ASPARTATE AMINO TRANSFERASE 36 U/L (14-36); BILIRUBIN,DIRECT 0.5 mg/dL (0.0-0.4); BILIRUBIN,TOTAL 0.8 mg/dL (0.2-1.3); BLOOD UREA NITROGEN 25 mg/dL (7-20); CALCIUM 11.6 mg/dL (8.4-10.2); CARBON DIOXIDE 27 mmol/L (22-30); CHLORIDE 91 mmol/L (98-107); GLUCOSE 146 mg/dL (75-110); POTASSIUM 3.2 mmol/L (3.6-5.0)
[2020-01-25 08:28] LABS: ANION GAP 20 (5-19)
[2020-01-25] MEDS: PANTOPRAZOLE SODIUM 40 MG VIAL IV PRN (08:32)
[2020-01-25] MEDS ORDERED: DEXTROSE 50%-WATER 25 GM/50 ML DISP.SYRIN IV PRN ×2 (10:21)
[2020-01-25] MEDS ORDERED: DEXTROSE 40% GEL 15 GM TUBE PO PRN ×2 (10:21)
[2020-01-25] MEDS ORDERED: ALBUTEROL SULFATE 0.083% NEB 2.5 MG/3 ML AMPUL NEB PRN (10:21)
[2020-01-25] MEDS ORDERED: GLUCAGON,HUMAN RECOMB 1 MG INJ SUBCUT PRN (10:21)
[2020-01-25] MEDS ORDERED: POTASSI CL 20 MEQ/50 ML RIDER 20 MEQ/50 ML RTUPB IV ONE (10:26)
[2020-01-25] MEDS ORDERED: HYDRALAZINE HCL INJ/PF 20 MG/1 ML SDV IV PRN (10:27)
[2020-01-25 10:36] LABS: ABSOLUTE BASOPHILS # (AUTO) 0.1 10^3/uL (0.0-0.2); ABSOLUTE LYMPHOCYTES (AUTO) 0.8 10^3/uL (0.5-4.7); ABSOLUTE MONOCYTES (AUTO) 1.1 10^3/uL (0.1-1.4); ABSOLUTE NEUT (AUTO) 10.8 10^3/uL (1.7-8.2); BASOPHILS % (AUTO) 0.4 % (0-2); EOSINOPHILS % (AUTO) 0.1 % (0-6); HEMATOCRIT 37.3 % (36.0-47.0); HEMOGLOBIN 12.6 g/dL (12.0-15.5); LYMPHOCYTES % (AUTO) 6.4 % (13-45); MEAN CORPUSCULAR HEMOGLOBIN 28.1 pg (27.0-33.4); MEAN CORPUSCULAR HGB CONC 33.9 g/dL (32.0-36.0); MEAN CORPUSCULAR VOLUME 83 fl (80-97); MONOCYTES % (AUTO) 8.3 % (3-13); PLATELET COUNT 258 10^3/uL (150-450); RED BLOOD COUNT 4.49 10^6/uL (3.72-5.28); RED CELL DISTRIBUTION WIDTH 17.3 % (11.5-14.0); SEGMENTED NEUTROPHILS % (AUTO) 84.8 % (42-78); TOTAL CELLS COUNTED % (AUTO) 100 %; WHITE BLOOD COUNT 12.7 10^3/uL (4.0-10.5)
--- NOTE | 2020-01-25 10:40 | PDOC H&P ---
History of Present Illness Admission Date/PCP: 01/25/20 09:56 AMOL TAM MD Patient complains of: Nausea vomiting, abdominal pain History of Present Illness: CODY SHAW is a 70 year old female with a past medical history significant for ESRD on dialysis MWF, renal carcinoma with bone metastasis (followed by [facility]; not currently on chemo or radiation treatments), CVA without residual deficits, hypertension, hyperlipidemia, diet-controlled DM, and COPD who presented to the emergency department today with a complaint of 3 days of nausea and vomiting; described as maroon in color. Patient denies melena or nieves blood per rectum. She did have 2 units transfused yesterday for a hemoglobin of 7.5. Evaluation the emergency department today r all evealed hypertension, but otherwise stable vital signs, WBCs 13.6, hemoglobin 13.8 (not congruent; repeat testing pending. Patient had a hemoglobin 9.1 on 01/21, 7.5 on 01/22, received 2 units PRBC on 01/23 without follow-up lab). PT/INR are normal, chemistry is unremarkable given the patient's history of dialysis, gastric occult and stool occult blood both positive. The patient is referred to the hospitalist service for admission and management of the above-stated complaints and findings. Past Medical History Cardiac Medical History: Reports: Congestive Heart Failure, Hyperlipidema, Hypertension Pulmonary Medical History: Reports: Asthma, Chronic Obstructive Pulmonary Disease (COPD) Denies: Bronchitis EENT Medical History: Reports: None Neurological Medical History: Reports: Ischemic CVA Endocrine Medical History: Reports: Diabetes Mellitus Type 2 Renal/ Medical History: Reports: End Stage Renal Disease Malignancy Medical History: Reports: Renal (Kidney) Cancer GI Medical History: Reports: Gastroesophageal Reflux Disease Musculoskeltal Medical History: Reports: Arthritis Psychiatric Medical History: Reports: None Traumatic Medical History: Reports: None Hematology: Reports: Anemia Infectious Medical History: Reports: None Past Surgical History Past Surgical History: Reports: Cardiac Catheterization, Cholecystectomy, Orthopedic Surgery - Back and knee surgery, Vascular Surgery - shunt in the left arm for dialysis, Other Social History Information Source: Patient Lives with: Alone Smoking Status: Never Smoker Electronic Cigarette use?: No Frequency of Alcohol Use: None Hx Recreational Drug Use: No Drugs: None Hx Prescription Drug Abuse: No - Advance Directive Resuscitation Status: Do Not Resuscitate Family History Family History: Reviewed & Not Pertinent, Hypertension Parental Family History Reviewed: Yes Children Family History Reviewed: Yes Sibling(s) Family History Reviewed.: Yes Medication/Allergy Home Medications: Atorvastatin Calcium [Lipitor 40 mg Tablet] 40 mg PO QHS 12/07/17 Diazepam [Valium 5 mg Tablet] 2.5 mg PO HSP PRN 12/07/17 Docusate Sodium [Colace 100 mg Capsule] 100 mg PO BID 12/07/17 Escitalopram Oxalate [Lexapro] 20 mg PO DAILY 12/07/17 Fluocinolone Acetonide 1 applic TOP BID 12/07/17 Hydromorphone HCl [Dilaudid 2 mg Tablet] 2 mg PO Q6HP PRN 12/07/17 Hydroxyzine HCl [Atarax 25 mg Tablet] 25 mg PO TIDP PRN 12/07/17 Ipratropium/Albuterol Sulfate [Duoneb 3 ml Ampul] 1 vial NEB Q4HP PRN 12/07/17 Levothyroxine Sodium [Synthroid] 137 mg PO Q6AM 12/07/17 Mirtazapine [Remeron 15 mg Tablet] 15 mg PO QHS 12/07/17 Nitroglycerin [Nitrostat 0.4 mg (1/150 Gr) Tabs 25/Bottle] 0.4 mg PO Q5MP PRN 12/07/17 Nortriptyline HCl [Pamelor 10 mg Capsule] 10 mg PO QHS 12/07/17 Nystatin [Mycostatin Cream 15 gm] 1 applic TOP BID 12/07/17 Pantoprazole Sodium [Protonix] 40 mg PO BID 12/07/17 Polyethylene Glycol 3350 [Miralax Powder 17 gm/Packet] 1 packet PO BID 12/07/17 Tizanidine HCl [Zanaflex 4 mg Tablet] 4 mg PO Q8HP PRN 12/07/17 L.acidoph,Paracasei, B.lactis [Probiotic] 2 each PO BID 12/17/17 Albuterol Sulfate [Proair HFA Inhalation Aerosol 8.5 gm MDI] 2 puff IH Q6HP PRN 30 Days #1 hfa.aer.ad 12/23/17 Amlodipine Besylate [Norvasc 5 mg Tablet] 5 mg PO DAILY #30 tablet 12/23/17 Budesonide/Formoterol Fumarate [Symbicort HFA 160-4.5 mcg Inhaler 6 gm] 2 puff IH Q12 #2 inhaler 12/23/17 Clopidogrel Bisulfate [Plavix 75 mg Tablet] 75 mg PO DAILY #0 12/23/17 Epoetin Joo [Procrit Inj 20,000 Unit/1 ml Vial (Renal)] 5,000 unit IV .DIALYSIS PRN ml 12/23/17 Metoprolol Tartrate [Lopressor 25 mg Tablet] 25 mg PO Q12 #60 tablet 12/23/17 Cephalexin Monohydrate [Keflex 500 mg Capsule] 500 mg PO Q6H 5 Days capsule 07/07/19 Ondansetron [Zofran Odt 4 mg Tablet] 1 - 2 tab PO Q4H PRN #15 tab.rapdis 01/22/20 Allergies/Adverse Reactions: adhesive Allergy (Verified 01/22/20 16:22) hydrochlorothiazide Allergy (Verified 01/22/20 16:22) Iodine and Iodide Containing Produc Allergy (Verified 01/22/20 16:22) metoclopramide [From Reglan] Allergy (Verified 01/22/20 16:22) shellfish derived Allergy (Verified 01/22/20 16:22) Sulfa (Sulfonamide Antibiotics) Allergy (Verified 01/22/20 16:22) Review of Systems Constitutional: ABSENT: chills, fever(s), headache(s), weight gain, weight loss Eyes: ABSENT: visual disturbances Ears: ABSENT: hearing changes Cardiovascular: ABSENT: chest pain, dyspnea on exertion, edema, orthropnea, palpitations Respiratory: ABSENT: cough, hemoptysis Gastrointestinal: PRESENT: abdominal pain, coffee ground emesis, hematemesis, nausea, vomiting. ABSENT: constipation, diarrhea, hematochezia Genitourinary: ABSENT: dysuria, hematuria Musculoskeletal: ABSENT: joint swelling Integumentary: ABSENT: rash, wounds Neurological: ABSENT: abnormal gait, abnormal speech, confusion, dizziness, focal weakness, syncope Psychiatric: ABSENT: anxiety, depression, homidical ideation, suicidal ideation Endocrine: ABSENT: cold intolerance, heat intolerance, polydipsia, polyuria Hematologic/Lymphatic: ABSENT: easy bleeding, easy bruising Physical Exam Vital Signs: Temp Pulse Resp BP Pulse Ox 15 185/79 H 100 01/25/20 09:31 01/25/20 09:31 01/25/20 09:31 Intake & Output 01/24/20 01/25/20 01/26/20 06:59 06:59 06:59 Weight 60.5 kg General appearance: PRESENT: no acute distress, cooperative, well-developed, well-nourished Head exam: PRESENT: atraumatic, normocephalic Eye exam: PRESENT: conjunctiva pink, EOMI, PERRLA. ABSENT: scleral icterus Ear exam: PRESENT: normal external ear exam Mouth exam: PRESENT: moist, tongue midline Teeth exam: PRESENT: edentulous Neck exam: ABSENT: carotid bruit, JVD, lymphadenopathy, thyromegaly Respiratory exam: PRESENT: clear to auscultation santhosh, symmetrical, unlabored. ABSENT: rales, rhonchi, wheezes Cardiovascular exam: PRESENT: RRR, +S1, +S2. ABSENT: diastolic murmur, rubs, systolic murmur Pulses: PRESENT: normal dorsalis pedis pul Vascular exam: PRESENT: normal capillary refill GI/Abdominal exam: PRESENT: normal bowel sounds, soft, tenderness. ABSENT: distended, guarding, mass, organolmegaly, rebound Rectal exam: PRESENT: deferred Extremities exam: PRESENT: full ROM, +1 edema. ABSENT: calf tenderness, clubbing, pedal edema Neurological exam: PRESENT: alert, awake, oriented to person, oriented to place, oriented to time, oriented to situation, CN II-XII grossly intact. ABSENT: motor sensory deficit Psychiatric exam: PRESENT: appropriate affect, normal mood. ABSENT: homicidal ideation, suicidal ideation Skin exam: PRESENT: dry, intact, warm. ABSENT: cyanosis, rash Results Laboratory Results: 01/25/20 06:23 01/25/20 07:33 01/25/20 01/25/20 01/25/20 06:23 06:23 06:23 WBC 13.6 H RBC 4.83 Hgb 13.8 D Hct 40.1 MCV 83 D MCH 28.5 MCHC 34.3 RDW 17.3 H Plt Count 281 Seg Neutrophils % 86.3 H Sodium Cancelled Potassium Cancelled Chloride Cancelled Carbon Dioxide Cancelled Anion Gap Cancelled BUN Cancelled Creatinine Cancelled Est GFR ( Amer) Cancelled Est GFR (Non-Af Amer) Cancelled Glucose Cancelled Calcium Cancelled Total Bilirubin Cancelled AST Cancelled Alkaline Phosphatase Cancelled Total Protein Cancelled Albumin Cancelled Lipase Cancelled Blood Type Cancelled Antibody Screen Cancelled 01/25/20 01/25/20 07:33 07:33 WBC RBC Hgb Hct MCV MCH MCHC RDW Plt Count Seg Neutrophils % Sodium 137.8 Potassium 3.2 L Chloride 91 L Carbon Dioxide 27 Anion Gap 20 H BUN 25 H Creatinine 4.36 H Est GFR ( Amer) 12 L Est GFR (Non-Af Amer) Glucose 146 H Calcium 11.6 H Total Bilirubin 0.8 AST 36 Alkaline Phosphatase 182 H Total Protein 6.0 L Albumin 3.1 L Lipase 21.0 L Blood Type A POSITIVE Antibody Screen NEGATIVE 01/25/20 01/25/20 06:23 07:33 Troponin I Cancelled 0.048 Impressions: Chest X-Ray 01/25/20 06:06 IMPRESSION: 1. No acute pulmonary findings. 2. No change since 01/22/2020. Assessment and Plan - Diagnosis (1) Upper gastrointestinal bleed Is this a current diagnosis for this admission?: Yes Plan: Patient is admitted for presumed upper GI bleed; report of hematic emesis by patient and nursing. Patient reports 3 days of abdominal discomfort with nausea and vomiting. Gastric and fecal occult testing were positive. Patient will be admitted to the medical floor on continuous cardiac telemetry. We will monitor serial CBCs. Start IV Protonix. Carafate every 6 hours. Consider Sandostatin (unclear liver Hx) N.p.o. with the exception of ice chips. Discussed the patient's case in detail with Dr. Rios. Due to limiting endoscopy procedures (facility wide r/t COVID19); recommendations are for conservative care with medical management only at this time. Should the patient's laboratory evaluation or clinical picture necessitate urgent or emergent endoscopy procedures than the surgical team would be immediately available to provide assistance. However, should the patient's clinical situation stabilize; then diagnostic endoscopy should be deferred until outpatient elective procedures have resumed. (2) Hematemesis Qualifiers: Nausea presence: with nausea Qualified Code(s): K92.0 - Hematemesis Is this a current diagnosis for this admission?: Yes Plan: Secondary to #1. Evaluation and management as above. (3) End stage renal disease on dialysis Is this a current diagnosis for this admission?: Yes Plan: Patient receives dialysis Tuesday. Nephrology is consulted; dialysis per their expertise. Monitor for fluid volume overload; daily weights, strict I&O's (4) COPD (chronic obstructive pulmonary disease) Is this a current diagnosis for this admission?: Yes Plan: Stable and without exacerbation at this time. We will provide supplemental oxygen and nebulizer treatment as needed. No indications for steroids or antibiotic therapy at this time. (5) Diabetes Qualifiers: Diabetes mellitus type: type 2 Diabetes mellitus ocean transportation intermediary insulin use: without ocean transportation intermediary use Chronic kidney disease stage: on chronic dialysis Is this a current diagnosis for this admission?: Yes Plan: Patient reports that she has diet-controlled diabetes; not on home medication regiment. She is currently n.p.o. We will check Accu-Cheks every 6 hours and provide Humalog sliding scale insulin as needed for coverage. Hypoglycemia protocol in place. - Time Time Spent with patient: 35 or more minutes Medications reviewed and adjusted accordingly: Yes Anticipated discharge: Home Within: within 48 hours
--- NOTE | 2020-01-25 12:50 | PDOC CONSULTATION ---
Consultation Consult Date: 01/25/20 Provider Consulted: Belen BOWSER Consult reason:: ESRD for hemodialysis in the background of GI bleed and severe calciphylaxis. History of Present Illness Admission Date/PCP: 01/25/20 09:56 AMOL TAM MD History of Present Illness: CODY SHAW is a 70 year old female with a past medical history significant for Hypertension, ESRD on dialysis MWF, renal carcinoma with bone metastasis - followed by [place], [facility] without residual deficits, hypertension, hyperlipidemia, diet-controlled DM, and COPD who presented to the emergency department today with a complaint of 3 days of nausea and vomiting -apparently black in color associated with abdominal pains. Patient denies melena or nieves blood per rectum. Apparently she was here in the ER couple of days ago and hemoglobin was found to be in the 7 and she did have 2 units transfused. I did earlier speak with Dr. Jesus Clemons the ER physician. She is hemodynamically stable and in fact was having high blood pressures. Labs and medications were reviewed. Her current hemoglobin is 13.8 and a calcium of 11.6. PTH was not been done. Chest x-ray was unremarkable but for mild aortic calcifications. Currently I am seeing her when she is undergoing hemodialysis. She remains stable. She however complains of severe pain affecting a large right calciphylaxis ulcer with dark eschar and mild erythema around the boundaries. She is following wound clinic for this. She is also got early ulcer affecting to start on her left medial thigh. She is also got spots that are painful on the torso and lower extremities as well.She denies any history of fever or chills. She grades the pain of her right leg ulcer as a 9/10. The ulcer with a dark eschar and is approximately 10 cm in the vertical direction. She has been diagnosed to have calciphylaxis clinically ( apparently no biopsy ) at [place] a couple of weeks earlier and she has been begun on sodium thiosulfate there and being continued at [facility] for the last 10 days or so. She believes that her nausea and vomiting is happening after she began to get the sodium thiosulfate infusions.She is therefore requesting that she does not want to take any more of this.I did explain to her at length that I would be willing to treat the nausea and vomiting vigorously with appropriate medications and at the same time would be better off to get the sodium thiosulfate as this is the only treatment that we have to treat and prevent worsening of her calciphylaxis the ulcer. However she refuses to have it anymore. She is dialyzing through a right IJ catheter with no evidence of exit site infection. Has got severe dyspepsia. She denies any history of melena or hematochezia. She says all her primary care as well as other physicians are at [place]. She however mentions that she used to see Dr. Gomez of [facility] earlier. She has no t been to her practice for quite some time now.Dialysis orders were reviewed with the treating dialysis nurse. She also gets sodium citrate heparin lock and not heparin for reasons which are not clear. Potassium was low and she has been replaced in the ER. This needs to be monitored on a daily basis as well. Past Medical History Cardiac Medical History: Reports: Hyperlipidemia, Hypertension-primary Pulmonary Medical History: Reports: Asthma, Chronic Obstructive Pulmonary Disease (COPD) Denies: Bronchitis EENT Medical History: Reports: None Neurological Medical History: Reports: Ischemic CVA Endocrine Medical History: Reports: Diabetes Mellitus Type 2 Complications of Diabetes: Reports: None Renal/ Medical History: Reports: End Stage Renal Disease, Secondary Hyperparathyroidism Malignancy Medical History: Reports: Renal (Kidney) Cancer GI Medical History: Reports: Gastroesophageal Reflux Disease Musculoskeltal Medical History: Reports: Arthritis Psychiatric Medical History: Reports: None Traumatic Medical History: Reports: None Infectious Medical History: Reports: None Past Surgical History Past Surgical History: Reports: Cardiac Catheterization, Cholecystectomy, Orthopedic Surgery - Back and knee surgery, Vascular Surgery - shunt in the left arm for dialysis, Other Social History Lives with: Alone Smoking Status: Never Smoker Electronic Cigarette use?: No Frequency of Alcohol Use: None Hx Recreational Drug Use: No Drugs: None Hx Prescription Drug Abuse: No - Advance Directive Resuscitation Status: Do Not Resuscitate Family History Parental Family History Reviewed: No Children Family History Reviewed: No Sibling(s) Family History Reviewed.: No Medication/Allergy Home Medications: Atorvastatin Calcium [Lipitor 40 mg Tablet] 40 mg PO QHS 12/07/17 Diazepam [Valium 5 mg Tablet] 2.5 mg PO HSP PRN 12/07/17 Docusate Sodium [Colace 100 mg Capsule] 100 mg PO BID 12/07/17 Escitalopram Oxalate [Lexapro] 20 mg PO DAILY 12/07/17 Fluocinolone Acetonide 1 applic TOP BID 12/07/17 Hydromorphone HCl [Dilaudid 2 mg Tablet] 2 mg PO Q6HP PRN 12/07/17 Hydroxyzine HCl [Atarax 25 mg Tablet] 25 mg PO TIDP PRN 12/07/17 Ipratropium/Albuterol Sulfate [Duoneb 3 ml Ampul] 1 vial NEB Q4HP PRN 12/07/17 Levothyroxine Sodium [Synthroid] 137 mg PO Q6AM 12/07/17 Mirtazapine [Remeron 15 mg Tablet] 15 mg PO QHS 12/07/17 Nitroglycerin [Nitrostat 0.4 mg (1/150 Gr) Tabs 25/Bottle] 0.4 mg PO Q5MP PRN 12/07/17 Nortriptyline HCl [Pamelor 10 mg Capsule] 10 mg PO QHS 12/07/17 Nystatin [Mycostatin Cream 15 gm] 1 applic TOP BID 12/07/17 Pantoprazole Sodium [Protonix] 40 mg PO BID 12/07/17 Polyethylene Glycol 3350 [Miralax Powder 17 gm/Packet] 1 packet PO BID 12/07/17 Tizanidine HCl [Zanaflex 4 mg Tablet] 4 mg PO Q8HP PRN 12/07/17 L.acidoph,Paracasei, B.lactis [Probiotic] 2 each PO BID 12/17/17 Albuterol Sulfate [Proair HFA Inhalation Aerosol 8.5 gm MDI] 2 puff IH Q6HP PRN 30 Days #1 hfa.aer.ad 12/23/17 Amlodipine Besylate [Norvasc 5 mg Tablet] 5 mg PO DAILY #30 tablet 12/23/17 Budesonide/Formoterol Fumarate [Symbicort HFA 160-4.5 mcg Inhaler 6 gm] 2 puff IH Q12 #2 inhaler 12/23/17 Clopidogrel Bisulfate [Plavix 75 mg Tablet] 75 mg PO DAILY #0 12/23/17 Epoetin Joo [Procrit Inj 20,000 Unit/1 ml Vial (Renal)] 5,000 unit IV .DIALYSIS PRN ml 12/23/17 Metoprolol Tartrate [Lopressor 25 mg Tablet] 25 mg PO Q12 #60 tablet 12/23/17 Cephalexin Monohydrate [Keflex 500 mg Capsule] 500 mg PO Q6H 5 Days capsule 07/07/19 Ondansetron [Zofran Odt 4 mg Tablet] 1 - 2 tab PO Q4H PRN #15 tab.rapdis 01/22/20 Allergies/Adverse Reactions: adhesive Allergy (Verified 01/22/20 16:22) hydrochlorothiazide Allergy (Verified 01/22/20 16:22) Iodine and Iodide Containing Produc Allergy (Verified 01/22/20 16:22) metoclopramide [From Reglan] Allergy (Verified 01/22/20 16:22) shellfish derived Allergy (Verified 01/22/20 16:22) Sulfa (Sulfonamide Antibiotics) Allergy (Verified 01/22/20 16:22) Review of Systems Constitutional: PRESENT: anorexia, fatigue, weakness. ABSENT: chills, fever(s), headache(s), night sweats Ears: ABSENT: hearing changes Nose, Mouth, and Throat: ABSENT: mouth pain, sore throat Cardiovascular: ABSENT: edema Respiratory: PRESENT: dyspnea. ABSENT: cough, hemoptysis Gastrointestinal: PRESENT: abdominal pain, coffee ground emesis, melena, nausea, vomiting. ABSENT: diarrhea, dysphagia, heartburn, hematemesis, hematochezia Genitourinary: ABSENT: dysuria, hematuria Musculoskeletal: ABSENT: deformity, joint swelling Integumentary: PRESENT: lesions - She is got two 1 cm dark purplish skin spots on the upper torso and lower extremity. Besides that she is got this large gangrenous with eschar covered ulcer on the right medial aspect of her thigh measuring at least 10 into 9 cm in size with erythematous borders. She is also got early nodular surface on the medial aspect of her left thigh which is painful. Neurological: ABSENT: abnormal gait, abnormal speech, confusion, convulsions, focal weakness Psychiatric: ABSENT: anxiety Hematologic/Lymphatic: ABSENT: easy bruising, lymphadenopathy Physical Exam Vital Signs: Temp Pulse Resp BP Pulse Ox 98.5 F 16 164/88 H 100 01/25/20 10:02 01/25/20 10:02 01/25/20 10:02 01/25/20 10:02 Intake & Output 01/24/20 01/25/20 01/26/20 06:59 06:59 06:59 Weight 60.5 kg General appearance: PRESENT: no acute distress Eye exam: PRESENT: EOMI, PERRLA. ABSENT: scleral icterus Mouth exam: PRESENT: moist, neck supple Neck exam: ABSENT: lymphadenopathy, meningismus, tenderness, thyromegaly, tracheal deviation Respiratory exam: PRESENT: clear to auscultation santhosh. ABSENT: crackles, decreased breath sounds Cardiovascular exam: PRESENT: +S1, +S2 GI/Abdominal exam: PRESENT: normal bowel sounds, soft, tenderness - Especially around the epigastrium.. ABSENT: diminished bowel sounds, distended, firm, guarding, Shelley's sign, organomegaly, rebound Extremities exam: PRESENT: +1 edema. ABSENT: calf tenderness, clubbing, joint swelling, pedal edema Neurological exam: PRESENT: alert, awake, oriented to person, oriented to place, oriented to time Psychiatric exam: PRESENT: appropriate affect Skin exam: PRESENT: erythema - She is got erythematous boundaries around the large eschar covered ulcer on her right medial thigh, other - She is got a nodule purplish spot which is not yet broken out on the medial aspect of her left thigh. She is also got 1 cm dark purplish spots on the upper torso and lower extremities as well which are painful.. ABSENT: cyanosis, jaundice, mottled, rash Results Laboratory Results: 01/25/20 10:26 01/25/20 07:33 01/25/20 01/25/20 01/25/20 06:23 06:23 06:23 WBC 13.6 H RBC 4.83 Hgb 13.8 D Hct 40.1 MCV 83 D MCH 28.5 MCHC 34.3 RDW 17.3 H Plt Count 281 Seg Neutrophils % 86.3 H Sodium Cancelled Potassium Cancelled Chloride Cancelled Carbon Dioxide Cancelled Anion Gap Cancelled BUN Cancelled Creatinine Cancelled Est GFR ( Amer) Cancelled Est GFR (Non-Af Amer) Cancelled Glucose Cancelled Calcium Cancelled Total Bilirubin Cancelled AST Cancelled Alkaline Phosphatase Cancelled Total Protein Cancelled Albumin Cancelled Lipase Cancelled Blood Type Cancelled Antibody Screen Cancelled 01/25/20 01/25/20 01/25/20 07:33 07:33 10:26 WBC 12.7 H RBC 4.49 Hgb 12.6 Hct 37.3 MCV 83 MCH 28.1 MCHC 33.9 RDW 17.3 H Plt Count 258 Seg Neutrophils % 84.8 H Sodium 137.8 Potassium 3.2 L Chloride 91 L Carbon Dioxide 27 Anion Gap 20 H BUN 25 H Creatinine 4.36 H Est GFR ( Amer) 12 L Est GFR (Non-Af Amer) Glucose 146 H Calcium 11.6 H Total Bilirubin 0.8 AST 36 Alkaline Phosphatase 182 H Total Protein 6.0 L Albumin 3.1 L Lipase 21.0 L Blood Type A POSITIVE Antibody Screen NEGATIVE 01/25/20 01/25/20 06:23 07:33 Troponin I Cancelled 0.048 Impressions: Chest X-Ray 01/25/20 06:06 IMPRESSION: 1. No acute pulmonary findings. 2. No change since 01/22/2020. Assessment & Plan - Diagnosis (1) End stage renal disease on dialysis Is this a current diagnosis for this admission?: Yes Plan: Patient currently undergoing dialysis. Vital signs are stable. Dialysis being supervised to ensure safe and smooth procedure. She is got a right IJ catheter without no evidences of any exit site infection. Dialysis orders were reviewed with the treating dialysis nurse. She is going to get sodium citrate for heparin lock as apparently there is some issues with getting heparin and patient is unsure. We will try to talk with reviewed and find out why she is on sodium citrate and not a heparin catheter lock.Discussed about getting IV sodium thiosulfate during the towards the end of dialysis but patient refuses. (2) Tertiary hyperparathyroidism Plan: Associated with calciphylactic ulcers which are extremely painful and more developing. Discussed this at length with the patient and explained to her about the pathogenesis and the need for getting sodium thiosulfate intravenously which is the only option available. Agreed that the nausea/ vomiting is a side effect of this medicine but I could vigorously treat this with appropriate medications and continue on sodium thiosulfate. Patient however refuses. Discussed that this is going to be an extremely painful and very bad prognostic feature that is probably going to end up in septic shock. Patient understands. We discussed about possible hospice and stoppage of ESRD on dialysis and patient is going to consider this especially given her past history including renal cell cancer with metastasis. (3) Calciphylaxis Plan: She has got an extremely painful large gangrenous ulcer on the medial aspect of her right thigh with a left medial ulcer in the stages of early development. She has also got multiple smaller calciphylaxis lesions in the upper torso and lower extremity. I explained tto her about calciphylaxis which is skin m anifestation of thrombotic microangiopathy in patients with ESRD. It is usually indicates a very bad prognostic sign and very high mortality rate. Since she has refused using sodium thiosulfate treatment I also discussed hospice and patient is willing to look into this as she gets up supportive and symptomatic treatment over here. (4) Upper gastrointestinal bleed Is this a current diagnosis for this admission?: Yes Plan: Differential diagnosis includes Carol-Langley, calciphylactic gastric ulcer which is rare.Obviously she would need upper GI endoscopy evaluation and management. Treatment strategies as per hospitalist. (5) Diabetes 1.5, managed as type 2 Plan: Apparently diet controlled (6) Hypertensive urgency Plan: We will add and titrate her antihypertensives. (7) Nausea & vomiting Qualifiers: Vomiting type: unspecified Vomiting Intractability: non-intractable Qualified Code(s): R11.2 - Nausea with vomiting, unspecified Plan: Secondary to her being on sodium thiosulfate. I would treat her vigorously with Zofran. Patient has refused sodium thiosulfate in spite of me explaining to her that this is the only treatment that we have for her calciphylaxis. She has also been explained about the consequences and implications of calciphylaxis and the very poor prognosis and high mortality.By stoppage of this sodium thiosulfate her nausea and vomiting should improve along with supportive and symptomatic treatments. (8) Renal cell carcinoma Qualifiers: Laterality: right Qualified Code(s): C64.1 - Malignant neoplasm of right kidney, except renal pelvis Plan: Being followed at [place]. (9) Hypokalemia Plan: Has been replaced earlier today in the ER. Check magnesium as well now. Orders placed. Continue monitoring. - Time Time Spent: 30 to 50 Minutes
[2020-01-25] MEDS ORDERED: SODIUM CITRATE IV PRN (13:00)
[2020-01-25] MEDS: INSULIN LISPRO 100 UNIT/ML 3 ML VIAL SUBCUT SCH ×2 (15:39→18:35)
--- NOTE | 2020-01-25 16:54 | EKG REPORT ---
SEVERITY:- BORDERLINE ECG - SINUS RHYTHM BORDERLINE PROLONGED QT INTERVAL : Confirmed by: Malcolm Coles 25-Jan-2020 16:53:04
[2020-01-25] MEDS: SUCRALFATE 1 GM TABLET PO SCH ×2 (17:38→18:01)
[2020-01-25] MEDS ORDERED: NITROGLYCERIN 0.4 MG/TAB 25 TAB/BOTTLE SL PRN (17:44)
[2020-01-25] MEDS ORDERED: (PENDING PHARMACY ID) (Hydroxyzine Hcl [Atarax 25 Mg Tablet] 25 MG) PO PRN (17:51)
[2020-01-25 17:53] LABS: ABSOLUTE LYMPHOCYTES (AUTO) 0.7 10^3/uL (0.5-4.7); ABSOLUTE MONOCYTES (AUTO) 0.9 10^3/uL (0.1-1.4); ABSOLUTE NEUT (AUTO) 8.9 10^3/uL (1.7-8.2); BASOPHILS % (AUTO) 0.3 % (0-2); EOSINOPHILS % (AUTO) 0.2 % (0-6); HEMATOCRIT 33.6 % (36.0-47.0); HEMOGLOBIN 11.4 g/dL (12.0-15.5); LYMPHOCYTES % (AUTO) 6.8 % (13-45); MEAN CORPUSCULAR HEMOGLOBIN 28.3 pg (27.0-33.4); MEAN CORPUSCULAR HGB CONC 34.1 g/dL (32.0-36.0); MEAN CORPUSCULAR VOLUME 83 fl (80-97); MONOCYTES % (AUTO) 8.9 % (3-13); PLATELET COUNT 222 10^3/uL (150-450); RED BLOOD COUNT 4.05 10^6/uL (3.72-5.28); RED CELL DISTRIBUTION WIDTH 17.7 % (11.5-14.0); SEGMENTED NEUTROPHILS % (AUTO) 83.8 % (42-78); TOTAL CELLS COUNTED % (AUTO) 100 %; WHITE BLOOD COUNT 10.6 10^3/uL (4.0-10.5)
[2020-01-25] MEDS ORDERED: DICLOFENAC SODIUM TOP SCH (18:00)
[2020-01-25] MEDS: AMLODIPINE BESYLATE 10 MG TABLET PO SCH (18:00)
[2020-01-25] MEDS ORDERED: (PENDING PHARMACY ID) (Midodrine Hcl [Midodrine Hcl] 10 MG) PO SCH (18:00)
[2020-01-25 18:22] LABS: ANION GAP 12 (5-19); BLOOD UREA NITROGEN 17 mg/dL (7-20); CALCIUM 9.7 mg/dL (8.4-10.2); CARBON DIOXIDE 29 mmol/L (22-30); CHLORIDE 95 mmol/L (98-107); GLUCOSE 98 mg/dL (75-110); POTASSIUM 3.7 mmol/L (3.6-5.0)
[2020-01-25] MEDS: PROMETHAZINE HCL INJ 25 MG/1 ML VIAL IV PRN (18:51)
[2020-01-25] MEDS: NORMAL SALINE 100 ML with PANTOPRAZOLE SODIUM 80 MG IV PRN ×2 (18:52)
[2020-01-25] MEDS: SEVELAMER HCL 800 MG TABLET PO SCH (18:57)
[2020-01-25] MEDS: DIAZEPAM 5 MG TABLET PO SCH (19:39)
[2020-01-25] MEDS ORDERED: HYDROXYZINE PAMOATE 25 MG CAPSULE PO PRN (19:39)
[2020-01-25] MEDS: HYDROMORPHONE HCL 2 MG TABLET PO PRN (20:28)
[2020-01-25] MEDS: MIRTAZAPINE 15 MG TABLET PO SCH (21:29)
[2020-01-25] MEDS: TRAZODONE HCL 50 MG TABLET PO PRN (21:29)
[2020-01-25] MEDS: NORTRIPTYLINE HCL 10 MG CAPSULE PO SCH (21:29)
[2020-01-25] MEDS: CLONIDINE HCL 0.1 MG TABLET PO SCH (21:30)
[2020-01-25] MEDS ORDERED: (PENDING PHARMACY ID) (Oxycodone Hcl [Oxycontin] 15 MG) PO SCH (22:00)
[2020-01-26] MEDS: SUCRALFATE 1 GM TABLET PO SCH ×4 (00:07→17:03)
[2020-01-26] MEDS: INSULIN LISPRO 100 UNIT/ML 3 ML VIAL SUBCUT SCH ×5 (00:28→21:50)
[2020-01-26 02:40] LABS: ABSOLUTE EOSINOPHILS # (AUTO) 0.1 10^3/uL (0.0-0.6); ABSOLUTE LYMPHOCYTES (AUTO) 0.9 10^3/uL (0.5-4.7); ABSOLUTE MONOCYTES (AUTO) 1.2 10^3/uL (0.1-1.4); ABSOLUTE NEUT (AUTO) 8.6 10^3/uL (1.7-8.2); BASOPHILS % (AUTO) 0.4 % (0-2); EOSINOPHILS % (AUTO) 0.7 % (0-6); HEMATOCRIT 33.6 % (36.0-47.0); HEMOGLOBIN 11.5 g/dL (12.0-15.5); LYMPHOCYTES % (AUTO) 8.4 % (13-45); MEAN CORPUSCULAR HEMOGLOBIN 28.4 pg (27.0-33.4); MEAN CORPUSCULAR HGB CONC 34.3 g/dL (32.0-36.0); MEAN CORPUSCULAR VOLUME 83 fl (80-97); MONOCYTES % (AUTO) 11.2 % (3-13); PLATELET COUNT 167 10^3/uL (150-450); RED BLOOD COUNT 4.06 10^6/uL (3.72-5.28); RED CELL DISTRIBUTION WIDTH 17.4 % (11.5-14.0); SEGMENTED NEUTROPHILS % (AUTO) 79.3 % (42-78); TOTAL CELLS COUNTED % (AUTO) 100 %; WHITE BLOOD COUNT 10.9 10^3/uL (4.0-10.5)
[2020-01-26] MEDS: NORMAL SALINE 100 ML with PANTOPRAZOLE SODIUM 80 MG IV PRN ×4 (04:08→17:10)
[2020-01-26] MEDS ORDERED: (PENDING PHARMACY ID) (Levothyroxine Sodium [Synthroid] 175 MCG) PO SCH (06:00)
[2020-01-26] MEDS: LEVOTHYROXINE SODIUM 0.075 MG TABLET PO SCH (06:09)
[2020-01-26] MEDS: LEVOTHYROXINE SODIUM 0.1 MG TABLET PO SCH (06:09)
[2020-01-26] MEDS: HYDROMORPHONE HCL 2 MG TABLET PO PRN ×2 (06:33→11:17)
[2020-01-26 06:40] LABS: ANION GAP 14 (5-19); BLOOD UREA NITROGEN 20 mg/dL (7-20); CALCIUM 10.1 mg/dL (8.4-10.2); CARBON DIOXIDE 22 mmol/L (22-30); CHLORIDE 100 mmol/L (98-107); GLUCOSE 75 mg/dL (75-110); POTASSIUM 3.6 mmol/L (3.6-5.0)
[2020-01-26] MEDS: PANTOPRAZOLE SODIUM 20 MG TABLET.DR PO SCH (08:13)
[2020-01-26] MEDS: SEVELAMER HCL 800 MG TABLET PO SCH ×3 (08:13→17:10)
[2020-01-26] MEDS: DIAZEPAM 5 MG TABLET PO SCH ×2 (09:30→21:41)
[2020-01-26] MEDS: AMLODIPINE BESYLATE 10 MG TABLET PO SCH (09:30)
[2020-01-26] MEDS: ESCITALOPRAM OXALATE 10 MG TABLET PO SCH (09:30)
[2020-01-26] MEDS: CLOPIDOGREL BISULFATE 75 MG TABLET PO SCH (09:30)
[2020-01-26] MEDS: CLONIDINE HCL 0.1 MG TABLET PO SCH (09:30)
[2020-01-26] MEDS: MIDODRINE HCL 5 MG TABLET PO SCH ×3 (09:31→17:13)
[2020-01-26] MEDS ORDERED: AMLODIPINE BESYLATE 5 MG TABLET PO SCH (10:00)
[2020-01-26] MEDS ORDERED: (PENDING PHARMACY ID) (Esomeprazole Magnesium [Nexium] 20 MG) PO SCH (10:00)
[2020-01-26 10:58] LABS: ABSOLUTE EOSINOPHILS # (AUTO) 0.1 10^3/uL (0.0-0.6); ABSOLUTE LYMPHOCYTES (AUTO) 0.7 10^3/uL (0.5-4.7); ABSOLUTE MONOCYTES (AUTO) 0.9 10^3/uL (0.1-1.4); ABSOLUTE NEUT (AUTO) 7.8 10^3/uL (1.7-8.2); BASOPHILS % (AUTO) 0.3 % (0-2); EOSINOPHILS % (AUTO) 0.9 % (0-6); HEMATOCRIT 35.1 % (36.0-47.0); HEMOGLOBIN 12.2 g/dL (12.0-15.5); MEAN CORPUSCULAR HEMOGLOBIN 28.7 pg (27.0-33.4); MEAN CORPUSCULAR HGB CONC 34.7 g/dL (32.0-36.0); MEAN CORPUSCULAR VOLUME 83 fl (80-97); MONOCYTES % (AUTO) 9.3 % (3-13); PLATELET COUNT 223 10^3/uL (150-450); RED BLOOD COUNT 4.24 10^6/uL (3.72-5.28); SEGMENTED NEUTROPHILS % (AUTO) 82.5 % (42-78); TOTAL CELLS COUNTED % (AUTO) 100 %; WHITE BLOOD COUNT 9.5 10^3/uL (4.0-10.5)
[2020-01-26] MEDS: PROMETHAZINE HCL 25 MG TABLET PO PRN (12:03)
--- NOTE | 2020-01-26 17:33 | PDOC PROGRESS REPORT ---
Subjective Progress Note for:: 01/26/20 Subjective:: Patient complains of generalized fatigue and weakness. States she has had no further tarry sticky stools or bright red blood per rectum. She denies pain other than her chronic musculoskeletal pain that preceded admission. No further complaints per patient Reason For Visit: GI BLEED Physical Exam Vital Signs: Temp Pulse Resp BP Pulse Ox 97.9 F 62 14 136/54 H 100 01/26/20 16:00 01/26/20 16:00 01/26/20 16:00 01/26/20 16:00 01/26/20 16:00 Intake & Output 01/25/20 01/26/20 01/27/20 06:59 06:59 06:59 Intake Total 93 100 Output Total 1700 Balance -1607 100 Weight 60.5 kg General appearance: PRESENT: no acute distress, thin Head exam: PRESENT: atraumatic, normocephalic Eye exam: PRESENT: conjunctiva pink Mouth exam: PRESENT: moist Respiratory exam: PRESENT: clear to auscultation santhosh. ABSENT: rales, rhonchi, wheezes Cardiovascular exam: PRESENT: RRR, systolic murmur - 3/4 LORI at LUSB. ABSENT: diastolic murmur, rubs GI/Abdominal exam: PRESENT: normal bowel sounds, soft. ABSENT: distended, guarding, mass, organolmegaly, rebound, tenderness Rectal exam: PRESENT: deferred Extremities exam: PRESENT: pedal edema - trace Neurological exam: PRESENT: alert, awake, oriented to person, oriented to place, oriented to time, oriented to situation Psychiatric exam: PRESENT: appropriate affect, normal mood Skin exam: PRESENT: dry, intact, warm Results Laboratory Results: 01/26/20 10:05 01/26/20 05:58 01/25/20 01/25/20 01/26/20 17:43 17:43 02:26 WBC 10.6 H 10.9 H RBC 4.05 4.06 Hgb 11.4 L 11.5 L Hct 33.6 L 33.6 L MCV 83 83 MCH 28.3 28.4 MCHC 34.1 34.3 RDW 17.7 H 17.4 H Plt Count 222 167 Seg Neutrophils % 83.8 H 79.3 H Sodium 135.6 L Potassium 3.7 Chloride 95 L Carbon Dioxide 29 Anion Gap 12 BUN 17 Creatinine 2.72 H Est GFR ( Amer) 21 L Glucose 98 Calcium 9.7 Magnesium PTH Intact 01/26/20 01/26/20 01/26/20 05:58 07:35 10:05 WBC 9.5 RBC 4.24 Hgb 12.2 Hct 35.1 L MCV 83 MCH 28.7 MCHC 34.7 RDW 18.0 H Plt Count 223 Seg Neutrophils % 82.5 H Sodium 135.7 L Potassium 3.6 Chloride 100 Carbon Dioxide 22 Anion Gap 14 BUN 20 Creatinine 3.40 H Est GFR ( Amer) 16 L Glucose 75 Calcium 10.1 Magnesium 2.2 PTH Intact 51.4 01/25/20 01/25/20 06:23 07:33 Troponin I Cancelled 0.048 Impressions: Chest X-Ray 01/25/20 06:06 IMPRESSION: 1. No acute pulmonary findings. 2. No change since 01/22/2020. Assessment and Plan - Diagnosis (1) Acute GI bleeding Is this a current diagnosis for this admission?: Yes Plan: Prior to admission complained of nausea and vomiting with some bright red blood Gastric and stool occult bloods both positive; no further bleeding since admission Antiemetics as needed Suspect mild esophageal tear from forceful vomiting Vomiting possibly due to diabetic gastroparesis Trend hemoglobin, transfuse for hemoglobin less than 7; after admission hemoglobin went up to 11.5 General surgery consulted: No plans for intervention due to coronavirus risks of procedures, conservative measures only Carafate, IV Protonix Advance diet to liquids due to dropping blood sugar and stable hemoglobin (2) T2DM (type 2 diabetes mellitus) Qualifiers: Diabetes mellitus senior living insulin use: with senior living use Diabetes mellitus complication status: with kidney complications Diabetes mellitus complication detail: with chronic kidney disease Chronic kidney disease stage: on chronic dialysis Qualified Code(s): E11.22 - Type 2 diabetes mellitus with diabetic chronic kidney disease; N18.6 - End stage renal disease; Z79.4 - watermelon inspector (current) use of insulin; Z99.2 - Dependence on renal dialysis Is this a current diagnosis for this admission?: Yes Plan: Low-dose correctional insulin, Accu-Cheks Cautious dosing of insulin in setting of ESRD (3) CHF (congestive heart failure) Is this a current diagnosis for this admission?: Yes Plan: Unspecified whether systolic or diastolic as there are no records of echocardiogram in chart Per patient, she has CHF due to previous HI Home medications continued (4) History of HI (myocardial infarction) Is this a current diagnosis for this admission?: Yes Plan: Reported per patient with history of coronary stenting Continued on Plavix (5) History of coronary angioplasty with insertion of stent Is this a current diagnosis for this admission?: Yes (6) End stage renal disease on dialysis Is this a current diagnosis for this admission?: Yes Plan: -Patient receives dialysis Tuesday. -Nephrology is consulted; dialysis per them -Monitor for fluid volume overload; daily weights, I&O's (7) High blood pressure Qualifiers: Hypertension type: unspecified Qualified Code(s): I10 - Essential (primary) hypertension Is this a current diagnosis for this admission?: Yes (8) COPD (chronic obstructive pulmonary disease) Is this a current diagnosis for this admission?: Yes Plan: -Stable and without exacerbation at this time. (9) Nausea & vomiting Qualifiers: Vomiting type: unspecified Vomiting Intractability: non-intractable Qualified Code(s): R11.2 - Nausea with vomiting, unspecified Is this a current diagnosis for this admission?: Yes Plan: Resolved, diet advanced slowly (10) Renal cell carcinoma Qualifiers: Laterality: right Qualified Code(s): C64.1 - Malignant neoplasm of right kidney, except renal pelvis Is this a current diagnosis for this admission?: Yes Plan: Reportedly not on any chemotherapy or specific treatment currently Follows with oncology outpatient (11) Acute upper GI bleed Is this a current diagnosis for this admission?: Yes - Time Time Spent with patient: 35 or more minutes Medications reviewed and adjusted accordingly: Yes - Inpatient Certification Medical Necessity: Significant Comorbidiites Make Outpatient Treatment Too Risky, Need Close Monitoring Due to Risk of Patient Decompensation, Risk of Complication if Not Cared For in Hospital
[2020-01-26] MEDS: MIRTAZAPINE 15 MG TABLET PO SCH (21:40)
[2020-01-26] MEDS: NORTRIPTYLINE HCL 10 MG CAPSULE PO SCH (21:40)
[2020-01-27] MEDS: SUCRALFATE 1 GM TABLET PO SCH ×5 (00:28→23:07)
[2020-01-27] MEDS: PANTOPRAZOLE SODIUM 40 MG VIAL IV PRN (02:24)
[2020-01-27] MEDS: LEVOTHYROXINE SODIUM 0.075 MG TABLET PO SCH (05:23)
[2020-01-27] MEDS: LEVOTHYROXINE SODIUM 0.1 MG TABLET PO SCH (05:23)
[2020-01-27] MEDS: PROMETHAZINE HCL INJ 25 MG/1 ML VIAL IV PRN (06:52)
[2020-01-27] MEDS: INSULIN LISPRO 100 UNIT/ML 3 ML VIAL SUBCUT SCH ×4 (07:31→21:37)
[2020-01-27] MEDS: PANTOPRAZOLE SODIUM 20 MG TABLET.DR PO SCH (08:56)
[2020-01-27] MEDS: PROMETHAZINE HCL 25 MG TABLET PO PRN ×2 (09:20→16:48)
[2020-01-27] MEDS: SEVELAMER HCL 800 MG TABLET PO SCH ×3 (09:22→17:42)
[2020-01-27] MEDS: CLONIDINE HCL 0.1 MG TABLET PO SCH (10:30)
[2020-01-27] MEDS: DIAZEPAM 5 MG TABLET PO SCH ×2 (10:30→17:42)
[2020-01-27] MEDS: CLOPIDOGREL BISULFATE 75 MG TABLET PO SCH (10:30)
[2020-01-27] MEDS: ESCITALOPRAM OXALATE 10 MG TABLET PO SCH (10:31)
[2020-01-27] MEDS: AMLODIPINE BESYLATE 10 MG TABLET PO SCH (10:31)
[2020-01-27] MEDS: MIDODRINE HCL 5 MG TABLET PO SCH ×3 (10:31→17:47)
--- NOTE | 2020-01-27 11:19 | PDOC PROGRESS REPORT ---
Subjective Progress Note for:: 01/27/20 Subjective:: Patient complains of intermittent nausea which is effectively treated by Zofran. She states that every time she has dialysis she becomes nauseous and vomits. She states that the dialysis caused her most recent vomiting episode which eventually caused her to have some blood in her vomit. She will need anti- medics with needs dialysis to ensure she does not continue vomiting in the future. No further complaints per patient Reason For Visit: GI BLEED Physical Exam Vital Signs: Temp Pulse Resp BP Pulse Ox 98.3 F 76 14 155/57 H 98 01/27/20 08:00 01/27/20 08:00 01/27/20 08:00 01/27/20 08:00 01/27/20 08:00 Intake & Output 01/26/20 01/27/20 01/28/20 06:59 06:59 06:59 Intake Total 93 500 Output Total 1700 600 Balance -1607 -100 Weight 60.5 kg 60.5 kg General appearance: PRESENT: no acute distress, well-developed, well-nourished Head exam: PRESENT: atraumatic, normocephalic Eye exam: PRESENT: conjunctiva pink Respiratory exam: PRESENT: clear to auscultation santhosh. ABSENT: rales, rhonchi, wheezes Cardiovascular exam: PRESENT: RRR. ABSENT: diastolic murmur, rubs, systolic murmur GI/Abdominal exam: PRESENT: normal bowel sounds, soft. ABSENT: distended, guarding, mass, organolmegaly, rebound, tenderness Rectal exam: PRESENT: deferred Neurological exam: PRESENT: alert, awake, oriented to person, oriented to place, oriented to time, oriented to situation Psychiatric exam: PRESENT: appropriate affect, normal mood Skin exam: PRESENT: dry, intact, warm Results Laboratory Results: 01/26/20 10:05 01/26/20 05:58 01/25/20 01/25/20 06:23 07:33 Troponin I Cancelled 0.048 Impressions: Chest X-Ray 01/25/20 06:06 IMPRESSION: 1. No acute pulmonary findings. 2. No change since 01/22/2020. Assessment and Plan - Diagnosis (1) Acute GI bleeding Is this a current diagnosis for this admission?: Yes Plan: Prior to admission complained of nausea and vomiting with some bright red blood which began during her dialysis session and per patient consistently occurs during dialysis sessions Recommend patient is given antiemetics with each dialysis session to prevent vomiting episodes in the future Gastric and stool occult bloods both positive; no further bleeding since admission Antiemetics as needed Suspect mild esophageal tear from forceful vomiting Vomiting possibly due to diabetic gastroparesis Trend hemoglobin, transfuse for hemoglobin less than 7; after admission he moglobin went up to 11.5 General surgery consulted: No plans for intervention due to coronavirus risks of procedures, conservative measures only Carafate, IV Protonix Advance diet (2) T2DM (type 2 diabetes mellitus) Qualifiers: Diabetes mellitus intermodal dispatcher insulin use: with mcc use Diabetes mellitus complication status: with kidney complications Diabetes mellitus complication detail: with chronic kidney disease Chronic kidney disease stage: on chronic dialysis Qualified Code(s): E11.22 - Type 2 diabetes mellitus with diabetic chronic kidney disease; N18.6 - End stage renal disease; Z79.4 - [facility] (current) use of insulin; Z99.2 - Dependence on renal dialysis Is this a current diagnosis for this admission?: Yes Plan: Low-dose correctional insulin, Accu-Cheks Cautious dosing of insulin in setting of ESRD Avoid hypoglycemia (3) CHF (congestive heart failure) Is this a current diagnosis for this admission?: Yes (4) History of [place] (myocardial infarction) Is this a current diagnosis for this admission?: Yes (5) History of coronary angioplasty with insertion of stent Is this a current diagnosis for this admission?: Yes (6) End stage renal disease on dialysis Is this a current diagnosis for this admission?: Yes (7) High blood pressure Qualifiers: Hypertension type: unspecified Qualified Code(s): I10 - Essential (primary) hypertension Is this a current diagnosis for this admission?: Yes (8) COPD (chronic obstructive pulmonary disease) Is this a current diagnosis for this admission?: Yes (9) Nausea & vomiting Qualifiers: Vomiting type: unspecified Vomiting Intractability: non-intractable Qualified Code(s): R11.2 - Nausea with vomiting, unspecified Is this a current diagnosis for this admission?: Yes (10) Renal cell carcinoma Qualifiers: Laterality: right Qualified Code(s): C64.1 - Malignant neoplasm of right kidney, except renal pelvis Is this a current diagnosis for this admission?: Yes (11) Acute upper GI bleed Is this a current diagnosis for this admission?: Yes - Time Time Spent with patient: 25-34 minutes Medications reviewed and adjusted accordingly: Yes - Inpatient Certification Based on my medical assessment, after consideration of the patient's comorbidities, presenting symptoms, or acuity I expect that the services needed warrant INPATIENT care.: Yes I certify that my determination is in accordance with my understanding of Medicare's requirements for reasonable and necessary INPATIENT services [42 CFR 412.3e].: Yes Medical Necessity: Significant Comorbidiites Make Outpatient Treatment Too Risky, Need Close Monitoring Due to Risk of Patient Decompensation, Risk of Complication if Not Cared For in Hospital
[2020-01-27] MEDS: NORMAL SALINE 100 ML with PANTOPRAZOLE SODIUM 80 MG IV PRN ×4 (13:36→23:08)
[2020-01-27] MEDS: NORTRIPTYLINE HCL 10 MG CAPSULE PO SCH (21:37)
[2020-01-27] MEDS: MIRTAZAPINE 15 MG TABLET PO SCH (21:37)
[2020-01-27] MEDS: TRAZODONE HCL 50 MG TABLET PO PRN (23:07)
[2020-01-28] MEDS ORDERED: HEPARIN SOD (PORCINE) 1,000 UNIT/ML 10 ML VIAL IV PRN (05:00)
[2020-01-28] MEDS: LEVOTHYROXINE SODIUM 0.075 MG TABLET PO SCH (05:11)
[2020-01-28] MEDS: SUCRALFATE 1 GM TABLET PO SCH ×3 (05:11→17:35)
[2020-01-28] MEDS: LEVOTHYROXINE SODIUM 0.1 MG TABLET PO SCH (05:11)
[2020-01-28 05:56] LABS: HEMATOCRIT 31.9 % (36.0-47.0); HEMOGLOBIN 10.9 g/dL (12.0-15.5); MEAN CORPUSCULAR HEMOGLOBIN 28.4 pg (27.0-33.4); MEAN CORPUSCULAR HGB CONC 34.1 g/dL (32.0-36.0); MEAN CORPUSCULAR VOLUME 83 fl (80-97); PLATELET COUNT 228 10^3/uL (150-450); RED BLOOD COUNT 3.83 10^6/uL (3.72-5.28); RED CELL DISTRIBUTION WIDTH 17.5 % (11.5-14.0); WHITE BLOOD COUNT 9.1 10^3/uL (4.0-10.5)
[2020-01-28 06:08] LABS: BLOOD UREA NITROGEN 33 mg/dL (7-20); CALCIUM 10.8 mg/dL (8.4-10.2); CARBON DIOXIDE 24 mmol/L (22-30); CHLORIDE 97 mmol/L (98-107); GLUCOSE 114 mg/dL (75-110); POTASSIUM 3.7 mmol/L (3.6-5.0)
[2020-01-28 06:10] LABS: ANION GAP 13 (5-19)
[2020-01-28] MEDS: INSULIN LISPRO 100 UNIT/ML 3 ML VIAL SUBCUT SCH ×4 (07:21→21:29)
[2020-01-28] MEDS ORDERED: SODIUM CITRATE IV PRN (10:24)
[2020-01-28] MEDS: CLOPIDOGREL BISULFATE 75 MG TABLET PO SCH (11:13)
[2020-01-28] MEDS: SEVELAMER HCL 800 MG TABLET PO SCH ×3 (11:13→17:35)
[2020-01-28] MEDS: AMLODIPINE BESYLATE 10 MG TABLET PO SCH (11:13)
[2020-01-28] MEDS: NORMAL SALINE 100 ML with PANTOPRAZOLE SODIUM 80 MG IV PRN ×4 (11:13→21:38)
[2020-01-28] MEDS: ESCITALOPRAM OXALATE 10 MG TABLET PO SCH (11:13)
[2020-01-28] MEDS: DIAZEPAM 5 MG TABLET PO SCH ×2 (11:13→17:35)
[2020-01-28] MEDS: CLONIDINE HCL 0.1 MG TABLET PO SCH (11:13)
[2020-01-28] MEDS: PROMETHAZINE HCL INJ 25 MG/1 ML VIAL IV PRN (11:24)
[2020-01-28] MEDS: MIDODRINE HCL 5 MG TABLET PO SCH ×3 (11:38→17:35)
--- NOTE | 2020-01-28 13:04 | PDOC PROGRESS REPORT ---
Subjective Progress Note for:: 01/28/20 Reason For Visit: Patient currently being seen while undergoing dialysis. She looks more comfortable. 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 She thinks that her nausea vomiting is better and she is not doing too bad while undergoing dialysis. Labs and medications were reviewed. I had discontinued her sodium thiosulfate at her request that we had been giving her for her calciphylaxis. She had requested this as she had found that her nausea and vomiting had begun once she had been begun on this medication the last 2 weeks. Dialysis orders were reviewed with the treating dialysis nurse. Physical Exam Vital Signs: Temp Pulse Resp BP Pulse Ox 98.7 F 86 18 161/64 H 96 01/28/20 05:00 01/28/20 07:00 01/28/20 05:00 01/28/20 05:00 01/28/20 05:00 Intake & Output 01/27/20 01/28/20 01/29/20 06:59 06:59 06:59 Intake Total 500 245 100 Output Total 600 Balance -100 245 100 Weight 60.5 kg 62.1 kg General appearance: PRESENT: no acute distress Respiratory exam: PRESENT: clear to auscultation santhosh. ABSENT: crackles Cardiovascular exam: PRESENT: +S1, +S2 GI/Abdominal exam: PRESENT: normal bowel sounds, soft, tenderness - Especially around the epigastrium.. ABSENT: diminished bowel sounds, distended, firm, guarding, Shelley's sign, organomegaly, rebound Extremities exam: ABSENT: pedal edema Neurological exam: PRESENT: alert, awake, oriented to person Psychiatric exam: PRESENT: appropriate affect Results Laboratory Results: 01/28/20 05:08 01/28/20 05:08 01/28/20 01/28/20 05:08 05:08 WBC 9.1 RBC 3.83 Hgb 10.9 L Hct 31.9 L MCV 83 MCH 28.4 MCHC 34.1 RDW 17.5 H Plt Count 228 Sodium 134.4 L Potassium 3.7 Chloride 97 L Carbon Dioxide 24 Anion Gap 13 BUN 33 H Creatinine 5.58 H Est GFR ( Amer) 9 L Glucose 114 H Calcium 10.8 H 01/25/20 01/25/20 06:23 07:33 Troponin I Cancelled 0.048 Impressions: Chest X-Ray 01/25/20 06:06 IMPRESSION: 1. No acute pulmonary findings. 2. No change since 01/22/2020. Assessment & Plan - Diagnosis (1) End stage renal disease on dialysis Is this a current diagnosis for this admission?: Yes Plan: Patient currently being seen while undergoing dialysis. Vital signs are stable. Dialysis is being supervised to ensure safe and smooth procedure. Plan to remove between 1-2 L as tolerated. Dialysis orders were reviewed with the treating dialysis nurse. (2) Tertiary hyperparathyroidism Plan: Patient has developed calciphylaxis and they are quite painful. She was therefore begun on sodium thiosulfate initially at [place] and continued at [facility]. However since she developed persistent and severe nausea vomiting she had requested that it be discontinued. I had discussed the pros and cons of discontinuation of this treatment and agreed that her calciphylaxis is going to get even much worse. She understands the implications and still did not want to go ahead with this treatment anymore. Therefore overall poor prognosis. Unsure of current status of her metastatic renal carcinoma which she is follows at [place]. I have talked to her about discontinuation of dialysis at some point soon and to get hospice involved . (3) Calciphylaxis Plan: As mentioned earlier. Since she has decided to forego sodium thiosulfate infusions overall prognosis is even much worse. (4) Upper gastrointestinal bleed Is this a current diagnosis for this admission?: Yes Plan: Differentials includes Carol-Langley/peptic ulcer disease. (5) Diabetes 1.5, managed as type 2 Plan: As per hospitalist. (6) Hypertensive urgency Plan: Better controlled. Monitor. (7) Nausea & vomiting Qualifiers: Vomiting type: unspecified Vomiting Intractability: non-intractable Qualified Code(s): R11.2 - Nausea with vomiting, unspecified Is this a current diagnosis for this admission?: Yes Plan: Likely secondary to the beginning of sodium thiosulfate infusions which was begun for her calciphylaxis. It has been discontinued at her request and she seems to be getting better. Monitor. (8) Renal cell carcinoma Qualifiers: Laterality: right Qualified Code(s): C64.1 - Malignant neoplasm of right kidney, except renal pelvis Is this a current diagnosis for this admission?: Yes Plan: Now metastatic to the bones and being followed by [place] oncology. (9) Hypokalemia Plan: Stable. Monitor.
--- NOTE | 2020-01-28 14:26 | PDOC PROGRESS REPORT ---
Subjective Progress Note for:: 01/28/20 Subjective:: Patient complains of intermittent nausea again which is made better by phenergan prior to HD. No vomiting for 2d now. Nephrology has seen the patient and brings up concerns that she will continue to decline in the near future due to her metastatic renal cell carcinoma which is not currently being treated along with her calciphylaxis for which she cannot tolerate the treatment due to severe nausea and vomiting from this medication. Patient is very somnolent today. Reason For Visit: GI BLEED Physical Exam Vital Signs: Temp Pulse Resp BP Pulse Ox 98.7 F 86 18 146/52 H 96 01/28/20 05:00 01/28/20 07:00 01/28/20 05:00 01/28/20 13:29 01/28/20 05:00 Intake & Output 01/27/20 01/28/20 01/29/20 06:59 06:59 06:59 Intake Total 500 245 100 Output Total 600 Balance -100 245 100 Weight 60.5 kg 62.1 kg General appearance: PRESENT: no acute distress, well-developed, well-nourished Head exam: PRESENT: atraumatic, normocephalic Eye exam: PRESENT: conjunctiva pink Mouth exam: PRESENT: moist Respiratory exam: PRESENT: clear to auscultation santhosh. ABSENT: rales, rhonchi, wheezes Cardiovascular exam: PRESENT: RRR, systolic murmur. ABSENT: diastolic murmur, rubs GI/Abdominal exam: PRESENT: normal bowel sounds, soft. ABSENT: distended, guarding, mass, organolmegaly, rebound, tenderness Rectal exam: PRESENT: deferred Neurological exam: PRESENT: alert, awake, oriented to person, oriented to place, oriented to time Psychiatric exam: PRESENT: flat affect, normal mood Skin exam: PRESENT: dry, intact, warm Results Laboratory Results: 01/28/20 05:08 01/28/20 05:08 01/28/20 01/28/20 05:08 05:08 WBC 9.1 RBC 3.83 Hgb 10.9 L Hct 31.9 L MCV 83 MCH 28.4 MCHC 34.1 RDW 17.5 H Plt Count 228 Sodium 134.4 L Potassium 3.7 Chloride 97 L Carbon Dioxide 24 Anion Gap 13 BUN 33 H Creatinine 5.58 H Est GFR ( Amer) 9 L Glucose 114 H Calcium 10.8 H 01/25/20 01/25/20 06:23 07:33 Troponin I Cancelled 0.048 Impressions: Chest X-Ray 01/25/20 06:06 IMPRESSION: 1. No acute pulmonary findings. 2. No change since 01/22/2020. Assessment and Plan - Diagnosis (1) Acute GI bleeding Is this a current diagnosis for this admission?: Yes Plan: Prior to admission complained of nausea and vomiting with some bright red blood which began during her dialysis session and per patient consistently occurs during dialysis sessions Recommend patient is given antiemetics with each dialysis session to prevent vomiting episodes in the future Gastric and stool occult bloods both positive; no further bleeding since admission Antiemetics as needed Suspect mild esophageal tear from forceful vomiting Vomiting possibly due to diabetic gastroparesis Trend hemoglobin, transfuse for hemoglobin less than 7; after admission hemoglobin went up to 11.5 General surgery consulted: No plans for intervention due to coronavirus risks of procedures, conservative measures only Carafate, IV Protonix Advance diet, tolerating well -resolved bleeding for several days (2) T2DM (type 2 diabetes mellitus) Qualifiers: Diabetes mellitus manager intermediate insulin use: with halfway use Diabetes mellitus complication status: with kidney complications Diabetes mellitus complication detail: with chronic kidney disease Chronic kidney disease stage: on chronic dialysis Qualified Code(s): E11.22 - Type 2 diabetes mellitus with diabetic chronic kidney disease; N18.6 - End stage renal disease; Z79.4 - retirement (current) use of insulin; Z99.2 - Dependence on renal dialysis Is this a current diagnosis for this admission?: Yes (3) CHF (congestive heart failure) Is this a current diagnosis for this admission?: Yes (4) History of [place] (myocardial infarction) Is this a current diagnosis for this admission?: Yes (5) History of coronary angioplasty with insertion of stent Is this a current diagnosis for this admission?: Yes (6) End stage renal disease on dialysis Is this a current diagnosis for this admission?: Yes (7) High blood pressure Qualifiers: Hypertension type: unspecified Qualified Code(s): I10 - Essential (primary) hypertension Is this a current diagnosis for this admission?: Yes (8) COPD (chronic obstructive pulmonary disease) Is this a current diagnosis for this admission?: Yes (9) Nausea & vomiting Qualifiers: Vomiting type: unspecified Vomiting Intractability: non-intractable Qualified Code(s): R11.2 - Nausea with vomiting, unspecified Is this a current diagnosis for this admission?: Yes (10) Renal cell carcinoma Qualifiers: Laterality: right Qualified Code(s): C64.1 - Malignant neoplasm of right kidney, except renal pelvis Is this a current diagnosis for this admission?: Yes Plan: Reportedly not on any chemotherapy or specific treatment currently Follows with oncology outpatient -Per Nephrology: "overall poor prognosis. Unsure of current status of her metastatic renal carcinoma which she is follows at [place]. I have talked to her about discontinuation of dialysis at some point soon and to get hospice in [place]." -consulted SW for hospice eval (11) Acute upper GI bleed Is this a current diagnosis for this admission?: Yes - Time Time Spent with patient: 25-34 minutes Medications reviewed and adjusted accordingly: Yes - Inpatient Certification Medical Necessity: Significant Comorbidiites Make Outpatient Treatment Too Risky, Need Close Monitoring Due to Risk of Patient Decompensation, Risk of Complication if Not Cared For in Hospital
[2020-01-28] MEDS: MIRTAZAPINE 15 MG TABLET PO SCH (21:29)
[2020-01-28] MEDS: NORTRIPTYLINE HCL 10 MG CAPSULE PO SCH (21:30)
[2020-01-29] MEDS: SUCRALFATE 1 GM TABLET PO SCH ×4 (00:05→17:07)
[2020-01-29] MEDS: LEVOTHYROXINE SODIUM 0.075 MG TABLET PO SCH (05:33)
[2020-01-29] MEDS: LEVOTHYROXINE SODIUM 0.1 MG TABLET PO SCH (05:33)
[2020-01-29] MEDS: INSULIN LISPRO 100 UNIT/ML 3 ML VIAL SUBCUT SCH ×4 (07:38→21:41)
[2020-01-29] MEDS: SEVELAMER HCL 800 MG TABLET PO SCH ×3 (07:38→16:09)
[2020-01-29] MEDS: NORMAL SALINE 100 ML with PANTOPRAZOLE SODIUM 80 MG IV PRN ×4 (08:35→18:49)
[2020-01-29] MEDS: CLONIDINE HCL 0.1 MG TABLET PO SCH (10:55)
[2020-01-29] MEDS: DIAZEPAM 5 MG TABLET PO SCH ×2 (10:56→17:07)
[2020-01-29] MEDS: MIDODRINE HCL 5 MG TABLET PO SCH ×3 (10:56→17:07)
[2020-01-29] MEDS: ESCITALOPRAM OXALATE 10 MG TABLET PO SCH (10:56)
[2020-01-29] MEDS: CLOPIDOGREL BISULFATE 75 MG TABLET PO SCH (10:56)
[2020-01-29] MEDS: AMLODIPINE BESYLATE 10 MG TABLET PO SCH (10:56)
[2020-01-29] MEDS ORDERED: CLONIDINE 0.1 MG/24 HR PATCH.TDWK TD SCH (12:00)
--- NOTE | 2020-01-29 16:34 | PDOC PROGRESS REPORT ---
Subjective Progress Note for:: 01/29/20 Subjective:: Patient is still quite somnolent and fatigued today. She looks very tired. Patient states she is open to discussing hospice care and that she understands her metastatic cancer diagnosis and ESRD severely limit her lifespan/survival. Will need case management to reach out to hospice and family to help set this up. Patient has no new complaints today Reason For Visit: GI BLEED Physical Exam Vital Signs: Temp Pulse Resp BP Pulse Ox 97.7 F 84 16 124/42 L 100 01/29/20 12:00 01/29/20 14:00 01/29/20 12:00 01/29/20 12:30 01/29/20 12:00 Intake & Output 01/28/20 01/29/20 01/30/20 06:59 06:59 06:59 Intake Total 245 200 100 Output Total 1000 Balance 245 -800 100 Weight 62.1 kg 61.2 kg General appearance: PRESENT: no acute distress, well-developed, well-nourished Head exam: PRESENT: atraumatic, normocephalic Eye exam: PRESENT: conjunctiva pink Mouth exam: PRESENT: moist Respiratory exam: PRESENT: clear to auscultation santhosh. ABSENT: rales, rhonchi, wheezes Cardiovascular exam: PRESENT: RRR. ABSENT: diastolic murmur, rubs, systolic murmur GI/Abdominal exam: PRESENT: normal bowel sounds, soft. ABSENT: distended, guarding, mass, organolmegaly, rebound, tenderness Neurological exam: PRESENT: alert, awake, oriented to person, oriented to place, oriented to time Psychiatric exam: PRESENT: appropriate affect, normal mood Skin exam: PRESENT: dry, intact, warm Results Laboratory Results: 01/28/20 05:08 01/28/20 05:08 01/25/20 01/25/20 06:23 07:33 Troponin I Cancelled 0.048 Impressions: Chest X-Ray 01/25/20 06:06 IMPRESSION: 1. No acute pulmonary findings. 2. No change since 01/22/2020. Assessment and Plan - Diagnosis (1) Acute GI bleeding Is this a current diagnosis for this admission?: Yes Plan: Prior to admission complained of nausea and vomiting with some bright red blood which began during her dialysis session and per patient consistently occurs during dialysis sessions Recommend patient is given antiemetics with each dialysis session to prevent vomiting episodes in the future Gastric and stool occult bloods both positive; no further bleeding since admission Antiemetics as needed Suspect mild esophageal tear from forceful vomiting Vomiting possibly due to diabetic gastroparesis Trend hemoglobin, transfuse for hemoglobin less than 7; after admission hemoglobin went up to 11.5 General surgery consulted: No plans for intervention due to coronavirus risks of procedures, conservative measures only Carafate, IV Protonix Advance diet, tolerating well -resolved bleeding for several days No further bleeding, can have outpatient follow-up with GI assuming she still wants aggressive care instead of hospice (2) T2DM (type 2 diabetes mellitus) Qualifiers: Diabetes mellitus termination clerk insulin use: with residential use Diabetes mellitus complication status: with kidney complications Diabetes mellitus complication detail: with chronic kidney disease Chronic kidney disease stage: on chronic dialysis Qualified Code(s): E11.22 - Type 2 diabetes mellitus with diabetic chronic kidney disease; N18.6 - End stage renal disease; Z79.4 - jail (current) use of insulin; Z99.2 - Dependence on renal dialysis Is this a current diagnosis for this admission?: Yes (3) CHF (congestive heart failure) Is this a current diagnosis for this admission?: Yes (4) History of [place] (myocardial infarction) Is this a current diagnosis for this admission?: Yes (5) History of coronary angioplasty with insertion of stent Is this a current diagnosis for this admission?: Yes (6) End stage renal disease on dialysis Is this a current diagnosis for this admission?: Yes Plan: -Patient receives dialysis Tuesday. -Nephrology is consulted; dialysis per them -Monitor for fluid volume overload; daily weights, I&O's (7) High blood pressure Qualifiers: Hypertension type: unspecified Qualified Code(s): I10 - Essential (primary) hypertension Is this a current diagnosis for this admission?: Yes (8) COPD (chronic obstructive pulmonary disease) Is this a current diagnosis for this admission?: Yes (9) Nausea & vomiting Qualifiers: Vomiting type: unspecified Vomiting Intractability: non-intractable Qualified Code(s): R11.2 - Nausea with vomiting, unspecified Is this a current diagnosis for this admission?: Yes (10) Renal cell carcinoma Qualifiers: Laterality: right Qualified Code(s): C64.1 - Malignant neoplasm of right kidney, except renal pelvis Is this a current diagnosis for this admission?: Yes Plan: Reportedly not on any chemotherapy or specific treatment currently Follows with oncology outpatient -Per Nephrology: "overall poor prognosis. Unsure of current status of her metastatic renal carcinoma which she is follows at [place]. I have talked to her about discontinuation of dialysis at some point soon and to get hospice involved." -consulted SW for hospice eval This is a hospice qualifying diagnosis; patient is open to discussing hospice possibility (11) Acute upper GI bleed Is this a current diagnosis for this admission?: Yes - Time Time Spent with patient: 25-34 minutes Medications reviewed and adjusted accordingly: Yes Anticipated discharge: Hospice Within: within 72 hours - Inpatient Certification Medical Necessity: Significant Comorbidiites Make Outpatient Treatment Too Risky, Need Close Monitoring Due to Risk of Patient Decompensation, Risk of Complication if Not Cared For in Hospital
[2020-01-29] MEDS: NORTRIPTYLINE HCL 10 MG CAPSULE PO SCH (21:40)
[2020-01-29] MEDS: MIRTAZAPINE 15 MG TABLET PO SCH (21:41)
[2020-01-30] MEDS: LABETALOL HCL INJ 20 MG/4 ML DISP.SYRIN IV PRN ×2 (04:49→16:20)
[2020-01-30] MEDS: NORMAL SALINE 100 ML with PANTOPRAZOLE SODIUM 80 MG IV PRN ×2 (04:58)
[2020-01-30] MEDS: SUCRALFATE 1 GM TABLET PO SCH ×4 (05:01→17:30)
[2020-01-30] MEDS: LEVOTHYROXINE SODIUM 0.075 MG TABLET PO SCH (05:02)
[2020-01-30] MEDS: LEVOTHYROXINE SODIUM 0.1 MG TABLET PO SCH (05:02)
[2020-01-30 05:14] LABS: HEMATOCRIT 36.2 % (36.0-47.0); HEMOGLOBIN 12.2 g/dL (12.0-15.5); MEAN CORPUSCULAR HEMOGLOBIN 28.6 pg (27.0-33.4); MEAN CORPUSCULAR HGB CONC 33.8 g/dL (32.0-36.0); MEAN CORPUSCULAR VOLUME 85 fl (80-97); RED BLOOD COUNT 4.27 10^6/uL (3.72-5.28); RED CELL DISTRIBUTION WIDTH 17.6 % (11.5-14.0); WHITE BLOOD COUNT 7.4 10^3/uL (4.0-10.5)
[2020-01-30 05:51] LABS: ANION GAP 13 (5-19); BLOOD UREA NITROGEN 26 mg/dL (7-20); CALCIUM 10.5 mg/dL (8.4-10.2); CARBON DIOXIDE 23 mmol/L (22-30); CHLORIDE 99 mmol/L (98-107); GLUCOSE 96 mg/dL (75-110); PLATELET COUNT 206 10^3/uL (150-450); POTASSIUM 3.7 mmol/L (3.6-5.0)
[2020-01-30] MEDS: INSULIN LISPRO 100 UNIT/ML 3 ML VIAL SUBCUT SCH ×4 (08:00→21:40)
[2020-01-30] MEDS: SEVELAMER HCL 800 MG TABLET PO SCH ×3 (08:00→16:18)
[2020-01-30] MEDS: PROMETHAZINE HCL INJ 25 MG/1 ML VIAL IV PRN (08:17)
[2020-01-30] MEDS: ESCITALOPRAM OXALATE 10 MG TABLET PO SCH (09:15)
[2020-01-30] MEDS: AMLODIPINE BESYLATE 10 MG TABLET PO SCH (09:15)
[2020-01-30] MEDS: CLOPIDOGREL BISULFATE 75 MG TABLET PO SCH (09:16)
[2020-01-30] MEDS: MIDODRINE HCL 5 MG TABLET PO SCH ×3 (09:16→17:30)
[2020-01-30] MEDS: DIAZEPAM 5 MG TABLET PO SCH ×2 (09:16→17:31)
[2020-01-30] MEDS ORDERED: SODIUM CITRATE IV PRN (09:19)
[2020-01-30] MEDS: ENALAPRILAT DIHYDRATE INJ/PF 1.25 MG/1 ML SDV IV SCH ×3 (10:18→21:33)
--- NOTE | 2020-01-30 11:33 | PDOC PROGRESS REPORT ---
Subjective Progress Note for:: 01/30/20 Reason For Visit: Patient seen today on dialysis. Generally feeling somewhat better but for the persistent rather severe pain of right thigh where she has the calciphyactic ulcer. Nausea vomiting is much improved since discontinuation of the sodium thiosulfate at her request which was being infused during dialysis for presumptive calciphylaxis also. Vital signs are stable. Labs and medications were reviewed. Denies any history of fever chills, chest pain or shortness of b reath. Dialysis orders were reviewed with the treating dialysis nurse. Physical Exam Vital Signs: Temp Pulse Resp BP Pulse Ox 98.3 F 78 18 183/62 H 97 01/29/20 20:24 01/30/20 07:00 01/30/20 00:28 01/30/20 04:39 01/30/20 00:28 Intake & Output 01/29/20 01/30/20 01/31/20 06:59 06:59 06:59 Intake Total 200 330 Output Total 1000 Balance -800 330 Weight 61.2 kg General appearance: PRESENT: no acute distress Respiratory exam: PRESENT: clear to auscultation santhosh. ABSENT: crackles Cardiovascular exam: PRESENT: +S1, +S2 GI/Abdominal exam: PRESENT: normal bowel sounds, soft, tenderness - Especially around the epigastrium.. ABSENT: diminished bowel sounds, distended, firm, guarding, Shelley's sign, organomegaly, rebound Extremities exam: ABSENT: pedal edema Neurological exam: PRESENT: alert, awake, oriented to person, oriented to place Psychiatric exam: PRESENT: appropriate affect Results Laboratory Results: 01/30/20 04:25 01/30/20 04:25 01/30/20 01/30/20 04:25 04:25 WBC 7.4 RBC 4.27 Hgb 12.2 Hct 36.2 MCV 85 MCH 28.6 MCHC 33.8 RDW 17.6 H Plt Count 206 Sodium 135.0 L Potassium 3.7 Chloride 99 Carbon Dioxide 23 Anion Gap 13 BUN 26 H Creatinine 5.33 H Est GFR ( Amer) 10 L Glucose 96 Calcium 10.5 H 01/25/20 01/25/20 06:23 07:33 Troponin I Cancelled 0.048 Impressions: Chest X-Ray 01/25/20 06:06 IMPRESSION: 1. No acute pulmonary findings. 2. No change since 01/22/2020. Assessment & Plan - Diagnosis (1) End stage renal disease on dialysis Is this a current diagnosis for this admission?: Yes Plan: Patient currently being seen while undergoing dialysis. Vital signs are stable. Dialysis is being supervised to ensure safe and smooth procedure. Plan to remove between 1-2 L as tolerated. Dialysis orders were reviewed with the treating dialysis nurse. (2) Tertiary hyperparathyroidism Plan: Patient has developed calciphylaxis and they are quite painful. She was therefore begun on sodium thiosulfate initially at [facility] and continued at [facility]. However since she developed persistent and severe nausea vomiting she had requested that it be discontinued. I had discussed the pros and cons of discontinuation of this treatment and agreed that her calciphylaxis is going to get even much worse. She understands the implications and still did not want to go ahead with this treatment anymore. Therefore overall poor prognosis. Unsure of current status of her metastatic renal carcinoma which she is follows at [facility]. I have talked to her about discontinuation of dialysis at some point soon and to get hospice involved . (3) Calciphylaxis Plan: As mentioned earlier. Since she has decided to forego sodium thiosulfate infusions overall prognosis is even much worse. (4) Upper gastrointestinal bleed Is this a current diagnosis for this admission?: Yes Plan: Currently stable. Differentials includes Carol-Langley/peptic ulcer disease. (5) Diabetes 1.5, managed as type 2 Plan: As per hospitalist. (6) Nausea & vomiting Qualifiers: Vomiting type: unspecified Vomiting Intractability: non-intractable Qualified Code(s): R11.2 - Nausea with vomiting, unspecified Is this a current diagnosis for this admission?: Yes Plan: Secondary to the infusion of sodium thiosulfate infusions which was begun for her calciphylaxis. It has been discontinued at her request and she seems to be getting better. Monitor. (7) Renal cell carcinoma Qualifiers: Laterality: right Qualified Code(s): C64.1 - Malignant neoplasm of right kidney, except renal pelvis Is this a current diagnosis for this admission?: Yes Plan: Now metastatic to the bones and being followed by [facility]ology. (8) Hypokalemia Plan: Stable. Monitor. (9) High blood pressure Qualifiers: Hypertension type: unspecified Qualified Code(s): I10 - Essential (primary) hypertension Is this a current diagnosis for this admission?: Yes Plan: Will increase of clonidine TTS to 0.3 mg weekly. DC p.o.
[2020-01-30] MEDS ORDERED: CLONIDINE 0.3 MG/24 HR PATCH.TDWK TD SCH (12:00)
--- NOTE | 2020-01-30 13:59 | PDOC PROGRESS REPORT ---
Subjective Progress Note for:: 01/30/20 Subjective:: Patient is actually more alert today. She is still interested in hospice but states she would prefer to go home for this if her family is able to care for her there. From what I been told, family would like her to go to nursing facility for hospice. Case management is reportedly looking into this. Patient has no new complaints today, tolerating dialysis which she had this morning. Still having nausea which is effectively treated with Phenergan Reason For Visit: GI BLEED Physical Exam Vital Signs: Temp Pulse Resp BP Pulse Ox 98.3 F 85 20 149/50 H 100 01/30/20 11:29 01/30/20 11:29 01/30/20 11:29 01/30/20 11:29 01/30/20 11:29 Intake & Output 01/29/20 01/30/20 01/31/20 06:59 06:59 06:59 Intake Total 200 330 Output Total 1000 1900 Balance -800 330 -1900 Weight 61.2 kg General appearance: PRESENT: no acute distress Head exam: PRESENT: atraumatic, normocephalic Eye exam: PRESENT: conjunctiva pink Mouth exam: PRESENT: moist Respiratory exam: PRESENT: clear to auscultation santhosh. ABSENT: rales, rhonchi, wheezes Cardiovascular exam: PRESENT: RRR. ABSENT: diastolic murmur, rubs, systolic murmur GI/Abdominal exam: PRESENT: normal bowel sounds, soft. ABSENT: distended, guarding, mass, organolmegaly, rebound, tenderness Neurological exam: PRESENT: alert, awake, oriented to person, oriented to place Psychiatric exam: PRESENT: appropriate affect, normal mood Skin exam: PRESENT: dry, intact, warm Results Laboratory Results: 01/30/20 04:25 01/30/20 04:25 01/30/20 01/30/20 04:25 04:25 WBC 7.4 RBC 4.27 Hgb 12.2 Hct 36.2 MCV 85 MCH 28.6 MCHC 33.8 RDW 17.6 H Plt Count 206 Sodium 135.0 L Potassium 3.7 Chloride 99 Carbon Dioxide 23 Anion Gap 13 BUN 26 H Creatinine 5.33 H Est GFR ( Amer) 10 L Glucose 96 Calcium 10.5 H 01/25/20 01/25/20 06:23 07:33 Troponin I Cancelled 0.048 Impressions: Chest X-Ray 01/25/20 06:06 IMPRESSION: 1. No acute pulmonary findings. 2. No change since 01/22/2020. Assessment and Plan - Diagnosis (1) Acute GI bleeding Is this a current diagnosis for this admission?: Yes Plan: Prior to admission complained of nausea and vomiting with some bright red blood which began during her dialysis session and per patient consistently occurs during dialysis sessions Recommend patient is given antiemetics with each dialysis session to prevent vomiting episodes in the future Gastric and stool occult bloods both positive; no further bleeding since admission Antiemetics as needed Suspect mild esophageal tear from forceful vomiting Vomiting possibly due to diabetic gastroparesis Trend hemoglobin, transfuse for hemoglobin less than 7; after admission hemoglobin went up to 11.5 General surgery consulted: No plans for intervention due to coronavirus risks of procedures, conservative measures only Carafate, IV Protonix Advance diet, tolerating well -resolved bleeding for several days No further bleeding, can have outpatient follow-up with GI assuming she still wants aggressive care instead of hospice Resolved (2) T2DM (type 2 diabetes mellitus) Qualifiers: Diabetes mellitus shelter insulin use: with meterman use Diabetes mellitus complication status: with kidney complications Diabetes mellitus complication detail: with chronic kidney disease Chronic kidney disease stage: on chronic dialysis Qualified Code(s): E11.22 - Type 2 diabetes mellitus with diabetic chronic kidney disease; N18.6 - End stage renal disease; Z79.4 - lobsterman (current) use of insulin; Z99.2 - Dependence on renal dialysis Is this a current diagnosis for this admission?: Yes (3) CHF (congestive heart failure) Is this a current diagnosis for this admission?: Yes (4) History of [place] (myocardial infarction) Is this a current diagnosis for this admission?: Yes (5) History of coronary angioplasty with insertion of stent Is this a current diagnosis for this admission?: Yes (6) End stage renal disease on dialysis Is this a current diagnosis for this admission?: Yes (7) High blood pressure Qualifiers: Hypertension type: unspecified Qualified Code(s): I10 - Essential (primary) hypertension Is this a current diagnosis for this admission?: Yes (8) COPD (chronic obstructive pulmonary disease) Is this a current diagnosis for this admission?: Yes (9) Nausea & vomiting Qualifiers: Vomiting type: unspecified Vomiting Intractability: non-intractable Qualified Code(s): R11.2 - Nausea with vomiting, unspecified Is this a current diagnosis for this admission?: Yes (10) Renal cell carcinoma Qualifiers: Laterality: right Qualified Code(s): C64.1 - Malignant neoplasm of right kidney, except renal pelvis Is this a current diagnosis for this admission?: Yes (11) Acute upper GI bleed Is this a current diagnosis for this admission?: Yes (12) Encounter for hospice care discussion Is this a current diagnosis for this admission?: Yes Plan: Family would like patient sent to nursing facility for hospice care, patient may prefer to go home but unclear if they can care for her there - Time Time Spent with patient: 25-34 minutes Anticipated discharge: Hospice Within: within 48 hours - Inpatient Certification Medical Necessity: Significant Comorbidiites Make Outpatient Treatment Too Risky, Need Close Monitoring Due to Risk of Patient Decompensation
[2020-01-30] MEDS: PANTOPRAZOLE SODIUM 40 MG VIAL IV SCH (17:32)
[2020-01-30] MEDS: NORTRIPTYLINE HCL 10 MG CAPSULE PO SCH (21:30)
[2020-01-30] MEDS: ACETAMINOPHEN 325 MG TABLET PO PRN (21:32)
[2020-01-30] MEDS: MIRTAZAPINE 15 MG TABLET PO SCH (21:32)
[2020-01-31] MEDS: LABETALOL HCL INJ 20 MG/4 ML DISP.SYRIN IV PRN ×2 (00:25→21:38)
[2020-01-31] MEDS: SUCRALFATE 1 GM TABLET PO SCH ×4 (00:26→18:00)
[2020-01-31] MEDS: ENALAPRILAT DIHYDRATE INJ/PF 1.25 MG/1 ML SDV IV SCH ×2 (03:08→08:23)
[2020-01-31] MEDS: LEVOTHYROXINE SODIUM 0.075 MG TABLET PO SCH (05:35)
[2020-01-31] MEDS: LEVOTHYROXINE SODIUM 0.1 MG TABLET PO SCH (05:35)
[2020-01-31] MEDS: INSULIN LISPRO 100 UNIT/ML 3 ML VIAL SUBCUT SCH ×4 (07:27→21:46)
[2020-01-31] MEDS: SEVELAMER HCL 800 MG TABLET PO SCH ×3 (08:16→18:00)
[2020-01-31] MEDS ORDERED: MIDODRINE HCL 5 MG TABLET PO PRN (09:25)
[2020-01-31] MEDS: ESCITALOPRAM OXALATE 10 MG TABLET PO SCH (10:17)
[2020-01-31] MEDS: CLOPIDOGREL BISULFATE 75 MG TABLET PO SCH (10:17)
[2020-01-31] MEDS: DIAZEPAM 5 MG TABLET PO SCH ×2 (10:17→18:00)
[2020-01-31] MEDS: ACETAMINOPHEN 325 MG TABLET PO PRN (10:17)
[2020-01-31] MEDS: AMLODIPINE BESYLATE 10 MG TABLET PO SCH (10:18)
[2020-01-31] MEDS: PANTOPRAZOLE SODIUM 40 MG VIAL IV SCH ×2 (10:23→18:00)
--- NOTE | 2020-01-31 10:48 | PDOC DISCHARGE SUMMARY ---
Impression - Admit/DC Date/PCP Admission Date/Primary Care Provider: 01/27/20 12:57 AMOL TAM MD Discharge Date: 01/31/20 - Discharge Diagnosis (1) Acute GI bleeding Is this a current diagnosis for this admission?: Yes (2) T2DM (type 2 diabetes mellitus) Is this a current diagnosis for this admission?: Yes (3) CHF (congestive heart failure) Is this a current diagnosis for this admission?: Yes (4) History of [place] (myocardial infarction) Is this a current diagnosis for this admission?: Yes (5) History of coronary angioplasty with insertion of stent Is this a current diagnosis for this admission?: Yes (6) End stage renal disease on dialysis Is this a current diagnosis for this admission?: Yes (7) High blood pressure Is this a current diagnosis for this admission?: Yes (8) COPD (chronic obstructive pulmonary disease) Is this a current diagnosis for this admission?: Yes (9) Nausea & vomiting Is this a current diagnosis for this admission?: Yes (10) Renal cell carcinoma Is this a current diagnosis for this admission?: Yes (11) Acute upper GI bleed Is this a current diagnosis for this admission?: Yes (12) Encounter for hospice care discussion Is this a current diagnosis for this admission?: Yes - Additional Information Resuscitation Status: Do Not Resuscitate Discharge Activity: Activity As Tolerated Referrals: AMOL TAM MD [Primary Care Provider] - Follow up as needed Prescriptions: Sucralfate 1 gm PO AC #900 oral.susp Home Medications: Diazepam [Valium 5 mg Tablet] 5 mg PO BID 12/07/17 Escitalopram Oxalate [Lexapro] 20 mg PO DAILY 12/07/17 Hydromorphone HCl [Dilaudid 2 mg Tablet] 2 mg PO Q4HP PRN 12/07/17 Hydroxyzine HCl [Atarax 25 mg Tablet] 25 mg PO Q8HP PRN 12/07/17 Mirtazapine [Remeron 15 mg Tablet] 15 mg PO QHS 12/07/17 Nitroglycerin [Nitrostat 0.4 mg (1/150 Gr) Tabs 25/Bottle] 0.4 mg PO Q5MP PRN 12/07/17 Nortriptyline HCl [Pamelor 10 mg Capsule] 10 mg PO QHS 12/07/17 Clopidogrel Bisulfate [Plavix 75 mg Tablet] 75 mg PO DAILY #0 12/23/17 Diclofenac Sodium 1 applic TP QID 01/25/20 Esomeprazole Magnesium [Nexium] 20 mg PO DAILY 01/25/20 Oxycodone HCl [Oxycontin] 15 mg PO Q12 01/25/20 Promethazine HCl [Phenergan 25 mg Tablet] 25 mg PO QID 01/25/20 Sevelamer HCl [Renagel 800 mg Tablet] 800 mg PO TID 01/25/20 Trazodone HCl [Desyrel 50 mg Tablet] 50 mg PO HSP PRN 01/25/20 Albuterol Sulfate [Ventolin 0.083% Neb 2.5 mg/3 mL Ampul] 2.5 mg NEB RTQ6HP PRN vial.neb 01/31/20 Levothyroxine Sodium [Synthroid] 175 mcg PO Q6AM #0 01/31/20 Midodrine HCl [Proamatine 5 mg Tablet] 10 mg PO TIDP PRN tablet 01/31/20 Sucralfate 1 gm PO AC #900 oral.susp 01/31/20 History of Present Illiness History of Present Illness: Per H&P: "CODY SHAW is a 70 year old female with a past medical history significant for ESRD on dialysis MWF, renal carcinoma with bone metastasis (followed by [facility]; not currently on chemo or radiation treatments), CVA without residual deficits, hypertension, hyperlipidemia, diet-controlled DM, and COPD who presented to the emergency department today with a complaint of 3 days of nausea and vomiting; described as maroon in color. Patient denies melena or nieves blood per rectum. She did have 2 units transfused yesterday for a hemoglobin of 7.5. Evaluation the emergency department today r all evealed hypertension, but otherwise stable vital signs, WBCs 13.6, hemoglobin 13.8 (not congruent; repeat testing pending. Patient had a hemoglobin 9.1 on 01/21, 7.5 on 01/22, received 2 units PRBC on 01/23 without follow-up lab). PT/INR are normal, chemistry is unremarkable given the patient's history of dialysis, gastric occult and stool occult blood both positive. The patient is referred to the hospitalist service for admission and management of the above-stated complaints and findings." Hospital Course Hospital Course: Patient admitted for refractory vomiting with some mild hematemesis. Per patient, she essentially always vomits when she has dialysis and sometimes when she forcefully vomit she has some specks of blood in her vomit. Her hemoglobin was stable here and bleeding did not return. We did explore patient's goals of care in much more detail while she was here and the patient and her family have agreed that she would be best served by hospice at a nursing facility in [facility] where patient will be discharged today. Midodrine has been changed to as needed as patient's blood pressure has been running relatively high on days she does not have dialysis. She was unable to take many of her oral medications and blood pressure medications were stopped. Clonidine patch replaced these to avoid the need for oral BP meds. (1) Acute GI bleeding Prior to admission complained of nausea and vomiting with some bright red blood which began during her dialysis session and per patient consistently occurs during dialysis sessions Recommend patient is given antiemetics with each dialysis session to prevent vomiting episodes in the future Gastric and stool occult bloods both positive; no further bleeding since admission Antiemetics as needed Suspect mild esophageal tear from forceful vomiting Vomiting possibly due to diabetic gastroparesis Trend hemoglobin, transfuse for hemoglobin less than 7; after admission hemoglobin went up to 11.5 General surgery consulted: No plans for intervention due to coronavirus risks of procedures, conservative measures only Carafate, IV Protonix Advance diet, tolerating well -resolved bleeding for several days No further bleeding, can have outpatient follow-up with GI assuming she still wants aggressive care instead of hospice Resolved (2) T2DM (type 2 diabetes mellitus) (3) CHF (congestive heart failure) Is this a current diagnosis for this admission?: Yes (4) History of [place] (myocardial infarction) Is this a current diagnosis for this admission?: Yes (5) History of coronary angioplasty with insertion of stent Is this a current diagnosis for this admission?: Yes (6) End stage renal disease on dialysis Is this a current diagnosis for this admission?: Yes (7) High blood pressure Qualifiers: Hypertension type: unspecified Qualified Code(s): I10 - Essential (primary) hypertension Is this a current diagnosis for this admission?: Yes (8) COPD (chronic obstructive pulmonary disease) Is this a current diagnosis for this admission?: Yes (9) Nausea & vomiting Qualifiers: Vomiting type: unspecified Vomiting Intractability: non-intractable Qualified Code(s): R11.2 - Nausea with vomiting, unspecified Is this a current diagnosis for this admission?: Yes (10) Renal cell carcinoma Qualifiers: Laterality: right Qualified Code(s): C64.1 - Malignant neoplasm of right kidney, except renal pelvis Is this a current diagnosis for this admission?: Yes (11) Acute upper GI bleed Is this a current diagnosis for this admission?: Yes (12) Encounter for hospice care discussion Is this a current diagnosis for this admission?: Yes Plan: Family would like patient sent to nursing facility for hospice care, patient agrees Physical Exam Vital Signs: Temp Pulse Resp BP Pulse Ox 98.5 F 86 17 148/57 H 98 01/31/20 07:28 01/31/20 08:23 01/31/20 07:28 01/31/20 08:23 01/31/20 07:28 Intake & Output 01/30/20 01/31/20 02/01/20 06:59 06:59 06:59 Intake Total 330 60 Output Total 1900 Balance 330 -1840 Weight 61.2 kg General appearance: PRESENT: no acute distress, well-developed, well-nourished Head exam: PRESENT: atraumatic, normocephalic Eye exam: PRESENT: conjunctiva pink Mouth exam: PRESENT: moist Respiratory exam: PRESENT: clear to auscultation santhosh. ABSENT: rales, rhonchi, wheezes Cardiovascular exam: PRESENT: RRR. ABSENT: diastolic murmur, rubs, systolic murmur GI/Abdominal exam: PRESENT: normal bowel sounds, soft. ABSENT: distended, guarding, mass, organolmegaly, rebound, tenderness Rectal exam: PRESENT: deferred Neurological exam: PRESENT: alert, awake, oriented to person, oriented to place, oriented to time, oriented to situation Psychiatric exam: PRESENT: appropriate affect, normal mood Skin exam: PRESENT: dry, intact, warm Results Laboratory Results: WBC 7.4 10^3/uL (4.0-10.5) 01/30/20 04:25 RBC 4.27 10^6/uL (3.72-5.28) 01/30/20 04:25 Hgb 12.2 g/dL (12.0-15.5) 01/30/20 04:25 Hct 36.2 % (36.0-47.0) 01/30/20 04:25 MCV 85 fl (80-97) 01/30/20 04:25 MCH 28.6 pg (27.0-33.4) 01/30/20 04:25 MCHC 33.8 g/dL (32.0-36.0) 01/30/20 04:25 RDW 17.6 % (11.5-14.0) H 01/30/20 04:25 Plt Count 206 10^3/uL (150-450) 01/30/20 04:25 Lymph % (Auto) 7.0 % (13-45) L 01/26/20 10:05 [place] % (Auto) 9.3 % (3-13) 01/26/20 10:05 Eos % (Auto) 0.9 % (0-6) 01/26/20 10:05 Baso % (Auto) 0.3 % (0-2) 01/26/20 10:05 Absolute Neuts (auto) 7.8 10^3/uL (1.7-8.2) 01/26/20 10:05 Absolute Lymphs (auto) 0.7 10^3/uL (0.5-4.7) 01/26/20 10:05 Absolute Monos (auto) 0.9 10^3/uL (0.1-1.4) 01/26/20 10:05 Absolute Eos (auto) 0.1 10^3/uL (0.0-0.6) 01/26/20 10:05 Absolute Basos (auto) 0.0 10^3/uL (0.0-0.2) 01/26/20 10:05 Seg Neutrophils % 82.5 % (42-78) H 01/26/20 10:05 PT 15.1 SEC (11.4-15.4) 01/25/20 07:33 INR 1.18 01/25/20 07:33 APTT 32.3 SEC (23.5-35.8) 01/25/20 07:33 Sodium 135.0 mmol/L (137-145) L 01/30/20 04:25 Potassium 3.7 mmol/L (3.6-5.0) 01/30/20 04:25 Chloride 99 mmol/L (98-107) 01/30/20 04:25 Carbon Dioxide 23 mmol/L (22-30) 01/30/20 04:25 Anion Gap 13 (5-19) 01/30/20 04:25 BUN 26 mg/dL (7-20) H 01/30/20 04:25 Creatinine 5.33 mg/dL (0.52-1.25) H 01/30/20 04:25 Est GFR ( Amer) 10 (>60) L 01/30/20 04:25 Est GFR (Non-Af Amer) Cancelled 01/25/20 06:23 Est GFR (MDRD) Non-Af 8 (>60) L 01/30/20 04:25 Glucose 96 mg/dL (75-110) 01/30/20 04:25 POC Glucose 72 mg/dL (70-110) 01/31/20 06:29 Calcium 10.5 mg/dL (8.4-10.2) H 01/30/20 04:25 Magnesium 2.2 mg/dL (1.6-2.3) 01/26/20 05:58 Total Bilirubin 0.8 mg/dL (0.2-1.3) 01/25/20 07:33 Direct Bilirubin 0.5 mg/dL (0.0-0.4) H 01/25/20 07:33 Neonat Total Bilirubin Not Reportable 01/25/20 07:33 Neonat Direct Bilirubin Not Reportable 01/25/20 07:33 Neonat Indirect Bili Not Reportable 01/25/20 07:33 AST 36 U/L (14-36) 01/25/20 07:33 ALT 15 U/L (<35) 01/25/20 07:33 Alkaline Phosphatase 182 U/L (38-126) H 01/25/20 07:33 Troponin I 0.048 ng/mL 01/25/20 07:33 Total Protein 6.0 g/dL (6.3-8.2) L 01/25/20 07:33 Albumin 3.1 g/dL (3.5-5.0) L 01/25/20 07:33 Lipase 21.0 U/L (23-300) L 01/25/20 07:33 EGFR Cancelled 01/25/20 06:23 PTH Intact 51.4 pg/mL (10.0-65.0) 01/26/20 07:35 POC Gastric Occult Bld POSITIVE (NEGATIVE) 01/25/20 08:38 POC Stool Occult Blood POSITIVE (NEGATIVE) 01/25/20 08:42 Blood Type A POSITIVE 01/25/20 07:33 Antibody Screen NEGATIVE 01/25/20 07:33 01/25/20 01/25/20 06:23 07:33 Troponin I Cancelled 0.048 Impressions: Chest X-Ray 01/25/20 06:06 IMPRESSION: 1. No acute pulmonary findings. 2. No change since 01/22/2020. Plan Time Spent: Greater than 30 Minutes Stroke Is this a Stroke Patient?: No Acute Heart Failure - Is this a Heart Failure Patient?: Yes Documentation of LVEF assessment?: No, Document reason - hospice LVEF < 40%?: No- if no continue to question #3
[2020-01-31] MEDS: PROMETHAZINE HCL INJ 25 MG/1 ML VIAL IV PRN (18:00)
[2020-01-31] MEDS: MIRTAZAPINE 15 MG TABLET PO SCH (21:38)
[2020-01-31] MEDS: NORTRIPTYLINE HCL 10 MG CAPSULE PO SCH (21:38)
[2020-02-01] MEDS: SUCRALFATE 1 GM TABLET PO SCH ×6 (00:02→23:07)
[2020-02-01] MEDS: HYDROMORPHONE HCL 2 MG TABLET PO PRN ×2 (00:21→08:01)
[2020-02-01] MEDS: PROMETHAZINE HCL INJ 25 MG/1 ML VIAL IV PRN ×2 (03:13→20:08)
[2020-02-01] MEDS: LEVOTHYROXINE SODIUM 0.1 MG TABLET PO SCH (05:45)
[2020-02-01] MEDS: LEVOTHYROXINE SODIUM 0.075 MG TABLET PO SCH (05:46)
[2020-02-01] MEDS: INSULIN LISPRO 100 UNIT/ML 3 ML VIAL SUBCUT SCH ×4 (07:55→22:01)
[2020-02-01 09:01] LABS: HEMATOCRIT 30.3 % (36.0-47.0); HEMOGLOBIN 10.2 g/dL (12.0-15.5); MEAN CORPUSCULAR HEMOGLOBIN 28.3 pg (27.0-33.4); MEAN CORPUSCULAR HGB CONC 33.6 g/dL (32.0-36.0); MEAN CORPUSCULAR VOLUME 84 fl (80-97); PLATELET COUNT 232 10^3/uL (150-450); WHITE BLOOD COUNT 5.7 10^3/uL (4.0-10.5)
[2020-02-01 09:27] LABS: ANION GAP 8 (5-19); BLOOD UREA NITROGEN 23 mg/dL (7-20); CALCIUM 9.8 mg/dL (8.4-10.2); CARBON DIOXIDE 29 mmol/L (22-30); CHLORIDE 96 mmol/L (98-107); GLUCOSE 105 mg/dL (75-110); POTASSIUM 3.7 mmol/L (3.6-5.0)
[2020-02-01] MEDS ORDERED: NORMAL SALINE 1000 ML 1,000 ML IV PRN (09:34)
--- NOTE | 2020-02-01 10:13 | PDOC PROGRESS REPORT ---
Subjective Progress Note for:: 02/01/20 Subjective:: I am seeing the patient during dialysis this morning. Patient is awake and complaining of pain over her thigh. She denies any nausea or vomiting. She is awake and answering questions appropriately. She is being arranged for hospice and from the train planner and the hospitalist notes, it appears that she is being arrange to be at [place], [place]. When I asked the patient regarding hospice, now she is telling me that she has not fully really decided on it yet. I again explained to her that her prognosis with the calciphylaxis without treatment is very poor and that would mean end-of-life for her which she understands. When I talked her again about receiving the sodium thiosulfate which is the only treatment for the calciphylaxis, although not a guarantee that it will bring cure of her calciphylaxis, she again tells me that it causes her nausea and vomiting to be worse and she still does not want to take it. At that point I told her that her only option is really hospice if she does not want to receive the sodium thiosulfate during the dialysis treatment for the calciphylaxis. She said she will think about it again. She is currently tolerating dialysis without any much issues. Reason For Visit: GI BLEED Physical Exam Vital Signs: Temp Pulse Resp BP Pulse Ox 98.4 F 92 17 159/64 H 100 02/01/20 00:17 02/01/20 07:00 02/01/20 00:17 02/01/20 00:17 02/01/20 00:17 Intake & Output 01/31/20 02/01/20 02/02/20 06:59 06:59 06:59 Intake Total 60 836 Output Total 1900 Balance -1840 836 Weight 61.2 kg 63.2 kg Vitals during dialysis: Blood pressure 126/62, heart rate of 88, blood flow rate of 350 mL/min and dialysate blood flow of 600 mL/min. Exam: General appearance: PRESENT: no acute distress, cooperative, well-developed, well-nourished Head exam: PRESENT: atraumatic, normocephalic Eye exam: PRESENT: conjunctiva pale, PERRLA. ABSENT: scleral icterus Neck exam: ABSENT: JVD Respiratory exam: PRESENT: Diminished breath sounds. ABSENT: crackles, rales, rhonchi, unlabored, wheezes Cardiovascular exam: PRESENT: Regular rate rhythm -+S1, +S2. ABSENT: diastolic murmur, systolic murmur GI/Abdominal exam: PRESENT: normal bowel sounds, soft. ABSENT: guarding, mass, tenderness Extremities exam: ABSENT: No edema Neurological exam: PRESENT: alert, awake, oriented to person, place and time. Skin exam: PRESENT: dry, warm; on her right inner thigh is an irregularly shaped skin lesion with black eschar and surrounding erythema which is very tender to touch, on her left thigh is a circular indurated skin lesion which is also tender to touch-both lesions are consistent with calciphylaxis Cardiovascular exam: PRESENT: +S1, +S2 GI/Abdominal exam: PRESENT: normal bowel sounds, soft, tenderness - Especially around the epigastrium.. ABSENT: diminished bowel sounds, distended, firm, guarding, Shelley's sign, organomegaly, rebound Results Laboratory Results: 02/01/20 07:00 02/01/20 07:00 02/01/20 02/01/20 07:00 07:00 WBC 5.7 RBC 3.60 L Hgb 10.2 L Hct 30.3 L MCV 84 MCH 28.3 MCHC 33.6 RDW 18.0 H Plt Count 232 Sodium 132.8 L Potassium 3.7 Chloride 96 L Carbon Dioxide 29 Anion Gap 8 BUN 23 H Creatinine 5.06 H Est GFR ( Amer) 10 L Glucose 105 Calcium 9.8 01/25/20 01/25/20 06:23 07:33 Troponin I Cancelled 0.048 Impressions: Chest X-Ray 01/25/20 06:06 IMPRESSION: 1. No acute pulmonary findings. 2. No change since 01/22/2020. Assessment & Plan - Diagnosis (1) End stage renal disease on dialysis Is this a current diagnosis for this admission?: Yes Plan: We will do dialysis today for 3 hours, using the patient's CVC, with 3 potassium/2 calcium bath, blood flow rate of 350 mL per minute, dialysate flow rate of 600 mL per minute, ultrafiltration 1 L as tolerated, no heparin and no Procrit and we will use sodium citrate for her CBC port since she is allergic to heparin. (2) Tertiary hyperparathyroidism Is this a current diagnosis for this admission?: Yes Plan: She has elevated calcium when she came in which is a little bit better now, initial calcium of 11.6 now at 10.5 using low 2 calcium bath. Her PTH is currently low at 51. She is on phosphorus binder. 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 (3) Calciphylaxis Is this a current diagnosis for this admission?: Yes Plan: Patient has refused to take the sodium thiosulfate since admission because it is causing her to have nausea and vomiting. She understands that this is the only medication that we have for calciphylaxis and even with that, the prognosis for her calciphylaxis lesion which is currently enlarging, from the first time that I have seen it a month ago, is very poor. As I mentioned above and is Dr. Carrion have spoken to her, with her refusing sodium thiosulfate treatment, her only option is really just hospice care to be comfortable. (4) Nausea and vomiting Is this a current diagnosis for this admission?: Yes Plan: Improved without the sodium thiosulfate treatment. (5) Anemia in chronic kidney disease (CKD) Is this a current diagnosis for this admission?: Yes Plan: No need of Retacrit today. (6) High blood pressure Qualifiers: Hypertension type: unspecified Qualified Code(s): I10 - Essential (primary) hypertension Is this a current diagnosis for this admission?: Yes Plan: Currently controlled. (7) Acute GI bleeding Is this a current diagnosis for this admission?: Yes Plan: Currently resolved. 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 insulin use: with halfway use Diabetes mellitus complication status: with kidney complications Diabetes mellitus complication detail: with chronic kidney disease Chronic kidney disease stage: on chronic dialysis Qualified Code(s): E11.22 - Type 2 diabetes mellitus with diabetic chronic kidney disease; N18.6 - End stage renal disease; Z79.4 - boat canvas maker installer (current) use of insulin; Z99.2 - Dependence on renal dialysis Is this a current diagnosis for this admission?: Yes (9) Renal cell carcinoma Qualifiers: Laterality: right Qualified Code(s): C64.1 - Malignant neoplasm of right kidney, except renal pelvis Is this a current diagnosis for this admission?: Yes Plan: Associated with bone metastasis being followed at [place]. Not currently on any treatment. I think at this point what ever treatment they are doing is mostly palliative. - Notes Notes: Discussed patient's case with the hospitalist, Dr. Edwards. We both agreed the patient should just be comfortable and be in hospice care which is currently being arrange. Dr. Edwards has been in communication with the family to arrange this. - Time Time with patient: 15-25 minutes
[2020-02-01] MEDS: SODIUM CITRATE IV PRN (10:18)
[2020-02-01] MEDS: SEVELAMER HCL 800 MG TABLET PO SCH ×3 (12:42→17:12)
[2020-02-01] MEDS: DIAZEPAM 5 MG TABLET PO SCH ×2 (12:46→17:19)
[2020-02-01] MEDS: PANTOPRAZOLE SODIUM 40 MG VIAL IV SCH ×2 (12:47→17:29)
[2020-02-01] MEDS: ESCITALOPRAM OXALATE 10 MG TABLET PO SCH (12:47)
[2020-02-01] MEDS: AMLODIPINE BESYLATE 10 MG TABLET PO SCH (12:47)
[2020-02-01] MEDS: CLOPIDOGREL BISULFATE 75 MG TABLET PO SCH (12:47)
--- NOTE | 2020-02-01 13:05 | Progress Note ---
Provider Note Provider Note: Patient was discharged yesterday and is still discharged today. She is only awaiting placement with hospice. We need her family to either confirm patient will be discharged to hospice or she will be sent to a nursing facility in [facility]. Patient underwent HD today without complications. I discussed the case with nephrology who stated hospice is appropriate and the patient's calciphylaxis will only continue to worsen and cause her extreme pain. Patient seen and examined in person. No significant changes in her physical exam and she has no new complaints today. Plan remains the same: Send to nursing facility in [facility] when family tells us their decision Patient will need a bed at nursing facility Medications, vitals, labs all reviewed today
[2020-02-01] MEDS: ACETAMINOPHEN 325 MG TABLET PO PRN (20:07)
[2020-02-01] MEDS: MIRTAZAPINE 15 MG TABLET PO SCH (22:06)
[2020-02-01] MEDS: NORTRIPTYLINE HCL 10 MG CAPSULE PO SCH (22:06)
[2020-02-02] MEDS: LABETALOL HCL INJ 20 MG/4 ML DISP.SYRIN IV PRN (03:42)
[2020-02-02] MEDS: SUCRALFATE 1 GM TABLET PO SCH ×3 (05:42→17:28)
[2020-02-02] MEDS: LEVOTHYROXINE SODIUM 0.075 MG TABLET PO SCH (05:42)
[2020-02-02] MEDS: LEVOTHYROXINE SODIUM 0.1 MG TABLET PO SCH (05:42)
[2020-02-02] MEDS: ACETAMINOPHEN 325 MG TABLET PO PRN ×2 (05:48→19:56)
[2020-02-02] MEDS: INSULIN LISPRO 100 UNIT/ML 3 ML VIAL SUBCUT SCH ×4 (08:47→21:03)
[2020-02-02] MEDS: SEVELAMER HCL 800 MG TABLET PO SCH ×3 (08:48→17:28)
[2020-02-02] MEDS ORDERED: MORPHINE SULFATE 10 MG/5 ML ORAL SOLUTION UDCUP PO ONE (09:53)
[2020-02-02] MEDS: ESCITALOPRAM OXALATE 10 MG TABLET PO SCH (10:18)
[2020-02-02] MEDS: AMLODIPINE BESYLATE 10 MG TABLET PO SCH (10:19)
[2020-02-02] MEDS: PANTOPRAZOLE SODIUM 40 MG VIAL IV SCH ×2 (10:19→17:28)
[2020-02-02] MEDS: CLOPIDOGREL BISULFATE 75 MG TABLET PO SCH (10:19)
[2020-02-02] MEDS: DIAZEPAM 5 MG TABLET PO SCH ×2 (10:19→17:28)
--- NOTE | 2020-02-02 13:30 | PDOC PROGRESS REPORT ---
Subjective Progress Note for:: 02/02/20 Subjective:: Patient was seen on morning rounds while resting in bed, comfortably, on room air. She was sleeping but woke easily when I set her name. She is oriented to self, place, and vaguely situation. She is very repetitive of her statements and questions; we had a essentially the same conversation 3 times during the assessment. The patient continues to ask what the treatment is for her calciphylaxis; when reminded of the sodium thiosulfate provided during dialysis, she then states that she does not want to do this due to nausea and vomiting. She then drifts to sleep and upon waking asks me what we are going to do for her wound. I did attempt to ask her about end-of-life/hospice services however, patient continues to ask about her leg wound and does not appear to be able to process medical recommendations to have capacity for decision-making. She did appear to be uncomfortable and requested pain medication. Otherwise she is not noted to be in any acute distress. ROS is limited due to patient's mental status. No concerns per nursing. Did speak with the cyber intel planner regarding recommendations for hospice placement. Discharge planning to discuss recommendations with family members today. Reason For Visit: GI BLEED Physical Exam Vital Signs: Temp Pulse Resp BP Pulse Ox 98.3 F 92 17 109/53 L 100 02/02/20 11:57 02/02/20 11:57 02/02/20 11:57 02/02/20 11:57 02/02/20 11:57 Intake & Output 02/01/20 02/02/20 02/03/20 06:59 06:59 06:59 Intake Total 836 1090 120 Output Total 2000 Balance 836 -910 120 Weight 63.2 kg 60.7 kg General appearance: PRESENT: no acute distress, well-developed, well-nourished Head exam: PRESENT: atraumatic, normocephalic Eye exam: PRESENT: conjunctiva pale, EOMI, PERRLA. ABSENT: scleral icterus Mouth exam: PRESENT: dry mucosa, tongue midline Respiratory exam: PRESENT: decreased breath sounds, symmetrical, unlabored. ABSENT: rales, rhonchi, wheezes Cardiovascular exam: PRESENT: RRR. ABSENT: diastolic murmur, rubs, systolic murmur Pulses: PRESENT: normal dorsalis pedis pul Vascular exam: PRESENT: normal capillary refill Rectal exam: PRESENT: deferred Extremities exam: PRESENT: full ROM. ABSENT: calf tenderness, clubbing, pedal edema Neurological exam: PRESENT: alert, awake, oriented to person, oriented to place, oriented to situation, CN II-XII grossly intact, other - Easily confused; forgetful and repetitive questions. ABSENT: oriented to time, motor sensory deficit Psychiatric exam: PRESENT: appropriate affect, normal mood. ABSENT: homicidal ideation, suicidal ideation Skin exam: PRESENT: dry, warm, other - Right medial thigh with large skin lesion; black eschar with surrounding erythema consistent with calciphylaxis. ABSENT: cyanosis, intact, rash Results Laboratory Results: 02/01/20 07:00 02/01/20 07:00 01/25/20 01/25/20 06:23 07:33 Troponin I Cancelled 0.048 Impressions: Chest X-Ray 01/25/20 06:06 IMPRESSION: 1. No acute pulmonary findings. 2. No change since 01/22/2020. Assessment and Plan - Diagnosis (1) Upper gastrointestinal bleed Is this a current diagnosis for this admission?: Yes Plan: Resolved Prior to admission complained of nausea and vomiting with some bright red blood which began during her dialysis session and per patient consistently occurs during dialysis sessions Recommend patient is given antiemetics with each dialysis session to prevent vomiting episodes in the future Gastric and stool occult bloods both positive; no further bleeding since admission Antiemetics as needed Suspect mild esophageal tear from forceful vomiting Vomiting possibly due to diabetic gastroparesis Trend hemoglobin, transfuse for hemoglobin less than 7; after admission hemoglobin went up to 11.5 General surgery consulted: No plans for intervention due to coronavirus risks of procedures, conservative measures only Carafate, IV Protonix Advance diet, tolerating well No further bleeding, can have outpatient follow-up with GI assuming she still wants aggressive care instead of hospice (2) Hematemesis Qualifiers: Nausea presence: with nausea Qualified Code(s): K92.0 - Hematemesis Is this a current diagnosis for this admission?: Yes Plan: Secondary to #1. Evaluation and management as above. (3) End stage renal disease on dialysis Is this a current diagnosis for this admission?: Yes Plan: -Patient receives dialysis Tuesday. -Nephrology is consulted; dialysis per them -Monitor for fluid volume overload; daily weights, I&O's Per nephrology; patient is Hospice appropriate. (4) COPD (chronic obstructive pulmonary disease) Is this a current diagnosis for this admission?: Yes Plan: -Stable and without exacerbation at this time. (5) Diabetes Qualifiers: Diabetes mellitus type: type 2 Diabetes mellitus hospice aide insulin use: without hospice aide use Chronic kidney disease stage: on chronic dialysis Is this a current diagnosis for this admission?: Yes Plan: Patient reports that she has diet-controlled diabetes; not on home medication regiment. Blood glucose well controlled on current diet. Continue Accu-Cheks before meals and at bedtime with sliding scale insulin as needed. Hypoglycemia protocol in place. (6) Acute GI bleeding Is this a current diagnosis for this admission?: Yes Plan: Resolved. (7) CHF (congestive heart failure) Is this a current diagnosis for this admission?: Yes Plan: Unspecified whether systolic or diastolic as there are no records of echocardiogram in chart Per patient, she has CHF due to previous NV Home medications continued (8) Calciphylaxis Is this a current diagnosis for this admission?: Yes Plan: Patient continues to decline sodium thiosulfate Standard wound care per nursing protocols. PRN morphine as needed for discomfort Discharge planning consulted to discuss hospice placement. (9) High blood pressure Qualifiers: Hypertension type: unspecified Qualified Code(s): I10 - Essential (primary) hypertension Is this a current diagnosis for this admission?: Yes (10) History of NV (myocardial infarction) Is this a current diagnosis for this admission?: Yes Plan: Reported per patient with history of coronary stenting Continued on Plavix (11) History of coronary angioplasty with insertion of stent Is this a current diagnosis for this admission?: Yes (12) Nausea and vomiting Is this a current diagnosis for this admission?: Yes Plan: Antiemetics as needed. (13) Renal cell carcinoma Qualifiers: Laterality: right Qualified Code(s): C64.1 - Malignant neoplasm of right kidney, except renal pelvis Is this a current diagnosis for this admission?: Yes Plan: Reportedly not on any chemotherapy or specific treatment currently Follows with oncology outpatient -Per Nephrology: "overall poor prognosis. Unsure of current status of her metastatic renal carcinoma which she is follows at [place]. I have talked to her ab out discontinuation of dialysis at some point soon and to get hospice involved." -consulted SW for hospice eval Analgesics as needed. - Plan Summary Summary: COVID19 test pending for Hospice vs SNF placement; no suspicion for active infection at this time. - Time Time Spent with patient: 35 or more minutes Medications reviewed and adjusted accordingly: Yes Anticipated discharge: Hospice Within: when bed available
[2020-02-02] MEDS: MORPHINE SULFATE 10 MG/5 ML ORAL SOLUTION UDCUP PO PRN (16:42)
[2020-02-02] MEDS: PROMETHAZINE HCL INJ 25 MG/1 ML VIAL IV PRN (19:56)
[2020-02-02] MEDS: NORTRIPTYLINE HCL 10 MG CAPSULE PO SCH (21:39)
[2020-02-02] MEDS: MIRTAZAPINE 15 MG TABLET PO SCH (21:39)
[2020-02-03] MEDS: SUCRALFATE 1 GM TABLET PO SCH ×5 (02:04→23:50)
[2020-02-03] MEDS: LEVOTHYROXINE SODIUM 0.075 MG TABLET PO SCH (06:19)
[2020-02-03] MEDS: LEVOTHYROXINE SODIUM 0.1 MG TABLET PO SCH (06:19)
[2020-02-03] MEDS: ACETAMINOPHEN 325 MG TABLET PO PRN (06:26)
[2020-02-03] MEDS: PROMETHAZINE HCL INJ 25 MG/1 ML VIAL IV PRN ×2 (06:27→12:58)
[2020-02-03] MEDS: SEVELAMER HCL 800 MG TABLET PO SCH ×3 (07:59→18:00)
[2020-02-03] MEDS: INSULIN LISPRO 100 UNIT/ML 3 ML VIAL SUBCUT SCH ×4 (08:00→21:13)
[2020-02-03] MEDS: MORPHINE SULFATE 10 MG/5 ML ORAL SOLUTION UDCUP PO PRN ×3 (08:17→18:11)
[2020-02-03] MEDS: DIAZEPAM 5 MG TABLET PO SCH ×2 (09:27→18:11)
[2020-02-03] MEDS: AMLODIPINE BESYLATE 10 MG TABLET PO SCH (09:27)
[2020-02-03] MEDS: PANTOPRAZOLE SODIUM 40 MG VIAL IV SCH (09:27)
[2020-02-03] MEDS: ESCITALOPRAM OXALATE 10 MG TABLET PO SCH (09:27)
[2020-02-03] MEDS: CLOPIDOGREL BISULFATE 75 MG TABLET PO SCH (09:27)
[2020-02-03] MEDS ORDERED: MAGNESIUM CITRATE 296 ML BOTTLE PO ONE (10:00)
--- NOTE | 2020-02-03 11:41 | PDOC PROGRESS REPORT ---
Subjective Progress Note for:: 02/03/20 Subjective:: Patient was seen on morning rounds while sitting up to the recliner, comfortably, on room air. She remains oriented to person and place but otherwise is intermittently confused and forgetful. She complains of severe pain to her right lower leg today. She request pain medications. She did appear to be uncomfortable and requested pain medication. Otherwise she is not noted to be in any acute distress. ROS is limited due to patient's mental status. No concerns per nursing. Per discharge planning, patient's family members have appealed the discharge. Reason For Visit: GI BLEED Physical Exam Vital Signs: Temp Pulse Resp BP Pulse Ox 97.5 F 90 18 167/66 H 95 02/03/20 08:00 02/03/20 08:00 02/03/20 08:00 02/03/20 08:00 02/03/20 08:00 Intake & Output 02/02/20 02/03/20 02/04/20 06:59 06:59 06:59 Intake Total 1090 450 Output Total 2000 0 Balance -910 450 Weight 60.7 kg 61.2 kg General appearance: PRESENT: no acute distress, cooperative, well-developed, well-nourished Head exam: PRESENT: atraumatic, normocephalic Eye exam: PRESENT: conjunctiva pink, EOMI, PERRLA. ABSENT: scleral icterus Mouth exam: PRESENT: dry mucosa, tongue midline Teeth exam: PRESENT: poor dentation Respiratory exam: PRESENT: clear to auscultation santhosh, symmetrical, unlabored, other - Room air. ABSENT: rales, rhonchi, wheezes Cardiovascular exam: PRESENT: RRR. ABSENT: diastolic murmur, rubs, systolic murmur Extremities exam: PRESENT: full ROM. ABSENT: calf tenderness, clubbing, pedal edema Neurological exam: PRESENT: alert, awake, oriented to person, oriented to place, CN II-XII grossly intact, other - Intermittent confusion; easily confused with repetitive questions.. ABSENT: motor sensory deficit Psychiatric exam: PRESENT: appropriate affect, normal mood. ABSENT: homicidal ideation, suicidal ideation Skin exam: PRESENT: dry, warm, other - Right medial thigh with large skin lesion; black eschar with surrounding erythema consistent with calciphylaxis. ABSENT: cyanosis, intact, rash Results Laboratory Results: 02/01/20 07:00 02/01/20 07:00 01/25/20 01/25/20 06:23 07:33 Troponin I Cancelled 0.048 Impressions: Chest X-Ray 01/25/20 06:06 IMPRESSION: 1. No acute pulmonary findings. 2. No change since 01/22/2020. Assessment and Plan - Diagnosis (1) Upper gastrointestinal bleed Is this a current diagnosis for this admission?: Yes Plan: Resolved Prior to admission complained of nausea and vomiting with some bright red blood which began during her dialysis session and per patient consistently occurs during dialysis sessions Recommend patient is given antiemetics with each dialysis session to prevent vomiting episodes in the future Gastric and stool occult bloods both positive; no further bleeding since admission Antiemetics as needed Suspect mild esophageal tear from forceful vomiting Vomiting possibly due to diabetic gastroparesis Trend hemoglobin, transfuse for hemoglobin less than 7; after admission hemoglobin went up to 11.5 General surgery consulted: No plans for intervention due to coronavirus risks of procedures, conservative measures only Carafate, IV Protonix Advance diet, tolerating well No further bleeding, can have outpatient follow-up with GI assuming she still wants aggressive care instead of hospice (2) Hematemesis Qualifiers: Nausea presence: with nausea Qualified Code(s): K92.0 - Hematemesis Is this a current diagnosis for this admission?: Yes Plan: Secondary to #1. Evaluation and management as above. (3) End stage renal disease on dialysis Is this a current diagnosis for this admission?: Yes Plan: -Patient receives dialysis Tuesday. -Nephrology is consulted; dialysis per them -Monitor for fluid volume overload; daily weights, I&O's Per nephrology; patient is Hospice appropriate. (4) COPD (chronic obstructive pulmonary disease) Is this a current diagnosis for this admission?: Yes Plan: -Stable and without exacerbation at this time. 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 Blood glucose well controlled on current diet. Continue Accu-Cheks before meals and at bedtime with sliding scale insulin as needed. Hypoglycemia protocol in place. (6) Acute GI bleeding Is this a current diagnosis for this admission?: Yes Plan: Resolved. (7) CHF (congestive heart failure) Is this a current diagnosis for this admission?: Yes Plan: Unspecified whether systolic or diastolic as there are no records of echocardiogram in chart Per patient, she has CHF due to previous [place] Home medications continued (8) Calciphylaxis Is this a current diagnosis for this admission?: Yes Plan: Patient continues to decline sodium thiosulfate Standard wound care per nursing protocols. PRN morphine as needed for discomfort Discharge planning consulted to discuss hospice placement. (9) High blood pressure Qualifiers: Hypertension type: unspecified Qualified Code(s): I10 - Essential (primary) hypertension Is this a current diagnosis for this admission?: Yes (10) History of IA (myocardial infarction) Is this a current diagnosis for this admission?: Yes Plan: Reported per patient with history of coronary stenting Continued on Plavix (11) History of coronary angioplasty with insertion of stent Is this a current diagnosis for this admission?: Yes (12) Nausea and vomiting Is this a current diagnosis for this admission?: Yes Plan: Antiemetics as needed. (13) Renal cell carcinoma Qualifiers: Laterality: right Qualified Code(s): C64.1 - Malignant neoplasm of right kidney, except renal pelvis Is this a current diagnosis for this admission?: Yes Plan: Reportedly not on any chemotherapy or specific treatment currently Follows with oncology outpatient -Per Nephrology: "overall poor prognosis. Unsure of current status of her metastatic renal carcinoma which she is follows at [place]. I have talked to her about discontinuation of dialysis at some point soon and to get hospice involved." -consulted SW for hospice eval Analgesics as needed. - Plan Summary Summary: COVID19 test pending for Hospice vs SNF placement; no suspicion for active infection at this time. 02/03/2020: Patient remains hemodynamically stable and alert and oriented to her baseline. She reported pain this morning; reminded nursing to utilize Tylenol and as needed morphine. Should the patient continue to complain of pain after morphine administration; please notify provider so the dose adjustments and frequencies can be made. Spoke with discharge planning, they believe that the family has appealed her discharge. Therefore will leave the remaining care plan unchanged; if we received word that the family is fully agreeable to hospice services, will begin to decrease/discontinue medications as appropriate and institute more thorough comfort measure orders. - Time Time Spent with patient: 15-24 minutes Medications reviewed and adjusted accordingly: Yes Anticipated discharge: Hospice Within: when bed available
[2020-02-03] MEDS: NORTRIPTYLINE HCL 10 MG CAPSULE PO SCH (21:14)
[2020-02-03] MEDS: MIRTAZAPINE 15 MG TABLET PO SCH (21:15)
[2020-02-04] MEDS: MORPHINE SULFATE 10 MG/5 ML ORAL SOLUTION UDCUP PO PRN (04:17)
[2020-02-04] MEDS: PROMETHAZINE HCL INJ 25 MG/1 ML VIAL IV PRN ×2 (04:33→12:53)
[2020-02-04] MEDS ORDERED: NORMAL SALINE 1000 ML 1,000 ML IV PRN (05:00)
[2020-02-04] MEDS: LEVOTHYROXINE SODIUM 0.1 MG TABLET PO SCH (05:06)
[2020-02-04] MEDS: SUCRALFATE 1 GM TABLET PO SCH ×3 (05:06→18:19)
[2020-02-04] MEDS: LEVOTHYROXINE SODIUM 0.075 MG TABLET PO SCH (05:06)
[2020-02-04] MEDS: PANTOPRAZOLE SODIUM 20 MG TABLET.DR PO SCH (06:03)
[2020-02-04 06:32] LABS: ABSOLUTE EOSINOPHILS # (AUTO) 0.1 10^3/uL (0.0-0.6); ABSOLUTE LYMPHOCYTES (AUTO) 0.6 10^3/uL (0.5-4.7); ABSOLUTE MONOCYTES (AUTO) 0.6 10^3/uL (0.1-1.4); ABSOLUTE NEUT (AUTO) 4.6 10^3/uL (1.7-8.2); BASOPHILS % (AUTO) 0.6 % (0-2); EOSINOPHILS % (AUTO) 1.1 % (0-6); HEMOGLOBIN 11.4 g/dL (12.0-15.5); LYMPHOCYTES % (AUTO) 9.8 % (13-45); MEAN CORPUSCULAR HEMOGLOBIN 28.7 pg (27.0-33.4); MEAN CORPUSCULAR HGB CONC 33.6 g/dL (32.0-36.0); MEAN CORPUSCULAR VOLUME 85 fl (80-97); PLATELET COUNT 257 10^3/uL (150-450); RED BLOOD COUNT 3.98 10^6/uL (3.72-5.28); SEGMENTED NEUTROPHILS % (AUTO) 78.5 % (42-78); TOTAL CELLS COUNTED % (AUTO) 100 %; WHITE BLOOD COUNT 5.9 10^3/uL (4.0-10.5)
[2020-02-04 06:57] LABS: ANION GAP 10 (5-19); BLOOD UREA NITROGEN 24 mg/dL (7-20); CALCIUM 9.9 mg/dL (8.4-10.2); CARBON DIOXIDE 29 mmol/L (22-30); CHLORIDE 96 mmol/L (98-107); GLUCOSE 71 mg/dL (75-110); POTASSIUM 4.3 mmol/L (3.6-5.0)
[2020-02-04] MEDS: SEVELAMER HCL 800 MG TABLET PO SCH ×3 (08:01→18:19)
[2020-02-04] MEDS: INSULIN LISPRO 100 UNIT/ML 3 ML VIAL SUBCUT SCH ×4 (08:01→21:56)
--- NOTE | 2020-02-04 09:57 | PDOC PROGRESS REPORT ---
Subjective Progress Note for:: 02/04/20 Subjective:: I am seeing the patient during dialysis this morning. She is groggy with somewhat garbled speech. She still complains of pain in her right thigh. She was just given Phenergan and morphine prior to bringing to dialysis treatment this morning. Her blood pressure is a little bit on the low side. After answering few questions she went back to sleep. Aside from relatively lowish blood pressure currently she is tolerating dialysis. Still awaiting disposition of the family regarding hospice care. Apparently the patient's family appealed discharge last week. Reason For Visit: GI BLEED Physical Exam Vital Signs: Temp Pulse Resp BP Pulse Ox 97.6 F 92 17 147/65 H 98 02/04/20 04:06 02/04/20 04:06 02/04/20 04:06 02/04/20 04:06 02/04/20 04:06 Intake & Output 02/03/20 02/04/20 02/05/20 06:59 06:59 06:59 Intake Total 450 390 Output Total 0 Balance 450 390 Weight 61.2 kg 61.6 kg Vitals during dialysis: Blood pressure 106/66 which she went down to 88/51 subsequently, pulse rate of 72, blood flow rate of 350 mL/min and dialysate flow rate of 800 mL/min. Exam: General appearance: PRESENT: no acute distress, cooperative, fairly-developed, fairly-nourished Head exam: PRESENT: atraumatic, normocephalic Eye exam: PRESENT: conjunctiva pale, PERRLA. ABSENT: scleral icterus Neck exam: ABSENT: JVD Respiratory exam: PRESENT: Normal breath sounds. ABSENT: crackles, rales, rhonchi, unlabored, wheezes Cardiovascular exam: PRESENT: Regular rate rhythm -+S1, +S2. ABSENT: diastolic murmur, systolic murmur GI/Abdominal exam: PRESENT: normal bowel sounds, soft. ABSENT: guarding, mass, tenderness Extremities exam: ABSENT: No edema; right thigh lesion and left thigh lesion unchanged as previously described in previous notes Neurological exam: PRESENT: alert, awake, oriented to person only. Skin exam: PRESENT: dry, warm, Cardiovascular exam: PRESENT: +S1, +S2 GI/Abdominal exam: PRESENT: normal bowel sounds, soft, tenderness - Especially around the epigastrium.. ABSENT: diminished bowel sounds, distended, firm, guarding, Shelley's sign, organomegaly, rebound Results Laboratory Results: 02/04/20 05:45 02/04/20 05:45 02/04/20 02/04/20 05:45 05:45 WBC 5.9 RBC 3.98 Hgb 11.4 L Hct 34.0 L MCV 85 MCH 28.7 MCHC 33.6 RDW 17.0 H Plt Count 257 Seg Neutrophils % 78.5 H Sodium 134.7 L Potassium 4.3 Chloride 96 L Carbon Dioxide 29 Anion Gap 10 BUN 24 H Creatinine 5.58 H Est GFR ( Amer) 9 L Glucose 71 L Calcium 9.9 01/25/20 01/25/20 06:23 07:33 Troponin I Cancelled 0.048 Impressions: Chest X-Ray 01/25/20 06:06 IMPRESSION: 1. No acute pulmonary findings. 2. No change since 01/22/2020. Assessment & Plan - Diagnosis (1) End stage renal disease on dialysis Is this a current diagnosis for this admission?: Yes Plan: We will do dialysis today for 3 hours, using the patient's CBC, with 2 potassium/2 calcium bath, blood flow rate of 350 mL per minute, dialysate flow rate of 800 mL per minute, ultrafiltration 0 to 0.5 L as tolerated, no heparin as she is allergic and no Procrit. Patient will be monitored closely during dialysis treatment specially with the low blood pressure. (2) Tertiary hyperparathyroidism Is this a current diagnosis for this admission?: Yes Plan: She has elevated calcium when she came in which is a little bit better now, initial calcium of 11.6 now at 9.9 using low 2 calcium bath. Her PTH is currently low at 51. She is on phosphorus binder. 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 (3) Calciphylaxis Is this a current diagnosis for this admission?: Yes Plan: Patient has refused to take the sodium thiosulfate since admission because it is causing her to have nausea and vomiting. She understands that this is the only medication that we have for calciphylaxis and even with that, the prognosis for her calciphylaxis lesion which is currently enlarging, from the first time that I have seen it a month ago, is very poor. As I mentioned above and as Dr. Alba michaels have spoken to her, with her refusing sodium thiosulfate treatment, her only option is really just hospice care to be comfortable. Prognosis is very poor with calciphylaxis without any treatment. (4) Nausea and vomiting Is this a current diagnosis for this admission?: Yes Plan: Improved without the sodium thiosulfate treatment. (5) Anemia in chronic kidney disease (CKD) Is this a current diagnosis for this admission?: Yes Plan: No need of Retacrit today. (6) High blood pressure Qualifiers: Hypertension type: unspecified Qualified Code(s): I10 - Essential (primary) hypertension Is this a current diagnosis for this admission?: Yes Plan: Currently relatively low blood pressure. (7) Acute GI bleeding Is this a current diagnosis for this admission?: Yes Plan: Currently resolved. (8) T2DM (type 2 diabetes mellitus) Qualifiers: Diabetes mellitus assisted insulin use: with terminal gauger supervisor use Diabetes mellitus complication status: with kidney complications Diabetes mellitus complication detail: with chronic kidney disease Chronic kidney disease stage: on chronic dialysis Qualified Code(s): E11.22 - Type 2 diabetes mellitus with diabetic chronic kidney disease; N18.6 - End stage renal disease; Z79.4 - senior living (current) use of insulin; Z99.2 - Dependence on renal dialysis Is this a current diagnosis for this admission?: Yes (9) Renal cell carcinoma Qualifiers: Laterality: right Qualified Code(s): C64.1 - Malignant neoplasm of right kidney, except renal pelvis Is this a current diagnosis for this admission?: Yes Plan: Associated with bone metastasis being followed at [place]. Not currently on any treatment. I think at this point what ever treatment they are doing is mostly palliative. - Time Time with patient: 15-25 minutes
[2020-02-04] MEDS: SODIUM CITRATE IV PRN (11:00)
[2020-02-04] MEDS: CLOPIDOGREL BISULFATE 75 MG TABLET PO SCH (12:33)
[2020-02-04] MEDS: ESCITALOPRAM OXALATE 10 MG TABLET PO SCH (12:34)
[2020-02-04] MEDS: AMLODIPINE BESYLATE 10 MG TABLET PO SCH (12:34)
[2020-02-04] MEDS: DIAZEPAM 5 MG TABLET PO SCH ×2 (12:34→18:19)
--- NOTE | 2020-02-04 14:00 | ADVANCED CARE ---
- Diagnosis (1) Upper gastrointestinal bleed Diagnosis Current: Yes (2) Hematemesis Diagnosis Current: Yes (3) End stage renal disease on dialysis Diagnosis Current: Yes (4) COPD (chronic obstructive pulmonary disease) Diagnosis Current: Yes (5) Diabetes Diagnosis Current: Yes (6) Acute GI bleeding Diagnosis Current: Yes (7) CHF (congestive heart failure) Diagnosis Current: Yes (8) Calciphylaxis Diagnosis Current: Yes (9) High blood pressure Diagnosis Current: Yes (10) History of MT (myocardial infarction) Diagnosis Current: Yes (11) History of coronary angioplasty with insertion of stent Diagnosis Current: Yes (12) Nausea and vomiting Diagnosis Current: Yes (13) Renal cell carcinoma Diagnosis Current: Yes Attendance: By phone the patient's sister, Kyung Russo, and Ms. Russo's daughter. Resuscitation Status: Do Not Resuscitate Discussion: Long discussion had regarding the patient's chronic medical conditions, acute medical diagnoses, hospital clinical course, current status, and poor prognosis. I reviewed with the patient's family members her end-stage renal disease requiring dialysis, development of calciphylaxis, and renal carcinoma with likely metastasis all being poor prognostic factors. We also discussed the patient's waxing and waning mentation; she is alert and oriented to self and place but is forgetful, lethargic, repetitive thoughts and questions, and incapable of making healthcare decision making. I reviewed how the patient is forgetful from moment to moment and when prompted can remember prior discussions, but cannot retain this information long enough to ask questions, retain complicated information, or conduct higher level thinking required for self determination. I reviewed with the family members that this meant that without a HPOA, these decisions defaulted to the next of kin. We discussed that once a patient developed calciphylaxis, they typically have less than 6 months of life. We discussed that calciphylaxis can be quite painful and the only treatment has been declined on multiple occasions by the patient. Notably, the patient was declining treatment prior to her worsening mental status. Therefore, the patient declined treatment while she was still capable of doing so. Reviewed that both the prior hospitalist and the patient's telecommunications technician have recommended transition to hospice services. Based on the patient's multiple life limiting chronic illnesses, she is appropriate for hospice admission. And should the patient discontinue dialysis services, she would be appropriate for inpatient hospice services. The patient's family members had many appropriate clinical questions. However, they seemed quite overwhelmed by the potential insurance and financial decisions related to transitioning to hospice and providing for postmortem care ( services). I advised that hospice centers have dedicated social workers to help them with these decisions. I recommended discharge to hospice services. I agree with Dr. Edwards; at this time, the patient does remain hemodynamically stable for transport via POV to the family members facility of choice. I introduced the patient discharging to home hospice services as a viable option. I also provided the option of the patient discharging to SNF with comfort care orders. I reviewed the pros and cons of each with the family members. At this time, the family members have declined home hospice services (young children in the home). They have declined SNF discharge with comfort care orders. They state that they remain interested in inpatient hospice services but were unwilling or unable to to provide a facility of choice. They expressed discomfort with the idea of providing POV transport to a hospice facility and were, again, quite concerned about potential financial obligation related to patient transport to inpatient hospice. At this time, I told them that I would have our discharge planning reach out to them to again discuss available inpatient hospice facilities and to review potential financial obligations related to transportation. I then asked the family members to consider allowing me to transition the patien t to comfort care measures only while she remained in house. I advised the family that this would match the inpatient hospice care that she would receive in hospice facility. I also informed them that often times a hospice facilities can provide bed offers to patients who are already on comfort care measures as this clarifies the plan of care and life expectancy of the patient. The patient family members denied my request to transition to comfort care measures only at this time. They state that they would like a day or 2 to think about this and will let us know of their decision as soon as possible. At this time, the conversation came to a natural conclusion. (Following the discussion with family members, I reached out to discharge planning services. I have informed our estate planner of the unproductive nature of the phone call. I informed discharge planning that I do not feel that the family members are understanding of the finality of the patient's clinical condition and that there continued delay in decision making is prolonging the patient's suffering. I recommend APS referral.). Care Planning Goals: DNR/DNI Transition to Hospice Services. Time Spent: 60 min
--- NOTE | 2020-02-04 15:52 | PDOC PROGRESS REPORT ---
Subjective Progress Note for:: 02/04/20 Subjective:: Patient was seen on afternoon rounds following dialysis. She was sleeping soundly and I did not make attempts to wake her. She does appear comfortable and is not noted to be in any acute distress at this time. Nursing reports that the patient's sister, Kyung, has called and requested that nursing not discuss the patient's status with her other family members (sibl ings) or friends (specifically, the patient's listed emergency contact, Sherry Maya). Reason For Visit: GI BLEED Physical Exam Vital Signs: Temp Pulse Resp BP Pulse Ox 97.5 F 87 17 128/59 H 98 02/04/20 12:00 02/04/20 12:00 02/04/20 12:00 02/04/20 12:00 02/04/20 12:00 Intake & Output 02/03/20 02/04/20 02/05/20 06:59 06:59 06:59 Intake Total 450 390 30 Output Total 0 200 Balance 450 390 -170 Weight 61.2 kg 61.6 kg General appearance: PRESENT: no acute distress, cooperative, well-developed, well-nourished Head exam: PRESENT: atraumatic, normocephalic Mouth exam: PRESENT: dry mucosa, tongue midline Respiratory exam: PRESENT: clear to auscultation santhosh, symmetrical, unlabored. ABSENT: rales, rhonchi, wheezes Cardiovascular exam: PRESENT: RRR, +S1, +S2. ABSENT: diastolic murmur, rubs, systolic murmur Vascular exam: PRESENT: normal capillary refill Extremities exam: PRESENT: full ROM. ABSENT: calf tenderness, clubbing, pedal edema Neurological exam: PRESENT: other - Intermittent confusion Skin exam: PRESENT: dry, warm, other - Right medial thigh with large skin lesion; black eschar with surrounding erythema consistent with calciphylaxis. ABSENT: cyanosis, intact, rash Results Laboratory Results: 02/04/20 05:45 02/04/20 05:45 02/04/20 02/04/20 05:45 05:45 WBC 5.9 RBC 3.98 Hgb 11.4 L Hct 34.0 L MCV 85 MCH 28.7 MCHC 33.6 RDW 17.0 H Plt Count 257 Seg Neutrophils % 78.5 H Sodium 134.7 L Potassium 4.3 Chloride 96 L Carbon Dioxide 29 Anion Gap 10 BUN 24 H Creatinine 5.58 H Est GFR ( Amer) 9 L Glucose 71 L Calcium 9.9 01/25/20 01/25/20 06:23 07:33 Troponin I Cancelled 0.048 Impressions: Chest X-Ray 01/25/20 06:06 IMPRESSION: 1. No acute pulmonary findings. 2. No change since 01/22/2020. Assessment and Plan - Diagnosis (1) Upper gastrointestinal bleed Is this a current diagnosis for this admission?: Yes Plan: Resolved Prior to admission complained of nausea and vomiting with some bright red blood which began during her dialysis session and per patient consistently occurs during dialysis sessions Recommend patient is given antiemetics with each dialysis session to prevent vomiting episodes in the future Gastric and stool occult bloods both positive; no further bleeding since admission Antiemetics as needed Suspect mild esophageal tear from forceful vomiting Vomiting possibly due to diabetic gastroparesis Trend hemoglobin, transfuse for hemoglobin less than 7; after admission hemoglo bin went up to 11.5 General surgery consulted: No plans for intervention due to coronavirus risks o f procedures, conservative measures only Carafate, IV Protonix Advance diet, tolerating well No further bleeding, can have outpatient follow-up with GI assuming she still wants aggressive care instead of hospice (2) Hematemesis Qualifiers: Nausea presence: with nausea Qualified Code(s): K92.0 - Hematemesis Is this a current diagnosis for this admission?: Yes Plan: Secondary to #1. Evaluation and management as above. (3) End stage renal disease on dialysis Is this a current diagnosis for this admission?: Yes Plan: -Patient receives dialysis Tuesday. -Nephrology is consulted; dialysis per them -Monitor for fluid volume overload; daily weights, I&O's Per nephrology; patient is Hospice appropriate. 02/04/20: Unchanged. (4) COPD (chronic obstructive pulmonary disease) Is this a current diagnosis for this admission?: Yes Plan: Remains stable and without exacerbation at this time. (5) Diabetes Qualifiers: Diabetes mellitus type: type 2 Diabetes mellitus watermelon inspector insulin use: without fci use Chronic kidney disease stage: on chronic dialysis Is this a current diagnosis for this admission?: Yes Plan: Patient reports that she has diet-controlled diabetes; not on home medication regiment. Blood glucose well controlled on current diet Continue Accu-Cheks before meals and at bedtime with sliding scale insulin as needed. Hypoglycemia protocol in place. (6) Acute GI bleeding Is this a current diagnosis for this admission?: Yes Plan: Resolved. (7) CHF (congestive heart failure) Is this a current diagnosis for this admission?: Yes Plan: Unspecified whether systolic or diastolic as there are no records of echocardiogram in chart Per patient, she has CHF due to previous IA Home medications continued (8) Calciphylaxis Is this a current diagnosis for this admission?: Yes Plan: Patient continues to decline sodium thiosulfate Standard wound care per nursing protocols. PRN morphine as needed for discomfort Discharge planning consulted to discuss hospice placement. (9) High blood pressure Qualifiers: Hypertension type: unspecified Qualified Code(s): I10 - Essential (primary) hypertension Is this a current diagnosis for this admission?: Yes (10) History of IA (myocardial infarction) Is this a current diagnosis for this admission?: Yes Plan: Reported per patient with history of coronary stenting Continued on Plavix (11) History of coronary angioplasty with insertion of stent Is this a current diagnosis for this admission?: Yes (12) Nausea and vomiting Is this a current diagnosis for this admission?: Yes Plan: Antiemetics as needed. (13) Renal cell carcinoma Qualifiers: Laterality: right Qualified Code(s): C64.1 - Malignant neoplasm of right kidney, except renal pelvis Is this a current diagnosis for this admission?: Yes Plan: Reportedly not on any chemotherapy or specific treatment currently Follows with oncology outpatient -Per Nephrology: "overall poor prognosis. Unsure of current status of her metastatic renal carcinoma which she is follows at [place]. I have talked to her about discontinuation of dialysis at some point soon and to get hospice involved." -consulted SW for hospice eval Analgesics as needed. - Plan Summary Summary: COVID19 test pending for Hospice vs SNF placement; no suspicion for active infection at this time. 02/03/2020: Patient remains hemodynamically stable and alert and oriented to her baseline. She reported pain this morning; reminded nursing to utilize Tylenol and as needed morphine. Should the patient continue to complain of pain after morphine administration; please notify provider so the dose adjustments and frequencies can be made. Spoke with discharge planning, they believe that the family has appealed her discharge. Therefore will leave the remaining care plan unchanged; if we received word that the family is fully agreeable to hospice services, will begin to decrease/discontinue medications as appropriate and institute more thorough comfort measure orders. 02/04/20: No changes to current status or recommendations. Requested family members allow for transition to LOSS CONTROL ENGINEER; declined. Long goals of care discussion had; please see separate ACP note. - Time Time Spent with patient: 15-24 minutes Medications reviewed and adjusted accordingly: Yes Anticipated discharge: Hospice
[2020-02-04] MEDS: ACETAMINOPHEN 325 MG TABLET PO PRN (20:32)
[2020-02-04] MEDS: MIRTAZAPINE 15 MG TABLET PO SCH (21:45)
[2020-02-04] MEDS: NORTRIPTYLINE HCL 10 MG CAPSULE PO SCH (21:46)
[2020-02-05] MEDS: SUCRALFATE 1 GM TABLET PO SCH ×3 (00:35→12:07)
[2020-02-05] MEDS: LEVOTHYROXINE SODIUM 0.075 MG TABLET PO SCH (05:35)
[2020-02-05] MEDS: LEVOTHYROXINE SODIUM 0.1 MG TABLET PO SCH (05:35)
[2020-02-05] MEDS: PANTOPRAZOLE SODIUM 20 MG TABLET.DR PO SCH (05:36)
[2020-02-05] MEDS: INSULIN LISPRO 100 UNIT/ML 3 ML VIAL SUBCUT SCH ×2 (08:00→11:00)
[2020-02-05] MEDS: SEVELAMER HCL 800 MG TABLET PO SCH ×2 (08:00→12:05)
[2020-02-05] MEDS: DIAZEPAM 5 MG TABLET PO SCH (10:00)
[2020-02-05] MEDS: ESCITALOPRAM OXALATE 10 MG TABLET PO SCH (10:00)
[2020-02-05] MEDS: CLOPIDOGREL BISULFATE 75 MG TABLET PO SCH (10:00)
[2020-02-05] MEDS: AMLODIPINE BESYLATE 10 MG TABLET PO SCH (10:00)
[2020-02-05] MEDS: MORPHINE SULFATE 10 MG/5 ML ORAL SOLUTION UDCUP PO PRN (14:45)
[2020-02-05 15:37] VITALS: BP 128/59
--- NOTE | 2020-02-05 15:38 | PDOC TRANSFER SUMMARY ---
General - Admit/Disc Date/PCP Admission Date/Primary Care Provider: 01/27/20 12:57 AMOL TAM MD Discharge Date: 02/05/20 - Additional Information Resuscitation Status: Do Not Resuscitate Discharge Diet: As Tolerated Discharge Activity: Activity As Tolerated Prescriptions: Sucralfate 1 gm PO AC #900 oral.susp Home Medications: Diazepam [Valium 5 mg Tablet] 5 mg PO BID 12/07/17 Escitalopram Oxalate [Lexapro] 20 mg PO DAILY 12/07/17 Hydromorphone HCl [Dilaudid 2 mg Tablet] 2 mg PO Q4HP PRN 12/07/17 Hydroxyzine HCl [Atarax 25 mg Tablet] 25 mg PO Q8HP PRN 12/07/17 Mirtazapine [Remeron 15 mg Tablet] 15 mg PO QHS 12/07/17 Nitroglycerin [Nitrostat 0.4 mg (1/150 Gr) Tabs 25/Bottle] 0.4 mg PO Q5MP PRN 12/07/17 Nortriptyline HCl [Pamelor 10 mg Capsule] 10 mg PO QHS 12/07/17 Clopidogrel Bisulfate [Plavix 75 mg Tablet] 75 mg PO DAILY #0 12/23/17 Diclofenac Sodium 1 applic TP QID 01/25/20 Esomeprazole Magnesium [Nexium] 20 mg PO DAILY 01/25/20 Oxycodone HCl [Oxycontin] 15 mg PO Q12 01/25/20 Promethazine HCl [Phenergan 25 mg Tablet] 25 mg PO QID 01/25/20 Sevelamer HCl [Renagel 800 mg Tablet] 800 mg PO TID 01/25/20 Trazodone HCl [Desyrel 50 mg Tablet] 50 mg PO HSP PRN 01/25/20 Albuterol Sulfate [Ventolin 0.083% Neb 2.5 mg/3 mL Ampul] 2.5 mg NEB RTQ6HP PRN vial.neb 01/31/20 Levothyroxine Sodium [Synthroid] 175 mcg PO Q6AM #0 01/31/20 Midodrine HCl [Proamatine 5 mg Tablet] 10 mg PO TIDP PRN tablet 01/31/20 Sucralfate 1 gm PO AC #900 oral.susp 01/31/20 History of Present Illness Admission Date/PCP: 01/27/20 12:57 AMOL TAM MD History of Present Illness: CODY SHAW is a 70 year old female who was admitted to the hospital through the emergency room on 24 January with nausea vomiting and abdominal pain. Previous discharge summary please see the one dictated on 01/30. Patient is end- stage renal disease on dialysis Tuesday patient has renal carcinoma with bone metastases followed at [facility] also CVA without residual deficits, hypertension, hyperlipidemia, diet-controlled diabetes, COPD, upper GI bleed, hematemesis. Since the discharge summary on the patient's sister, Kyung, called the hospital and stated that no other family members or friends should made aware of any of the patient's medical status or condition. This would include patient's listed emergency contact, Sherry Maya. Patient is being discharged on Carafate, diet as tolerated, pain medicine as needed. Comfort measures. Hospice care She is currently a DNR. This is the recommendation of the it applications analyst as well as the hospitalist. Hospital Course Hospital Course: The see the previous dictation summary Physical Exam Vital Signs: Temp Pulse Resp BP Pulse Ox 98.0 F 87 16 145/65 H 99 02/05/20 10:30 02/05/20 10:30 02/05/20 10:30 02/05/20 10:30 02/05/20 10:30 Intake & Output 02/04/20 02/05/20 02/06/20 06:59 06:59 06:59 Intake Total 390 230 390 Output Total 200 Balance 390 30 390 Weight 64.2 kg 64.2 kg General appearance: PRESENT: mild distress - Complaining of generalized pain Respiratory exam: PRESENT: clear to auscultation santhosh. ABSENT: rales, rhonchi, wheezes Cardiovascular exam: PRESENT: RRR. ABSENT: diastolic murmur, rubs, systolic murmur Neurological exam: PRESENT: altered, awake Psychiatric exam: PRESENT: unusual affect Results Laboratory Results: 02/04/20 05:45 02/04/20 05:45 01/25/20 01/25/20 06:23 07:33 Troponin I Cancelled 0.048 Impressions: Chest X-Ray 01/25/20 06:06 IMPRESSION: 1. No acute pulmonary findings. 2. No change since 01/22/2020. Transfer Plan - Disposition Transfer Plan: Transfer to [facility] - Time Spent with Patient Time spent with patient: Greater than 30 Minutes Qualifiers PATIENT BEING DISCHARGED WITH ANY OF THE FOLLOWING DIAGNOSIS: No VTE patient discharged on overlapping Therapy?: No Stroke Pt being discharged on Anti-thrombolytic therapy?: No Reason(s) for not prescribing Anti-thrombolytic therapy:: Medical Contraindication Stroke Pt being discharged on Anti-coagulation therapy?: No Reason(s) for not prescribing Anti-coagulation therapy:: Medical Contraindication Stroke Pt being discharged on Statins?: No Reason(s) for not prescribing Statins therapy:: Medical Contraindication DC Pt being discharged on Aspirin therapy?: No Reason(s) for not prescribing Aspirin therapy:: Medical Contraindication DC Pt being discharged on Statins?: No Reason(s) for not prescribing Statin therapy:: Medical Contraindication DC Pt discharged ACEI/ARBS?: No Plan Discharge Plan: Hospice care, DNR Time Spent: Greater than 30 Minutes
== END 2020-02-05 15:39 | disposition hospice, inpatient (51) | DRG 377 ==
LOC: ER 05:51 → EH 09:56 → INTOOBSV 09:56 → 4W 14:31 → 4N 17:07 → OBSVTOIN 01-27 12:57
PROVIDERS: ADMIT Hospitalist; ATTEND Physician Assistant
PROC: 5A1D70Z Performance of Urinary Filtration, Intermittent, Less than 6 Hours Per Day (ICD-10-PCS; principal; 2020-01-25)
DX: K92.2 Gastrointestinal hemorrhage, unspecified (principal); N18.6 End stage renal disease; I13.2 Hypertensive heart and chronic kidney disease with heart failure and with stage 5 chronic kidney disease, or end stage renal disease; E11.52 Type 2 diabetes mellitus with diabetic peripheral angiopathy with gangrene; I96 Gangrene, not elsewhere classified; C64.1 Malignant neoplasm of right kidney, except renal pelvis; K92.0 Hematemesis; I50.9 Heart failure, unspecified; E21.2 Other hyperparathyroidism; I16.0 Hypertensive urgency; E87.6 Hypokalemia; E78.00 Pure hypercholesterolemia, unspecified; E11.22 Type 2 diabetes mellitus with diabetic chronic kidney disease; K21.9 Gastro-esophageal reflux disease without esophagitis; J44.9 Chronic obstructive pulmonary disease, unspecified; E83.59 Other disorders of calcium metabolism; I25.2 Old myocardial infarction; Z60.2 Problems related to living alone; Z90.5 Acquired absence of kidney; Z79.01 Long term (current) use of anticoagulants; Z79.51 Long term (current) use of inhaled steroids; Z79.899 Other long term (current) drug therapy
CPT/HCPCS: 36415; 36430; 71045; 80048; 80053; 82270; 82271; 82962; 83690; 83735; 83970; 84484; 85025; 85027; 85610; 85730; 86850; 86900; 86901; 87635; 93005; 93010; 96365; 96366; 96374; 96375; 99285; C9113; G0378; J0360; J1940; J2405; J2550; J3490; J7050; P9016